=== PATIENT | female | born 1955 | race Caucasian/White ===

== ENCOUNTER → 2018-11-06 12:28 | Outpatient (CLI) | payer OTHER, SELFPAY ==
--- NOTE | 2018-11-06 12:36 | CT_ITS ---
STUDY: CARDIAC CALCIUM SCORING - CT CHEST REASON FOR EXAM: Female, 63 years old. Shortness of breath. Family history of cardiac disease. TECHNIQUE: Axial non-enhanced images were acquired through the heart for the sole purpose of measuring coronary artery calcium. Individualized dose optimization techniques were used for this CT. COMPARISON: None. FINDINGS: Please see the patient's medical record for a personalized calcium score. There is a 0.9 x 0.5 cm nodule in the left lower lobe (image 55 series 2). The visualized lungs are otherwise clear. There are calcified mediastinal and hilar lymph nodes, consistent with prior granulomatous disease. IMPRESSION: Please see the patient's medical record for a personalized calcium score. 0.9 x 0.5 cm nodule in the left lower lobe. A dedicated chest CT is recommended. Please go to: [email or web address] , for a description of the calculator. Electronically Signed: Adria Heard, at 16:10 EDT Tel , Service support , STUDY: CTA CORONARY REASON FOR EXAM: Female, 63 years old. Family history of coronary artery disease. RADIATION DOSAGE (If Supplied By Facility): CTDIvol = ( 16.44 ) mGy, DLP = ( 745.47 ) mGycm TECHNIQUE: Tomographic images were obtained of the heart and chest with a 64 detector row scanner using slice thicknesses of less than 1 mm. 60mL IV Isovue 370 was administered. Post-processing of the angiographic images was performed, with multiplanar reformation and 3D reconstruction. Individualized dose optimization techniques were used for this CT. COMPARISON: None. FINDINGS: Please see the patient's medical record for results of the CT angiogram. There is a 0.9 x 0.5 cm nodule in the left lower lobe (image 163 series 4). The visualized lungs are otherwise clear. There are calcified mediastinal and hilar lymph nodes, consistent with prior granulomatous disease. CT/Limited Chest CT w/CCTA IMPRESSION: Please see the patient's medical record for results of the CT angiogram. 0.9 x 0.5 cm nodule in the left lower lobe. A dedicated chest CT is recommended. Electronically Signed: Adria Heard, at 16:13 EDT Tel , Service support ,
[2018-11-06 12:53] VITALS: BP 117/64; PULSE 66; RESP 16; O2SAT 97; BMI 40.6
[2018-11-06 13:06] LABS: CREATININE FINGERSTICK 0.9 mg/dL (0.55-1.02); EGFR FINGERSTICK > 60.0000 mL/min (>60)
[2018-11-06] MEDS: Nitroglycerin SL (ED/IMG/CATH) 0.4 MG TABLET SUBLINGUAL (13:11)
[2018-11-06 13:24] VITALS: BP 136/70; PULSE 73; RESP 16; O2SAT 95
--- NOTE | 2018-11-07 08:57 | CCTA.WCONT ---
CCTA w/Cont Coronary Arteries Date of Study:: 11/06/18 Shortness of breath High-resolution computed tomographic imaging was performed on 11/07/2019 of the coronary arteries. Intravenous contrast was also injected and 0.625 mm slices were performed. The images were reconstructed and the anatomy evaluated. There was evidence of misregistration artifact noted. LEFT MAIN CORONARY ARTERY: [Normal]-this arises from the left coronary cusp LEFT ANTERIOR DESCENDING CORONARY ARTERY: [No significant atherosclerotic plaquing noted there is misregistration artifact noted in the mid LAD and obstruction cannot be completely excluded] LEFT CIRCUMFLEX CORONARY ARTERY: [Peers to be angiographically normal. Misregistration artifact noted] RIGHT CORONARY ARTERY: [Dominant vessel bifurcating to the posterior descending artery. The mid right coronary artery demonstrates misregistration artifact] THORACIC AORTA: [Normal] PULMONARY ARTERY: [] LEFT ATRIUM/APPENDAGE: [] MITRAL VALVE: [] AORTIC VALVE: [Grossly normal] LEFT VENTRICLE: [] CORONARY CALCIUM SCORE: [No coronary calcium noted] Conclusion: Coronary calcium score of 0 with no obstructive coronary disease noted. The misregistration artifact however may confound the assessment of nonobstructive coronary plaque noted.
== END ==
PROVIDERS: Family Provider Nurse Practitioner Primary Care; PCP Nurse Practitioner Primary Care; Referring Provider Nurse Practitioner Family; Visit Provider Nurse Practitioner Family
DX: R06.02 Shortness of breath (principal); I48.0 Paroxysmal atrial fibrillation
CPT/HCPCS: 75571; 75574; 76380; Q9967; A4216

== ENCOUNTER → 2022-03-10 | Outpatient (CLI) | payer OTHER, SELFPAY ==
[2022-03-23 19:27] LABS: HPV APTIMA, High Risk Positive (Negative)
== END | disposition home or self-care (01) ==
LOC: LABSPEC 16:02
PROVIDERS: PCP Nurse Practitioner Primary Care; Visit Provider Obstetrics & Gynecology
DX: Z78.0 Asymptomatic menopausal state (principal)
CPT/HCPCS: 87624; 88175; G0145

== ENCOUNTER → 2022-03-15 | Outpatient (CLI) | payer OTHER, SELFPAY ==
--- NOTE | 2022-03-15 13:21 | CT_ITS ---
INDICATION: Known carcinoma, restaging EXAMINATION: CT CHEST WITH CONTRAST - CT Chest W/ Contrast Injection TECHNIQUE: Helically acquired images were obtained of the chest following IV contrast. A radiation dose optimization technique was used for this scan. IV Contrast dosage and agent: COMPARISON: PET study from 03/09/2022 FINDINGS: LUNGS, PLEURA AND LARGE AIRWAYS: Lung windows show the lungs to be normally expanded. No organized infiltrate, effusion, or suspicious noncalcified mass or nodule. No pleural effusion or thickening. No pneumothorax. THYROID: No thyroid lesions. HEART AND PERICARDIUM: Heart size is normal. No pericardial effusion. There are calcified coronary vessels VESSELS: Thoracic aorta is not dilated. No aortic dissection. No obvious central pulmonary embolism although this study was not performed with the pulmonary embolism protocol. MEDIASTINUM AND SUDHEER: No suspicious mediastinal or hilar adenopathy. Esophagus is unremarkable. No hiatal hernia. UPPER ABDOMEN: No acute pathology. BONES: Bony structures show degenerative change with a hemangioma noted at T3 CT/Chest WITH Contrast IMPRESSION: No acute pulmonary process, no suspicious noncalcified mass or nodule No suspicious adenopathy Degenerative bony changes Electronically Signed: Paras Bower MD at 10:57 EST ,
[2022-03-15 13:50] LABS: CREATININE FINGERSTICK 0.9 mg/dL (0.55-1.02); EGFR FINGERSTICK > 60.0000 mL/min (>60)
== END | disposition home or self-care (01) ==
LOC: CT 13:20
PROVIDERS: PCP Nurse Practitioner Primary Care; Referring Provider Internal Medicine Medical Oncology; Visit Provider Internal Medicine Medical Oncology
DX: C21.8 Malignant neoplasm of overlapping sites of rectum, anus and anal canal (principal)
CPT/HCPCS: 71260; Q9967

== ENCOUNTER → 2022-03-18 | Outpatient (CLI) | payer OTHER, SELFPAY ==
--- NOTE | 2022-03-18 07:55 | MRI_ITS ---
STUDY: MR PELVIS WITH T WITHOUT CONTRAST REASON FOR EXAM: Female, 67 years old. STAGING ANORECTAL CA TECHNIQUE: Standardized fat and water weighted pulse sequences were obtained in all 3 orthogonal planes, pre-and post contrast administration. 25CC CLARISCAN was administered for the contrast portion of the examination. COMPARISON: PET scan 03/09/2022 FINDINGS: Normal urinary bladder. Normal visualized small intestine. Solid polypoidal mass of the lower rectum extending into the upper anal canal measures 3.8 x 3.0 x 4.8 cm as seen on image 17 series 8 and image 29 of series 5. The mass extends beyond the muscularis propria and invades into the posterior wall of the lower vagina (image 29 series 15, image 27 series 13). There is mass invasion into the internal and external anal sphincters particularly along the left side (image 19 series 8). The mass extends into the lower puborectalis muscle on image 19 of series 8 but NOT into the adjacent ischioanal fat. Mildly enlarged bilateral inguinal lymph nodes are identified including 8.9 x 12.6 mm lymph node in the right inguinal region on image 31 of series 4. Nasal rectal lymph nodes are also identified with the largest single lymph node on image 28 of series 4 measuring 9.0 x 11.2 mm with several small (measuring up to 6.2 mm) lymph nodes in the mesorectal fat on image 24 of series 4. Superior rectal chain lymph nodes are also identified measuring up to 7.3 mm (image 15 series 4). A round, mildly heterogeneous 6 mm lymph node adjacent to the left common iliac artery seen on image 16 of series 8 (2 malignant morphologic criteria met). A total of 11 suspicious local regional lymph nodes are identified. There is no pelvic fluid. There is no pelvic mass lesion or lymphadenopathy. Uterus is unremarkable. There is a small cyst along the anterior/lateral vagina at the level of the pubic symphysis (Jae duct cyst). Normal visualized pelvic arteries. Normal osseous structures. Operative changes of the lower anterior abdominal wall. MRI/Pelvis W/WO Contrast IMPRESSION: 1. 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 Several (total of 11) mesorectal, superior rectal, inguinal (N2b). At least one suspicious (round, heterogeneous, 6 mm) left common iliac lymph node (M1). Electronically Signed: Jason Barber (Brooks), at 9:13 EST Reading Location ID and State: [facility] / [place] , Service support ,
== END | disposition home or self-care (01) ==
LOC: MRI 07:55
PROVIDERS: PCP Nurse Practitioner Primary Care; Referring Provider Internal Medicine Medical Oncology; Visit Provider Internal Medicine Medical Oncology
DX: C21.8 Malignant neoplasm of overlapping sites of rectum, anus and anal canal (principal)
CPT/HCPCS: 72197; A9575

== ENCOUNTER 2022-03-29 12:55 | Day surgery (SDC) | payer OTHER, SELFPAY ==
--- NOTE | 2022-03-25 13:40 | EKG12_ITS ---
Test Reason : PREOP Blood Pressure : / mmHG Vent. Rate : 070 BPM Atrial Rate : 070 BPM P-R Int : 168 ms QRS Dur : 086 ms QT Int : 384 ms P-R-T Axes : 068 005 042 degrees QTc Int : 414 ms Normal sinus rhythm Normal ECG Confirmed by ROBERTO JACKSON, OG ([id number]), medical editor NANCY CASPER ([id number]) on 03/28/2022 10:53:57 AM Referred By: Willy Gaytan Confirmed By:POOL MEJIA MD
[2022-03-29] VITALS (8 sets, daily range): BP systolic 114–144; BP diastolic 50–67; PULSE 47–78; RESP 16–18; TEMP 36.1–37.1; O2SAT 96–100; BMI 39.9
--- NOTE | 2022-03-29 | IMM_PTH ---
PATIENT: LOUIE DOWNEY LOC: [facility] [place] U#:[id number] AGE/SX: 67/F ROOM: RE03/29/[address]: Dr. Pam Joshua DO : 1955 BED: DIS: 03/29/2022 SPEC #: [id number] RECD: 03/31/22 14:11 STATUS: SAKSHI RELenore #: [id number] TAMICA: 03/29/22 00:[address]: Pam Joshua DEPT: IMMUNOHISTOCHEMISTRY RECD BY: Kimmy Downing ENTERED: 03/31/22 14:12 SP TYPE: IMMUNO OTHR DR: Lisa Jordan, LAUNDRY OPERATOR FINISHING-C Tissues: UTERINE CERVIX LEEP Procedures: p16 (initial) KI-67 (add) PHYSICIAN & INSTITUTION [place] [id number] SPECIMEN INFORMATION: Tissue Source: LEEP cone, cervix Clinical Info: Squamous cell carcinoma of anus, HPV + HGSIL pap results Specimen Number: [id number] CPT code: 77696, 73427 METHODOLOGY: Deparaffinized sections of prefer/formalin-fixed tissue or PAP/DQ stained slides are incubated with monoclonal/polyclonal antibodies/oligonucleotide probes. Localization is made via biotin free immunoperoxidase method. Appropriate controls are performed and reacted as expected. Results on target cell population are indicated in the following table: RESULTS: ANTIBODY / CLONE RESULT P16 (E6H4) positive, focal patchy staining Ki-67 (30-9) negative These tests were developed and their performance characteristics determined by [facility]. They may not have been cleared or approved by the U.S. Food and Drug Administration. The FDA has determined that such clearance or approval is not necessary. The above immunohistochemical/dualISH markers are ordered and reviewed by the Pathologist. INTERPRETATION: Cervix, LEEP cone biopsy: Focal changes suspicious for HPV cytopathic effects. SARA:trent 04/01/2022
[2022-03-29] MEDS: Lactated Ringers 1,000 ML 15 ML IV ×2 (14:06→16:00)
--- NOTE | 2022-03-29 14:30 | CONE_PTH ---
PATIENT: LOUIE DOWNEY LOC: [facility] [place] U#:[id number] AGE/SX: 67/F ROOM: RE03/29/[address]: Dr. Pam Joshua DO : 1955 BED: DIS: 03/29/2022 SPEC #: [id number] RECD: 03/30/22 07:32 STATUS: SAKSHI MERRILL #: [id number] TAMICA: 03/29/22 14:[address]: Pam Joshua DEPT: SURGICAL PATHOLOGY RECD BY: Deidre Kruger ENTERED: 03/30/22 07:44 SP TYPE: Leep Cone FAMILIA DR: Lisa Jordan, LEAD ATHLETE-C Tissues: UTERINE CERVIX LEEP Procedures: Surgery Specimen Level V HEADER OPERATION: LEEP cone PRE-OP DIAGNOSIS: Squamous cell carcinoma of anus, HPV + HGSIL pap results TISSUE SUBMITTED: LEEP cone, cervix MICROSCOPIC DIAGNOSIS Cervix, LEEP cone biopsy: Focal changes suspicious for HPV cytopathic effects. Chronic inflammation. Negative for carcinoma. SJ:trent 03/31/2022 COMMENT Immunohistochemistry ([id number]) for surrogate HPV marker (p16) supports the above diagnosis. Case has been reviewed in consultation with Dr. Holliday who concurs with the above diagnosis. IDC:AM MICROSCOPIC DESCRIPTION Slides are reviewed. GROSS DESCRIPTION Received in fixative is one container labeled with the patient's name and designated LEEP cone. The specimen consists of four irregular fragments of patel tissue ranging in size from 1 to 2.2 cm. No gross lesions are identified. The fragments are inked, serially sectioned and totally submitted in four cassettes. / AM:trent 03/30/2022 TC:5 CPT: 82369
--- NOTE | 2022-03-29 14:30 | PCM.HP.BLA ---
History and Physical Date of Admission: 03/29/22 Intake Vital Signs ? 03/10/2214:40 03/10/2214:43 Height 5 ft 9 in 5 ft 9 in Weight: ? 279 lb BMI ? 41.2 Intake Visit Reasons:?per JV Chief Complaint: biopsy Steward/Stewardess Deck Required: No Is patient in pain?: Yes Allergies meperidine [From Demerol] Allergy (Verified 03/10/22 09:38) Unknownoxaprozin Allergy (Verified 03/10/22 09:38) Unknown Medications alprazolam 0.25 mg tablet (Xanax) 0.25 mg PO DAILY 02/28/22 [History Confirmed 03/10/22] aspirin 325 mg tablet 325 mg PO DAILY 02/28/22 [History Confirmed 03/10/22] diltiazem HCl 120 mg capsule,extended release 12 hr 120 mg PO BID 02/28/22 [History Confirmed 03/10/22] metoprolol succinate 25 mg tablet,extended release 24 hr 25 mg PO DAILY 02/28/22 [History Confirmed 03/10/22] omeprazole 20 mg capsule,delayed release 20 mg PO DAILY 02/28/22 [History Confirmed 03/10/22] propafenone 150 mg tablet 150 mg PO Q8H 02/28/22 [History Confirmed 03/10/22] simvastatin 20 mg/5 mL (4 mg/mL) oral suspension 20 mg PO DAILY 02/28/22 [History Confirmed 03/10/22] Is last menstrual period known: No Post menopausal: Yes Patient : No : No PFSH Medical History?(Updated 03/10/22 @ 14:48 by Fadumo Muhammad) Afib Breast cancer Esophageal reflux Sleep apnea Surgical History?(Updated 03/10/22 @ 14:48 by Fadumo Muhammad) H/O section History of laparoscopy Hx of mastectomy Family History?(Updated 03/10/22 @ 14:48 by Fadumo Muhammad) Father?? Myocardial infarctionMother?? COPD (chronic obstructive pulmonary disease)Other Colon cancer Social History?(Updated 03/10/22 @ 14:49 by Fadumo Muhammad) Smoking Status:? Never smoker alcohol intake:? current details:? social substance use type:? does not use caffeine:? Yes seatbelt use:? always do you feel safe at home:? Yes additional social history:? retired- HPI per JV Details: Patient presents to [facility] OR for scheduled colposcopy and LEEP procedure. LOUIE DOWNEY is a 67 year old ( section) who presents for a vaginal exam due to finding of mass protruding into her vagina discovered by Dr. Scott. She has a known carcinoma of squamous cell origin but site still not completely known. PET Scan from today is pending. She states that she had one inconclusive pap back in 2015 but from 2005 to 2011 she had normal paps with her PCP and was told that she did not need any more pap smears. She went through menopause at age 48 and never took hormone replacement therapy. She used OCPs prior to the of her daughter and then during her section had a tubal ligation. In 1983 she was diagnosed with breast cancer and treated with Tamoxifen for 5 years. She denies ever having had any postmenopausal bleeding. ?This is her series of events this far: on 02/09/2022: Patient was seen by GI with a complaint of rectal bleeding that started over the summer. She thought it was hemorrhoid tissue and that when she wiped she felt an abnormal tissue. She called her GI who put her on his schedule in March 2022, but was put on a waiting list and was added in before .? On exam there were no hemorrhoids or masses or lesions noted in the perineum, anus or rectum, patient had normal sphincter tone. 02/18/2022: Patient completed colonoscopy to the cecum with biopsy of small sessile polyp in the cecum and a biopsy of a mass in the rectum.? Scope exam revealed a large hemorrhoid and/or a possible mass within the hemorrhoid in the rectum and biopsies were taken of this lesion.? Pathology demonstrated focal keratinizing squamous cell carcinoma with at least in situ disease, superficial biopsy and invasion cannot be assessed. 02/19/2022: CT abdomen/pelvis with contrast was performed.? This demonstrated a large volume of free intraperitoneal air consistent with perforation, the exact site of perforation not clearly visualized.? There is asymmetric wall thickening of the rectum.? There are small renal lesions which are likely cysts but too small to characterize.? There is a small hiatal hernia.? No other abnormalities are appreciated. 02/19/2022: Patient completed exploratory laparotomy and partial colectomy with rigid sigmoidoscopy and wound VAC application due to having pneumoperitoneum on CT scan with evidence of diverticular disease.? There is noted to be a small perforation in the cecum from barotrauma, no evidence of mass or neoplasia.? There is no surrounding feculent or purulent peritonitis.? Within the distal mid and proximal rectum there is a firm fixed distal anterior rectal mass along the rectovaginal septum abutting the dentate line which was biopsied with a uterine biopsy device.? The area is ulcerated and firm and has a friable mass that bleeds easily.? This extends from the dentate line for approximately one quarter of the circumference of the distal rectum and extends to the mid rectum approximately 4-5 cm.? Pathology demonstrated invasive moderately differentiated squamous cell carcinoma with focal keratinization in the background of squamous cell carcinoma in situ. 03/10/22 PET scan performed - results pending. History ? ? ? 1 ? Elective abortions ? Hx Para ? ? ? 1 ? Spontaneous abortions ? Hx # Term Pregnancies ? Ectopic pregnancies ? Hx # Pregnancies ? Multiple births ? # of living children ? Past Pregnancies Del. Date Name GA/Weeks Outcome Route Bth Weight Gen Labor Lgth Anesthesia Del Locatn Provider FOB Unknown [place] ? ROS Const ROS Unobtainable: All systems reviewed & are unremarkable except as noted in H Resp Resp: Reports system reviewed and no additional complaints, except as documented; Denies cough GI GI: Reports as per HPI Psych Psych: Reports system reviewed and no additional complaints, except as documented Exam Const General: cooperative, healthy appearing, comfortable and no acute distress Neck Neck: normal visual inspection and no lymphadenopathy Resp Effort & Inspection: normal respiratory effort GI Palpation: tender (wound vac in place over midline vertical skin incision. ) and other General: bladder normal to inspection External Female Exam: normal external appearance and normal appearance of the urethra Urethra: normal appearance of the urethra Speculum Exam - Vagina: other Other: A small size speculum was placed in the vagina with some initial difficulty due to a palpable posterior vaginal/rectal mass. Once past the mass the vaginal kerr appeared normally atrophic and the cervix was visible, smooth and normal appearing from what could be visualized with some difficulty. A pap was collected and caused a small amount of bleeding from the atrophied tissue. On bimanual exam the cervix palpates smooth without lesions and the rectal mass is palpated closer to the introitus. The mass does not appear to be coming from the vagina or cervix or uterus on my exam. Pt declines rectal exam stating that this was done today by Dr. Scott. No biopsies were taken Skin General: no rashes or lesions noted Psych Appearance: grossly normal Speech and Movement: speech and movement normal Coding Level of Care Code Off vis,new,level 4 Diagnoses Squamous cell carcinoma of anus? C21.0 Assessment and Plan Assessment and Plan (1) Squamous cell carcinoma of anus: ?Status:?Acute ?Plan: will look forward to seeing results of MRI, however this does not feel like a vaginal cancer. There are no ulcers, odor, fistula, or other lesions in the vagina other than atrophy and difficult exam due to enlarged mass from rectum pushing into the introitus between the rectovaginal tissue. ? ? ? Orders: Orders PAP IG HPV APTIMA 16/18,45 Today ? ? (2) HPV + HGSIL pap results - pt will need OR assessment of the cervix with colposcopy and leep/cone After discussing the patient's diagnosis and treatment plan options, patient wishes to proceed with surgical management. I have discussed with the patient the risks, benefits, and alternatives of the procedure which include but are not limited to risks of anesthesia, bleeding, infection, possible damage to bowel, bladder, or surrounding vasculature which could lead to additional surgery to evaluate any complications. Patient agrees to procedure and wishes to proceed. ACOG/uptodate references given for additional information regarding procedure. UPDATE- I have seen the patient and performed any clinically relevant updates to the history and physical exam. Pam Joshua,
--- NOTE | 2022-03-29 14:45 | DCINST_ITS ---
Discharge Instructions Diet Discharge Diet: No restrictions Activity Discharge Activity: Return to Normal Activity and [address] (while taking narcotic pain mediations.) May resume sexual activity in: 4 weeks (Nothing in the vagina for 4 weeks.) Dressing / Incision Call your doctor if you observe: Fever of 101 or Higher and Using more than 1 pad per hour Follow Up Care Please Follow Up With: Pam Joshua DO When: Call [phone] for follow-up appointment. Test Results: Test results from this visit will be discussed in further detail at your follow- up appointment, if applicable. Discharge Plan Admission Primary Reason for Your Visit: LEEP procedure and port placement Attending Provider: aPm Joshua Primary Care Provider: Lisa Jordan NP Instructions Patient Instructions: Leep Discharge Orders/Prescriptions Prescriptions: New oxycodone-acetaminophen [Percocet] 5-325 mg tablet 1 tab PO Q4H PRN (Reason: pain) 3 Days Qty: 10 0RF Rx Instructions: 1-2 tabs q 4 hrs as needed for pain No Action omeprazole 20 mg capsule,delayed release(DR/EC) 20 mg PO DAILY alprazolam [Xanax] 0.25 mg tablet 0.25 mg PO PRN PRN (Reason: Anxiety) diltiazem HCl 120 mg capsule,extended release 12 hr 120 mg PO DAILY metoprolol succinate 25 mg tablet extended release 24 hr 25 mg PO DAILY propafenone 150 mg tablet 150 mg PO PRN PRN (Reason: AF) simvastatin 20 mg Tablet 20 mg PO QHS Centrum Silver Ultra Women's Tablet 1 tab PO DAILY Referrals / Follow Up: Lisa Jordan NP, [facility] [Primary Care Provider] - Disposition Disposition (needs filled in before D/C Order can be placed): Home, Self Care
[2022-03-29] MEDS: Lidocaine 2% /Epi 1:100 (20ml) 20 ML VIAL (15:15)
[2022-03-29] MEDS: Iodine/Potassium Iodide 14ML Bottle 1 DRP TOPICAL (15:39)
[2022-03-29] MEDS: FERRIC SUBSULFATE 8 GM SOLN (15:45)
--- NOTE | 2022-03-29 15:53 | PCM.OP.BLANK ---
Operative Report Date of Procedure: 03/29/22 Preoperative diagnosis: HGSIL, + HPV, rectal cancer Postoperative diagnosis: HGSIL, + HPV, rectal cancer Procedure: LEEP (loop electrocautery excisional procedure) Surgeon: Dr. Pam Joshua DO Estimated blood loss: Minimal Urine output: 20 cc Anesthesia: general and local using 2% lidocaine Details of the procedure: Patient was brought to the operating room where MAC anesthesia was found to be adequate. She was prepped and draped in the usual sterile fashion her legs were placed in stirrups. A thermal protected speculum was placed in the vagina. Lugol's solution was applied to the cervix. At the 2 and 10 o'clock position on the cervix 1% lidocaine plain was injected approximately 10 cc amount. Using the leep biopsy device on the Bovie, the LEEP procedure was performed. The specimen was then passed off for pathology analysis. There was minimal bleeding on the cervical edge the ball cautery device was used to cauterize the cut edges of the LEEP site. Followed by application of Monsel solution. The patient tolerated the procedure well sponge lap and needle counts were correct x2 and all instruments removed from the vagina and she is now being brought to the recovery room in stable condition. Multi Select Codes Urinary/Genital Urinary/Genital CPT Codes: 59304 LEEP
[2022-03-29] MEDS: Bupiv/Epi 0.5% Mpf 30 ML Vial (16:00)
--- NOTE | 2022-03-29 17:00 | RAD_ITS ---
INDICATION: PORT PLACEMENT EXAMINATION/TECHNIQUE: X-RAY - portable upright AP chest x-ray COMPARISON: Chest CT 03/15/2022 FINDINGS: LINES/DEVICES: Right-sided port, tip in the SVC near the cavoatrial junction. LUNGS: Bibasilar streaky opacities consistent with subsegmental atelectasis. No consolidation or pleural effusion. MEDIASTINUM AND CARDIOVASCULAR STRUCTURES: Cardiac silhouette not enlarged. Central airways and mediastinal contour are unremarkable. BONES AND SOFT TISSUES: No acute changes. RAD/CXR for Line Placement IMPRESSION: No radiographic evidence of acute cardiopulmonary disease. Electronically Signed: Yazan Espinoza MD at 17:45 EST ,
--- NOTE | 2022-03-29 17:18 | OP.PCM_ITS ---
Report of Operation Date of Procedure: 03/29/22 Pre-Operative Diagnosis: Need for vascular assess for chemotherapy Post-Operative Diagnosis: Same Surgery/Procedure Performed:: Ultrasound and fluoroscopy guided right chest port placement utilizing right IJ Description of Procedure: After obtaining informed consent patient was brought back to the operating room MAC anesthesia was induced and the right chest and neck were prepped in normal s terile fashion. Ultrasound was used to evaluate both IJs and the right IJ was selected. Next, using a needle, the right IJ was accessed and a guidewire was passed on into the superior vena cava under fluoroscopy guidance. A small incision was made over the puncture site and the dilator introducer was placed over the guidewire. Next this was capped and the pocket was made for the port. 1% lidocaine with epinephrine was injected in the proposed port site. An incision was made with scalpel. Electrocautery was used to make a pocket under the skin and subcutaneous tissue. Hemostasis was obtained. Next, the catheter was tunneled up to the neck incision site and placed through the introducer. The peel-away introducer was removed and the position of the catheter was confirmed on fluoroscopy. Next, the catheter was trimmed and attached to the port with the locking device. Interrupted 2-0 Vicryl sutures were used to anchor the port to the chest wall and then the port was placed inside the pocket. The pocket was then flushed with saline and the port irrigated with saline. There was good blood return and the port flushed easily. Next, heparin was injected into the port. The skin was closed with subcutaneous interrupted 3-0 Vicryl sutures. A single 3-0 Vicryl sutures placed under the skin at the neck incision site. Steri-Strips were placed as well as op sites. Patient ernie erated procedure well, was taken to PACU in stable condition. Chest x-ray will be obtained. Grafts/Implants Used: 8 [place] PowerPort Admit VTE Documentation VTE Mechan Device Prophylaxis: SCD's
--- NOTE | 2022-03-29 17:19 | EX.PCM.DISCH ---
Discharge Instructions Procedure Port-A-Cath Diet Discharge Diet: No restrictions Activity Discharge Activity: Return to Normal Activity and May Shower (with your bandage in place in 1-2 days after surgery. DO NOT SHOWER WHEN YOUR PORT IS ACCESSED.) May resume sexual activity in: 4 weeks (Nothing in the vagina for 4 weeks.) Dressing / Incision Call your doctor if your incision/area has: Continuous Slow Oozing, Sudden Increased Bleeding, Increased Pain/ Swelling, Increased Redness and Foul Smelling Discharge Call your doctor if you observe: Fever of 101 or Higher and Using more than 1 pad per hour Remove Dressing in: 2 days Cleanse incision/area with: Soap & Water Follow Up Care Please Follow Up With: Pam Joshua, When: as needed [phone] Test Results: Test results from this visit will be discussed in further detail at your follow-up appointment, if applicable. Discharge Plan Admission Primary Reason for Your Visit: LEEP procedure and port placement Attending Provider: Pam Joshua Primary Care Provider: Lisa Jordan NP Instructions Patient Instructions: Leep Discharge Orders/Prescriptions Prescriptions: New oxycodone-acetaminophen [Percocet] 5-325 mg tablet 1 tab PO Q4H PRN (Reason: pain) 3 Days Qty: 10 0RF Rx Instructions: 1-2 tabs q 4 hrs as needed for pain No Action omeprazole 20 mg capsule,delayed release(DR/EC) 20 mg PO DAILY alprazolam [Xanax] 0.25 mg tablet 0.25 mg PO PRN PRN (Reason: Anxiety) diltiazem HCl 120 mg capsule,extended release 12 hr 120 mg PO DAILY metoprolol succinate 25 mg tablet extended release 24 hr 25 mg PO DAILY propafenone 150 mg tablet 150 mg PO PRN PRN (Reason: AF) simvastatin 20 mg Tablet 20 mg PO QHS Centrum Silver Ultra Women's Tablet 1 tab PO DAILY Referrals / Follow Up: Lisa Jordan NP, MOTHER TESTER-C [Primary Care Provider] - Disposition Disposition (needs filled in before D/C Order can be placed): Home, Self Care
== END 2022-03-29 19:30 | disposition home or self-care (01) ==
LOC: SDC 12:57 → AC 12:58
PROVIDERS: Surgery; PCP Nurse Practitioner Primary Care; Referring Provider Obstetrics & Gynecology; Visit Provider Obstetrics & Gynecology
PROC: 0UBC7ZZ Excision of Cervix, Via Natural or Artificial Opening (ICD-10-PCS; CPT 57522; principal; 2022-03-29 14:15)
PROC: (CPT 36561; 2022-03-29 14:15)
DX: Z45.2 Encounter for adjustment and management of vascular access device (principal); C21.0 Malignant neoplasm of anus, unspecified; I48.91 Unspecified atrial fibrillation; I34.1 Nonrheumatic mitral (valve) prolapse; I10 Essential (primary) hypertension; E78.00 Pure hypercholesterolemia, unspecified; R87.613 High grade squamous intraepithelial lesion on cytologic smear of cervix (HGSIL); R87.810 Cervical high risk human papillomavirus (HPV) DNA test positive; Z79.82 Long term (current) use of aspirin; Z79.899 Other long term (current) drug therapy; Z85.3 Personal history of malignant neoplasm of breast
CPT/HCPCS: 57522; 36561; 00940; 71045; 77001; 88307; 88341; 88342; 93005; J7120; C1788; J2405

== ENCOUNTER → 2022-03-29 | Outpatient (CLI) | payer OTHER, SELFPAY | END | disposition home or self-care (01) | LOC: PAT 04-27 15:18 | PROVIDERS: PCP Nurse Practitioner Primary Care; Referring Provider Surgery; Visit Provider Surgery | DX: Z01.818 Encounter for other preprocedural examination (principal) | CPT/HCPCS: 77001 ==

== ENCOUNTER → 2022-04-01 | Outpatient (CLI) | payer OTHER, SELFPAY ==
--- NOTE | 2022-04-01 13:40 | ECHODONC_ITS ---
Version 2 Reason For Study: Pre Chemo Procedure This was a 2D Doppler, Color Flow transthoracic echocardiogram. Myocardial strain analysis was performed in this exam to aid in the assessment of cardiac function. The study was technically difficult. Patient refused Bubble Study. Exam performed in department. Left Ventricle Normal LV size. Left ventricular systolic function is normal. The estimated ejection fraction is 60 %. Stage 1 diastolic dysfunction. No regional wall motion abnormalities noted. Right Ventricle Normal RV size. Normal systolic function. Atria The left atrium is mildly enlarged. Normal right atrium. Mitral Valve Normal mitral valve. Tricuspid Valve Normal tricuspid valve. Aortic Valve Trisinus/trileaflet aortic valve. Pulmonic Valve The pulmonic valve is not well visualized. Great Vessels Mildly dilated aortic root. The pulmonary artery is normal size. Inferior vena cava collapse with respiration. Pericardium/Pleural No pericardial effusion. MMode/2D Measurements & Calculations LVIDd: 4.5 cm IVSd: 1.6 cm Ao root diam: 3.8 cm LVIDs: 3.3 cm LVPWd: 1.1 cm LA dimension: 4.4 cm RVDd: 4.5 cm FS: 26.8 % LAV(MOD-bp): 70.6 ml LA A4 area: 22.2 cm2 RA A4 area: 16.6 cm2 LAV(MOD-bp) Indexed: 29.9 ml/m2 LAV(MOD-sp2): 62.8 ml LAV(MOD-sp4): 64.9 ml Time Measurements MV dec time: 0.22 sec Doppler Measurements & Calculations MV E max bartolo: 95.6 cm/sec Lat Peak E' Bartolo: 10.1 cm/sec Med Peak E' Bartolo: 9.1 cm/sec MV A max bartolo: 105.3 cm/sec E/E' lat: 9.5 E/E' med: 10.5 MV E/A: 0.91 MV V2 max: 125.5 cm/sec MV P1/2t max bartolo: 111.2 cm/sec Ao V2 max: 135.7 cm/sec MV max P.3 mmHg MV P1/2t: 75.1 msec Ao max P.4 mmHg MV V2 mean: 68.9 cm/sec MV dec slope: 433.7 cm/sec2 MV mean P.2 mmHg MVA(P1/2t): 2.9 cm2 MV V2 VTI: 33.8 cm LV V1 max: 154.8 cm/sec PA V2 max: 135.7 cm/sec LV V1 max P.6 mmHg PA V2 mean: 94.4 cm/sec ECHO/ONC Echo Complete Interpretation Summary Normal LV size. Left ventricular systolic function is normal. The estimated ejection fraction is 60 %. Stage 1 diastolic dysfunction. The left atrium is mildly enlarged. Mildly dilated aortic root. The global longitudinal strain is normal. The global longitudinal strain = -18. 7 % (normal). Ordering Physician: Navneet Jackson Referring Physician: Lisa Jordan Performed By: Froy Proctor RCS
== END | disposition home or self-care (01) ==
LOC: CVS 13:39
PROVIDERS: PCP Nurse Practitioner Primary Care; Visit Provider Internal Medicine Medical Oncology
DX: Z51.11 Encounter for antineoplastic chemotherapy (principal); C21.8 Malignant neoplasm of overlapping sites of rectum, anus and anal canal
CPT/HCPCS: 93306; 93356

== ENCOUNTER → 2022-08-11 | Outpatient (CLI) | payer OTHER, SELFPAY ==
--- NOTE | 2022-08-11 07:55 | MRI_ITS ---
STUDY: MR PELVIS WITH T WITHOUT CONTRAST REASON FOR EXAM: Female, 67 years old. Rectal squamous cell carcinoma, status post radiation therapy/treatment. TECHNIQUE: Standardized fat and water weighted pulse sequences were obtained in all 3 orthogonal planes, pre-and post contrast administration. IV 23 cc clariscan was administered for the contrast portion of the examination. COMPARISON: 03/18/2022 MRI pelvis, 08/09/2022 PET scan FINDINGS: Normal urinary bladder. Normal visualized small intestine. The low rectal mass described on prior MRI is not seen on the current exam. Residual smooth wall thickening along the anterior left rectum evident on image 32 of series 4 but without demonstrable focal mass or abnormal contrast enhancement. There is slight induration of the perirectal fat on image 27 of series 3, likely related to post treatment/radiation fibrosis. No focal fluid collection. Preserved fat plane between the posterior vaginal wall and anterior rectal wall is seen on sagittal images 27-29 without discrete mass. There is slight irregularity of the left anterolateral wall at approximately 1:00 to 2:00 position on image 16 of series 8 that abuts the posterior wall of the vagina. However, relatively hypoechoic T1/T2 appearance and lack of abnormal contrast enhancement is seen, favoring post radiation fibrosis. The mesorectal lymph nodes have involuted since the prior study. For instance, tiny lymph node on image 14 of series 8 measures 3.3 mm (previously measured up to 9 mm in short axis). Superior rectal chain lymph nodes evident on the prior exam are no longer identified (comparing image 14 series 3 with image 15 series 4 the prior exam). No iliac chain adenopathy on the current exam. There is no pelvic fluid. There is no pelvic mass lesion or lymphadenopathy. Uterus is unremarkable. There is a small cyst along the anterior/lateral vagina at the level of the pubic symphysis (Jae duct cyst), stable. Normal visualized pelvic arteries. No bone marrow edema. Operative changes of the lower anterior abdominal wall. MRI/Pelvis W/WO Contrast IMPRESSION: 1. Since 03/18/2022, significant favorable change/response. NO discrete rectal mass or adenopathy on the current exam. Hypointense rectal thickening along the left anterolateral wall does NOT demonstrate contrast enhancement, favoring post radiation fibrosis. 2. NO vaginal wall invasion documented. Electronically Signed: Jason Barber (Brooks), at 8:17 EDT Reading Location ID and State: [facility] / MD , Service support ,
== END | disposition home or self-care (01) ==
LOC: MRI 07:55
PROVIDERS: PCP Nurse Practitioner Primary Care; Referring Provider Student in an Organized Health Care Education/Training Program; Visit Provider Student in an Organized Health Care Education/Training Program
DX: C21.8 Malignant neoplasm of overlapping sites of rectum, anus and anal canal (principal)
CPT/HCPCS: 72197; A9575

== ENCOUNTER 2022-10-04 07:45 | Day surgery (SDC) | payer OTHER, SELFPAY ==
[2022-10-04 08:22] VITALS: BP 132/54; PULSE 82; RESP 18; TEMP 36.8; O2SAT 99; BMI 38.4
[2022-10-04] MEDS: Lactated Ringers 1,000 ML 15 ML IV (08:26)
[2022-10-04 08:27] LABS: Hematocrit 35.8 % (37-47); Mean Corp Hgb Conc 30.7 g/dL (32-36); Mean Corpuscular Hgb 31.1 pg (27.0-32.0); Mean Corpuscular Volume 101.1 fL (81-99); Mean Platelet Vol. 8.9 fl (6.2-12.0); Platelet Count 224 K/mm3 (150-450); RBC Distribution Width CV 12.7 % (11.6-14.6); RBC Distribution Width SD 47.7 fl (35.1-43.9); Red Blood Count 3.54 M/mm3 (4.2-5.4); White Blood Count 3.1 K/mm3 (4.4-11.0)
--- NOTE | 2022-10-04 08:28 | HP.PCM_ITS ---
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: No Is patient in pain?: No Allergies meperidine [From Demerol] Allergy (Verified 09/07/22 08:22) Unknownoxaprozin Allergy (Verified 09/07/22 08:22) Unknown Medications alprazolam 0.25 mg tablet (Xanax) 0.25 mg PO PRN PRN Anxiety 02/28/22 [History Confirmed 09/07/22] diltiazem HCl 120 mg capsule,extended release 12 hr 120 mg PO DAILY 02/28/22 [History Confirmed 09/07/22] metoprolol succinate 25 mg tablet,extended release 24 hr 25 mg PO DAILY 02/28/22 [History Confirmed 09/07/22] omeprazole 20 mg capsule,delayed release 20 mg PO DAILY 02/28/22 [History Confirmed 09/07/22] propafenone 150 mg tablet 150 mg PO PRN PRN AF 02/28/22 [History Confirmed 09/07/22] bsvipufj-abifdbb-fkeu-lutein tablet 1 tab PO DAILY 03/28/22 [History Confirmed 09/07/22] simvastatin 20 mg tablet 20 mg PO QHS 03/28/22 [History Confirmed 09/07/22] lidocaine-prilocaine 2.5 %-2.5 % topical cream 1 applic topical ONCE PRN port access 30 days #30 grams 03/30/22 [Rx Confirmed 09/07/22] ondansetron 8 mg disintegrating tablet 8 mg PO Q8H PRN nausea and vomiting #30 tabs 03/30/22 [Rx Confirmed 09/07/22] prochlorperazine maleate 10 mg tablet 10 mg PO Q6H PRN nausea and vomiting #30 tabs 03/30/22 [Rx Confirmed 09/07/22] MAGIC MOUTH WASH (BMX) 180 mL suspension 5 ml PO .ac #180 mL 04/11/22 [Rx Confirmed 09/07/22] loperamide 2 mg capsule (Imodium A-D) 2 mg PO Q4H PRN 07/18/22 [History Con firmed 09/07/22] oxybutynin chloride 5 mg tablet,extended release 24 hr (Ditropan XL) 5 mg PO DAILY 07/18/22 [History Confirmed 09/07/22] mecobalamin (vitamin B12) 1,000 mcg chewable tablet 1,000 mcg PO DAILY #120 tabs 08/04/22 [Rx Confirmed 09/07/22] Is last menstrual period known: No Patient : No : No PFSH Medical History Afib Anxiety Arthritis Arthritis Back pain Cancer Cardiology follow-up encounter CPAP (continuous positive airway pressure) dependence Depression Encounter for education Gastric reflux HGSIL (high grade squamous intraepithelial lesion) on Pap smear of cervix High cholesterol History of diverticulosis History of echocardiogram History of edema History of stress test HPV (human papilloma virus) infection Hypertension Non-smoker Open wound Post-menopausal Wears glasses Surgical History H/O section H/O LEEP History of laparoscopy Hx of colonoscopy Hx of mastectomy Family History Father Myocardial infarctionMother COPD (chronic obstructive pulmonary disease)Other Colon cancer Social History Smoking Status: Never smoker alcohol intake: current details: social substance use type: does not use caffeine: Yes seatbelt use: always do you feel safe at home: Yes additional social history: retired- [employer] Pre-op visit Details: LOUIE DOWNEY is a 67 year old who presents for preop exam. She is scheduled for a routine follow up pap and colposcopy. She is status post chemo and radiation for rectal cancer. In Mar she had an hgsil HPV + pap and normal leep then after diagnosis. The tumor size is drastically reduced, however due to the radiation her vaginal canal is very stenotic and difficult to exam in the office. History 1 Elective abortions Hx Para 1 Spontaneous abortions Hx # Term Pregnancies Ectopic pregnancies Hx # Pregnancies Multiple births # of living children Past Pregnancies Del. Date Name GA/Weeks Outcome Route Bth Weight Gen Labor Lgth Anesthesia Del Locatn Provider FOB Unknown [place] ROS Const ROS Unobtainable: All systems reviewed & are unremarkable except as noted in H Resp Resp: Reports system reviewed and no additional complaints, except as documented; Denies cough GI GI: Reports as per HPI Psych Psych: Reports system reviewed and no additional complaints, except as documented Exam Const General: cooperative, healthy appearing, comfortable and no acute distress Resp Effort & Inspection: normal respiratory effort Skin General: no rashes or lesions noted Psych Appearance: grossly normal Speech and Movement: speech and movement normal Coding Level of Care Code Off vis,est,level 3 Diagnoses Carcinoma of anorectum C21.8 Status post chemotherapy Z92.21 Anemia D64.9 Anemia type: B12 deficiency Perianal pain K62.89 Acute radiation dermatitis L58.0 Chemotherapy management, encounter for Z51.11 H/O LEEP Z98.890 HPV (human papilloma virus) infection B97.7 HGSIL (high grade squamous intraepithelial lesion) on Pap smear of cervix R87.613 Assessment and Plan Assessment and Plan (1) Carcinoma of anorectum: Status: Acute Comment: Anal Cancer, squamous cell type, 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 Started chemotherapy Mitomycin and 5FU together with Radiation therapy on 04/04/2022. Got [id number] from 05/02/2022 to 05/06/2022. Finished Radiation on 05/13/2022. Biopsy of residual mass on 07/28/2022 was negative. PET/CT 08/09/2022 reviewed, shows no activity suggestive of malignancy. MRI pelvis 08/11/22 reviewed, shows resolution of tumor and nodes. No evidence of disease clinically. Discussed disease status, observation for recurrence. (2) Status post chemotherapy: Status: Acute Comment: Counts are trending upwards (3) Anemia: Status: Acute Qualifiers: Anemia type: B12 deficiency Comment: Iron profile is normal, HGB is trending upwards. (4) Perianal pain: Status: Acute Comment: Due to anal cancer, on Percocet prn, Pain service is coming to her house. (5) Acute radiation dermatitis: Status: Acute (6) Chemotherapy management, encounter for: Status: Acute Comment: Counts and chemistry reviewed, OK for therapy. (7) H/O LEEP: Status: Acute (8) HPV (human papilloma virus) infection: Status: Acute (9) HGSIL (high grade squamous intraepithelial lesion) on Pap smear of cervix: Status: Acute Plan: After discussing the patient's diagnosis and treatment plan options, patient wishes to proceed with surgical management. I have discussed with the patient the risks, benefits, and alternatives of the procedure which include but are not limited to risks of anesthesia, bleeding, infection, possible damage to bowel, bladder, or surrounding vasculature which could lead to additional surgery to evaluate any complications. Patient agrees to procedure and wishes to proceed. ACOG/uptodate references given for additional information regarding procedure. plan for colp + pap under anesthesia for patient comfort.
[2022-10-04 08:43] LABS: ALB/GLOB Ratio 0.7 RATIO (0.9-2.4); AST(SGOT) 20 U/L (15-37); Alanine Aminotransfer ALT/SGPT 16 U/L (13-56); Albumin, Serum 2.7 g/dL (3.2-5.0); Alkaline Phosphatase 86 U/L (45-117); Anion Gap 5 (5-15); BUN 17 mg/dL (7-18); BUN/Creat Ratio 18.6 RATIO (10-20); Calcium,Total 8.6 mg/dL (8.5-10.1); Chloride 111 mmol/L (98-107); Creatinine, Serum 0.92 mg/dL (0.55-1.02); EST Glomerular Filtration Rate 65 mL/min (>60); Est Glom Filt Rate - Afr Amer 78 mL/min (>60); Estimated Creatinine Clearance 60.31 ml/min; Globulin 3.9 g/dL (2.2-4.2); Glucose 100 mg/dL (74-106); Potassium 4.1 mmol/L (3.5-5.1); Protein, Total 6.6 g/dL (6.4-8.2); Sodium Level 142 mmol/L (136-145)
--- NOTE | 2022-10-04 09:25 | CER_PTH ---
PATIENT: LOUIE DOWNEY [place]: [facility] [place][id number] AGE/SX: 67/F ROOM: RE10/04/[address]: Dr. Pam Joshua DO : 1955 BED: DIS: 10/04/2022 SPEC #: [id number] RECD: 10/04/22 11:48 STATUS: SAKSHI MOMIN #: [id number] TAMICA: 10/04/22 09:[address]: Pam Joshua DEPT: SURGICAL PATHOLOGY RECD BY: Deidre Kruger ENTERED: 10/04/22 12:18 SP TYPE: CERV OTHR DR: Lisa Jordan, LATHE WINDER-C Tissues: Uterine cervix, NOS Procedures: Surgery Specimen Level IV HEADER OPERATION: Colposcopy, pap and exam under anesthesia PRE-OP DIAGNOSIS: History HPV, anal CA TISSUE SUBMITTED: Cervical biopsy MICROSCOPIC DIAGNOSIS Cervix, biopsy: Fragment of fibroconnective tissue. See comment. AM:trent 10/05/2022 COMMENT No mucosa is present in the biopsy. Clinical correlation is suggested. MICROSCOPIC DESCRIPTION Slides are reviewed. GROSS DESCRIPTION Received in fixative is one container labeled with the patient's name and designated cervical biopsy. The specimen consists of one irregular fragment of light patel soft tissue that measures 0.3 x 0.2 x 0.1 cm. The specimen is totally submitted in one cassette. / SJ:trent 10/04/2022 TC:5 CPT: 19370
[2022-10-04] MEDS: Bupivacaine 0.25% 30 ML Vial (09:42)
--- NOTE | 2022-10-04 10:00 | PCM.OPRPT ---
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 no residual masses Surgeon: Pam Joshua track subway repair supervisor: None Type of Anesthesia: Local and MAC Specimen's removed: cervix biopsy, pap smear Drains: none Estimated Blood Loss (mL): none Description of Procedure: The patient was brought to the operating room where MAC anesthesia was found to be adequate she was prepped and draped in the normal sterile fashion. Her legs were placed in stirrups. Her perineum was injected with 1% lidocaine without epi. This was performed for her comfort due to radiation dermatitis and vaginal stenosis. A small speculum was inserted into the vagina and the very small cervix was identified a Pap was first collected. Next 5% acetic acid was applied to the cervix and a colposcope was used to perform colposcopy. Very small random biopsy was performed on the cervix. This was performed for patient's request due to her history of anal cancer and history of HGSIL within the last 6 months. Monsel solution was applied to the cervical biopsy site and no bleeding was noted. The speculum and all instruments were removed from the vagina. The patient tolerated the procedure very well sponge lap and needle counts were correct x2 she is now being brought to the recovery room in stable condition Complications none Admit VTE Documentation VTE Present on Admission: No VTE Mechan Device Prophylaxis: SCD's VTE Pharm Prophylaxis ordered?: No Multi Select Codes Urinary/Genital Urinary/Genital CPT Codes: [address] [place] Vagina +/- cervix + Bx
[2022-10-04 10:04] VITALS: BP 100/55; BP 132/54; PULSE 76; RESP 16; TEMP 36.6; O2SAT 97
--- NOTE | 2022-10-04 10:04 | DCINST_ITS ---
Discharge Instructions Diet Discharge Diet: No restrictions Activity Discharge Activity: Return to Normal Activity May resume sexual activity in: No Restrictions Weight Bearing Status: Weight bearing as tolerated Dressing / Incision Call your doctor if your incision/area has: Sudden Increased Bleeding and Foul Smelling Discharge Call your doctor if you observe: Fever of 101 or Higher, Using more than 1 pad per hour, Fainting spells and Uncontrolled pain Follow Up Care Please Follow Up With: Pam Joshua, DO When: 2-4 weeks, ok to do this over phone if easier Test Results: Test results from this visit will be discussed in further detail at your follow- up appointment, if applicable. Discharge Plan Admission Primary Reason for Your Visit: colposcopy, pap and cervical biopsy Attending Provider: Pam Joshua Primary Care Provider: Lisa Jordan NP Discharge Orders/Prescriptions Prescriptions: No Action omeprazole 20 mg capsule,delayed release(DR/EC) 20 mg PO DAILY alprazolam [Xanax] 0.25 mg tablet 0.25 mg PO PRN PRN (Reason: Anxiety) diltiazem HCl 120 mg capsule,extended release 12 hr 120 mg PO DAILY metoprolol succinate 25 mg tablet extended release 24 hr 25 mg PO DAILY oxybutynin chloride [Ditropan XL] 5 mg tablet extended release 24hr 5 mg PO DAILY loperamide [Imodium A-D] 2 mg capsule 2 mg PO Q4H PRN (Reason: loose stool) Rx Instructions: administer after each loose stool until symptoms controlled; do not exceed 8 mg per 24 hrs simvastatin 20 mg Tablet 20 mg PO QHS Centrum Silver Ultra Women's Tablet 1 tab PO DAILY aspirin 325 mg capsule 325 mg PO .2X PER WEEK Referrals / Follow Up: Lisa Jordan NP, SALES AND RETAIL MANAGEMENT RECRUITER-C [Primary Care Provider] - Disposition Disposition (needs filled in before D/C Order can be placed): Home, Self Care
[2022-10-04 10:10] VITALS: BP 106/61; BP 132/54; PULSE 68; RESP 16; O2SAT 97
[2022-10-04 10:15] VITALS: BP 107/59; BP 132/54; PULSE 59; RESP 16; O2SAT 99
[2022-10-04 10:20] VITALS: BP 106/61; BP 132/54; PULSE 59; RESP 16; TEMP 36.3; O2SAT 99
[2022-10-04 10:57] VITALS: BP 113/64; BP 132/54; PULSE 60; RESP 16; TEMP 36.1; O2SAT 97
[2022-10-07 11:09] LABS: HPV APTIMA, High Risk Negative (Negative)
[2022-10-07 15:58] LABS: HPV Reflexed? YES, CHARGE PATIENT
== END 2022-10-04 11:03 | disposition home or self-care (01) ==
LOC: SDC 07:49 → AC 07:50 → SDC 10:23
PROVIDERS: PCP Nurse Practitioner Primary Care; Referring Provider Obstetrics & Gynecology; Visit Provider Obstetrics & Gynecology
PROC: (CPT 57410; principal; 2022-10-04 09:15)
DX: R87.613 High grade squamous intraepithelial lesion on cytologic smear of cervix (HGSIL) (principal); C21.8 Malignant neoplasm of overlapping sites of rectum, anus and anal canal; I48.91 Unspecified atrial fibrillation; E78.00 Pure hypercholesterolemia, unspecified; I10 Essential (primary) hypertension; L58.0 Acute radiodermatitis; D51.9 Vitamin B12 deficiency anemia, unspecified; Z79.82 Long term (current) use of aspirin; Z79.899 Other long term (current) drug therapy; Z92.3 Personal history of irradiation; Z92.21 Personal history of antineoplastic chemotherapy; N89.5 Stricture and atresia of vagina
CPT/HCPCS: 57421; 00940; 80053; 85027; 87624; 88175; 88305; J7120; G0145; J2405

== ENCOUNTER → 2023-02-20 | Outpatient (CLI) | payer OTHER, SELFPAY ==
--- NOTE | 2023-02-20 07:21 | CT_ITS ---
STUDY: CT CHEST, ABDOMEN T PELVIS WITH CONTRAST REASON FOR EXAM: Female, 68 years old. MONITOR RECTAL CA. History of prior chemotherapy. Prior left mastectomy with radiation treatment. RADIATION DOSAGE (If Supplied By Facility): CTDIvol = ( 20.98 ) mGy, DLP = ( 2085.88 ) mGycm TECHNIQUE: Transaxial imaging was performed following intravenous administration of ISOVUE 370 100ML. Multiplanar coronal and sagittal images were reformatted. Individualized dose optimization techniques were used for this CT. COMPARISON: Comparison is made with prior study dated March 15, 2022. FINDINGS: CHEST The lungs are normal. There is no demonstrated pleural abnormality. There are calcifications of the coronary arteries. There are scattered small lymph nodes within the mediastinum, which are normal in size and morphology most compatible with reactive lymph hyperplasia. Normal hilar regions. Normal unenhanced pulmonary arteries. Normal aorta arch and descending thoracic aorta. There are multi-level degenerative changes of the thoracic spine. Stable heterogeneous appearance of the C7 vertebrae. I hernia. ABDOMEN Normal liver. Normal gallbladder and extrahepatic biliary system. There are multiple benign calcified granulomata of the spleen. Normal pancreas. Normal bilateral adrenal glands. 1 cm cyst in the lateral upper pole of the right kidney. Normal left kidney. There is a small hiatal hernia. Normal small intestine. Residual circumferential thickening of the rectum distally. The patient is status post appendectomy. Normal abdominal aorta. Normal inferior vena cava. Normal retroperitoneum. Nonspecific increased markings seen in the root of the mesentery. There is a left-sided inguinal hernia containing adipose tissue. There are mild degenerative changes of the visualized lumbar spine. PELVIS Normal urinary bladder. There is no pelvic fluid. There is no pelvic lymphadenopathy or mass lesion. Normal visualized pelvic arteries. CT/CT Chest, Abd, Pel w/Contrast IMPRESSION: Mild degree of circumferential wall thickening of the rectum. Small right renal cyst. Nonspecific increased markings are seen in the root of the mesentery. Electronically Signed: Charles Stevenson MD at 9:00 EST ,
--- NOTE | 2023-02-20 07:45 | RAD_ITS ---
STUDY: X-RAY CHEST REASON FOR EXAM: Female, 68 years old. Known rectal CA TECHNIQUE: PA and lateral views of the chest. COMPARISON: None. FINDINGS: Chronic interstitial changes in both lung walters without a superimposed acute pulmonary process. There is no demonstrated pleural abnormality. Normal size heart. Normal mediastinum and kemar. Normal visualized pulmonary arteries. Normal visualized aortic arch and descending thoracic aorta. There are diffuse degenerative changes of the visualized thoracic spine. Normal visualized ribs, clavicles, and shoulders. There is no demonstrated abnormality of the visualized soft tissue structures of the upper abdomen. RAD/Chest PA and Lateral IMPRESSION: Chronic interstitial changes, no superimposed acute pulmonary process Electronically Signed: Paras Bower MD at 14:45 EST ,
[2023-02-20 08:28] LABS: Absolute Lymphocyte Count 0.98 X10^3/uL (0.83-4.51); Absolute Neutrophil Count 1.8 X10^3/uL (2.0-7.7); Basophil# 0.02 X10^3/uL; Basophil% 0.6 % (0-1); Hematocrit 36.6 % (37-47); Hemoglobin 11.9 g/dL (12.0-15.0); Lymphocyte # 0.98 X10^3/ul (0.83-4.51); Lymphocyte % 29.4 % (19-41); Mean Corp Hgb Conc 32.5 g/dL (32-36); Mean Corpuscular Hgb 32.8 pg (27.0-32.0); Mean Corpuscular Volume 100.8 fL (81-99); Mean Platelet Vol. 9.1 fl (6.2-12.0); Monocyte# 0.41 X10^3/uL; Monocyte% 12.3 % (0-10); NRBC Flagged by Analyzer 0 % (0-5); Neutrophil % 54.1 % (47-70); Platelet Count 240 K/mm3 (150-450); RBC Distribution Width CV 12.9 % (11.6-14.6); RBC Distribution Width SD 48.3 fl (35.1-43.9); Red Blood Count 3.63 M/mm3 (4.2-5.4); White Blood Count 3.3 K/mm3 (4.4-11.0)
[2023-02-20 08:39] LABS: ALB/GLOB Ratio 0.7 RATIO (0.9-2.4); AST(SGOT) 17 U/L (15-37); Alanine Aminotransfer ALT/SGPT 18 U/L (13-56); Albumin, Serum 2.9 g/dL (3.2-5.0); Alkaline Phosphatase 91 U/L (45-117); Anion Gap 5 (5-15); BUN 19 mg/dL (7-18); BUN/Creat Ratio 19.4 RATIO (10-20); Calcium,Total 8.4 mg/dL (8.5-10.1); Chloride 110 mmol/L (98-107); Creatinine, Serum 0.98 mg/dL (0.55-1.02); EST Glomerular Filtration Rate 60 mL/min (>60); Est Glom Filt Rate - Afr Amer 72 mL/min (>60); Globulin 3.9 g/dL (2.2-4.2); Glucose 100 mg/dL (74-106); LDH 185 U/L (84-246); Potassium 4.1 mmol/L (3.5-5.1); Protein, Total 6.8 g/dL (6.4-8.2); Sodium Level 140 mmol/L (136-145)
[2023-02-21 08:11] LABS: Carcinoembryonic Antigen 1.2 ng/mL (0.0-4.7)
== END | disposition home or self-care (01) ==
LOC: CT 07:09
PROVIDERS: PCP Nurse Practitioner Primary Care; Referring Provider Internal Medicine Medical Oncology; Visit Provider Internal Medicine Medical Oncology
DX: C21.8 Malignant neoplasm of overlapping sites of rectum, anus and anal canal (principal); D64.9 Anemia, unspecified
CPT/HCPCS: 71046; 71260; 74177; 80053; 82378; 83615; 85025; Q9967

== ENCOUNTER → 2023-05-19 | Outpatient (CLI) | payer OTHER, SELFPAY ==
--- NOTE | 2023-05-19 08:02 | MRI_ITS ---
EXAM: MR PELVIS WITHOUT AND WITH INTRAVENOUS CONTRAST CLINICAL INDICATION: eval for disease, treated anal cancer -- please compare to prior TECHNIQUE: Multiplanar and multisequence MR images of the pelvis without and with intravenous contrast. CONTRAST: IV 23 cc Clariscan COMPARISON: CT abdomen and pelvis 02/20/2023, MR Pelvis dated 08/11/2022 FINDINGS: BOWEL: Rectum is contracted and thick-walled which may represent posttreatment change. There is no focal mass lesion noted within the rectum or anus. No abnormal contrast enhancement. The intersphincteric planes are intact. INTRAPERITONEAL SPACE: Normal. No free pelvic fluid. BLADDER: Normal. OVARIES: See below. UTERUS/CERVIX: Uterus measures 9 cm in length and is unchanged from prior study. Normal endometrial thickness for a postmenopausal patient previously noted 17 mm right adnexal cyst again noted now measuring 14 mm in maximum diameter. BONES/JOINTS: Normal. SOFT TISSUES: Mild edematous change of the presacral soft tissues of no particular significance. No pelvic wall hernia. LYMPH NODES: Normal. No perirectal lymphadenopathy. No pelvic sidewall mass. No iliac lymphadenopathy. MRI/Pelvis W/WO Contrast IMPRESSION: 1. No evidence of residual or recurrent neoplasm of the rectum or anus. 2. No evidence of metastatic disease. Electronically Signed: Long Coles MD at 12:51 EST ,
--- OUTSIDE RECORDS SUMMARY | 2023-05-19 08:19 | XMS RPT_ITS | CCD ---
Author Name Unknown Address [address] [place] [address] Organization [facility] Care Team Providers Care Pain Management Specialist Name Role Phone [facility], [facility] Care Physicia n CHELI JACKSON, DR JOHNSON Attending Unavailable TON [employer]ENCE OFFICER-[facility], [facility] Unava binh MORENO MD, LU Attending Unavailable DARRIUS JACKSON, PAUL Brower Consulting Unavailable JOSH JACKSON, LU Admitting Unavailable [facility], [facility] Unava ilable GERI CH, DR BARKLEY Consulting Unavailable TOMMY JACKSNO FACP, ARISTIDES Daniels Consulting Unavail josette DOLAN MD, DR ALIZE Brower Attending Unavailable [facility], [facility] Unava DINO Gomez MD Attending Unavailable [facility], [facility] Unava ilable [facility] Att[facility] Unava ilable [facility], [facility] Unava rosettaable CHELI JACKSON, DR JOHNSON Attending Unavailable [facility], [facility] Unava ilable Allergies Allergy Classification Reported Allergen(s) Allergy Type Date of Onset Reaction(s) Facility (12 sources) Meperidine; Translations: [meperidine] Drug Allergy Unknown, Itching [facility] Work Phone: (6 sources) oxaprozin; Translations: [oxaprozin] Drug Allergy Nausea [facility] Work Phone: Medications Current Medications Medication Drug Class(es) Dates Sig (Normalized) Sig (Original) acetaminophen 325 mg oral capsule (3 sources) Start: 02-23-2022 Tylenol 325 mg oral capsule Dose : 650 mg =, Oral, q6hr, PRN Pain, scale 1-3, 0 Refill(s) Start Date: 02/23/22 Status: Ordered ALPRAZolam 0.25 mg oral tablet (5 sources) Benzodiazepine Start: 03-24-2022 End: 04-23-2022 Xanax 0.25 mg oral tablet Dose : 0.25 mg = 1 tab(s), Oral, TID, PRN as needed for anxiety, X 30 day(s), # 30 tab(s), 0 Refill(s), 04/23/22 11:18:00 EST, Pharmacy: [facility]/pharmacy #[id number], Anxiety, 175.3, cm, 03/24/22 10:30:00 EST, Height, 122.1 Start Date: 03/24/22 Stop Date: 04/23/22 Status: Ordered Problems Problem Classification Problem Date Documented Da te Episodic/Chronic Abdominal pain (1 source) Abdominal pain; Translations: [Unspecified abdominal pain] Onset: 02-19-2022 Episodic Anal and rectal conditions (1 source) Anorectal disorder; Translations: [Other specified diseases of anus and rectum] Onset: 02-20-2022 Episodic Anxiety disorders (8 sources) Anxiety; Translations: [Anxiety disorder] Onset: 02-19-2022 06-29-2018 Chronic Cancer of breast (1 source) Personal history of malignant neoplasm of breast; Translations: [Personal history of malignant neoplasm of breast] Episodic Cancer of rectum and anus (3 sources) Overlapping malignant neoplasm of rectum, anus and anal canal; Translations: [Malignant neoplasm of overlapping sites of rectum, anus and anal canal] Chronic Cardiac dysrhythmias (10 sources) Paroxysmal atrial fibrillation; Translations: [Paroxysmal atrial fibrillation] Onset: 02-19-2022 12-03-2019 Chronic Results Test Name Value Interpretation Reference Range Facil ity Vital Signs Date Time Vital Sign Value Performing Clinician Jaciel garvin 02-24-2022 15:08-0500 Body temperature 97.52 [degF] LU MORENO MD [facility] 02-24-2022 15:08-0500 Diastolic Blood Pressure Non-Invasive 79 1 LU MORENO MD [facility] 02-24-2022 15:08-0500 Heart rate 80 /min LU MORENO MD [facility] 02-24-2022 15:08-0500 Respiratory rate 18 /min LU MORENO MD [facility] 02-24-2022 15:08-0500 Systolic Blood Pressure Non-Invasive 162 1 LU MORENO MD [facility] 02-24-2022 13:36-0500 Diastolic Blood Pressure Non-Invasive 73 1 LU MORENO MD [facility] 02-24-2022 13:36-0500 Heart rate 72 /min UL MORENO MD [facility] 02-24-2022 13:36-0500 Systolic Blood Pressure Non-Invasive 140 1 LU MORENO MD [facility] 02-24-2022 09:37-0500 Heart rate 88 /min LU MORENO MD [facility] 02-24-2022 07:42-0500 Body temperature 98.06 [degF] LU MORENO MD [facility] 02-24-2022 07:42-0500 Diastolic Blood Pressure Non-Invasive 80 1 LU MORENO MD [facility] 02-24-2022 07:42-0500 Heart rate 78 /min LU MORENO MD [facility] 02-24-2022 07:42-0500 Respiratory rate 16 /min LU MORENO MD [facility] 02-24-2022 07:42-0500 Systolic Blood Pressure Non-Invasive 154 1 LU MORENO MD [facility] 02-24-2022 00:21-0500 Body temperature 98.24 [degF] LU MORENO MD [facility] 02-24-2022 00:21-0500 Heart rate 72 /min LU MORENO MD [facility] 02-24-2022 00:21-0500 Respiratory rate 18 /min LU MORENO MD [facility] 02-23-2022 07:42-0500 Heart rate 67 /min LU MORENO MD [address] [place] [address] 02-21-2022 14:15-0500 Reason For Taking VItal Signs LU MORENO MD [address] 02-21-2022 08:50-0500 Reason For Taking VItal Signs LU MORENO MD [address] 02-21-2022 08:11-0500 Body weight 127.4 kg LU MORENO MD [address] 02-21-2022 03:31-0500 Reason For Taking VItal Signs LU MORENO MD [address] 02-19-2022 22:40-0500 Heart rate 76 /min LU MORENO MD [facility] 02-19-2022 18:45-0500 Body temperature 97.52 [degF] LU MORENO MD [address] [place] [address] 02-19-2022 18:45-0500 Heart rate 74 /min LU MORENO MD [facility] 02-19-2022 18:45-0500 Mean blood pressure 74 mm[Hg] LU MORENO MD [address] 02-19-2022 18:38-0500 Heart rate 69 /min LU MORENO MD [facility] 02-19-2022 18:38-0500 Mean blood pressure 67 mm[Hg] LU MORENO MD [facility] 02-19-2022 18:25-0500 Mean blood pressure 65 mm[Hg] LU MORENO MD [address] [place] [address] 02-19-2022 17:46-0500 Body temperature 98.06 [degF] LU MORENO MD [address] 02-19-2022 17:40-0500 Respiratory Rate - Anes 13 br/min LU MORENO MD [address] 02-19-2022 17:35-0500 Respiratory Rate - Anes 8 br/min LU MORENO MD [address] 02-19-2022 17:30-0500 Body temperature 97.7 [degF] LU MORENO MD [address] [place] [address] 02-19-2022 17:30-0500 Respiratory Rate - Anes 7 br/min LU MORENO MD [address] [place] [address] 02-19-2022 17:25-0500 Body temperature 97.61 [degF] LU MORENO MD [address] 02-19-2022 17:20-0500 Body temperature 97.63 [degF] LU MORENO MD [address] 02-19-2022 14:10-0500 Body weight 40.68 kg/m2 LU MORENO MD [address] 02-19-2022 13:58-0500 Body height 175.3 cm LU MORENO MD [address] 02-19-2022 13:58-0500 Body weight 125 kg LU MORENO MD [address] 02-19-2022 13:58-0500 Body weight 40.68 kg/m2 LU MORENO MD [address] [place] [address] 03-23-2021 11:04-0500 Body temperature 98.06 [degF] JESENIA BROWN MD [facility] 03-23-2021 11:04-0500 Diastolic Blood Pressure NBP 62 1 JESENIA BROWN MD [facility] 03-23-2021 11:04-0500 Heart rate 95 /min JESENIA BROWN MD [facility] 03-23-2021 11:04-0500 Respiratory rate 20 /min JESENIA BROWN MD [facility] 03-23-2021 11:04-0500 Systolic Blood Pressure NBP 121 1 JESENIA BROWN MD [facility] 03-23-2021 09:25-0500 Diastolic blood pressure 74 mm[Hg] JESENIA BROWN MD [facility] 03-23-2021 09:25-0500 Diastolic Blood Pressure NBP 69 1 JESENIA BROWN MD [facility] 03-23-2021 09:25-0500 Heart rate 78 /min JESENIA BROWN MD [facility] 03-23-2021 09:25-0500 Mean blood pressure 100 mm[Hg] JESENIA BROWN MD [facility] 03-23-2021 09:25-0500 Mean blood pressure 97 mm[Hg] JESENIA BROWN MD [facility] 03-23-2021 09:25-0500 Systolic blood pressure 152 mm[Hg] JESENIA BROWN MD [facility] 03-23-2021 09:25-0500 Systolic Blood Pressure NBP 158 1 JESENIA BROWN MD [facility] 03-23-2021 03:15-0500 Body temperature 97.7 [degF] JESENIA BROWN MD [facility] 03-23-2021 03:15-0500 Diastolic blood pressure 68 mm[Hg] JESENIA BROWN MD [facility] 03-23-2021 03:15-0500 Mean blood pressure 86 mm[Hg] JESENIA BROWN MD [facility] 03-23-2021 03:15-0500 Reason For Taking VItal Signs JESENIA BROWN MD [facility] 03-23-2021 03:15-0500 Systolic blood pressure 122 mm[Hg] JESENIA BROWN MD [facility] 03-22-2021 22:49-0500 Body temperature 97.52 [degF] JESENIA BROWN MD [facility] 03-22-2021 22:49-0500 Diastolic blood pressure 68 mm[Hg] JESENIA BROWN MD [facility] 03-22-2021 22:49-0500 Mean blood pressure 80 mm[Hg] JESENIA BROWN MD [facility] 03-22-2021 22:49-0500 Reason For Taking VItal Signs JESENIA BROWN MD [facility] 03-22-2021 22:49-0500 Systolic blood pressure 104 mm[Hg] JESENIA BROWN MD [facility] 03-22-2021 20:33-0500 Reason For Taking VItal Signs JESENIA BROWN MD [facility] 03-22-2021 07:47-0500 Body height 175.3 cm JESENIA BROWN MD [facility] 03-22-2021 07:47-0500 Body weight 128.1 kg JESENIA BROWN MD [facility] 03-22-2021 07:47-0500 Body weight 41.69 kg/m2 JESENIA BROWN MD [facility] 03-22-2021 05:15-0500 Diastolic blood pressure 47 mm[Hg] ARISTIDES GUEVARA DO [facility] 03-22-2021 05:15-0500 Heart rate 94 /min ARISTIDES GUEVARA DO [facility] 03-22-2021 05:15-0500 Respiratory rate 20 /min ARISTIDES DURESKA DO [facility] 03-22-2021 05:15-0500 Systolic blood pressure 92 mm[Hg] ARISTIDES DURESKA DO [facility] 03-22-2021 04:18-0500 Diastolic blood pressure 99 mm[Hg] ARISTIDES DURESKA DO [facility] 03-22-2021 04:18-0500 Heart rate 141 /min ARISTIDES DURESKA DO [facility] 03-22-2021 04:18-0500 Respiratory rate 20 /min ARISTIDES DURESKA DO [facility] 03-22-2021 04:18-0500 Systolic blood pressure 124 mm[Hg] ARISTIDES DURESKA DO [facility] 03-22-2021 02:52-0500 Diastolic blood pressure 59 mm[Hg] ARISTIDES DURESKA DO [facility] 03-22-2021 02:52-0500 Heart rate 93 /min ARISTIDES DURESKA DO [facility] 03-22-2021 02:52-0500 Respiratory rate 20 /min ARISTIDES DURESKA DO [facility] 03-22-2021 02:52-0500 Systolic blood pressure 117 mm[Hg] ARISTIDES GUEVARA DO [facility] 03-22-2021 02:44-0500 Body temperature 98.42 [degF] ARISTIDES GUEVARA DO [facility] 03-22-2021 02:44-0500 Heart rate 140 /min ARISTIDES GUEVARA DO [facility] Encounters Encounter Date Encounter Type Care Provider Facility Start: 10-28-2022 End: 11-01-2022 Outreach Lab LUCIA HARDING [employer] DEFENCE OFFICER-MARKET RESEARCH COORDINATOR [facility] Start: 10-02-2022 End: 10-02-2022 Emergency department patient visit DINO GOODMAN MD Facility:B Start: 03-28-2022 End: 03-29-[address] ELIZABETH BOWER MD Facility:A Start: 03-28-2022 End: 03-28-[address] ELIZABETH BOWER MD [facility] Start: 03-07-2022 End: 03-08-[address] ELIZABETH BOWER MD Facility:A Start: 02-19-2022 End: 02-24-2022 Evaluation and management of inpatient LU MORENO MD Facility:A Start: 02-19-2022 End: 02-24-2022 Evaluation and management of inpatient LU MORENO MD [facility] Start: 02-19-2022 End: 02-19-2022 Emergency department patient visit DR ALIZE DOLAN MD Facility:B Start: 01-27-2022 End: 01-28-2022 ambulatory LUKE CAMILO [employer] DEFENCE OFFICER-MARKET RESEARCH COORDINATOR Facility:B Start: 01-27-2022 End: 01-27-2022 Patient encounter procedure LUKE CAMILO [employer]OUND DEFENCE OFFICER-MARKET RESEARCH COORDINATOR [facility] Start: 03-22-2021 End: 03-23-2021 Observation JESENIA BROWN MD [facility] Start: 03-22-2021 End: 03-22-2021 Emergency department patient visit ARISTIDES GUEVARA DO [facility] Procedures Date Procedure Procedure Detail Performing Clinician Start: 02-19-[address] ELIZABETH BOWER MD Immunizations Immunization Date Immunization Notes Care Provider [facility] 01-27-2022 influenza, injectabl e, quadrivalent, contains preservative LUKE CAMILO [employer]OUND DEFENCE OFFICER-MARKET RESEARCH COORDINATOR [facility] 10-03-2021 SARS-CoV-2 mRNA (uxxkgaxyctp-kmxi-pzurur e) vaccine LUKE CAMILO [employer] OFFICER-MARKET RESEARCH COORDINATOR [facility] 02-17-2021 SARS-CoV-2 mRNA (tozinameran) vaccine LUKE CAMILO [employer]ENCE OFFICER-MARKET RESEARCH COORDINATOR [facility] 01-11-2021 influenza virus vacc ine, unspecified formulation LUKE CAMILO [employer] DEFENCE OFFICER-MARKET RESEARCH COORDINATOR [facility] 07-07-2020 SARS-CoV-2 mRNA (tozinameran) vaccine ARISTIDES GUEVARA DO [facility] 06-16-2020 SARS-CoV-2 mRNA (tozinameran) vaccine ARISTIDES GUEVARA DO [facility] 03-11-2020 zoster vaccine recombinant LUKE CAMILO [employer]ENCE OFFICER-MARKET RESEARCH COORDINATOR [facility] 01-09-2020 zoster vaccine recombinant LUKE CAMILO [employer] DEFENCE OFFICER-MARKET RESEARCH COORDINATOR [facility] 01-09-2020 tetanus toxoid, redu monica diphtheria toxoid, and acellular pertussis vaccine, adsorbed; Translations: [Boostrix (Tdap)] ARISTIDES GUEVARA DO [facility] 12-09-2019 pneumococcal polysaccharide vaccine, 23 valent; Translations: [Pneumovax 23] ARISTIDES GUEVARA DO [facility] 12-09-2019 influenza, injectabl e, quadrivalent, preservative free; Translations: [Fluarix PF Quadrivalent ] ARISTIDES GUEVARA DO [facility] 01-21-2019 Influenza, injectabl e, Madin Charo Canine Kidney, preservative free, quadrivalent; Translations: [Flucelvax PF Quadrivalent ] ARISTIDES GUEVARA DO [facility] 01-30-2018 influenza virus vacc ine, unspecified formulation ARISTIDES GUEVARA DO [facility] 01-06-2017 influenza virus vacc ine, unspecified formulation ARISTIDES GUEVARA DO [facility] 12-29-2015 influenza virus vacc ine, unspecified formulation ARISTIDES GUEVARA DO [facility] 01-18-2014 influenza, seasonal, injectable ARISTIDES GUEVARA DO [facility] Payers Date Payer Category Payer Medicare [id number] 2022 Private Health Insurance [id number] 1955 Unknown [id number] [id number] 1955 Unknown [id number] [id number] 1955 Unknown [id number] [id number] 1955 Unknown [id number] [id number] [id number] 1955 Unknown [id number] 2.16.8 [id number] 1955 Unknown [id number] [id number] Social History Date Type Detail Facility Start: 06-28-2018 Never smoked t obacco (finding) [facility] Sex Assigned At Female [facility] Functional Status Date Assessment Result Facility 02-24-2022 Functional Status Yes [facility] 02-24-2022 Functional Status Mod I 1 [facility] 02-24-2022 Functional Status [facility] 02-24-2022 Functional Status [facility] 02-24-2022 Functional Status SCD On/Re-applied bilat eral knee high [facility] 02-23-2022 Functional Status Good [facility] 02-23-2022 Functional Status [facility] 02-23-2022 Functional Status Feeding Assistance Inde pendent [facility] 12-07-2022 Functional Status [facility] 02-23-2022 Functional Status Ambulation in [facility] 02-23-2022 Functional Status [facility] 02-22-2022 Functional Status [facility] 02-22-2022 Functional Status [facility] 02-22-2022 Functional Status Supervised 6 [facility] 02-21-2022 Functional Status Supervised 7 [facility] 02-20-2022 Functional Status [facility] 02-20-2022 Functional Status [facility] 02-20-2022 Functional Status [facility] 02-19-2022 Functional Status Patient Identi fied Identification band, Verbal [facility] 02-19-2022 Functional Status [facility] Mental Status Date Assessment Result Facility 02-24-2022 Mental Status Orientation Assessment Orie nted x 4 [facility] 02-24-2022 Mental Status Orientation Oriented x 4 [facility] 02-24-2022 [facility] 02-23-2022 Mental Status [facility] Clinical Notes 03-22-2021 to 03-11-2022 Note Date & Type Note Facility 03-11-2022 Note Received referral fr Dr. Jackson office through the fax. Attempted to schedule patient, patient states Dr. Jackson informed her we do not need to see her. [facility] 02-24-2022 Discharge summary Date of Service 02/24/2022 Discharge Diagnosis 1. PAF (PAROXYSMAL ATRIAL FIBRILLATION) (I48.0 - ICD-10-CM) 2. ISAURA (OBSTRUCTIVE SLEEP APNEA) (G47.33 - ICD-10-CM) 3. Anxiety (F41.9 - ICD-10-CM) 4. HYPERLIPEMIA, MIXED (E78.2 - ICD-10-CM) 5. GERD (gastroesophageal reflux disease) (K21.9 - ICD-10-CM) 6. Abdominal pain (R10.9 - ICD-10-CM) 7. Pneumoperitoneum (K66.8 - ICD-10-CM) 8. Rectal mass (K62.89 - ICD-10-CM) Other postprocedural complications and disorders of digestive system (K91.89 - ICD-10-CM) Body mass index [BMI] 40.0-44.9, adult (Z68.41 - ICD-10-CM) Malignant neoplasm of overlapping sites of rectum, anus and anal canal (C21.8 - ICD-10-CM) Chronic kidney disease, stage 3 unspecified (N18.30 - ICD-10-CM) Obstructive sleep apnea (adult) (pediatric) (G47.33 - ICD-10-CM) Paroxysmal atrial fibrillation (I48.0 - ICD-10-CM) Gastro-esophageal reflux disease without esophagitis (K21.9 - ICD-10-CM) Other specified disorders of peritoneum (K66.8 - ICD-10-CM) Hyperlipidemia, unspecified (E78.5 - ICD-10-CM) Obesity, unspecified (E66.9 - ICD-10-CM) Anxiety disorder, unspecified (F41.9 - ICD-10-CM) Other effects of air pressure and water pressure, initial encounter (T70.8XXA - ICD-10-CM) Personal history of malignant neoplasm of breast (Z85.3 - ICD-10-CM) Hypertensive chronic kidney disease with stage 1 through stage 4 chronic kidney disease, or unspecified chronic kidney disease (I12.9 - ICD-10-CM) S/P exploratory laparotomy (Z98.890 - ICD-10-CM) Additional Orders: Ordered: Communication Order (continuous),02/24/22 10:57:00 EST, Please discontinue HAYDEN drain prior to discharge, Constant order Ordered: Discharge,02/24/22 8:42:00 EST, Discharged to: Home Ordered: Discharge Activity,May Shower, No lifting anything greater than 10-15 pounds and no strenuous activity. No driving while taking narcotic pain medication., 02/24/22 8:42:00 EST Ordered: Discharge Diet,No changes were made to your diet during your hospital stay. Please resume your pre hospitalization diet on discharge., 02/24/22 8:42:00 EST Ordered: Discharge Wound Vac Care,Abdomen, Continuous suction, 125 cmH20, Black sponge, Placed black sponge over top of the sutures that are in place. Change wound VAC Monday//Monday, 02/24/22 8:42:00 EST Hospital Course This patient is a 67-year-old female who was admitted to the surgical service team after presenting to [facility] with complaints of abdominal pain. Patient had recently had a colonoscopy completed at [facility] by Dr. Sumner. Patient had a CT scan of abdomen that showed a large volume of free intra peritoneal air consistent with perforation. The patient was started on IV antibiotics and transferred to [facility] where she underwent a sigmoidoscopy rigid, exploratory laparotomy with partial colectomy, rigid sigmoid scope with wound VAC application, umbilical hernia repair, rectal biopsy, appendectomy Dr. Moreno on 02/19/2022. Patient's postoperative pain was controlled throughout her stay. Her diet was slowly advanced as tolerated. Patient had no postoperative events. 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 When the patient was admitted we did offer her consult to oncology. However she did decline. Patient reported that she would like to see oncologist at the [facility] in [place]. She was encouraged to call her PCP to get a referral, she was in agreement to this plan. On 02/24/2022 patient met all discharge criteria from surgical standpoint. The patient was tolerating her diet without difficulty, voiding without difficulty, her pain was well controlled. The patient was discharged to home alert and oriented. [facility]. Patient is to follow-up with Dr. Jin in 2 weeks. She was understanding to this and agreement to the plan. Allergies Daypro (Nausea) Demerol HCl (Itching) meperidine (Unknown) Procedures sigmoidoscopy rigid, exploratory laparotomy with partial colectomy, rigid sigmoid scope with wound VAC application, umbilical hernia repair, rectal biopsy, appendectomy Dr. 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 Imaging Results and Diagnostics Imaging completed at the [facility] Objective Vitals and Measurements T: 36.7 C (Oral) TMIN: 36.4 C (Oral) TMAX: 36.8 C (Oral) HR: 88(Apical) RR: 16 BP: 154/80 SpO2: 94% Weight Dosing Weight: 127.4 kg (02/21/22) Dosing Weight: 125 kg (02/19/22) Pending Labs and Studies none Code Status Code Status - Ordered -- 02/19/22 22:17:00 EST, Full Code, Constant Order Admission Date 02/19/2022 Discharge Date 02/24/2022 Patient Instructions Do not take Xanax and the narcotic pain medication at the same time as it can cause respiratory depression and increase your risk for overdose Postoperative Medication Recommendations/Education: It is recommended that you alternate between 650-1000 mg of Tylenol and 400-600 mg Motrin (Advil or Ibuprofen) every 6 hours as needed to optimize pain control after surgery. A temporary prescription for a narcotic pain medication has been provided to you postoperatively and should only be used for breakthrough pain as narcotics increase the risk for constipation, dependency, overdose, and respiratory depression. Constipation after surgery is a very common concern for patients after discharge from the hospital. Patients are encouraged to take over the counter stool softeners (such as Colace) and over the counter laxatives (Miralax) as needed for constipation. Additional medications that can be taken for postoperative constipation include milk of magnesia, Metamucil, and Senokot. Medications New Prescription acetaminophen (Tylenol 325 mg oral capsule)650 Milligram by mouth every 6 hours as needed Pain, scale 1-3. atorvastatin (atorvastatin 10 mg oral tablet)1 tab(s) by mouth daily at bedtime for 30 Days. Future refills to come from beatrice's PCP. Refills: 0. oxyCODONE (oxyCODONE 5 mg oral tablet ( IMMEDIATE release ))1 tab(s) by mouth every 6 hours as needed as needed for pain for 5 Days. Refills: 0. Unchanged ALPRAZolam (Xanax 0.25 mg oral tablet)1 tab(s) by mouth three (3) times a day as needed Agitation. aspirin (aspirin 325 mg oral delayed release tablet)1 tab(s) by mouth every other day. dilTIAZem (DilTIAZem (Eqv-Cardizem CD) 120 mg/24 hours oral capsule, extended release)TAKE 1 CAPSULE BY MOUTH EVERY DAY. Refills: 3. herbal/nutritional product (turmeric 500 mg oral capsule)1 cap by mouth three (3) times a day. metoprolol (Metoprolol Succinate ER 25 mg oral TABLET extended release)1 tab(s) by mouth once a day. DO NOT CRUSH OR CHEW.. Refills: 3. multivitamin (Multivitamin)1 tab(s) by mouth every day. propafenone (propafenone 150 mg oral tablet)Patient to take 4 tablets at onset of atrial fibrillation.; as needed atrial fibrillation. Refills: 3. Follow Up Follow Up with MICHELLE JIN MD, Surgery When 03/07/2022 10:45 AM EST Where: [address] [facility] [address] [place] [address]- [phone] Follow Up with LUKE CAMILO When Within 1-2 days Why: Please Follow up with PCP, for a referral to oncologist in the [place] area. IF he is able. Dr. Jin to due with on your follow up visit. Where: [address] [place] [address]- [phone] Business (1) Follow Up with [facility] [phone] When Why: [facility] will contact you to set up your first home visit. A registered nurse and physical and occupational therapists have been ordered for you. Follow Up Appointments See above Follow Up Labs/Studies Discharge Labs No Follow-up Labs Discharge Studies No Follow-up Studies Discharge Diet Discharge Diet - Ordered -- No changes were made to your diet during your hospital stay. Please resume your pre hospitalization diet on discharge., 02/24/22 8:42:00 EST Discharge Activity Discharge Activity - Ordered -- May Shower, No lifting anything greater than 10-15 pounds and no strenuous activity. No driving while taking narcotic pain medication., 02/24/22 8:42:00 EST Condition on Discharge stable Readmission Risk/Palliative Score LACE Score: 10 (02/21/22 13:05:00) Palliative Total Score: 2 (02/21/22 13:05:00) Discharge Disposition to home Information Provided To nurse and patient Time Spent 20mins I have reviewed the [place] Automated Rx Reporting System (OARRS) report for this patient for refill pattern and other prescriber involvement as part of the appropriate surveillance for the provision of acute and chronic controlled medications. The report was requested and reviewed on the date of this entry, and was considered in the prescribing process This document was dictated with voice recognition software and may contain grammatical errors Digitally Signed by AWAIS HUGO on 02/24/2022 11:37 AM [facility] 02-24-2022 Hospital Discharg e instructions Patient Education 02/24/2022 08:50:28 Negative Pressure Wound Therapy Home Guide Negative Pressure Wound Therapy Home Guide Negative pressure wound therapy (NPWT) uses a sponge or foam-like material (dressing) placed on or inside the wound. The wound is then covered and sealed with a cover dressing that sticks to your skin (is adhesive). This keeps air out. A tube is attached to the cover dressing, and this tube connects to a small pump. The pump sucks fluid and germs from the wound. NPWT helps to increase blood flow to the wound and heal it from the inside. What are the risks? NPWT is usually safe to use. However, problems can occur, including: Skin irritation from the dressing adhesive. Bleeding. Infection. Dehydration. Wounds with large amounts of drainage can cause excessive fluid loss. Pain. Supplies needed: A disposable garbage bag. Soap and water, or hand leather heel breaster. Wound cleanser or salt-water solution (saline). New sponge and cover dressing. Protective clothing. Gauze pad. Vinyl gloves. Tape. Skin protectant. This may be a wipe, film, or spray. Clean or germ-free (sterile) scissors. Eye protection. How to change your dressing Prepare to change your dressing 1.If told by your health care provider, take pain medicine 30 minutes before changing the dressing. 2.Wash your hands with soap and water. Dry your hands with a clean towel. If soap and water are not available, use hand leather heel breaster. 3.Set up a clean station for wound care. 4.Open the dressing package so that the sponge dressing remains on the inside of the package. 5.Wear gloves, protective clothing, and eye protection. Remove old dressing 1.Turn off the pump and disconnect the tubing from the dressing. 2.Carefully remove the adhesive cover dressing in the direction of your hair growth. 3.Remove the sponge dressing that is inside the wound. If the sponge sticks, use a wound cleanser or saline solution to wet the sponge and help it come off more easily. 4.Throw the old sponge and cover dressing supplies into the garbage bag. 5.Remove your gloves by grabbing the cuff and turning the glove inside out. Place the gloves in the trash immediately. 6.Wash your hands with soap and water. Dry your hands with a clean towel. If soap and water are not available, use hand leather heel breaster. Clean your wound Wear gloves, protective clothing, and eye protection. Follow your health care provider's instructions on how to clean your wound. You may be told to: 1.Clean the wound using a saline solution or a wound cleanser and a clean gauze pad. 2.Pat the wound dry with a gauze pad. Do not rub the wound. 3.Throw the gauze pad into the garbage bag. 4.Remove your gloves by grabbing the cuff and turning the glove inside out. Place the gloves in the trash immediately. 5.Wash your hands with soap and water. Dry your hands with a clean towel. If soap and water are not available, use hand leather heel breaster. Apply new dressing Wear gloves, protective clothing, and eye protection. 1.If told by your health care provider, apply a skin protectant to any skin that will be exposed to adhesive. Let the skin protectant dry. 2.Cut a piece of new sponge dressing and put it on or in the wound. 3.Using clean scissors, cut a nickel-sized hole in the new cover dressing. 4.Apply the cover dressing. 5.Attach the suction tube over the hole in the cover dressing. 6.Take off your gloves. Put them in the plastic bag with the old dressing. Tie the bag shut and throw it away. 7.Wash your hands with soap and water. Dry your hands with a clean towel. If soap and water are not available, use hand leather heel breaster. 8.Turn the pump back on. The sponge dressing should collapse. Do not change the settings on the machine without talking to a health care provider. 9.Replace the container in the pump that collects fluid if it is full. Replace the container per the kettle operator's instructions or at least once a week, even if it is not full. General tips and recommendations If the alarm sounds: Stay calm. Do not turn off the pump or do anything with the dressing. Reasons the alarm may go off: ?The battery is low. Change the battery or plug the device into electrical power. ?The dressing has a leak. Find the leak and put tape over the leak. ?The fluid collection container is full. Change the fluid container. Call your health care provider right away if you cannot fix the problem. Explain to your health care provider what is happening. Follow his or her instructions. General instructions Do not turn off the pump unless told to do so by your health care provider. Do not turn off the pump for more than 2 hours. If the pump is off for more than 2 hours, the dressing will need to be changed. If your health care provider says it is okay to shower: ?Do not take the pump into the shower. ?Make sure the wound dressing is protected and sealed. The wound dressing must stay dry. Check frequently that the machine indicates that therapy is on and that all clamps are open. Do not use dffy-guv-ppjmlqo medicated or antiseptic creams, sprays, liquids, or dressings unless your health care provider approves. Contact a health care provider if: You have new pain. You develop irritation, a rash, or itching around the wound or dressing. You see new black or yellow tissue in your wound. The dressing changes are painful or cause bleeding. The pump has been off for more than 2 hours, and you do not know how to change the dressing. The pump alarm goes off, and you do not know what to do. Get help right away if: You have a lot of bleeding. The wound breaks open. You have severe pain. You have signs of infection, such as: ?More redness, swelling, or pain. ?More fluid or blood. ?Warmth. ?Pus or a bad smell. ?Red streaks leading from the wound. ?A fever. You see a sudden change in the color or texture of the drainage. You have signs of dehydration, such as: ?Little or no tears, urine, or sweat. ?Muscle cramps. ?Very dry mouth. ?Headache. ?Dizziness. Summary Negative pressure wound therapy (NPWT) is a device that helps your wound heal. Set up a clean station for wound care. Your health care provider will tell you what supplies to use. Follow your health care provider's instructions on how to clean your wound and how to change the dressing. Contact a health care provider if you have new pain, an irritation, or a rash, or if the alarm goes off and you do not know what to do. Get help right away if you have a lot of bleeding, your wound breaks open, or you have severe pain. Also, get help if you have signs of infection. This information is not intended to replace advice given to you by your health care provider. Make sure you discuss any questions you have with your health care provider. Document Released: 05/28/2012 Document Revised: 06/28/2019 Document Reviewed: 05/24/2019 [employer] Patient Education 2020 [facility]. 02/24/2022 08:50:20 8- Post Op General Surgery (02/2020)(CUSTOM) What to Do After Your General Surgery This sheet will give you general information on what to do when you are home after surgery. However, you should always follow any specific instructions given to you by your surgeon. Pain Medication Please follow the directions on the label of your medication and use your discharge medication list provided by the hospital. Do not take pain medication on an empty stomach. This may cause a stomachache. Constipation is common while taking oral pain medication after surgery. Use a stool softener (Colace) or gentle laxative (milk of magnesia) if needed. As soon as your pain allows, use less of any narcotic pain medication. You may take blsu-bgn-vcwwaom pain medication if you no longer need your prescribed pain medication. Pjdr-kac-yveodyw pain medications are Tylenol or Advil/Motrin (ibuprofen). Do not take Tylenol if you are still taking Blount or Percocet. They are the same type of medication, and too much acetaminophen can hurt your liver. Activity It is OK to use stairs. Do not lift more than 15 pounds. After surgery, you may feel tired. Rest is important for healing. Slowly increase your activity level by walking and doing normal activities as you feel comfortable. Do not drive while taking narcotic pain medication. They should be out of your system for 24 [address]. Diet Eating smaller meals instead of three large meals is good. This may help with your appetite and nutrition. Good nutrition will help you heal. Follow diet instructions that you were taught after surgery. Infection Prevention Washing your hands is one of the best ways to prevent infection. Always wash your hands before and after touching your incision or bandage. Hands carry germs that can cause infections. Try not to touch your incision. Keep the Incision Clean Wear clean, loose-fitting clothes to prevent clothes from rubbing on the incision. Put clean sheets on your bed when you get home. Do not let other people or animals touch the incision. Showering You may start to shower 48 hours after your surgery. Use a clean washcloth and towel on your incision before you use it on any other area of your body. Adjust the shower spray to gentle and use warm water. Gently wash over your incision using antibacterial soap and water and pat it dry. Do not rub the incision. Do not soak or submerge in the bathtub or hot tub until your surgeon says it is OK. Wound Care If you have a clear, see-through bandage over your incision(s), you may shower with it in place. The bandage is waterproof. oIt is normal to see a small amount of reddish fluid under the clear bandage. You may remove your bandage after 48 hours. If you are in the hospital longer than 48 hours, it is OK to remove your bandage when you get home. If you have thin white tape strips (Steri-Strips) over your incision, keep them dry. Do not remove them unless they begin curling up at the sides and are almost falling off. Shonto or sutures are generally removed within seven to 14 days at your follow-up appointment. Drain Care If you have a drain, empty it two to three times per day or if it gets half full. Write down the time it was emptied and amount of fluid on a piece of paper. Bring your paper with times and fluid amounts to your follow-up appointment to show your surgeon. Call Your Doctor If: You have a fever of 101 degrees or higher. It is not uncommon to have a low-grade fever after surgery. You have new redness or fluid around the incision that smells bad or looks like pus. Your skin is very painful, red, warm and/or swollen around the incision. You have a lot of bleeding (push with pressure on the area if this happens). You have bad stomach pain or you start throwing up. If you are unable to reach your surgeon, go to the hospital. Follow Up If a follow-up appointment has not been made, please call your surgeon s office. Most appointments are 10 14 days after surgery. If you have any problems or concerns before then, call the surgeon s office. Follow Up Care 02/19/2022 12:55:34 With:MICHELLE JIN MD, Surgery Address: [address] [facility] [address] [facility] [place] [address]- [phone] When:03/07/2022 10:45:00 With:LUKE CAMILO Address: [address] [place] [address]- [phone] Business (1) When:1-2 days Comments:Please Follow up with PCP, for a referral to oncologist in the [place] area. IF he is able. Dr. Jin to due with on your follow up visit. With:[facility] [phone] Address:Unknown When: Unknown Comments:[facility] will contact you to set up your first home visit. A registered nurse and physical and occupational therapists have been ordered for you. [facility] 02-24-2022 Note Discharge Instructions Thank you for allowing [facility] to assist you with your healthcare needs. The following is important discharge information regarding your hospital visit. 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 Your Diagnosis PAF (PAROXYSMAL ATRIAL FIBRILLATION) ISAURA (OBSTRUCTIVE SLEEP APNEA) Anxiety HYPERLIPEMIA, MIXED GERD (gastroesophageal reflux disease) Abdominal pain Pneumoperitoneum Rectal mass S/P exploratory laparotomy What to do next Instructions From Your Doctor Do not take Xanax and the narcotic pain medication at the same time as it can cause respiratory depression and increase your risk for overdose Postoperative Medication Recommendations/Education: It is recommended that you alternate between 650-1000 mg of Tylenol and 400-600 mg Motrin (Advil or Ibuprofen) every 6 hours as needed to optimize pain control after surgery. A temporary prescription for a narcotic pain medication has been provided to you postoperatively and should only be used for breakthrough pain as narcotics increase the risk for constipation, dependency, overdose, and respiratory depression. Constipation after surgery is a very common concern for patients after discharge from the hospital. Patients are encouraged to take over the counter stool softeners (such as Colace) and over the counter laxatives (Miralax) as needed for constipation. Additional medications that can be taken for postoperative constipation include milk of magnesia, Metamucil, and Senokot. 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 IF he is able. Dr. Jin to due with on your follow up visit. Where: [address] [place] [address]- [phone] Business (1) Follow Up with [employer] [facility] [phone] When Why: [facility] will contact you to set up your first home visit. A registered nurse and physical and occupational therapists have been ordered for you. The Following Activity and Diet Have Been Ordered for You Discharge Activity - Ordered -- May Shower, No lifting anything greater than 10-15 pounds and no strenuous activity. No driving while taking narcotic pain medication., 02/24/22 8:42:00 EST Discharge Diet - Ordered -- No changes were made to your diet during your hospital stay. Please resume your pre hospitalization diet on discharge., 02/24/22 8:42:00 EST The Following Equipment Has Been Ordered for You Discharge Home Equipment Discharge Wound Vac Care - Ordered -- Abdomen, Continuous suction, 125 cmH20, Black sponge, Placed black sponge over top of the sutures that are in place. Change wound VAC Monday//Monday, 02/24/22 8:42:00 EST The Following Treatments Have Been Ordered for You Discharge Labs No qualifying data available. Discharge Radiology No qualifying data available. Other Therapies No qualifying data available. Post Acute Orders No qualifying data available. Someone Will Contact You Regarding These Home Health Referrals No home referrals have been ordered for you. No one will call you. Allergies Daypro (Nausea) Demerol HCl (Itching) meperidine (Unknown) Medications Please ask your primary doctor or pharmacist before taking any other medication not listed, including over the counter drugs, herbal medications, vitamins and or supplements as they may interact with your home medications. What How Much When Why Instructions Last Dose New acetaminophen (Tylenol 325 mg oral capsule) 650 Milligram by mouth Every 6 hours as needed for Pain, scale 1-3 New atorvastatin (atorvastatin 10 mg oral tablet) 1 tab(s) by mouth Daily at bedtime Duration: 30 Days Future refills to come from beatrice's PCP Pickup at [facility]/pharmacy #[id number] New oxyCODONE (oxyCODONE 5 mg oral tablet ( IMMEDIATE release )) 1 tab(s) by mouth Every 6 hours as needed for as needed for pain Rectal mass S/P exploratory laparotomy Duration: 5 Days Pickup at [facility]/pharmacy #[id number] Unchanged ALPRAZolam (Xanax 0.25 mg oral tablet) 1 tab(s) by mouth Three (3) times a day as needed for Agitation Unchanged aspirin (aspirin 325 mg oral delayed release tablet) 1 tab(s) by mouth Every other day Unchanged dilTIAZem (DilTIAZem (Eqv-Cardizem CD) 120 mg/ 24 hours oral capsule, extended release) See instructions TAKE 1 CAPSULE BY MOUTH EVERY DAY Unchanged herbal/ nutritional product (turmeric 500 mg oral capsule) 1 cap by mouth Three (3) times a day Unchanged metoprolol (Metoprolol Succinate ER 25 mg oral TABLET extended release) 1 tab(s) by mouth Once a day DO NOT CRUSH OR CHEW. Unchanged multivitamin (Multivitamin) 1 tab(s) by mouth Every day Unchanged propafenone (propafenone 150 mg oral tablet) See instructions Patient to take 4 tablets at onset of atrial fibrillation. Pharmacy Information [facility]/pharmacy #[id number]: [address], [place] [phone] Please take this list to your next doctor s visit. Bring all medications you take, including over the counter medications, herbals and other supplements with you to your doctor s visit. Patients and families are reminded to discard old lists and to update any records with all medication providers or retail pharmacies. Medication Leaflets oxycodone (ox i KOE done) Oxaydo, OxyCONTIN, Oxyfast, OxyIR, Roxicodone, Xtampza ER What is the most important information I should know about oxycodone? MISUSE OF OPIOID MEDICINE CAN CAUSE ADDICTION, OVERDOSE, OR . Keep the medication in a place where others cannot get to it. Taking opioid medicine during may cause life-threatening withdrawal symptoms in the . Fatal side effects can occur if you use opioid medicine with alcohol, or with other drugs that cause drowsiness or slow your breathing. What is oxycodone? Oxycodone is an opioid pain medication used to treat moderate to severe pain. The extended-release form of oxycodone is for zgatgv-orw-reuat treatment of pain and should not be used on an as-needed basis for pain. Oxycodone may also be used for purposes not listed in this medication guide. What should I discuss with my healthcare provider before using oxycodone? You should not use oxycodone if you are allergic to it, or if you have: severe asthma or breathing problems; or a blockage in your stomach or intestines. You should not use oxycodone unless you are already using a similar opioid medicine and are tolerant to it. Most brands of oxycodone are not approved for use in people under 18. OxyContin should not be given to a child younger than 11 years old. Tell your doctor if you have ever had: breathing problems, sleep apnea; a head injury, or seizures; drug or alcohol addiction, or mental illness; liver or kidney disease; urination problems; or problems with your gallbladder, pancreas, or thyroid. If you use opioid medicine while you are , your baby could become dependent on the drug. This can cause life-threatening withdrawal symptoms in the baby after it is born. Babies born dependent on opioids may need medical treatment for several weeks. Ask a doctor before using opioid medicine if you are . Tell your doctor if you notice severe drowsiness or slow breathing in the nursing baby. How should I use oxycodone? Follow the directions on your prescription label and read all medication guides. Never use oxycodone in larger amounts, or for longer than prescribed. Tell your doctor if you feel an increased urge to take more of this medicine. Never share opioid medicine with another person, especially someone with a history of drug abuse or addiction. MISUSE CAN CAUSE ADDICTION, OVERDOSE, OR . Keep the medication in a place where others cannot get to it. Selling or giving away opioid medicine is against the law. Stop taking all other zdcrjm-wii-fgyab opioid pain medicines when you start taking extended-release oxycodone. Take oxycodone with food. Swallow the capsule or tablet whole to avoid exposure to a potentially fatal overdose. Do not crush, chew, break, open, or dissolve. If you cannot swallow a capsule whole, open it and sprinkle the medicine into a spoonful of pudding or applesauce. Swallow the mixture right away without chewing. Do not save it for later use. Never crush or break an oxycodone pill to inhale the powder or mix it into a liquid to inject the drug into your vein. This can cause in . Measure liquid medicine carefully. Use the dosing syringe provided, or use a medicine dose-measuring device (not a kitchen spoon). You should not stop using oxycodone suddenly. Follow your doctor's instructions about tapering your dose. Store at room temperature, away from heat, moisture, and light. Keep track of your medicine. Oxycodone is a drug of abuse and you should be aware if anyone is using your medicine improperly or without a prescription. Do not keep leftover opioid medication. Just one dose can cause in someone using this medicine accidentally or improperly. Ask your pharmacist where to locate a drug take-back disposal program. If there is no take-back program, flush the unused medicine down the toilet. What happens if I miss a dose? Since oxycodone is used for pain, you are not likely to miss a dose. Skip any missed dose if it is almost time for your next dose. Do not use two doses at one time. What happens if I overdose? Seek emergency medical attention or call the Poison Help line at . An opioid overdose can be fatal, especially in a child or other person using the medicine without a prescription. Overdose symptoms may include severe drowsiness, pinpoint pupils, slow breathing, or no breathing. Your doctor may recommend you get naloxone (a medicine to reverse an opioid overdose) and keep it with you at all times. A person caring for you can give the naloxone if you stop breathing or don't wake up. Your caregiver must still get emergency medical help and may need to perform CPR (cardiopulmonary resuscitation) on you while waiting for help to arrive. Anyone can buy naloxone from a pharmacy or local health department. Make sure any person caring for you knows where you keep naloxone and how to use it. What should I avoid while using oxycodone? Do not drink alcohol. Dangerous side effects or could occur. Avoid driving or operating machinery until you know how oxycodone will affect you. Dizziness or severe drowsiness can cause falls or other accidents. Avoid medication errors. Always check the brand and strength of oxycodone you get from the pharmacy. What are the possible side effects of oxycodone? Get emergency medical help if you have signs of an allergic reaction: hives; difficult breathing; swelling of your face, lips, tongue, or throat. Opioid medicine can slow or stop your breathing, and may occur. A person caring for you should give naloxone and/or seek emergency medical attention if you have slow breathing with long pauses, blue colored lips, or if you are hard to wake up. Call your doctor at once if you have: noisy breathing, sighing, shallow breathing, breathing that stops during sleep; a slow heart rate or weak pulse; a light-headed feeling, like you might pass out; confusion, unusual thoughts or behavior; seizure (convulsions); low cortisol levels-- nausea, vomiting, loss of appetite, dizziness, worsening tiredness or weakness; or high levels of serotonin in the body--agitation, hallucinations, fever, sweating, shivering, fast heart rate, muscle stiffness, twitching, loss of coordination, nausea, vomiting, diarrhea. Serious breathing problems may be more likely in older adults and in those who are debilitated or have wasting syndrome or chronic breathing disorders. Common side effects may include: drowsiness, headache, dizziness, tiredness; or constipation, stomach pain, nausea, vomiting. This is not a complete list of side effects and others may occur. Call your doctor for medical advice about side effects. You may report side effects to FDA at 3-030-SKG-8135. What other drugs will affect oxycodone? You may have breathing problems or withdrawal symptoms if you start or stop taking certain other medicines. Tell your doctor if you also use an antibiotic, antifungal medication, heart or blood pressure medication, seizure medication, or medicine to treat HIV or hepatitis C. Opioid medication can interact with many other drugs and cause dangerous side effects or . Be sure your doctor knows if you also use: cold or allergy medicines, bronchodilator asthma/COPD medication, or a diuretic ('water pill'); medicines for motion sickness, irritable bowel syndrome, or overactive bladder; other opioids--opioid pain medicine or prescription cough medicine; a sedative like Valium--diazepam, alprazolam, lorazepam, Xanax, Klonopin, Versed, and others; drugs that make you sleepy or slow your breathing--a sleeping pill, muscle relaxer, medicine to treat mood disorders or mental illness; or drugs that affect serotonin levels in your body--a stimulant, or medicine for depression, Parkinson's disease, migraine headaches, serious infections, or nausea and vomiting. This list is not complete and many other drugs may affect oxycodone. This includes prescription and iuxc-oqo-vrzonff medicines, vitamins, and herbal products. Not all possible drug interactions are listed here. Where can I get more information? Your pharmacist can provide more information about oxycodone. Remember, keep this and all other medicines out of the reach of children, never share your medicines with others, and use this medication only for the indication prescribed. Every effort has been made to ensure that the information provided by [employer]. [employer]') is accurate, up-to-date, and complete, but no guarantee is made to that effect. Drug information contained herein may be time sensitive. [employer] information has been compiled for use by healthcare practitioners and consumers in the [place] and therefore [employer] does not warrant that uses outside of the [place] are appropriate, unless specifically indicated otherwise. [employer]s drug information does not endorse drugs, diagnose patients or recommend therapy. [employer] drug information is an informational resource designed to assist licensed healthcare practitioners in caring for their patients and/or to serve consumers viewing this service as a supplement to, and not a substitute for, the expertise, skill, knowledge and judgment of healthcare practitioners. The absence of a warning for a given drug or drug combination in no way should be construed to indicate that the drug or drug combination is safe, effective or appropriate for any given patient. [employer] does not assume any responsibility for any aspect of healthcare administered with the aid of information [employer] provides. The information contained herein is not intended to cover all possible uses, directions, precautions, warnings, drug interactions, allergic reactions, or adverse effects. If you have questions about the drugs you are taking, check with your doctor, nurse or pharmacist. Copyright 9572-9531 [employer] Version: 14.02. Revision Date: 04/16/2020. Education Materials Negative Pressure Wound Therapy Home Guide Negative pressure wound therapy (NPWT) uses a sponge or foam-like material (dressing) placed on or inside the wound. The wound is then covered and sealed with a cover dressing that sticks to your skin (is adhesive). This keeps air out. A tube is attached to the cover dressing, and this tube connects to a small pump. The pump sucks fluid and germs from the wound. NPWT helps to increase blood flow to the wound and heal it from the inside. What are the risks? NPWT is usually safe to use. However, problems can occur, including: Skin irritation from the dressing adhesive. Bleeding. Infection. Dehydration. Wounds with large amounts of drainage can cause excessive fluid loss. Pain. Supplies needed: A disposable garbage bag. Soap and water, or hand leather heel breaster. Wound cleanser or salt-water solution (saline). New sponge and cover dressing. Protective clothing. Gauze pad. Vinyl gloves. Tape. Skin protectant. This may be a wipe, film, or spray. Clean or germ-free (sterile) scissors. Eye protection. How to change your dressing Prepare to change your dressing 1. If told by your health care provider, take pain medicine 30 minutes before changing the dressing. 2. Wash your hands with soap and water. Dry your hands with a clean towel. If soap and water are not available, use hand leather heel breaster. 3. Set up a clean station for wound care. 4. Open the dressing package so that the sponge dressing remains on the inside of the package. 5. Wear gloves, protective clothing, and eye protection. Remove old dressing 1. Turn off the pump and disconnect the tubing from the dressing. 2. Carefully remove the adhesive cover dressing in the direction of your hair growth. 3. Remove the sponge dressing that is inside the wound. If the sponge sticks, use a wound cleanser or saline solution to wet the sponge and help it come off more easily. 4. Throw the old sponge and cover dressing supplies into the garbage bag. 5. Remove your gloves by grabbing the cuff and turning the glove inside out. Place the gloves in the trash immediately. 6. Wash your hands with soap and water. Dry your hands with a clean towel. If soap and water are not available, use hand leather heel breaster. Clean your wound Wear gloves, protective clothing, and eye protection. Follow your health care provider's instructions on how to clean your wound. You may be told to: 1. Clean the wound using a saline solution or a wound cleanser and a clean gauze pad. 2. Pat the wound dry with a gauze pad. Do not rub the wound. 3. Throw the gauze pad into the garbage bag. 4. Remove your gloves by grabbing the cuff and turning the glove inside out. Place the gloves in the trash immediately. 5. Wash your hands with soap and water. Dry your hands with a clean towel. If soap and water are not available, use hand leather heel breaster. Apply new dressing Wear gloves, protective clothing, and eye protection. 1. If told by your health care provider, apply a skin protectant to any skin that will be exposed to adhesive. Let the skin protectant dry. 2. Cut a piece of new sponge dressing and put it on or in the wound. 3. Using clean scissors, cut a nickel-sized hole in the new cover dressing. 4. Apply the cover dressing. 5. Attach the suction tube over the hole in the cover dressing. 6. Take off your gloves. Put them in the plastic bag with the old dressing. Tie the bag shut and throw it away. 7. Wash your hands with soap and water. Dry your hands with a clean towel. If soap and water are not available, use hand leather heel breaster. 8. Turn the pump back on. The sponge dressing should collapse. Do not change the settings on the machine without talking to a health care provider. 9. Replace the container in the pump that collects fluid if it is full. Replace the container per the kettle operator's instructions or at least once a week, even if it is not full. General tips and recommendations If the alarm sounds: Stay calm. Do not turn off the pump or do anything with the dressing. Reasons the alarm may go off: ? The battery is low. Change the battery or plug the device into electrical power. ? The dressing has a leak. Find the leak and put tape over the leak. ? The fluid collection container is full. Change the fluid container. Call your health care provider right away if you cannot fix the problem. Explain to your health care provider what is happening. Follow his or her instructions. General instructions Do not turn off the pump unless told to do so by your health care provider. Do not turn off the pump for more than 2 hours. If the pump is off for more than 2 hours, the dressing will need to be changed. If your health care provider says it is okay to shower: ? Do not take the pump into the shower. ? Make sure the wound dressing is protected and sealed. The wound dressing must stay dry. Check frequently that the machine indicates that therapy is on and that all clamps are open. Do not use kwxo-qtx-dxkaxvb medicated or antiseptic creams, sprays, liquids, or dressings unless your health care provider approves. Contact a health care provider if: You have new pain. You develop irritation, a rash, or itching around the wound or dressing. You see new black or yellow tissue in your wound. The dressing changes are painful or cause bleeding. The pump has been off for more than 2 hours, and you do not know how to change the dressing. The pump alarm goes off, and you do not know what to do. Get help right away if: You have a lot of bleeding. The wound breaks open. You have severe pain. You have signs of infection, such as: ? More redness, swelling, or pain. ? More fluid or blood. ? Warmth. ? Pus or a bad smell. ? Red streaks leading from the wound. ? A fever. You see a sudden change in the color or texture of the drainage. You have signs of dehydration, such as: ? Little or no tears, urine, or sweat. ? Muscle cramps. ? Very dry mouth. ? Headache. ? Dizziness. Summary Negative pressure wound therapy (NPWT) is a device that helps your wound heal. Set up a clean station for wound care. Your health care provider will tell you what supplies to use. Follow your health care provider's instructions on how to clean your wound and how to change the dressing. Contact a health care provider if you have new pain, an irritation, or a rash, or if the alarm goes off and you do not know what to do. Get help right away if you have a lot of bleeding, your wound breaks open, or you have severe pain. Also, get help if you have signs of infection. This information is not intended to replace advice given to you by your health care provider. Make sure you discuss any questions you have with your health care provider. Document Released: 05/28/2012 Document Revised: 06/28/2019 Document Reviewed: 05/24/2019 Elsevier Patient Education 2020 [employer]. What to Do After Your General Surgery This sheet will give you general information on what to do when you are home after surgery. However, you should always follow any specific instructions given to you by your surgeon. Pain Medication Please follow the directions on the label of your medication and use your discharge medication list provided by the hospital. Do not take pain medication on an empty stomach. This may cause a stomachache. Constipation is common while taking oral pain medication after surgery. Use a stool softener (Colace) or gentle laxative (milk of magnesia) if needed. As soon as your pain allows, use less of any narcotic pain medication. You may take ljfv-tul-rduxujc pain medication if you no longer need your prescribed pain medication. Kbjo-vax-dztctun pain medications are Tylenol or Advil/Motrin (ibuprofen). Do not take Tylenol if you are still taking Blount or Percocet. They are the same type of medication, and too much acetaminophen can hurt your liver. Activity It is OK to use stairs. Do not lift more than 15 pounds. After surgery, you may feel tired. Rest is important for healing. Slowly increase your activity level by walking and doing normal activities as you feel comfortable. Do not drive while taking narcotic pain medication. They should be out of your system for [address]. Diet Eating smaller meals instead of three large meals is good. This may help with your appetite and nutrition. Good nutrition will help you heal. Follow diet instructions that you were taught after surgery. Infection Prevention Washing your hands is one of the best ways to prevent infection. Always wash your hands before and after touching your incision or bandage. Hands carry germs that can cause infections. Try not to touch your incision. Keep the Incision Clean Wear clean, loose-fitting clothes to prevent clothes from rubbing on the incision. Put clean sheets on your bed when you get home. Do not let other people or animals touch the incision. Showering You may start to shower 48 hours after your surgery. Use a clean washcloth and towel on your incision before you use it on any other area of your body. Adjust the shower spray to gentle and use warm water. Gently wash over your incision using antibacterial soap and water and pat it dry. Do not rub the incision. Do not soak or submerge in the bathtub or hot tub until your surgeon says it is OK. Wound Care If you have a clear, see-through bandage over your incision(s), you may shower with it in place. The bandage is waterproof. o It is normal to see a small amount of reddish fluid under the clear bandage. You may remove your bandage after 48 hours. If you are in the hospital longer than 48 hours, it is OK to remove your bandage when you get home. If you have thin white tape strips (Steri-Strips) over your incision, keep them dry. Do not remove them unless they begin curling up at the sides and are almost falling off. Mimi or sutures are generally removed within seven to 14 days at your follow-up appointment. Drain Care If you have a drain, empty it two to three times per day or if it gets half full. Write down the time it was emptied and amount of fluid on a piece of paper. Bring your paper with times and fluid amounts to your follow-up appointment to show your surgeon. Call Your Doctor If: You have a fever of 101 degrees or higher. It is not uncommon to have a low-grade fever after surgery. You have new redness or fluid around the incision that smells bad or looks like pus. Your skin is very painful, red, warm and/or swollen around the incision. You have a lot of bleeding (push with pressure on the area if this happens). You have bad stomach pain or you start throwing up. If you are unable to reach your surgeon, go to the hospital. Follow Up If a follow-up appointment has not been made, please call your surgeon s office. Most appointments are 10 14 days after surgery. If you have any problems or concerns before then, call the surgeon s office. Additional Information VACCINATE! IT SAVES LIVES! Members of the community who have not yet received the COVID-19 vaccine and would like to receive it can visit one of [facility] vaccine clinics. There are many vaccine clinic locations within the [facility]. For locations and available times, please visit [email or web address] It is important to note that some COVID mobile vaccine clinics are held outdoors and may be canceled in rainy or stormy conditions. To learn more about pediatric vaccinations (ages 5-11), we invite you to visit the [facility] webpage. [email or web address] To learn more about the COVID-19 vaccine, we invite you to visit the [employer] website for a list of frequently asked questions. [email or web address] [facility] Patient Portal Access Instructions: Stay connected with your healthcare team and access your personal medical information anytime with the [facility] Patient Portal.If you would like a full copy of your medical records, please contact the [facility] Medical Records Department, Monday through Monday between 8a.m. and 4:30p.m. Please follow the directions below to access the portal: 1.Access the email account you provided upon registration to the hospital.2.Look for an invitation email from [facility].3.Open the email and access the invitation link: Accept Invitation to [facility]4.Fill in the required walters to create your account. Sign into [email or web address] with your username and password that you created in the above steps to stay up to date. You can then view a summary of results, a summary of your visits, and the ability to download your summaries to your computer or send the information securely to a physician. Remember that your healthcare information is confidential, so carefully consider who you will allow to register on the [facility] Patient Portal for access to your information. You can also access the [facility] Patient Portal on the [employer]. Simply click on Health Records under Health Data and then click on the [employer] logo. HOW TO SAFELY DISPOSE OF PRESCRIPTION MEDICATIONS Please use one of the following methods to safely dispose of your unused medications. 1.Use a drug disposal kit: the drug disposal pouch allows you to safely discard your old and unused drugs. Ask your nurse to give you one when you are discharged.2.Visit a local take-back location: Many local pharmacies and police departments have programs that collect old and unwanted prescription drugs. Call your local pharmacy or go to http://[employer] network/0R0Ol0b to find one close to you.3.Make use of household items: Use cat litter or old coffee grounds to dispose medications if other options are not available. Mix your drugs with these household products, seal them in an airtight container and throw it into the garbage. Call [facility]: [phone] to be sure your drugs can be disposed of in this way. Some medicines may require a different approach.4.Never flush your medications down the toilet. IF YOU HAVE BEEN PRESCRIBED AN OPIOID FOR PAIN If you have been prescribed an opioid (such as hydrocodone, oxycodone or morphine), it is critical to understand the possible side effects and risks of opioid pain medications. Even when taken as directed, opioids can have several side effects including: Tolerance, meaning you might need to take more of a medication for the same pain relief. Nausea, vomiting and/or constipation. Sleepiness, dizziness, dry mouth, confusion, depression or itching. Physical dependence, meaning you have withdrawal symptoms when a medication is stopped, can develop within a few days. KNOW YOUR RESPONSIBILITIES It is important to know exactly how much and how often to take the opioid pain medications you are prescribed. Never take opioids in higher amounts or more often than prescribed. Do not combine opioids with alcohol or other drugs that cause drowsiness, such as benzodiazepines, also known as benzos, including diazepam and alprazolam, muscle relaxants or sleep aids. Never sell or share prescription opioids. This is illegal. Store opioids in a secure place and out of reach of others (including children, family, friends and visitors). The last page of this document has been signed and retained as a CHART COPY. Signatures Patient Education Materials Negative Pressure Wound Therapy Home Guide 8- Post Op General Surgery (02/2020)(CUSTOM) Medication Leaflets oxycodone My discharge plan and instructions have been reviewed and explained to me and I,ISAACLOUIE HANNON M understand my current condition and have read and understand these discharge instructions. I have received a written copy of the plan/instructions. If I have questions, I am aware that I should contact my doctor. 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 Patient resting this morning. Pain is better controlled. She is tolerating regular diet with bowel movements. She denies any nausea or vomiting. Objective Vitals and Measurements T: 36.7 C (Oral) TMIN: 36.4 C (Oral) TMAX: 36.8 C (Oral) HR: 78(Apical) RR: 16 BP: 154/80 SpO2: 94% Intake and Output 7AM Yesterday to 7AM Today Intake and Output (Last 24 hours) Intake Oral Intake 720.00 Output Surgical Drain, Tube Output: 35.00 Urine Voided 450.00 Stool Count 2.00 Urine Count 5.00 Diaper Count 2.00 Total Summary Total Intake 720.00 Total Output 485.00 Fluid Balance 235.00 Physical Exam General: A+Ox3 CV: RRR, no MRG Resp: CTAB Abd: Soft, ND, tender to palpation diffusely, no rebound or guarding, +BS. Wound VAC secure with no leak Weight Dosing Weight: 127.4 kg (02/21/22) Dosing Weight: 125 kg (02/19/22) Medications Medications (17) Active Scheduled: (8) aspirin 325 mg EC 325 mg 1 tab(s), Oral, Every other day atorvastatin 10 mg tablet 10 mg 1 tab(s), Oral, qHS diltiazem 120 mg/24 hours ER capsule 120 mg 1 cap(s), Oral, qDay enoxaparin 40 mg/ 0.4mL syringe 40 mg 0.4 mL, Subcutaneous, qDay lidocaine patch REMOVAL 1 EA, Miscellaneous, q24h lidocaine topical 4% patch 1 patch(es), Transdermal, q24h metoprolol succinate 25 mg ER tablet 25 mg 1 tab(s), Oral, qDayM pantoprazole 20 mg EC tablet 20 mg 1 tab(s), Oral, qDayAC Continuous: (0) PRN: (9) acetaminophen 325 mg Tablet 650 mg 2 tab(s), Oral, q4h HYDROmorphone 0.5 mg/0.5 mL PF syringe 0.5 mg 0.5 mL, IV Push, q3h LORAZEPam 2 mg/mL 1 mL vial 0.25 mg 0.13 mL, IV Push, q4h melatonin 3 mg tablet 3 mg 1 tab(s), Oral, qHS ondansetron 2 mg/ 1 mL 2 mL INJ 4 mg 2 mL, IV Push, q4h oxycodone 5 mg tablet (immediate release) 5 mg 1 tab(s), Oral, q4h promethazine 12.5 mg tablet 12.5 mg 1 tab(s), Oral, q6h tramadol 50 mg Tablet 50 mg 1 tab(s), Oral, q4h zolpidem 5 mg tablet 5 mg 1 tab(s), Oral, qHS Lab Results No 36 Hour Lab Data EKG No qualifying data available. Assessment/Plan 1. PAF (PAROXYSMAL ATRIAL FIBRILLATION) 2. ISAURA (OBSTRUCTIVE SLEEP APNEA) 3. Anxiety 4. HYPERLIPEMIA, MIXED 5. GERD (gastroesophageal reflux disease) 6. Abdominal pain 7. Pneumoperitoneum 8. Rectal mass Patient is a 67-year-old female status post exploratory laparotomy, ileocecectomy with biopsy of rectal mass, Patient is scheduled for wound VAC change today. She has home health care nursing to start dressing changes on Monday. Patient is requesting oncology follow-up now through the [facility]. Recommended that she follows up with her PCP for referral. Patient to follow-up in 2 weeks. Digitally Signed by MICHELLE JIN MD on 02/24/2022 08:33 AM [facility] 02-23-2022 Progress note Date of Service 02/23/2022 I have reviewed the [place] Automated Rx Reporting System (OARRS) report for this patient for refill pattern and other prescriber involvement as part of the appropriate surveillance for the provision of acute and chronic controlled medications. The report was requested and reviewed on the date of this entry, and was considered in the prescribing process. Patient has been assessed using the Opioid Risk Tool in the setting of acute pain. The patient has been instructed to use non-opioid analgesic therapy first and if that is not effective for reducing pain, a temporary prescription for an opioid analgesic has been provided. Benefits and risks, such as dependency, adverse side effects, and overdose discussed. Digitally Signed by LEYDI ROSS on 02/23/2022 02:09 PM [facility] 02-23-2022 Surgery Hospital Progress note Date of Service 02/23/2022 Subjective No overnight events. Patient resting this morning. Pain is better controlled today. She is tolerating regular diet. She reports passing flatus however denies bowel movement since admission. Patient tolerated wound VAC change yesterday. Objective Vitals and Measurements T: 36.8 C (Oral) TMIN: 36.8 C (Oral) TMAX: 37.1 C (Oral) HR: 67(Apical) RR: 18 BP: 109/58 SpO2: 93% Intake and Output 7AM Yesterday to 7AM Today Intake and Output (Last 24 hours) Intake Oral Intake 660.00 Output Surgical Drain, Tube Output: 40.00 Urine Voided 1050.00 Stool Count 1.00 Diaper Count 2.00 Total Summary Total Intake 660.00 Total Output 1090.00 Fluid Balance -430.00 Physical Exam General: A+Ox3 CV: RRR, no MRG Resp: CTAB Abd: Soft, ND, tender to palpation diffusely, rebound or guarding, positive bowel sounds. Wound VAC is secure no air leak noted. Weight Dosing Weight: 127.4 kg (02/21/22) Dosing Weight: 125 kg (02/19/22) Medications Medications (18) Active Scheduled: (9) aspirin 325 mg EC 325 mg 1 tab(s), Oral, Every other day atorvastatin 10 mg tablet 10 mg 1 tab(s), Oral, qHS diltiazem 120 mg/24 hours ER capsule 120 mg 1 cap(s), Oral, qDay enoxaparin 40 mg/ 0.4mL syringe 40 mg 0.4 mL, Subcutaneous, qDay lidocaine patch REMOVAL 1 EA, Miscellaneous, q24h lidocaine topical 4% patch 1 patch(es), Transdermal, q24h metoprolol succinate 25 mg ER tablet 25 mg 1 tab(s), Oral, qDayM pantoprazole 20 mg EC tablet 20 mg 1 tab(s), Oral, qDayAC piperacillin-tazobactam PMX 3.375 gram(s) 50 mL, IV Piggyback, q8hr Continuous: (0) PRN: (9) acetaminophen 325 mg Tablet 650 mg 2 tab(s), Oral, q4h HYDROmorphone 0.5 mg/0.5 mL PF syringe 0.5 mg 0.5 mL, IV Push, q3h LORAZEPam 2 mg/mL 1 mL vial 0.25 mg 0.13 mL, IV Push, q4h melatonin 3 mg tablet 3 mg 1 tab(s), Oral, qHS ondansetron 2 mg/ 1 mL 2 mL INJ 4 mg 2 mL, IV Push, q4h oxycodone 5 mg tablet (immediate release) 5 mg 1 tab(s), Oral, q4h promethazine 12.5 mg tablet 12.5 mg 1 tab(s), Oral, q6h tramadol 50 mg Tablet 50 mg 1 tab(s), Oral, q4h zolpidem 5 mg tablet 5 mg 1 tab(s), Oral, qHS Lab Results 02/22 04:31 WBC: 6.7 Hgb: 11.8 L Hct: 36.5 Platelet: 246 Neutrophil %: 53.2 Glucose Level: 93 Sodium Level: 142 Potassium Level: 4.2 BUN: 13.0 Creatinine Lvl (s): 1.01 EKG No qualifying data available. Assessment/Plan 1. PAF (PAROXYSMAL ATRIAL FIBRILLATION) 2. ISAURA (OBSTRUCTIVE SLEEP APNEA) 3. Anxiety 4. HYPERLIPEMIA, MIXED 5. GERD (gastroesophageal reflux disease) 6. Abdominal pain 7. Pneumoperitoneum 8. Rectal mass Orders: Wound Vacuum Dressing Care Patient is a 67-year-old female status post exploratory laparotomy, ileocecectomy with biopsy of rectal mass, Pathology was reviewed with patient in detail. 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 We will consult medical and radiation oncology to initiate isaias protocol. Will saline lock IV. Anticipate discharge home tomorrow. Digitally Signed by MICHELLE JIN MD on 02/23/2022 09:52 AM [facility] 02-22-2022 Note Date of Service 02-22-2022 Chief Complaint incisional pain Subjective Patient is a 67-year-old female who presented to [facility] with chief complaint of abdominal pain. Patient recently had a colonoscopy completed at [facility] on Monday with Dr. Sumner. She then went had postprocedural discomfort that increased and prompted her to present to [facility] ER. CT abdomen pelvis showed large volume free intraperitoneal air consistent with perforation. Patient was started on Zosyn and transferred to [facility] under general surgery service. Patient is postop day 2 Sigmoidoscopy Rigid, exploratory laparotomy partial colectomy rigid sigmoidoscopy wound vac application, umbilical hernia repair, rectal biopsy, appendectomy, Abdominal Laparotomy exploratory laparotomy with Dr Moreno. Past medical history of proximal A. fib not currently on anticoagulation besides a full-strength aspirin every other day, ISAURA compliant with CPAP, anxiety, hyperlipidemia and GERD. Patient seen and evaluated today. Appears about the same. Patient's diet being advanced today. She is quite anxious about the upcoming wound VAC dressing change. I encouraged her to ask for pain medication prior to dressing change. Hospitalist will sign off at this time, please Objective Vitals and Measurements T: 36.6 C (Oral) TMIN: 36.6 C (Oral) TMAX: 36.7 C (Oral) HR: 69(Apical) RR: 20 BP: 125/65 SpO2: 95% Intake and Output 7AM Yesterday to 7AM Today Intake and Output (Last 24 hours) Intake Oral Intake 480.00 Output Surgical Drain, Tube Output: 20.00 Urine Voided 700.00 Diaper Count 2.00 Total Summary Total Intake 480.00 Total Output 720.00 Fluid Balance -240.00 Physical Exam Constitutional: Patient is alert and oriented x3. In no acute distress. Eyes: PERRLA, EOM intact. ENT: hearing grossly intact, mucous membranes moist, Respiratory: Breathing nonlabored, lungs clear to auscultation bilaterally. Heart: Regular rate and rhythm. S1 S2 heard. GI: Bowel sounds x4 quadrants. No rebound tenderness or guarding. Neuro: speech clear. PENN equally. memory intact Weight Dosing Weight: 127.4 kg (02/21/22) Dosing Weight: 125 kg (02/19/22) Medications Medications (18) Active Scheduled: (9) aspirin 325 mg EC 325 mg 1 tab(s), Oral, Every other day atorvastatin 10 mg tablet 10 mg 1 tab(s), Oral, qHS diltiazem 120 mg/24 hours ER capsule 120 mg 1 cap(s), Oral, qDay enoxaparin 40 mg/ 0.4mL syringe 40 mg 0.4 mL, Subcutaneous, qDay lidocaine patch REMOVAL 1 EA, Miscellaneous, q24h lidocaine topical 4% patch 1 patch(es), Transdermal, q24h metoprolol succinate 25 mg ER tablet 25 mg 1 tab(s), Oral, qDayM pantoprazole 20 mg EC tablet 20 mg 1 tab(s), Oral, qDayAC piperacillin-tazobactam PMX 3.375 gram(s) 50 mL, IV Piggyback, q8hr Continuous: (0) PRN: (9) acetaminophen 325 mg Tablet 650 mg 2 tab(s), Oral, q4h HYDROmorphone 0.5 mg/0.5 mL PF syringe 0.5 mg 0.5 mL, IV Push, q3h LORAZEPam 2 mg/mL 1 mL vial 0.25 mg 0.13 mL, IV Push, q4h melatonin 3 mg tablet 3 mg 1 tab(s), Oral, qHS ondansetron 2 mg/ 1 mL 2 mL INJ 4 mg 2 mL, IV Push, q4h oxycodone 5 mg tablet (immediate release) 5 mg 1 tab(s), Oral, q4h promethazine 12.5 mg tablet 12.5 mg 1 tab(s), Oral, q6h tramadol 50 mg Tablet 50 mg 1 tab(s), Oral, q4h zolpidem 5 mg tablet 5 mg 1 tab(s), Oral, qHS Lab Results 02/22 04:31 WBC: 6.7 Hgb: 11.8 L Hct: 36.5 Platelet: 246 Neutrophil %: 53.2 Glucose Level: 93 Sodium Level: 142 Potassium Level: 4.2 BUN: 13.0 Creatinine Lvl (s): 1.01 02/21 08:19 WBC: 8.3 Hgb: 11.5 L Hct: 35.1 Platelet: 224 Neutrophil %: 67.2 Glucose Level: 90 Sodium Level: 140 Potassium Level: 4.2 BUN: 16.0 Creatinine Lvl (s): 1.24 H EKG No qualifying data available. Assessment/Plan 1. PAF (PAROXYSMAL ATRIAL FIBRILLATION) 2. ISAURA (OBSTRUCTIVE SLEEP APNEA) 3. Anxiety 4. HYPERLIPEMIA, MIXED 5. GERD (gastroesophageal reflux disease) 6. Abdominal pain 7. Pneumoperitoneum 8. Rectal mass Proximal A. fib continue home regimen including metoprolol, Cardizem, resume aspirin today, discussed w/ General surgery GROUND DEFENCE OFFICER. utilizes pill in the pocket for irregular HR at home. ISAURA continue CPAP as at home. Anxiety patient anxious currently over medical situation, continue as needed Xanax as at home. Continue statin for hyperlipidemia. Continue omeprazole for GERD. Abdominal pain/pneumoperitoneum/rectal mass patient is postop day 3 Sigmoidoscopy Rigid, exploratory laparotomy partial colectomy rigid sigmoidoscopy wound vac application, umbilical hernia repair, rectal biopsy, appendectomy, Abdominal Laparotomy exploratory laparotomy with Dr Moreno. Continues on zosyn. Await rectal biopsies, may need consultation to heme-onc. Management per general surgery. Patient's diet being advanced to soft diet, wound VAC in place, management per general surgery. Lab work reviewed, hemoglobin stable, creatinine bumped to 1.24 yesterday, NSAID was discontinued and creatinine back to baseline. continue IV fluids. Continue to monitor. Call with any further questions or concerns. Hospitalist will sign off at this time Discussed with Dr. 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 She denied significant overnight events or concerns. She denied passing flatus or moving her bowels, although she feels like she is close per her report. She was able to tolerate a full liquid diet without nausea or vomiting. Objective Vitals and Measurements T: 36.6 C (Oral) TMIN: 36.6 C (Oral) TMAX: 36.7 C (Oral) HR: 69(Apical) RR: 20 BP: 125/65 SpO2: 95% Intake and Output 7AM Yesterday to 7AM Today Intake and Output (Last 24 hours) Intake Administration Information 800.00 Oral Intake 120.00 Output Surgical Drain, Tube Output: 20.00 Urine Voided 800.00 Diaper Count 2.00 Total Summary Total Intake 920.00 Total Output 820.00 Fluid Balance 100.00 Physical Exam General: Awake, alert and oriented x4. In no apparent distress. Able to answer questions appropriately and speak in full sentences. Ambulating in the room. HEENT: Sclera anicteric. Heart: S1 and S2 present. Lungs: Chest rise symmetrical. Respirations unlabored. Abdomen: Soft and nontender. Nondistended. No rigidity or guarding noted. Bowel sounds present. Incisional wound vac in place with a good seal. HAYDEN drain present with serosanguineous drainage. Extremities: Freely moving. Psychiatric: Calm and cooperative. Weight Dosing Weight: 127.4 kg (02/21/22) Dosing Weight: 125 kg (02/19/22) Medications Medications (19) Active Scheduled: (9) aspirin 325 mg EC 325 mg 1 tab(s), Oral, Every other day atorvastatin 10 mg tablet 10 mg 1 tab(s), Oral, qHS diltiazem 120 mg/24 hours ER capsule 120 mg 1 cap(s), Oral, qDay enoxaparin 40 mg/ 0.4mL syringe 40 mg 0.4 mL, Subcutaneous, qDay lidocaine patch REMOVAL 1 EA, Miscellaneous, q24h lidocaine topical 4% patch 1 patch(es), Transdermal, q24h metoprolol succinate 25 mg ER tablet 25 mg 1 tab(s), Oral, qDayM pantoprazole 20 mg EC tablet 20 mg 1 tab(s), Oral, qDayAC piperacillin-tazobactam PMX 3.375 gram(s) 50 mL, IV Piggyback, q8hr Continuous: (1) Dextrose 5% with 0.45% NACL 1,000 mL 1,000 mL, Intravenous, 75 mL/hr PRN: (9) acetaminophen 325 mg Tablet 650 mg 2 tab(s), Oral, q4h HYDROmorphone 0.5 mg/0.5 mL PF syringe 0.5 mg 0.5 mL, IV Push, q3h LORAZEPam 2 mg/mL 1 mL vial 0.25 mg 0.13 mL, IV Push, q4h melatonin 3 mg tablet 3 mg 1 tab(s), Oral, qHS ondansetron 2 mg/ 1 mL 2 mL INJ 4 mg 2 mL, IV Push, q4h oxycodone 5 mg tablet (immediate release) 5 mg 1 tab(s), Oral, q4h promethazine 12.5 mg tablet 12.5 mg 1 tab(s), Oral, q6h tramadol 50 mg Tablet 50 mg 1 tab(s), Oral, q4h zolpidem 5 mg tablet 5 mg 1 tab(s), Oral, qHS Lab Results 02/22 04:31 WBC: 6.7 Hgb: 11.8 L Hct: 36.5 Platelet: 246 Neutrophil %: 53.2 Glucose Level: 93 Sodium Level: 142 Potassium Level: 4.2 BUN: 13.0 Creatinine Lvl (s): 1.01 02/21 08:19 WBC: 8.3 Hgb: 11.5 L Hct: 35.1 Platelet: 224 Neutrophil %: 67.2 Glucose Level: 90 Sodium Level: 140 Potassium Level: 4.2 BUN: 16.0 Creatinine Lvl (s): 1.24 H EKG No qualifying data available. Assessment/Plan 1. PAF (PAROXYSMAL ATRIAL FIBRILLATION) 2. ISAURA (OBSTRUCTIVE SLEEP APNEA) 3. Anxiety 4. HYPERLIPEMIA, MIXED 5. GERD (gastroesophageal reflux disease) 6. Abdominal pain 7. Pneumoperitoneum 8. Rectal mass This patient is a 67-year-old female who is postoperative day #3 following an exploratory laparotomy, partial colectomy with rigid sigmoidoscopy, umbilical hernia repair, rectal biopsy, appendectomy, and wound VAC application secondary to pneumoperitoneum. Morning laboratory data, vital signs, and I/O have been reviewed. No leukocytosis was present on this morning's labs. On examination, she was seen ambulating in the room with nursing present at the bedside. She did not appear toxic or in any acute distress. She complained of incisional pain with mobilization. She denied nausea and vomiting and has been able to tolerate a full liquid diet without difficulty. She has not yet passed flatus or moved her bowels. HAYDEN drain output noted to be 50 mL over the last 24 hours. A wound VAC remains in place to the incision site. Plan: 1. Postoperative day #3; Continue HAYDEN drain care/management Continue wound VAC; wound VAC will be removed this afternoon and the wound will be evaluated. Advance patient to a soft diet for lunch As needed pain medication/antiemetics Continue IV Zosyn administration Discontinue IV fluid Await final surgery pathology 2. Medical management per the medical team 3. DVT prophylaxis with subcutaneous Lovenox 4. Continue to encourage mobilization in the room, hallway, and up to the chair for all meals 5. Encouraged hourly incentive spirometry use and coughing and deep breathing exercises The case has been discussed with Dr. Jin. Please see his addendum for further details. Digitally Signed by LEYDI ROSS on 02/22/2022 08:57 AM Digitally Signed by LEYDI ROSS on 02/22/2022 08:58 AM Digitally Signed by LEYDI ROSS on 02/22/2022 08:59 AM [facility] 02-22-2022 Surgery Hospital Progress note Date of Service 02/22/2022 Chief Complaint Postoperative Subjective Patient seen ambulating in the room with nursing present at the bedside. She denied significant overnight events or concerns. She denied passing flatus or moving her bowels, although she feels like she is close per her report. She was able to tolerate a full liquid diet without nausea or vomiting. Objective Vitals and Measurements T: 36.6 C (Oral) TMIN: 36.6 C (Oral) TMAX: 36.7 C (Oral) HR: 69(Apical) RR: 20 BP: 125/65 SpO2: 95% Intake and Output 7AM Yesterday to 7AM Today Intake and Output (Last 24 hours) Intake Administration Information 800.00 Oral Intake 120.00 Output Surgical Drain, Tube Output: 20.00 Urine Voided 800.00 Diaper Count 2.00 Total Summary Total Intake 920.00 Total Output 820.00 Fluid Balance 100.00 Physical Exam General: Awake, alert and oriented x4. In no apparent distress. Able to answer questions appropriately and speak in full sentences. Ambulating in the room. HEENT: Sclera anicteric. Heart: S1 and S2 present. Lungs: Chest rise symmetrical. Respirations unlabored. Abdomen: Soft and nontender. Nondistended. No rigidity or guarding noted. Bowel sounds present. Incisional wound vac in place with a good seal. HAYDEN drain present with serosanguineous drainage. Extremities: Freely moving. Psychiatric: Calm and cooperative. Weight Dosing Weight: 127.4 kg (02/21/22) Dosing Weight: 125 kg (02/19/22) Medications Medications (19) Active Scheduled: (9) aspirin 325 mg EC 325 mg 1 tab(s), Oral, Every other day atorvastatin 10 mg tablet 10 mg 1 tab(s), Oral, qHS diltiazem 120 mg/24 hours ER capsule 120 mg 1 cap(s), Oral, qDay enoxaparin 40 mg/ 0.4mL syringe 40 mg 0.4 mL, Subcutaneous, qDay lidocaine patch REMOVAL 1 EA, Miscellaneous, q24h lidocaine topical 4% patch 1 patch(es), Transdermal, q24h metoprolol succinate 25 mg ER tablet 25 mg 1 tab(s), Oral, qDayM pantoprazole 20 mg EC tablet 20 mg 1 tab(s), Oral, qDayAC piperacillin-tazobactam PMX 3.375 gram(s) 50 mL, IV Piggyback, q8hr Continuous: (1) Dextrose 5% with 0.45% NACL 1,000 mL 1,000 mL, Intravenous, 75 mL/hr PRN: (9) acetaminophen 325 mg Tablet 650 mg 2 tab(s), Oral, q4h HYDROmorphone 0.5 mg/0.5 mL PF syringe 0.5 mg 0.5 mL, IV Push, q3h LORAZEPam 2 mg/mL 1 mL vial 0.25 mg 0.13 mL, IV Push, q4h melatonin 3 mg tablet 3 mg 1 tab(s), Oral, qHS ondansetron 2 mg/ 1 mL 2 mL INJ 4 mg 2 mL, IV Push, q4h oxycodone 5 mg tablet (immediate release) 5 mg 1 tab(s), Oral, q4h promethazine 12.5 mg tablet 12.5 mg 1 tab(s), Oral, q6h tramadol 50 mg Tablet 50 mg 1 tab(s), Oral, q4h zolpidem 5 mg tablet 5 mg 1 tab(s), Oral, qHS Lab Results 02/22 04:31 WBC: 6.7 Hgb: 11.8 L Hct: 36.5 Platelet: 246 Neutrophil %: 53.2 Glucose Level: 93 Sodium Level: 142 Potassium Level: 4.2 BUN: 13.0 Creatinine Lvl (s): 1.01 02/21 08:19 WBC: 8.3 Hgb: 11.5 L Hct: 35.1 Platelet: 224 Neutrophil %: 67.2 Glucose Level: 90 Sodium Level: 140 Potassium Level: 4.2 BUN: 16.0 Creatinine Lvl (s): 1.24 H EKG No qualifying data available. Assessment/Plan 1. PAF (PAROXYSMAL ATRIAL FIBRILLATION) 2. ISAURA (OBSTRUCTIVE SLEEP APNEA) 3. Anxiety 4. HYPERLIPEMIA, MIXED 5. GERD (gastroesophageal reflux disease) 6. Abdominal pain 7. Pneumoperitoneum 8. Rectal mass This patient is a 67-year-old female who is postoperative day #3 following an exploratory laparotomy, partial colectomy with rigid sigmoidoscopy, umbilical hernia repair, rectal biopsy, appendectomy, and wound VAC application secondary to pneumoperitoneum. Morning laboratory data, vital signs, and I/O have been reviewed. No leukocytosis was present on this morning's labs. On examination, she was seen ambulating in the room with nursing present at the bedside. She did not appear toxic or in any acute distress. She complained of incisional pain with mobilization. She denied nausea and vomiting and has been able to tolerate a full liquid diet without difficulty. She has not yet passed flatus or moved her bowels. HAYDEN drain output noted to be 50 mL over the last 24 hours. A wound VAC remains in place to the incision site. Plan: 1. Postoperative day #3; Continue HAYDEN drain care/management Continue wound VAC; wound VAC will be removed this afternoon and the wound will be evaluated. Advance patient to a soft diet for lunch As needed pain medication/antiemetics Continue IV Zosyn administration Discontinue IV fluid Await final surgery pathology 2. Medical management per the medical team 3. DVT prophylaxis with subcutaneous Lovenox 4. Continue to encourage mobilization in the room, hallway, and up to the chair for all meals 5. Encouraged hourly incentive spirometry use and coughing and deep breathing exercises The case has been discussed with Dr. Jin. Please see his addendum for further details. 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 Patient recently had a colonoscopy completed at [facility] on Monday with Dr. Sumner. She then went had postprocedural discomfort that increased and prompted her to present to [facility] ER. CT abdomen pelvis showed large volume free intraperitoneal air consistent with perforation. Patient was started on Zosyn and transferred to [facility] under general surgery service. Patient is postop day 2 Sigmoidoscopy Rigid, exploratory laparotomy partial colectomy rigid sigmoidoscopy wound vac application, umbilical hernia repair, rectal biopsy, appendectomy, Abdominal Laparotomy exploratory laparotomy with Dr Moreno. Past medical history of proximal A. fib not currently on anticoagulation besides a full-strength aspirin every other day, ISAURA compliant with CPAP, anxiety, hyperlipidemia and GERD. Patient seen and evaluated today, sitting up in the chair. Continues to complain of incisional pain. Patient is again asking about hematology consultation, told her we are waiting on biopsies to confirm diagnosis. Patient is passing gas. Objective Vitals and Measurements T: 36.7 C (Oral) TMIN: 36.5 C (Oral) TMAX: 37.0 C (Oral) HR: 63(Apical) RR: 18 BP: 118/66 SpO2: 93% WT: 127.4 kg Intake and Output 7AM Yesterday to 7AM Today Intake and Output (Last 24 hours) Intake Administration Information 1600.00 Oral Intake 320.00 Output Surgical Drain, Tube Output: 50.00 Urine Voided 500.00 Urinary Catheter Output: 900.00 Stool Count 0.00 Diaper Count 1.00 Total Summary Total Intake 1920.00 Total Output 1450.00 Fluid Balance 470.00 Physical Exam Constitutional: Patient is alert and oriented x3. In no acute distress. Eyes: PERRLA, EOM intact. ENT: hearing grossly intact, mucous membranes moist, Respiratory: Breathing nonlabored, lungs clear to auscultation bilaterally. Heart: Regular rate and rhythm. S1 S2 heard. GI: Bowel sounds x4 quadrants. No rebound tenderness or guarding. Neuro: speech clear. PENN equally. memory intact Weight Dosing Weight: 127.4 kg (02/21/22) Dosing Weight: 125 kg (02/19/22) Medications Medications (18) Active Scheduled: (8) atorvastatin 10 mg tablet 10 mg 1 tab(s), Oral, qHS diltiazem 120 mg/24 hours ER capsule 120 mg 1 cap(s), Oral, qDay enoxaparin 40 mg/ 0.4mL syringe 40 mg 0.4 mL, Subcutaneous, qDay lidocaine patch REMOVAL 1 EA, Miscellaneous, q24h lidocaine topical 4% patch 1 patch(es), Transdermal, q24h metoprolol succinate 25 mg ER tablet 25 mg 1 tab(s), Oral, qDayM pantoprazole 20 mg EC tablet 20 mg 1 tab(s), Oral, qDayAC piperacillin-tazobactam PMX 3.375 gram(s) 50 mL, IV Piggyback, q8hr Continuous: (1) Dextrose 5% with 0.45% NACL 1,000 mL 1,000 mL, Intravenous, 100 mL/hr PRN: (9) acetaminophen 325 mg Tablet 650 mg 2 tab(s), Oral, q4h HYDROmorphone 0.5 mg/0.5 mL PF syringe 0.5 mg 0.5 mL, IV Push, q3h LORAZEPam 2 mg/mL 1 mL vial 0.25 mg 0.13 mL, IV Push, q4h melatonin 3 mg tablet 3 mg 1 tab(s), Oral, qHS ondansetron 2 mg/ 1 mL 2 mL INJ 4 mg 2 mL, IV Push, q4h oxycodone 5 mg tablet (immediate release) 5 mg 1 tab(s), Oral, q4h promethazine 12.5 mg tablet 12.5 mg 1 tab(s), Oral, q6h tramadol 50 mg Tablet 50 mg 1 tab(s), Oral, q4h zolpidem 5 mg tablet 5 mg 1 tab(s), Oral, qHS Lab Results 02/21 08:19 WBC: 8.3 Hgb: 11.5 L Hct: 35.1 Platelet: 224 Neutrophil %: 67.2 Glucose Level: 90 Sodium Level: 140 Potassium Level: 4.2 BUN: 16.0 Creatinine Lvl (s): 1.24 H 02/20 05:25 WBC: 10.5 Hgb: 11.5 L Hct: 34.6 Platelet: 217 Neutrophil %: 87.3 H Glucose Level: 155 H Sodium Level: 141 Potassium Level: 4.8 BUN: 12.0 Creatinine Lvl (s): 0.94 EKG EKG - Completed -- 02/20/22 7:00:00 EST Assessment/Plan 1. PAF (PAROXYSMAL ATRIAL FIBRILLATION) 2. ISAURA (OBSTRUCTIVE SLEEP APNEA) 3. Anxiety 4. HYPERLIPEMIA, MIXED 5. GERD (gastroesophageal reflux disease) 6. Abdominal pain 7. Pneumoperitoneum 8. Rectal mass Proximal A. fib continue home regimen including metoprolol, Cardizem, resume aspirin today, discussed w/ General surgery [employer]. utilizes pill in the pocket for irregular HR at home. ISAURA continue CPAP as at home. Anxiety patient anxious currently over medical situation, continue as needed Xanax as at home. Continue statin for hyperlipidemia. Continue omeprazole for GERD. Abdominal pain/pneumoperitoneum/rectal mass patient is postop day 2 Sigmoidoscopy Rigid, exploratory laparotomy partial colectomy rigid sigmoidoscopy wound vac application, umbilical hernia repair, rectal biopsy, appendectomy, Abdominal Laparotomy exploratory laparotomy with Dr Moreno. Continues on zosyn. Await rectal biopsies, may need consultation to heme-onc. Management per general surgery. Patient's diet being advanced to full liquid, wound VAC in place, management per general surgery. Lab work reviewed, hemoglobin 11.5 stable, creatinine bumped to 1.24, continue IV fluids. Continue to monitor. Discussed with Dr. 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 POSTOPERATIVE DIAGNOSIS: PNEUMOPERITONEUM DIVERTICULAR DISEASE [facility] 02-21-2022 Note PROCEDURE: EXPLORATORY LAPAROTOMY PARTIAL COLECTOMY RIGID SIGMOIDOSCOPY WOUND VAC APPLICATION, UMBILICAL HERNIA REPAIR, RECTAL BIOPSY, APPENDECTOMY 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 POSTOPERATIVE DIAGNOSIS: PNEUMOPERITONEUM DIVERTICULAR DISEASE [facility] 02-21-2022 Note PROCEDURE: EXPLORATORY LAPAROTOMY PARTIAL COLECTOMY RIGID SIGMOIDOSCOPY WOUND VAC APPLICATION, UMBILICAL HERNIA REPAIR, RECTAL BIOPSY, APPENDECTOMY 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 Patient complaining of abdominal pain, worse this morning while she was sleeping on her left side. She denies any nausea or vomiting. Patient is on a clear liquid diet. She denies flatus or bowel movements. Wound VAC secure. Objective Vitals and Measurements T: 36.7 C (Oral) TMIN: 36.5 C (Oral) TMAX: 37.0 C (Oral) HR: 63 RR: 18 BP: 118/66 SpO2: 93% WT: 127.4 kg Intake and Output 7AM Yesterday to 7AM Today Intake and Output (Last 24 hours) Intake Administration Information 800.00 Oral Intake 200.00 Output Surgical Drain, Tube Output: 50.00 Urine Voided 500.00 Urinary Catheter Output: 900.00 Stool Count 0.00 Diaper Count 1.00 Total Summary Total Intake 1000.00 Total Output 1450.00 Fluid Balance -450.00 Physical Exam General: A+Ox3 CV: RRR, no MRG Resp: CTAB Abd: Soft, ND, diffusely tender to palpation, rebound or guarding, hypoactive bowel sounds. Wound VAC secure with no air leak noted. Weight Dosing Weight: 127.4 kg (02/21/22) Dosing Weight: 125 kg (02/19/22) Medications Medications (15) Active Scheduled: (7) atorvastatin 10 mg tablet 10 mg 1 tab(s), Oral, qHS diltiazem 120 mg/24 hours ER capsule 120 mg 1 cap(s), Oral, qDay enoxaparin 40 mg/ 0.4mL syringe 40 mg 0.4 mL, Subcutaneous, qDay ibuprofen 400 mg tablet 400 mg 1 tab(s), Oral, q6h metoprolol succinate 25 mg ER tablet 25 mg 1 tab(s), Oral, qDayM pantoprazole 20 mg EC tablet 20 mg 1 tab(s), Oral, qDayAC piperacillin-tazobactam PMX 3.375 gram(s) 50 mL, IV Piggyback, q8hr Continuous: (1) Dextrose 5% with 0.45% NACL 1,000 mL 1,000 mL, Intravenous, 100 mL/hr PRN: (7) acetaminophen-HYDROcodone 325-5 mg tablet 1 tab(s), Oral, q4h HYDROmorphone 0.5 mg/0.5 mL PF syringe 0.5 mg 0.5 mL, IV Push, q2h LORAZEPam 2 mg/mL 1 mL vial 0.25 mg 0.13 mL, IV Push, q4h melatonin 3 mg tablet 3 mg 1 tab(s), Oral, qHS ondansetron 2 mg/ 1 mL 2 mL INJ 4 mg 2 mL, IV Push, q4h promethazine 12.5 mg tablet 12.5 mg 1 tab(s), Oral, q6h zolpidem 5 mg tablet 5 mg 1 tab(s), Oral, qHS Lab Results 02/20 05:25 WBC: 10.5 Hgb: 11.5 L Hct: 34.6 Platelet: 217 Neutrophil %: 87.3 H Glucose Level: 155 H Sodium Level: 141 Potassium Level: 4.8 BUN: 12.0 Creatinine Lvl (s): 0.94 EKG EKG - Completed -- 02/20/22 7:00:00 EST Assessment/Plan 1. PAF (PAROXYSMAL ATRIAL FIBRILLATION) 2. ISAURA (OBSTRUCTIVE SLEEP APNEA) 3. Anxiety 4. HYPERLIPEMIA, MIXED 5. GERD (gastroesophageal reflux disease) 6. Abdominal pain 7. Pneumoperitoneum 8. Rectal mass Patient is a 67-year-old female status post exploratory laparotomy, ileocecectomy, biopsy of rectal mass, Await final pathology results. Wound VAC is scheduled for change tomorrow. Okay to advance to full liquid diet. Will saline lock IV. Encourage activity and ambulation. Continue pain control. Repeat labs in AM. Digitally Signed by MICHELLE JIN MD on 02/21/2022 08:55 AM [facility] 02-20-2022 Note Date of Service February 20, 2022 Chief Complaint Rectal mass, anxiety Subjective Patient is a 67-year-old female who presented to [facility] with chief complaint of abdominal pain. Patient recently had a colonoscopy completed at [facility] on Monday with Dr. Sumner. She then went had postprocedural discomfort that increased and prompted her to present to [facility] ER. CT abdomen pelvis showed large volume free intraperitoneal air consistent with perforation. Patient was started on Zosyn and transferred to [facility] under general surgery service. Patient is postop day 1 Sigmoidoscopy Rigid, exploratory laparotomy partial colectomy rigid sigmoidoscopy wound vac application, umbilical hernia repair, rectal biopsy, appendectomy, Abdominal Laparotomy exploratory laparotomy with Dr Moreno. Past medical history of proximal A. fib not currently on anticoagulation besides a full-strength aspirin every other day, ISAURA compliant with CPAP, anxiety, hyperlipidemia and GERD. Patient seen and evaluated today, sitting up in the chair. Patient is tearful during my visit because she was just told she has a rectal mass suspicious for cancer. Patient reports she had breast cancer a very long time ago. Reports her maternal aunt has a history of colon cancer. Does complain of incisional pain. Objective Vitals and Measurements T: 36.7 C (Oral) TMIN: 36.11 C TMAX: 36.7 C (Oral) HR: 94(Apical) RR: 18 BP: 123/71 SpO2: 93% HT: 175.3 cm WT: 125.0 kg BMI: 40.68 Intake and Output 7AM Yesterday to 7AM Today Intake and Output (Last 24 hours) Intake Oral Intake 210.00 Administration Information 1400.00 Output Surgical Drain, Tube Output: 70.00 Urinary Catheter Output: 280.00 Intra-Op EBL 100.00 Intra-Op Urine Catheter 100.00 Stool Count 0.00 Urine Count 1.00 Total Summary Total Intake 1610.00 Total Output 550.00 Fluid Balance 1060.00 Physical Exam Constitutional: Patient is alert and oriented x3. In no acute distress. Eyes: PERRLA, EOM intact. ENT: hearing grossly intact, mucous membranes moist, Respiratory: Breathing nonlabored, lungs clear to auscultation bilaterally. Heart: Regular rate and rhythm. S1 S2 heard. GI: Bowel sounds x4 quadrants. No rebound tenderness or guarding. Neuro: speech clear. PENN equally. memory intact Weight Dosing Weight: 125 kg (02/19/22) Medications Medications (15) Active Scheduled: (7) atorvastatin 10 mg tablet 10 mg 1 tab(s), Oral, qHS diltiazem 120 mg/24 hours ER capsule 120 mg 1 cap(s), Oral, qDay enoxaparin 40 mg/ 0.4mL syringe 40 mg 0.4 mL, Subcutaneous, qDay ibuprofen 400 mg tablet 400 mg 1 tab(s), Oral, q6h metoprolol succinate 25 mg ER tablet 25 mg 1 tab(s), Oral, qDayM pantoprazole 20 mg EC tablet 20 mg 1 tab(s), Oral, qDayAC piperacillin-tazobactam PMX 3.375 gram(s) 50 mL, IV Piggyback, q6hr Continuous: (1) Dextrose 5% with 0.45% NACL 1,000 mL 1,000 mL, Intravenous, 100 mL/hr PRN: (7) acetaminophen-HYDROcodone 325-5 mg tablet 1 tab(s), Oral, q4h HYDROmorphone 0.5 mg/0.5 mL PF syringe 0.5 mg 0.5 mL, IV Push, q2h LORAZEPam 2 mg/mL 1 mL vial 0.25 mg 0.13 mL, IV Push, q4h melatonin 3 mg tablet 3 mg 1 tab(s), Oral, qHS ondansetron 2 mg/ 1 mL 2 mL INJ 4 mg 2 mL, IV Push, q4h promethazine 12.5 mg tablet 12.5 mg 1 tab(s), Oral, q6h zolpidem 5 mg tablet 5 mg 1 tab(s), Oral, qHS Lab Results 02/20 05:25 WBC: 10.5 Hgb: 11.5 L Hct: 34.6 Platelet: 217 Neutrophil %: 87.3 H Glucose Level: 155 H Sodium Level: 141 Potassium Level: 4.8 BUN: 12.0 Creatinine Lvl (s): 0.94 EKG EKG - Discontinued -- 02/19/22 22:16:00 EST Electrocardiogram (EKG) - InProcess -- 02/20/22 7:00:00 EST Assessment/Plan 1. PAF (PAROXYSMAL ATRIAL FIBRILLATION) 2. ISAURA (OBSTRUCTIVE SLEEP APNEA) 3. Anxiety 4. HYPERLIPEMIA, MIXED 5. GERD (gastroesophageal reflux disease) 6. Abdominal pain 7. Pneumoperitoneum 8. Rectal mass Proximal A. fib continue home regimen including metoprolol, Cardizem, resume aspirin when okay with surgery. utilizes pill in the pocket for irregular HR at home. ISAURA continue CPAP as at home. Anxiety patient anxious currently over medical situation, continue as needed Xanax as at home. Continue statin for hyperlipidemia. Continue omeprazole for GERD. Abdominal pain/pneumoperitoneum/rectal mass patient is postop day 1 Sigmoidoscopy Rigid, exploratory laparotomy partial colectomy rigid sigmoidoscopy wound vac application, umbilical hernia repair, rectal biopsy, appendectomy, Abdominal Laparotomy exploratory laparotomy with Dr Moreno. Continues on zosyn. Await rectal biopsies, may need consultation to heme-onc. Management per general surgery. Discussed with Dr. Viera Time Spent 25 minutes Digitally Signed by LOCO PEÑA on 02/20/2022 12:42 PM [facility] 02-20-2022 Note Date of Service February 20, 2022 Chief Complaint Rectal mass, anxiety Subjective Patient is a 67-year-old female who presented to [facility] with chief complaint of abdominal pain. Patient recently had a colonoscopy completed at [facility] on Monday with Dr. Sumner. She then went had postprocedural discomfort that increased and prompted her to present to [facility] ER. CT abdomen pelvis showed large volume free intraperitoneal air consistent with perforation. Patient was started on Zosyn and transferred to [facility] under general surgery service. Patient is postop day 1 Sigmoidoscopy Rigid, exploratory laparotomy partial colectomy rigid sigmoidoscopy wound vac application, umbilical hernia repair, rectal biopsy, appendectomy, Abdominal Laparotomy exploratory laparotomy with Dr Moreno. Past medical history of proximal A. fib not currently on anticoagulation besides a full-strength aspirin every other day, ISAURA compliant with CPAP, anxiety, hyperlipidemia and GERD. Patient seen and evaluated today, sitting up in the chair. Patient is tearful during my visit because she was just told she has a rectal mass suspicious for cancer. Patient reports she had breast cancer a very long time ago. Reports her maternal aunt has a history of colon cancer. Does complain of incisional pain. Objective Vitals and Measurements T: 36.7 C (Oral) TMIN: 36.11 C TMAX: 36.7 C (Oral) HR: 94(Apical) RR: 18 BP: 123/71 SpO2: 93% HT: 175.3 cm WT: 125.0 kg BMI: 40.68 Intake and Output 7AM Yesterday to 7AM Today Intake and Output (Last 24 hours) Intake Oral Intake 210.00 Administration Information 1400.00 Output Surgical Drain, Tube Output: 70.00 Urinary Catheter Output: 280.00 Intra-Op EBL 100.00 Intra-Op Urine Catheter 100.00 Stool Count 0.00 Urine Count 1.00 Total Summary Total Intake 1610.00 Total Output 550.00 Fluid Balance 1060.00 Physical Exam Constitutional: Patient is alert and oriented x3. In no acute distress. Eyes: PERRLA, EOM intact. ENT: hearing grossly intact, mucous membranes moist, Respiratory: Breathing nonlabored, lungs clear to auscultation bilaterally. Heart: Regular rate and rhythm. S1 S2 heard. GI: Bowel sounds x4 quadrants. No rebound tenderness or guarding. Neuro: speech clear. PENN equally. memory intact Weight Dosing Weight: 125 kg (02/19/22) Medications Medications (15) Active Scheduled: (7) atorvastatin 10 mg tablet 10 mg 1 tab(s), Oral, qHS diltiazem 120 mg/24 hours ER capsule 120 mg 1 cap(s), Oral, qDay enoxaparin 40 mg/ 0.4mL syringe 40 mg 0.4 mL, Subcutaneous, qDay ibuprofen 400 mg tablet 400 mg 1 tab(s), Oral, q6h metoprolol succinate 25 mg ER tablet 25 mg 1 tab(s), Oral, qDayM pantoprazole 20 mg EC tablet 20 mg 1 tab(s), Oral, qDayAC piperacillin-tazobactam PMX 3.375 gram(s) 50 mL, IV Piggyback, q6hr Continuous: (1) Dextrose 5% with 0.45% NACL 1,000 mL 1,000 mL, Intravenous, 100 mL/hr PRN: (7) acetaminophen-HYDROcodone 325-5 mg tablet 1 tab(s), Oral, q4h HYDROmorphone 0.5 mg/0.5 mL PF syringe 0.5 mg 0.5 mL, IV Push, q2h LORAZEPam 2 mg/mL 1 mL vial 0.25 mg 0.13 mL, IV Push, q4h melatonin 3 mg tablet 3 mg 1 tab(s), Oral, qHS ondansetron 2 mg/ 1 mL 2 mL INJ 4 mg 2 mL, IV Push, q4h promethazine 12.5 mg tablet 12.5 mg 1 tab(s), Oral, q6h zolpidem 5 mg tablet 5 mg 1 tab(s), Oral, qHS Lab Results 02/20 05:25 WBC: 10.5 Hgb: 11.5 L Hct: 34.6 Platelet: 217 Neutrophil %: 87.3 H Glucose Level: 155 H Sodium Level: 141 Potassium Level: 4.8 BUN: 12.0 Creatinine Lvl (s): 0.94 EKG EKG - Discontinued -- 02/19/22 22:16:00 EST Electrocardiogram (EKG) - InProcess -- 02/20/22 7:00:00 EST Assessment/Plan 1. PAF (PAROXYSMAL ATRIAL FIBRILLATION) 2. ISAURA (OBSTRUCTIVE SLEEP APNEA) 3. Anxiety 4. HYPERLIPEMIA, MIXED 5. GERD (gastroesophageal reflux disease) 6. Abdominal pain 7. Pneumoperitoneum 8. Rectal mass Proximal A. fib continue home regimen including metoprolol, Cardizem, resume aspirin when okay with surgery. utilizes pill in the pocket for irregular HR at home. ISAURA continue CPAP as at home. Anxiety patient anxious currently over medical situation, continue as needed Xanax as at home. Continue statin for hyperlipidemia. Continue omeprazole for GERD. Abdominal pain/pneumoperitoneum/rectal mass patient is postop day 1 Sigmoidoscopy Rigid, exploratory laparotomy partial colectomy rigid sigmoidoscopy wound vac application, umbilical hernia repair, rectal biopsy, appendectomy, Abdominal Laparotomy exploratory laparotomy with Dr Moreno. Continues on zosyn. Await rectal biopsies, may need consultation to heme-onc. Management per general surgery. Discussed with Dr. Viera Time Spent 25 minutes Digitally Signed by LOCO PEÑA on 02/20/2022 12:42 PM [facility] 02-20-2022 Surgery Hospital Progress note Date of Service 02/20/2022 Chief Complaint POD #1 Subjective On examination of patient she is seen resting supine in bed. Patient is no acute distress. Patient reports that she is having minimal pain. Patient denies any shortness of breath, chest pain. She denies any nausea or vomiting. Patient reports that she is tolerating clear liquid diet without difficulty. Patient denies passing any flatulence. Objective Vitals and Measurements T: 36.5 C (Oral) TMIN: 36.11 C TMAX: 36.7 C (Oral) HR: 76(Monitored) RR: 16 BP: 111/62 SpO2: 97% HT: 175.3 cm WT: 125.0 kg BMI: 40.68 Intake and Output 7AM Yesterday to 7AM Today Intake and Output (Last 24 hours) Intake Oral Intake 210.00 Administration Information 1400.00 Output Surgical Drain, Tube Output: 70.00 Urinary Catheter Output: 280.00 Intra-Op EBL 100.00 Intra-Op Urine Catheter 100.00 Stool Count 0.00 Urine Count 1.00 Total Summary Total Intake 1610.00 Total Output 550.00 Fluid Balance 1060.00 Physical Exam General: Awake and alert and in no apparent distress. Able to answer questions and speak in full sentences. Supine in bed. Sitting upright. HEENT: Mucous membranes moist and pink. Sclerae anicteric. PERRLA. NG tube present. Heart: Regular rate and rhythm. S1-S2 are present. Lungs: Chest rise symmetrical. Respirations unlabored. Clear to auscultation bilaterally. Abdomen: Soft and nontender. Nondistended. No guarding or rigidity. Bowel sounds 4 quadrants. Extremities: Freely moving. Skin: Normal color for ethnicity. No pallor or diaphoresis. No jaundice. Psychiatric: Calm and cooperative. Weight Dosing Weight: 125 kg (02/19/22) Medications Medications (15) Active Scheduled: (7) atorvastatin 10 mg tablet 10 mg 1 tab(s), Oral, qHS diltiazem 120 mg/24 hours ER capsule 120 mg 1 cap(s), Oral, qDay enoxaparin 40 mg/ 0.4mL syringe 40 mg 0.4 mL, Subcutaneous, qDay ibuprofen 400 mg tablet 400 mg 1 tab(s), Oral, q6h metoprolol succinate 25 mg ER tablet 25 mg 1 tab(s), Oral, qDayM pantoprazole 20 mg EC tablet 20 mg 1 tab(s), Oral, qDayAC piperacillin-tazobactam PMX 3.375 gram(s) 50 mL, IV Piggyback, q6hr Continuous: (1) Dextrose 5% with 0.45% NACL 1,000 mL 1,000 mL, Intravenous, 100 mL/hr PRN: (7) acetaminophen-HYDROcodone 325-5 mg tablet 1 tab(s), Oral, q4h HYDROmorphone 0.5 mg/0.5 mL PF syringe 0.5 mg 0.5 mL, IV Push, q2h LORAZEPam 2 mg/mL 1 mL vial 0.25 mg 0.13 mL, IV Push, q4h melatonin 3 mg tablet 3 mg 1 tab(s), Oral, qHS ondansetron 2 mg/ 1 mL 2 mL INJ 4 mg 2 mL, IV Push, q4h promethazine 12.5 mg tablet 12.5 mg 1 tab(s), Oral, q6h zolpidem 5 mg tablet 5 mg 1 tab(s), Oral, qHS Lab Results 02/20 05:25 WBC: 10.5 Hgb: 11.5 L Hct: 34.6 Platelet: 217 Neutrophil %: 87.3 H Glucose Level: 155 H Sodium Level: 141 Potassium Level: 4.8 BUN: 12.0 Creatinine Lvl (s): 0.94 EKG EKG - Discontinued -- 02/19/22 22:16:00 EST Electrocardiogram (EKG) - Ordered -- 02/20/22 7:00:00 EST Assessment/Plan 1. PAF (PAROXYSMAL ATRIAL FIBRILLATION) 2. ISAURA (OBSTRUCTIVE SLEEP APNEA) 3. Anxiety 4. HYPERLIPEMIA, MIXED 5. GERD (gastroesophageal reflux disease) 6. Abdominal pain 7. Pneumoperitoneum This patient is a 67-year-old female who is postoperative day #1 from a sigmoidoscopy rigid, exploratory laparotomy partial colectomy with wound VAC application, umbilical hernia repair, rectal biopsy, and appendectomy, with abdominal laparotomy and exploratory laparotomy by Dr. Moreno due to pneumoperitoneum diverticular disease. Patient remains hemodynamically stable from a surgical standpoint. WBC 10.5, hemoglobin 11.5, glucose 155, all other electrolytes within normal limits. Patient remains afebrile with a 24-hour T-max of 36.7. HAYDEN output 30 cc of serosanguineous Wound VAC to midline incision Plan: -Diet as ordered -patient encouraged to use IS hourly for cough and deep breathing -Continue to monitor GI function and labs -Continue with multi modality pain control -Patient encouraged to mobilize up in room, sit up in chair and ambulate with staff -Will discontinue El -Continue with IV fluids as ordered -Will order physical therapy -Continue with supportive care -DVT prophylaxis-subcutaneous Lovenox Case discussed with Josh. Please addendum to follow This document was dictated with voice recognition software and may contain grammatical errors Digitally Signed by AWAIS HUGO on 02/20/2022 08:12 AM [facility] 02-20-2022 Consult note Date of Service 02/19/2022 Reason for Consultation Medical management of chronic conditions Referring Physician Dr. Lu Moreno History of Present Illness This is a 67-year-old female patient who presented to [facility] with complaints of abdominal pain x 24 hours. States she had a colonoscopy done at [facility] on Monday by Dr. Sumner and that she continued with postprocedure discomfort all day Monday and into the night which increased to sharp pain into Monday morning, when she presented to [facility]. CT abdomen pelvis was done and showed large volume free intraperitoneal air consistent with perforation. She was started on Zosyn and transferred to [place] under surgical services with a consult to the hospitalist for medical management. She has a past medical history of paroxysmal atrial fibrillation not currently on anticoagulation, obstructive sleep apnea compliant with CPAP, anxiety, hyperlipidemia, and GERD. She is currently status post exploratory laparotomy partial colectomy with a wound VAC application, umbilical hernia repair, rectal biopsy and appendectomy by Dr Moreno. She is seen resting in bed on 6E, arouses easily and appears in no distress. She denies any chest pain, palpitations, shortness of breath or wheezing. States she follows with Kayla Mcgill for cardiology and that she has not had any episodes of atrial fibrillation since her hospitalization in March 2021. She is maintained on a full dose of aspirin every other day and has refused anticoagulation in the past. States she started to have small amounts of blood in her bowels so she scheduled a colonoscopy. Denied any significant bloody output, dizziness, lightheadedness, hematemesis or hematuria. Is aware that she has a rectal mass and that she had a biopsy today done today during the surgery. She denies any recent sick symptoms, fever, chills or known sick contacts. She has tolerated clear liquids since returning from OR, and denies any nausea, vomiting. She does have a wound VAC to her midline abdominal with intermittent suction draining small amount of serosanguineous drainage. Right lower quadrant with a HAYDEN to bulb suction draining small amount of serosanguineous drainage, and a El catheter in place. Lab work reviewed CBC showed WBC 9.2, hemoglobin 12.6, hematocrit 37.3%, platelets 251. Chemistry profile, glucose 113, sodium 142, potassium 4.2, chloride 108, BUN 13, creatinine 1.11, calcium 8.8, alk phos 94, AST 20, ALT 26, lipase 26. Urinalysis negative nitrites small amount of leukocytes +1 bacteria. Review of Systems I reviewed constitutional, HEENT, cardiovascular, respiratory, GI, , skin, musculoskeletal, neurologic, hematologic, and psychiatric. All systems reviewed and are negative except as noted above in the HPI. Physical Exam Vitals and Measurements T: 36.5 C (Oral) TMIN: 36.11 C TMAX: 36.7 C (Oral) HR: 75 RR: 16 BP: 115/63 SpO2: 95% HT: 175.3 cm WT: 125.0 kg BMI: 40.68 Weight Dosing Weight: 125 kg (02/19/22) Physical Exam General: No acute distress. Alert and Appropriate Skin: No rash. Warm, Dry, Intact HEENT: Head is normocephalic and atraumatic. No lesions. Pupils equal in size. Extraocular movements within normal limits. Nose: No septal deviation. Mouth: Oropharynx mucosa is without lesion. Neck: Supple. No lymphadenopathy, thyromegaly noted. Lungs: Bilaterally clear, diminished breath sounds with no crepitation or wheeze. Unlabored Cardiovascular: Heart is regular rhythm, S1S2, No extra-audible heart tones Abdomen: Abdomen is soft, nontender with midline wound vac dressing intact with good seal noted, draining small amount serosang drainage. RLQ HAYDEN to bulb suction with serosang drainage. Bowel sounds present. El catheter draining yellow urine. Extremities: No clubbing, cyanosis or edema. Peripheral pulses palpable. No calf tenderness. Adequate peripheral circulation. SCDs in place Neurological: The patient is awake, oriented to time, people and place. Following simple commands, moving all extremities. EKG Pending collection Assessment/Plan 1. PAF (PAROXYSMAL ATRIAL FIBRILLATION) Currently normal sinus rhythm, continue home regimen metoprolol, Cardizem with hold parameters EKG pending collection 2. ISAURA (OBSTRUCTIVE SLEEP APNEA) Compliant with home CPAP, family to bring in tomorrow, supplemental oxygen 2 L 3. Anxiety As needed IV Ativan available, convert to p.o. home regimen Xanax when taking oral intake 4. HYPERLIPEMIA, MIXED Controlled continue home regimen; simvastatin 5. GERD (gastroesophageal reflux disease) Controlled continue home regimen; omeprazole 6. Abdominal pain 7. Pneumoperitoneum OR day for exploratory laparotomy partial colectomy wound VAC application, umbilical hernia repair, rectal biopsy, and appendectomy per primary team PT/OT eval and treat DVT and pain prophylaxis per primary team Labs and diagnostics as noted in HPI Thank you for requesting our participation in the care of your patient. We will continue to follow during hospitalization. Document transcribed with voice recognition and may contain typographical errors Orders: atorvastatin, Start: 02/20/22 22:00:00 EST, Dose = 10 mg, = 1 tab(s), Oral, qHS, 02/20/22 22:00:00 EST dilTIAZem, Start: 02/20/22 9:00:00 EST, Dose = 120 mg, = 1 cap(s), Oral, qDay, Hold if SBP (mmHg) < 110, Hold if HR (bpm) < 60, 02/20/22 9:00:00 EST metoprolol, Start: 02/20/22 8:00:00 EST, Dose = 25 mg, = 1 tab(s), Oral, qDayM, Hold if SBP (mmHg) < 110, Hold if HR (bpm) < 60, give with food, 02/20/22 8:00:00 EST pantoprazole, Start: 02/20/22 6:00:00 EST, Dose = 20 mg, = 1 tab(s), Oral, qDayAC, 02/19/22 23:37:00 EST Code Status Complete EKG Electrocardiogram Problem List/Past Medical History Ongoing Anxiety Arthritis Breast cancer CKD (chronic kidney disease) stage 3, GFR 30-59 ml/min HYPERLIPEMIA, MIXED MVP (MITRAL VALVE PROLAPSE) NOCTURNAL HYPOXEMIA ISAURA (OBSTRUCTIVE SLEEP APNEA) PAF (PAROXYSMAL ATRIAL FIBRILLATION) Pulmonary hypertension Rectal bleeding Rosacea Screening for breast cancer Screening for cervical cancer Screening for osteoporosis SOB (SHORTNESS OF BREATH) Weakness of right arm Historical GERD (gastroesophageal reflux disease) High cholesterol Lung nodule Sleep apnea Procedure/Surgical History Osteotomy: 01/27/17 Hammer toe operation: 2013 Biopsy of breast: 03/20/97 section: 1985 section Breast biopsy sample Colonoscopy Esophagogastroduodenoscopy Mastectomy Tonsillectomy Medications Inpatient Ambien, 5 mg= 1 tab(s), Oral, qHS, PRN Ativan, 0.25 mg= 0.13 mL, IV Push, q4h, PRN D51/2NS 1,000 mL, 1000 mL, Intravenous Dilaudid, 0.5 mg= 0.5 mL, IV Push, q2h, PRN Lovenox, 40 mg= 0.4 mL, Subcutaneous, qDay melatonin, 3 mg= 1 tab(s), Oral, qHS, PRN Motrin, 400 mg= 1 tab(s), Oral, q6h Blount 325- 5 mg oral tablet, 1 tab(s), Oral, q4h, PRN Phenergan, 12.5 mg= 1 tab(s), Oral, q6h, PRN Zofran, 4 mg= 2 mL, IV Push, q4h, PRN Zosyn, 3.375 gram(s)= 50 mL, IV Piggyback, q6hr Home aspirin 325 mg oral delayed release tablet, 325 mg= 1 tab(s), Oral, Every other day DilTIAZem (Eqv-Cardizem CD) 120 mg/24 hours oral capsule, extended release, See Instructions, 3 refills Metoprolol Succinate ER 25 mg oral TABLET extended release, 1 tab(s), Oral, qDay Multivitamin, 1 tab(s), Oral, Daily omeprazole 20 mg oral delayed release capsule, 20 mg= 1 cap(s), Oral, qDay, 1 refills propafenone 150 mg oral tablet, See Instructions, PRN, 3 refills simvastatin 20 mg oral tablet, 20 mg= 1 tab(s), Oral, qHS, 1 refills turmeric 500 mg oral capsule, 500 mg= 1 cap(s), Oral, TID Xanax 0.25 mg oral tablet, 0.25 mg= 1 tab(s), Oral, TID, PRN Allergies Daypro (Nausea) Demerol HCl (Itching) meperidine (Unknown) Social History Smoking Status - 12/31/2017 Never smoker Alcohol - Low Risk, 01/23/2017 Use: Current. Frequency: 1-2 times per month., 06/28/2018 Home/Environment Primary Clammer: Self., 02/20/2020 Nutrition/Health Caffeine intake amount: carbonated beverages, 2 servings daily., 04/04/2019 Substance Abuse - Denies Substance Abuse, 01/23/2017 Use: Never., 06/28/2018 Tobacco - No Risk, 02/19/2022 Tobacco Use: Never (less than 100 in lifetime)., 06/28/2018 Family History Asthma: Negative: Mother, Father, Sister, Brother, Daughter and Son. Cancer: Negative: Mother, Father, Sister, Brother, Daughter and Son. Diabetes mellitus: Mother.Negative: Father, Sister, Brother, Daughter and Son. HIV: Negative: Mother, Father, Sister, Brother, Daughter and Son. HTN - Hypertension: Negative: Mother, Father, Sister, Brother, Daughter and Son. Heart disease: Father and Brother.Negative: Mother, Sister and Daughter. Hepatitis: Negative: Mother, Father, Sister, Brother, Daughter and Son. Hyperchloremia: Negative: Mother, Father, Sister, Brother, Daughter and Son. Mental illness: Negative: Mother, Father, Sister, Brother, Daughter and Son. Seizure: Negative: Mother, Father, Sister, Brother, Daughter and Son. Stroke: Negative: Mother, Father, Sister, Brother, Daughter and Son. TB - Tuberculosis: Negative: Mother, Father, Sister, Brother, Daughter and Son. Immunizations pneumococcal 23-valent vaccine(Pneumovax: 0.5 mL (12/09/19) SARS-CoV-2 mRNA (tozinameran) vaccine: 0.3 unknown unit (02/17/21) SARS-CoV-2 mRNA (tozinameran) vaccine: 0.5 unknown unit (07/07/20) SARS-CoV-2 mRNA (tozinameran) vaccine: 0.5 unknown unit (06/16/20) tetanus/diphth/pertuss (Tdap) adult/adol: 0.5 mL (01/09/20) zoster vaccine, inactivated: 1 unknown unit (03/11/20) zoster vaccine, inactivated: 1 unknown unit (01/09/20) Digitally Signed by ELISEO ESCOTO on 02/20/2022 01:39 AM [facility] 02-19-2022 History and physical note Date of Service 02/19/2022 Chief Complaint Abdominal pain, pneumoperitoneum status post colonoscopy yesterday History of Present Illness Very pleasant 67-year-old appearing stated age transferred in from outlying emergency department with worsening abdominal pain radiating to the bilateral shoulders following colonoscopy yesterday. There is a rectal mass that was biopsied but nothing in the colon other than sigmoid diverticular disease. Patient complains of subjective nausea vomiting fevers and chills. She is seen a small amount of blood associated with what she thought was a prolapsing hemorrhoid. This was biopsied yesterday. Patient denies prior history of colorectal cancer polyps colitis inflammatory bowel disease or bouts of acute diverticulitis. Patient's goal is to have the current problem addressed with surgery. The pain is of moderate severity and is relieved with rest and IV narcotics. It is exacerbated by movement Review of Systems 14 system ROS otherwise neg Physical Exam Vitals and Measurements T: 36.6 C (Oral) TMIN: 36.6 C (Oral) TMAX: 36.7 C (Oral) HR: 67 RR: 17 BP: 106/63 SpO2: 97% HT: 175.3 cm WT: 125.0 kg BMI: 40.68 Weight Dosing Weight: 125 kg (02/19/22) Normocephalic/atraumatic extraocular motions intact No wheezing rhonchi or rales Normal sinus rhythm No JVD Trach is midline Thyroid is nonenlarged No scleral icterus Cranial nerves II through XII gross intact bilaterally Abdomen soft tympanic obese with early peritoneal signs Rectal exam is deferred No calf tenderness Skin is warm pale and dry No skeletal tremor deficits Patient shows appropriate insight affect and judgment Lab Results No 36 Hour Lab Data Imaging Results and Diagnostics reviewed and confirmed pneumoperitonem Assessment/Plan Orders: Consult to Physician Group (unknown physician) Pneumoperitoneum status post colonoscopy We will make arrangements for emergency surgery for exploration and repair or resection of the perforated segment of bowel Patient has a rectal mass we will try and evaluate this with rigid sigmoidoscopy and maybe even a biopsy at DVT prophylaxis and perioperative antibiotics will be provided Patient is aware that she may need to be in the hospital for several days up to a week All questions answered to her complete their satisfaction Patient's exercise tolerance is equally greater than 4 metabolic equivalents Discussed with the OR team Problem List/Past Medical History Ongoing Anxiety Arthritis Breast cancer CKD (chronic kidney disease) stage 3, GFR 30-59 ml/min HYPERLIPEMIA, MIXED MVP (MITRAL VALVE PROLAPSE) NOCTURNAL HYPOXEMIA ISAURA (OBSTRUCTIVE SLEEP APNEA) PAF (PAROXYSMAL ATRIAL FIBRILLATION) Pulmonary hypertension Rectal bleeding Rosacea Screening for breast cancer Screening for cervical cancer Screening for osteoporosis SOB (SHORTNESS OF BREATH) Weakness of right arm Historical GERD (gastroesophageal reflux disease) High cholesterol Lung nodule Sleep apnea Procedure/Surgical History Osteotomy: 01/27/17 Hammer toe operation: 2013 Biopsy of breast: 03/20/97 section: 1985 section Breast biopsy sample Colonoscopy Esophagogastroduodenoscopy Mastectomy Tonsillectomy Medications Home Medications (9) Active aspirin 325 mg oral delayed release tablet 325 mg = 1 tab(s), Oral, Every other day DilTIAZem (Eqv-Cardizem CD) 120 mg/24 hours oral capsule, extended release See Instructions Metoprolol Succinate ER 25 mg oral TABLET extended release 1 tab(s), Oral, qDay Multivitamin 1 tab(s), Oral, Daily omeprazole 20 mg oral delayed release capsule 20 mg = 1 cap(s), Oral, qDay propafenone 150 mg oral tablet See Instructions, PRN simvastatin 20 mg oral tablet 20 mg = 1 tab(s), Oral, qHS turmeric 500 mg oral capsule 500 mg = 1 cap(s), Oral, TID Xanax 0.25 mg oral tablet 0.25 mg = 1 tab(s), PRN, Oral, TID Allergies Daypro (Nausea) Demerol HCl (Itching) meperidine (Unknown) Social History Smoking Status - 12/31/2017 Never smoker Alcohol - Low Risk, 01/23/2017 Use: Current. Frequency: 1-2 times per month., 06/28/2018 Home/Environment Primary Clammer: Self., 02/20/2020 Nutrition/Health Caffeine intake amount: carbonated beverages, 2 servings daily., 04/04/2019 Substance Abuse - Denies Substance Abuse, 01/23/2017 Use: Never., 06/28/2018 Tobacco - No Risk, 02/19/2022 Tobacco Use: Never (less than 100 in lifetime)., 06/28/2018 Family History Asthma: Negative: Mother, Father, Sister, Brother, Daughter and Son. Cancer: Negative: Mother, Father, Sister, Brother, Daughter and Son. Diabetes mellitus: Mother.Negative: Father, Sister, Brother, Daughter and Son. HIV: Negative: Mother, Father, Sister, Brother, Daughter and Son. HTN - Hypertension: Negative: Mother, Father, Sister, Brother, Daughter and Son. Heart disease: Father and Brother.Negative: Mother, Sister and Daughter. Hepatitis: Negative: Mother, Father, Sister, Brother, Daughter and Son. Hyperchloremia: Negative: Mother, Father, Sister, Brother, Daughter and Son. Mental illness: Negative: Mother, Father, Sister, Brother, Daughter and Son. Seizure: Negative: Mother, Father, Sister, Brother, Daughter and Son. Stroke: Negative: Mother, Father, Sister, Brother, Daughter and Son. TB - Tuberculosis: Negative: Mother, Father, Sister, Brother, Daughter and Son. Immunizations pneumococcal 23-valent vaccine(Pneumovax: 0.5 mL (12/09/19) SARS-CoV-2 mRNA (tozinameran) vaccine: 0.3 unknown unit (02/17/21) SARS-CoV-2 mRNA (tozinameran) vaccine: 0.5 unknown unit (07/07/20) SARS-CoV-2 mRNA (tozinameran) vaccine: 0.5 unknown unit (06/16/20) tetanus/diphth/pertuss (Tdap) adult/adol: 0.5 mL (01/09/20) zoster vaccine, inactivated: 1 unknown unit (03/11/20) zoster vaccine, inactivated: 1 unknown unit (01/09/20) Code Status No qualifying data available. Digitally Signed by LU MORENO MD on 02/19/2022 03:27 PM [facility] Orders: Consult to Physician Group (unknown physician) Pneumoperitoneum status post colonoscopy We will make arrangements for emergency surgery for exploration and repair or resection of the perforated segment of bowel Patient has a rectal mass we will try and evaluate this with rigid sigmoidoscopy and maybe even a biopsy at DVT prophylaxis and perioperative antibiotics will be provided Patient is aware that she may need to be in the hospital for several days up to a week All questions answered to her complete their satisfaction Patient's exercise tolerance is equally greater than 4 metabolic equivalents Discussed with the OR team Future Appointments Appointment Date:03/07/2022 10:45:00 AM Scheduled Provider:ELIZABETH BOWER MD Location:[facility] 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 Family's history: negative. Health Status Allergies: Allergic Reactions (Selected) Severity Not Documented Daypro- Nausea. Demerol HCl- Itching. Meperidine- Unknown., Allergies (3) ActiveReaction DayproNausea Demerol HClItching meperidineUnknown Current medications: (Selected) Inpatient Medications Ordered NS 1,000 mL: 100 mL/hr, Intravenous Prescriptions Prescribed DilTIAZem (Eqv-Cardizem CD) 120 mg/24 hours oral capsule, extended release: See Instructions, TAKE 1 CAPSULE BY MOUTH EVERY DAY, 90 cap(s), 3 Refill(s) Metoprolol Succinate ER 25 mg oral TABLET extended release: 1 tab(s), Oral, qDay, DO NOT CRUSH OR CHEW., 90 tab(s), 3 Refill(s) omeprazole 20 mg oral delayed release capsule: 20 mg, 1 cap(s), Oral, qDay, for 90 day(s), 90 cap(s), 1 Refill(s) propafenone 150 mg oral tablet: See Instructions, Patient to take 4 tablets at onset of atrial fibrillation., PRN: atrial fibrillation, 28 tab(s), 3 Refill(s) simvastatin 20 mg oral tablet: 20 mg, 1 tab(s), Oral, qHS, for 90 day(s), 90 tab(s), 1 Refill(s) Documented Medications Documented Multivitamin: 1 tab(s), Oral, Daily, 0 Refill(s) Xanax 0.25 mg oral tablet: 0.25 mg, 1 tab(s), Oral, TID, PRN: Agitation, 0 Refill(s) aspirin 325 mg oral delayed release tablet: 325 mg, 1 tab(s), Oral, Every other day, 0 Refill(s), No qualifying data available Problem list: Medical (Selected) Anxiety / SNOMED CT 99051197 / Confirmed Arthritis / SNOMED CT 2432420 / Confirmed Screening for cervical cancer / SNOMED CT 0965201528 / Confirmed CKD (chronic kidney disease) stage 3, GFR 30-59 ml/min / SNOMED CT 7191487092 / Confirmed SOB (SHORTNESS OF BREATH) / SNOMED CT 670268949 / Confirmed NOCTURNAL HYPOXEMIA / SNOMED CT 1905156203 / Confirmed MVP (MITRAL VALVE PROLAPSE) / SNOMED CT 6039218503 / Confirmed HYPERLIPEMIA, MIXED / SNOMED CT 265833891 / Confirmed Weakness of right arm / SNOMED CT 9679598908 / Confirmed ISAURA (OBSTRUCTIVE SLEEP APNEA) / SNOMED CT 150048608 / Confirmed PAF (PAROXYSMAL ATRIAL FIBRILLATION) / SNOMED CT 175946420 / Confirmed Screening for breast cancer / SNOMED CT 269176493 / Confirmed Screening for osteoporosis / SNOMED CT 129052975 / Confirmed Pulmonary hypertension / SNOMED CT 845532079 / Confirmed Rectal bleeding / SNOMED CT 585160473 / Confirmed Rosacea / SNOMED CT 8238538638 / Confirmed, Active Problems (16) Anxiety Arthritis CKD (chronic kidney disease) stage 3, GFR 30-59 ml/min HYPERLIPEMIA, MIXED MVP (MITRAL VALVE PROLAPSE) NOCTURNAL HYPOXEMIA ISAURA (OBSTRUCTIVE SLEEP APNEA) PAF (PAROXYSMAL ATRIAL FIBRILLATION) Pulmonary hypertension Rectal bleeding Rosacea Screening for breast cancer Screening for cervical cancer Screening for osteoporosis SOB (SHORTNESS OF BREATH) Weakness of right arm Histories Past Medical History: Active Arthritis (7153084): Onset in 2013 at 58 years. Anxiety (02990652) Resolved GERD (gastroesophageal reflux disease) ([id number]): Resolved. High cholesterol ([id number]): Resolved. Sleep apnea ([id number]): Resolved. Lung nodule (380749937): Resolved. Family History: Diabetes mellitus Mother Heart disease Father Brother Procedure history: Osteotomy ([id number]) on 01/27/2017 at 62 Years. Comments: 04/04/2019 6:56 EST - Mary Wiley LPN second and third metatarsal with screw fixture - right foot - Dr. Jordan - [facility] Hammer toe operation (057463) in 2013 at 58 Years. Biopsy of breast ([id number]) on 03/20/1997 at 42 Years. section () in 1985 at 31 Years. History of left mastectomy ([id number]) in 1984 at 29 Years. Mastectomy (0041912386). Comments: 01/07/2014 11:14 ELBA PARR Left breast Tonsillectomy (651644241). section (). Breast biopsy sample ([id number]). Comments: 01/07/2014 11:14 ELBA PARR Right breast Esophagogastroduodenoscopy (232651906). Colonoscopy (230497089). Social History Social & Psychosocial Habits Alcohol 01/23/2017Risk Assessment: Low Risk 06/28/2018 Use: Current Frequency: 1-2 times per month Substance Abuse 01/23/2017Risk Assessment: Denies Substance Abuse 06/28/2018 Use: Never Tobacco 06/28/2018 Tobacco Use: Never (less than 100 in l 2Risk Assessment: No Risk Home/Environment 02/20/2020 Primary Clammer: Self Nutrition/Health 04/04/2019 Caffeine intake amount: carbonated beverages, 2 servings daily . Physical Examination Vital Signs 02/19/2022 9:27 EST Temperature Oral 38.0 DegC HI Peripheral Pulse Rate 99 bpm Respiratory Rate 18 br/min Systolic Blood Pressure Non-Invasive 118 mmHg Diastolic Blood Pressure Non-Invasive 66 mmHg No qualifying data available Pain assessment: Pain Assessment 02/19/2022 11:45 EST Primary Pain Intensity 10 02/19/2022 9:49 EST Primary Pain Intensity 10 02/19/2022 9:27 EST Primary Pain Location Abdomen Abdominal Pain Location LLQ, LUQ, RLQ, RUQ, Umbilical Primary Pain Laterality Bilateral Primary Pain Intensity 10 Primary Pain Time Pattern acute Primary Pain Onset Sudden Primary Pain Duration yesterday Primary Pain Quality Aching . General: Alert and oriented. Airway: Mallampati classification: II (soft palate, fauces, uvula visible). Dentition Evaluation: Own teeth. Respiratory: Lungs are clear to auscultation, Respirations are non-labored. Cardiovascular: Normal rate, Regular rhythm. Heart Sounds: Normal. Review / Management Results review: No qualifying data available , Lab results 02/19/2022 13:00 EST ondansetron 4 mg mg 02/19/2022 12:47 EST History and Physical History and Physical 02/19/2022 12:17 EST piperacillin-tazobactam 4.5 gram(s) gram(s) Sodium Chloride 0.9% 100 mL mL 02/19/2022 11:45 EST Primary Pain Intensity 10 HYDROmorphone 1 mg mg 02/19/2022 10:[address] Abd/Pelvis w/ IV Contrast Only CT ABD/PELVIS W/ IV CONTRAST ONLY 02/19/2022 9:49 EST Primary Pain Intensity 10 morphine 4 mg mg ondansetron 4 mg mg Lactated Ringers Injection 500 mL mL 02/19/2022 9:36 EST WBC 9.2 10^3/mcL RBC 4.03 10^6/mcL LOW Hgb 12.6 G/dL Hct 37.3 % MCV 92.6 fL MCH 31.3 pg HI MCHC 33.8 G/dL RDW 13.0 % Platelet 251 10^3/mcL MPV 7.8 fL Monocyte Distribution Width 21.56 HI Neutrophil % 71.1 % Lymphocyte % 21.8 % Monocyte % 6.4 % Eosinophil % 0.2 % Basophil % 0.5 % Neutrophil, Absolute 6.5 10^3/mcL HI Lymphocyte, Absolute 2.0 10^3/mcL Monocyte, Absolute 0.6 10^3/mcL Eosinophil, Absolute 0.0 10^3/mcL Basophil, Absolute 0.0 10^3/mcL UA Specimen Type Void UA Color Yellow UA Appear Slightly Cloudy UA Spec Grav 1.010 UA Glucose Negative mg/dL UA Bili Negative UA Ketones Negative mg/dL UA Blood Negative UA pH 5.5 UA Protein Negative mg/dL UA Urobilinogen 0.2 E.U./dL UA Nitrite Negative UA Leuk Est Small UA RBC 0-5 /HPF UA WBC 10-15 /HPF UA Squam Epithelial 0-5 /HPF UA Bacteria 1+ /HPF Glucose Level 113 mg/dL Sodium Level 142 mmol/L Potassium Level 4.2 mmol/L Chloride 108 mmol/L HI CO2 26 mmol/L Electrolyte Balance 8.0 mEq/L BUN 13 mg/dL Creatinine Lvl (s) 1.11 mg/dL HI BUN/Creatinine Ratio 12 ratio Calcium Lvl 8.8 mg/dL Total Protein 6.7 G/dL Albumin Level 3.1 G/dL LOW Globulin 3.6 G/dL NA A/G Ratio 0.9 ratio LOW Bili Total 0.8 mg/dL Alk Phos 94 U/L AST/SGOT 20 U/L ALT/SGPT 26 U/L GFR Non- 49 ml/min/1.73sqm NA GFR 59 ml/min/1.73sqm NA Lipase Level 26 U/L 02/19/2022 9:35 EST [facility] Note ED/Urgent Care Provider Note 02/19/2022 9:34 EST Status No, per patient PAP Smear N/A History of Fall in Last 3 Months [place] No Thoughts of Harming Others - History No Thoughts of Harming Yourself - History No - over the past six (6) months or longer Domestic Concerns None Advanced Directives Unable to obtain Individuals Taught Patient, Significant other Learning Readiness Willing to learn Barriers to Learning None evident Teaching Method Explanation, Printed materials Teaching Evaluation Verbalizes/Nonverbally indicates understanding Preferred Written Language Estonian Preferred Spoken Language Estonian Chief Complaint c/o abd pain since yesterday s/p colonoscopy. Place Where Injury/Illness Occurred Home Belongings At Bedside None Personal Home Medications Received No home medications were brought in Belongings Sent Home None Belongings Sent To Security None Anticoagulants Taken In Past 6 Wks. No Participates in Clinical Trial No No Anesthesia/Transfusions None ED Assessment Note - Nursing ED Patient History Form 02/19/2022 9:27 EST Temperature Oral 38.0 DegC HI Peripheral Pulse Rate 99 bpm Respiratory Rate 18 br/min Systolic Blood Pressure Non-Invasive 118 mmHg Diastolic Blood Pressure Non-Invasive 66 mmHg Primary Pain Location Abdomen Abdominal Pain Location LLQ, LUQ, RLQ, RUQ, Umbilical Primary Pain Laterality Bilateral Primary Pain Intensity 10 Primary Pain Time Pattern acute Primary Pain Onset Sudden Primary Pain Duration yesterday Primary Pain Quality Aching Nail Bed Color Chualar Capillary Refill < 2 seconds Radial Pulse, Left 2+ Normal Radial Pulse, Right 2+ Normal Respirations Unlabored Respiratory Pattern Regular All Lobes Breath Sounds Clear Oxygen Therapy Room air Oxygen Saturation 93 % Abdomen Description Non-distended, Symmetric, Soft Abdomen Palpation Tender, Soft Bowel Sounds All Quadrants Present Urinary Elimination Voiding, no difficulties All Extremity Description Normal for ethnicity Skin Temperature Warm Temperature All Extremities Warm Skin Description Normal for ethnicity Skin Integrity Intact Skin Turgor Elastic Mucous Membrane Color Chualar Mucous Membrane Description Moist Neurological Language Able to speak clearly Gait Steady Eye Opening Response Darrel Spontaneously Best Motor Response Red [place] Obeys simple commands Best Verbal Response Darrel Oriented Darrel Coma Score 15 Strength All Extremities Strong Tone All Extremities Normal Sensation All Extremities Intact Violence Risk Confused No Violence Risk Irritable No Violence Risk Boisterous No Violence Risk Verbal Threats No Violence Risk Physical Threats No Violence Risk Attacking Objects No Violence Risk Predictor Score 0 Wish To Be Unable to answer Suicidal Thoughts Unable to answer Ever Made Plans to End Your Life Unable to answer Suicide Severity Rating No problems noted Infectious Disease Symptoms Patient states no symptoms Infectious Disease Recent Exposure Unable to obtain Alcohol and Drug Use No Employee of Institutional Living No Health Care Employee No History of Exposure to TB No History of Positive Chest X-Ray for TB No History of Positive TB Skin Test No Homeless No Known Immunosuppression No Recent Immigrant No Resident of Institutional Living No Bloody Sputum No Fatigue No Fever No Loss of Appetite No Night Sweats No Persistent Cough > 3 Weeks No Weight Loss No Preferred Written Language Estonian Preferred Spoken Language Estonian Tracking Group ED AO Tracking Group Tracking Acuity 3 Mode of Transfer Private vehicle Standard Safety ID band on, Allergy Band on, Call device within reach, Bed in low position, Wheels locked, Upper/Half-Length side-rails up, Phone within reach, personal items within reach, Assistive devices within reach, Toileting device within reach, Bedside Cart Locked, Visitor at bedside, Safetylevel maintained Infectious Diseases Health History Unknown Prev Test Positive/Diagnosis w/COVID-19 Unable to obtain Current Quarantine/Isolated any Illness Unable to obtain Any Contact with Sick Animals/Birds Unable to obtain Traveled Anywhere in Last 30 Days Unable to obtain Appetite Good ED Triage Adults ED Triage Adults . Assessment and Plan [employer] (ASA) physical status classification: Class III, E. Anesthetic Preoperative Plan Anesthetic technique: General. Maintenance airway: Oral endotracheal tube. Risks discussed: nausea, vomiting, headache, sore throat, dental injury, hypotension, allergic reaction, serious complications. Informed consent: signed by patient. Notes: Patient seen and examined by me, the medical record was reviewed, lab results and cardiovascular studies examined and noted. Anesthesia was explained in detail and questions were invited and answered. We will proceed as outlined in the plan above.. Digitally Signed by PAUL RIZO MD on 02/19/2022 01:36 PM Digitally Signed by PAUL RIZO MD on 02/19/2022 03:23 PM [id number] Discharge instructions Patient Education 03/23/2021 13:50:17 Atrial Fibrillation, [id number]-re-[id number] Atrial Fibrillation Atrial fibrillation is a type of heartbeat that is irregular or fast (rapid). If you have this condition, your heart beats without any order. This makes it hard for your heart to pump blood in a normal way. Having this condition gives you more risk for stroke, heart failure, and other heart problems. Atrial fibrillation may start all of a sudden and then stop on its own, or it may become a long-lasting problem. What are the causes? This condition may be caused by heart conditions, such as: High blood pressure. Heart failure. Heart valve disease. Heart surgery. Other causes include: Pneumonia. Obstructive sleep apnea. Lung cancer. Thyroid disease. Drinking too much alcohol. Sometimes the cause is not known. What increases the risk? You are more likely to develop this condition if: You smoke. You are older. You have diabetes. You are overweight. You have a family history of this condition. You exercise often and hard. What are the signs or symptoms? Common symptoms of this condition include: A feeling like your heart is beating very fast. Chest pain. Feeling short of breath. Feeling light-headed or weak. Getting tired easily. Follow these instructions at home: Medicines Take wjes-nnz-wcplkhu and prescription medicines only as told by your doctor. If your doctor gives you a blood-thinning medicine, take it exactly as told. Taking too much of it can cause bleeding. Taking too little of it does not protect you against clots. Clots can cause a stroke. Lifestyle Do not use any tobacco products. These include cigarettes, chewing tobacco, and e-cigarettes. If you need help quitting, ask your doctor. Do not drink alcohol. Do not drink beverages that have caffeine. These include coffee, soda, and tea. Follow diet instructions as told by your doctor. Exercise regularly as told by your doctor. General instructions If you have a condition that causes breathing to stop for a short period of time (apnea), treat it as told by your doctor. Keep a healthy weight. Do not use diet pills unless your doctor says they are safe for you. Diet pills may make heart problems worse. Keep all follow-up visits as told by your doctor. This is important. Contact a doctor if: You notice a change in the speed, rhythm, or strength of your heartbeat. You are taking a blood-thinning medicine and you see more bruising. You get tired more easily when you move or exercise. You have a sudden change in weight. Get help right away if: You have pain in your chest or your belly (abdomen). You have trouble breathing. You have blood in your vomit, poop, or pee (urine). You have any signs of a stroke. BE FAST is an easy way to remember the main warning signs: ?B - Balance. Signs are dizziness, sudden trouble walking, or loss of balance. ?E - Eyes. Signs are trouble seeing or a change in how you see. ?F - Face. Signs are sudden weakness or loss of feeling in the face, or the face or eyelid droopingon one side. ?A - Arms. Signs are weakness or loss of feeling in an arm. This happens suddenly and usually on one side of the body. ?S - Speech. Signs are sudden trouble speaking, slurred speech, or trouble understanding what people say. ?T - Time. Time to call emergency services. Write down what time symptoms started. You have other signs of a stroke, such as: ?A sudden, very bad headache with no known cause. ?Feeling sick to your stomach (nausea). ?Throwing up (vomiting). ?Jerky movements you cannot control (seizure). These symptoms may be an emergency. Do not wait to see if the symptoms will go away. Get medical help right away. Call your local emergency services (911 in the [place] Do not drive yourself to the hospital. Summary Atrial fibrillation is a type of heartbeat that is irregular or fast (rapid). You are at higher risk of this condition if you smoke, are older, have diabetes, or are overweight. Follow your doctor's instructions about medicines, diet, exercise, and follow-up visits. Get help right away if you think that you have signs of a stroke. This information is not intended to replace advice given to you by your health care provider. Make sure you discuss any questions you have with your health care provider. Document Released: 12/13/2008 Document Revised: 05/10/2018 Document Reviewed: 04/27/2018 [employer] Patient Education [employer]. Follow Up Care 03/22/2021 07:26:33 With:KAYLA MCGILL [facility] Address: [phone] When:04/06/2021 Comments:Schedule appointment as soon as possible With:LUKE CAMILO [facility] Address: [address] [place] [address]- [phone] When:5 to 7 days Comments:Schedule appointment as soon as possible Schedule appointment as soon as possible [facility] 01-03-2022 Evaluation + Plan noteExtracted from: Title:History and Physical Author:JAYNA KAM DO Date:03/22/21 Atrial fibrillation with RVR /atrial flutter Obesity Sleep apnea on CPAP History of breast cancer s/p mastectomy and chemotherapy -Patient has high risk features for atrial fibrillation include obesity and sleep apnea. -Patient has a [id number]-VXHb score of 2, but is prediabetic with a hemoglobin A1c of 5.9. Discussed in depth with patient the risk and benefits of anticoagulation and patient is agreeable to start Eliquis. -She has now converted to normal sinus rhythm. We will transition to p.o. diltiazem. -We will check transthoracic echocardiogram. Last echo 2018 showed normal ventricular function with no valvular disease. -Recommend outpatient stress test in 48 hours -Continue to monitor on telemetry Assessment and plan was discussed with Dr. Huerta. Any changes in assessment/plan, will be added as an addendum to this note by the attending physician. This note was transcribed via voice recognition software. Please forgive any errors or typos resulting from the use of this technology. Malissa Kam DO, MS Theatrical Dresser (PGY-4) Pager chemotherapy/ Cortext Addendum by ROBERTO CARLOS HUERTA MD on March 22, 2021 20:28:59 EST Vitals Signs(Last 24 hrs)__ Last Charted Minimum Maximum Temp 36.6(MAR 22 15:15) 36.6(MAR 22 15:15) 36.5(MAR 22 07:58) Heart Rate 72(MAR 22 16:00) 72(MAR 22 16:00) 99(MAR 22 12:00) Resp Rate 17(MAR 22 16:00) 16(MAR 22 07:58) 17(MAR 22 15:15) SBP 114(MAR 22 15:15) 114(MAR 22 15:15) 122(MAR 22 12:00) DBP 64(MAR 22 15:15) 64(MAR 22 07:58) 74(MAR 22 12:00) General: alert, oriented X3, well groomed and in night gown Cardiovascular: RRR, nS1S2, no murmur, no JVD, no gallop, no thrills, bilateral radial pulse 2+ Lungs: no bilateral crackles, no wheezing, no rales, no diminished lung sounds, symmetrical chest movement Abdomen: Soft, non tender, non distended, positive bowel sounds, no hepatosplenomegally Extremity/skin: No edema, no deformity, no cyanosis, no clubbing, no rashes, no ulcers Psychiatric: Mood normal, no depression, no anxiety Patient was independently seen and examined by me. Below discussed and I agree with fellow's note except where indicated. See Fellow s note for details above. See my additional comments below. I personally reviewed the patient s recent medications, orders, vitals, labs, and X ray reports/images. Also I personally reviewed recent cardiac telemetry and other pertinent available cardiac studies and images including the latest EKG images and ECHO images Medications were reviewed and changes were made in EMR mild troponin bump- most likely non ischemic myocardial injury secondary to RVR; remains flat symptomatic paroxysmal atrial fibrillation RVR - back in sinus, if more reoccurrences then needs ablation vs anti arrhythmics repeat echo showed preserved LVEF with normal WM suggest outpatient stress test and 30 day monitor Future Appointments Appointment Date:03/25/2021 11:15:00 AM Scheduled Provider:KAYLA MCGILL Location:[facility] Appointment Type:[facility] Hospital Follow Up Appointment Date:06/22/2021 09:00:00 AM Scheduled Provider:KAYLA MCGILL Location:[facility] Appointment Type:[facility] Evaluation + Plan note Future Appointments Appointment Date:06/22/2021 09:00:00 AM Scheduled Provider:KAYLA MCGILL Location:[facility] Appointment Type: OV [facility] Evaluation + Plan note Future Appointments Appointment Date:04/25/2022 10:45:00 AM Scheduled Provider:ELIZABETH BOWER MD Location:[facility] Appointment Type: OV [facility] Evaluation + Plan note Future Appointments Appointment Date:11/03/2022 08:30:00 AM Scheduled Provider:LUKE CAMILO Location:[facility] Appointment Type:PC OV [facility] Hospital course Narrative No data available for this section [facility] Hospital Discharge instructions No data available for this section [facility] Progress note No data available for this section [facility] Summary Purpose Family History No Family History Records FoundNo Family History Records Found No data available for this section Advance Directives No Advanced Directives Records FoundNo Advanced Directives Records Found Additional Source Comments Care Team (unrecognized sect ion and content) Care Team Personnel Name: LUKE CAMILO APRN-MARKET RESEARCH COORDINATOR Position: P4 Advanced Practice Nurse Member Role: Primary Care Physician Address: Address: [address] Care Team Related Persons Name: LU MAYO Name: SHANIQUE LEÓN Name: MAU, SHANIQUE Care Team Personnel Name: LUKE CAMILO GROUND DEFENCE OFFICER-MARKET RESEARCH COORDINATOR Position: P4 Advanced Practice Nurse Member Role: Primary Care Physician Address: Address: [address] Care Team Related Persons Name: LU MAYO Name: MAU, MYLA Name: SHANIQUE LEÓN Care Team Personnel Name: LUKE CAMILO APRN-MARKET RESEARCH COORDINATOR Position: P4 Advanced Practice Nurse Member Role: Primary Care Physician Address: Address: [address] [place] [address] Care Team Related Persons Name: LU MAYO Name: MAUSHANIQUE Name: MAU, SHANIQUE INFORMATION SOURCE (unrecogn ized section and content) DATE CREATED AUTHOR AUTHOR'S ORGANIZ ATION 10/03/2022 [facility] ([place]) Patient Care team informatio n (unrecognized section and content) Care Team Personnel Name: LUKE CAMILO APRN-MARKET RESEARCH COORDINATOR Position: P4 Advanced Industrial Sociologist Member Role: Primary Care Physician Address: Address: [address] [place] [address] Care Team Related Persons Name: LU MAYO Name: MAU, MYLA Name: MAUSHANIQUE FOR RECORDS PERTAINING TO PATIENTS WHO ARE OR HAVE BEEN ENROLLED IN A CHEMICAL DEPENDENCY/SUBSTANCEABUSE PROGRAM, SOME INFORMATION MAY BE OMITTED. This clinical summary was aggregated from multiple sources. Caution should be exercised in using it in the provision of clinical care. This summary normalizes information from multiple sources, and as a consequence, information in this document may materially change the coding, format and clinical context of patient data. In addition, data may be omitted in some cases. CLINICAL DECISIONS SHOULD BE BASED ON THE PRIMARY CLINICAL RECORDS. [facility]. provides no warranty or guarantee of the accuracy or completeness of information in this document.
== END | disposition home or self-care (01) ==
PROVIDERS: PCP Nurse Practitioner Primary Care; Referring Provider Student in an Organized Health Care Education/Training Program; Visit Provider Student in an Organized Health Care Education/Training Program
DX: C21.8 Malignant neoplasm of overlapping sites of rectum, anus and anal canal (principal); Z78.0 Asymptomatic menopausal state
CPT/HCPCS: 72197

== ENCOUNTER 2024-01-01 15:47 | Outpatient (CLI) | payer OTHER, SELFPAY | END 2024-01-01 23:59 | disposition home or self-care (01) | LOC: WOBLAB 15:48 | PROVIDERS: PCP Nurse Practitioner Primary Care; Referring Provider Obstetrics & Gynecology; Visit Provider Obstetrics & Gynecology | DX: Z00.00 Encounter for general adult medical examination without abnormal findings (principal) ==

== ENCOUNTER 2024-01-09 06:40 | Day surgery (SDC) | payer OTHER, SELFPAY ==
[2024-01-01 17:52] LABS: Hematocrit 38.1 % (37-47); Hemoglobin 11.9 g/dL (12.0-15.0); Mean Corp Hgb Conc 31.2 g/dL (32-36); Mean Corpuscular Hgb 32.3 pg (27.0-32.0); Mean Corpuscular Volume 103.5 fL (81-99); Mean Platelet Vol. 9.6 fl (6.2-12.0); Platelet Count 250 K/mm3 (150-450); RBC Distribution Width CV 12.7 % (11.6-14.6); RBC Distribution Width SD 48.4 fl (35.1-43.9); Red Blood Count 3.68 M/mm3 (4.2-5.4); White Blood Count 3.7 K/mm3 (4.4-11.0)
[2024-01-01 18:17] LABS: ALB/GLOB Ratio 0.7 RATIO (0.9-2.4); AST(SGOT) 15 U/L (15-37); Alanine Aminotransfer ALT/SGPT 23 U/L (13-56); Albumin, Serum 2.9 g/dL (3.2-5.0); Alkaline Phosphatase 100 U/L (45-117); Anion Gap 4 (5-15); BUN 17 mg/dL (7-18); BUN/Creat Ratio 16.5 RATIO (10-20); Calcium,Total 9.1 mg/dL (8.5-10.1); Chloride 110 mmol/L (98-107); Creatinine, Serum 1.03 mg/dL (0.55-1.02); EST Glomerular Filtration Rate 56 mL/min (>60); Est Glom Filt Rate - Afr Amer 68 mL/min (>60); Globulin 3.9 g/dL (2.2-4.2); Glucose 116 mg/dL (74-106); Potassium 4.4 mmol/L (3.5-5.1); Protein, Total 6.8 g/dL (6.4-8.2); Sodium Level 140 mmol/L (136-145)
[2024-01-09] VITALS (9 sets, daily range): BP systolic 99–127; BP diastolic 49–66; PULSE 75–80; RESP 16–18; TEMP 36.2–36.6; O2SAT 95–98; BMI 41.0
--- NOTE | 2024-01-09 | IMM_PTH ---
PATHOLOGY RESULTS PATIENT: LOUIE DOWNEY [place] [facility] U[place][id number] AGE/SX: 68/F ROOM: RE01/09/[address]: Dr. Pam Joshua DO : 1955 BED: DIS: 01/09/2024 SPEC #: [id number] RECD: 01/10/24 11:46 STATUS: SAKSHI RELenore #: [id number] TAMICA: 01/09/24 00:[address]: Pam Joshua DEPT: IMMUNOHISTOCHEMISTRY RECD BY: Cecil Diaz ENTERED: 01/10/24 11:46 SP TYPE: IMMUNO OTHR DR: Lisa Jordan, BUILDING REPAIR MAINTENANCE SUPERVISOR-C Tissues: Vagina, NOS Procedures: p16 (initial) KI-67 (add) PHYSICIAN & INSTITUTION [place] [address] SPECIMEN INFORMATION: Tissue Source: Vaginal tissue Clinical Info: Rectal cancer Specimen Number: [id number] CPT code: 95965,04661 METHODOLOGY: Deparaffinized sections of prefer/formalin-fixed tissue or PAP/DQ stained slides are incubated with monoclonal/polyclonal antibodies/oligonucleotide probes. Localization is made via biotin free immunoperoxidase method. Appropriate controls are performed and reacted as expected. Results on target cell population are indicated in the following table: RESULTS: ANTIBODY / CLONE RESULT P16 (E6H4) positive, rare cells Ki-67 (30-9) positive, low These tests were developed and their performance characteristics determined by [facility]. They may not have been cleared or approved by the [place] Food and Drug Administration. The FDA has determined that such clearance or approval is not necessary. The above immunohistochemical/dualISH markers are ordered and reviewed by the Pathologist. INTERPRETATION: Vaginal wall, biopsy: No evidence of dysplasia. AM 01/11/2024
--- OUTSIDE RECORDS SUMMARY | 2024-01-09 06:45 | XMS RPT_ITS | CCD ---
Author Organization [facility] Care Team Providers Care Refueling Ramp Supervisor Name Role Phone TON TREASURY ACCOUNTANT-MAINSPRING STRIP GAUGER, LUKE Frey Primary Care Physicia n MYLES BARTLETT-MAINSPRING STRIP GAUGER, KAYLA Attending Unavailab le TON TREASURY ACCOUNTANT-MAINSPRING STRIP GAUGER, LUKE S Primary Care Unava ilable DINO GOODMAN MD Attending Unavailable TON TREASURY ACCOUNTANT-MAINS[place] STRIP GAUGER, LUKE S Primary Care Unava ilable TON TREASURY ACCOUNTANT-[place]INS[place]ING STRIP GAUGER, LUKE Frey Attending Unava ilable TON TREASURY ACCOUNTANT-MAINSPRING STRIP GAUGER, LUKE S Primary Care Unava ilable TON TREASURY ACCOUNTANT-MAINS[place]ING STRIP GAUGER, LUKE Frey Attending Unava ilable TON TREASURY ACCOUNTANT-MAINS[place]ING STRIP GAUGER, [facility] Primary Care Unava ilable BALTES TREASURY ACCOUNTANT-MAINSPRING STRIP GAUGER, LUCIA Attending Unavailabl e TON TREASURY ACCOUNTANT-MAINSPRING STRIP GAUGER, [facility] Primary Care Unava ilable Allergies Allergy Classification Reported Allergen(s) Allergy Type Date of Onset Reaction(s) Facility (16 sources) Meperidine; Translations: [meperidine] Drug Allergy Unknown, Itching [facility] Work Phone: (8 sources) oxaprozin; Translations: [oxaprozin] Drug Allergy Nausea [facility] Work Phone: Medications Current Medications Medication Drug Class(es) Dates Sig (Normalized) Sig (Original) acetaminophen 325 mg oral capsule (5 sources) Start: 02-23-2022 Tylenol 325 mg oral [...] tab(s), 0 Refill(s), 04/23/22 11:18:00 EST, Pharmacy: [facility]/pharmacy #[id number], Anxiety, 175.3, cm, 03/24/22 10:30:00 EST, Height, 122.1 Start Date: 03/24/22 Stop Date: 04/23/22 Status: Ordered Start: 03-22-2021 Xanax 0.25 mg oral tablet Dose : 0.25 mg = 1 tab(s), Oral, TID, PRN Agitation, 0 Refill(s), 128.1 Start Date: 03/22/21 Status: Ordered apixaban 5 mg oral tablet (1 source) Factor Xa Inhibitor Start: 03-23-2021 Eliquis 5 mg oral tablet Dose : 5 mg = 1 tab(s), Oral, BID, D/c xarelto, # 60 tab(s), 3 Refill(s), Pharmacy: [facility]/pharmacy #[id number], 175.3, cm, 03/22/21 7:47:00 EST, Height, 128.1, kg, 03/22/21 7:47:00 EST, Dosing Weight Start Date: 03/23/21 Status: Ordered aspirin 325 mg delayed release oral tablet (6 sources) Platelet Aggregation Inhibitor, Nonsteroidal Anti-inflammatory Drug Start: 10-05-2022 aspirin 325 mg or al delayed release tablet Dose : 325 mg = 1 tab(s), Oral, every third day, 0 Refill(s) Start Date: 10/05/22 Status: Ordered Start: 01-27-2022 aspirin 325 mg oral delayed release tablet Dose : 325 mg = 1 tab(s), Oral, Every other day, 0 Refill(s) Start Date: 01/27/22 Status: Ordered Start: 06-29-2015 aspirin 325 mg oral tablet Dose : 325 mg = 1 tab(s), Oral, Every other day Start Date: 06/29/15 Status: Ordered atorvastatin 10 mg oral tablet (1 source) HMG-CoA Reductase Inhibitor Start: 02-23-2022 End: 03-25-2022 atorvastatin 10 mg oral tablet Dose : 10 mg = 1 tab(s), Oral, qHS, Future refills to come from beatrice's PCP, # 30 tab(s), 0 Refill(s), [id number], 175.3, cm, 02/19/22 13:58:00 EST, Height Start Date: 02/23/22 Stop Date: 03/25/22 Status: Ordered calcium citrate 1040 mg oral tablet (2 sources) Start: 12-18-2019 calcium (as calcium citrate) 250 mg oral tablet Dose : 250 mg = 1 tab(s), Oral, qDay, 0 Refill(s) Start Date: 12/18/19 Status: Ordered cholecalciferol 0.025 mg oral capsule (2 sources) Vitamin D Start: 06-01-2023 cholecalciferol 25 mcg (1000 intl units) oral capsule Dose : 25 mcg = 1 cap(s), Oral, Daily, # 30 cap(s), 11 Refill(s), [id number], 172, cm, 05/31/23 8:56:00 EDT, Height, kg, 05/31/23 8:56:00 EDT, Dosing Weight Start Date: 06/01/23 Status: Ordered 24 hr dilTIAZem hydrochloride 120 mg extended release oral capsule (2 sources) Calcium Channel Esteban Start: 05-19-2020 take 1 capsule by mouth once daily DilTIAZem (Eqv-Cardizem CD) 120 mg/24 hours oral capsule, extended release See Instructions, TAKE 1 CAPSULE BY MOUTH EVERY DAY, # 90 cap(s), 3 Refill(s), Pharmacy: [id number], 172.5, cm, 02/20/20 15:09:00 EST, Height, kg, 02/20/20 15:09:00 EST, Dosing Weight Start Date: 05/19/20 Status: Ordered DilTIAZem (Eqv-Cardizem CD) 120 mg/24 hours oral capsule, extended release (6 sources) Start: 06-19-2023 take 1 capsule by mouth once daily DilTIAZem (Eqv-Cardizem CD) 120 mg/24 hours oral capsule, extended release 1 cap(s), Oral, qDay, # 90 cap(s), 3 Refill(s), [id number], 172, cm, 05/31/23 8:56:00 EDT, Height, kg, 05/31/23 8:56:00 EDT, Dosing Weight Start Date: 06/19/23 Status: Ordered Start: 05-23-2022 [facility] DilTIAZem (Eqv-Cardizem CD) 120 mg/24 hours oral capsule, extended release 1 cap(s), Oral, qDay, # 90 cap(s), 3 Refill(s), Pharmacy: [id number], 175.3, cm, 03/28/22 10:31:00 EST, Height, kg, 03/28/22 10:31:00 EST, Dosing Weight Start Date: 05/23/22 Status: Ordered Start: 05-28-2021 take 1 capsule [facility] daily DilTIAZem (Eqv-Cardizem CD) 120 mg/24 hours oral capsule, extended release See Instructions, TAKE 1 CAPSULE BY MOUTH EVERY DAY, # 90 cap(s), 3 Refill(s), Pharmacy: [facility]/pharmacy #[id number], 175.3, cm, 05/24/21 9:10:00 EST, Height, kg, 05/24/21 9:10:00 EST, Dosing Weight Start Date: 05/28/21 Status: Ordered hydrOXYzine pamoate 25 mg oral capsule (1 source) Antihistamine Start: 03-17-2022 take 1-2 capsules by mouth four times daily as needed for anxiety Vistaril 25 mg oral capsule See Instructions, PRN as needed for anxiety, 1-2 cap(s) Oral QID, # 30 EA, 0 Refill(s), [id number], 175.3, cm, 03/07/22 10:41:00 EST, Height Start Date: 03/17/22 Status: Ordered loperamide hydrochloride 2 mg oral capsule (2 sources) Opioid Agonist Start: 11-03-2022 take 1 capsule by mouth every six hours as needed loperamide 2 mg oral capsule TAKE 1 CAPSULE BY MOUTH EVERY 6 HOURS X 5 DAYS NEEDED FOR LOOSE STOOL Start Date: 11/03/22 Status: Ordered metoprolol tartrate 25 mg oral tablet (9 sources) beta-Adrenergic Esteban Start: 06-19-2023 take 1 tablet by mouth once daily Metoprolol Succinate ER 25 mg oral TABLET extended release 1 tab(s), Oral, qDay, DO NOT CRUSH OR CHEW., # 90 tab(s), 3 Refill(s), Pharmacy: [facility]/pharmacy #[id number], 172, cm, 05/31/23 8:56:00 EDT, Height, kg, 05/31/23 8:56:00 EDT, Dosing Weight Start Date: 06/19/23 Status: Ordered Start: 07-06-2022 take 1 tablet by zen th once daily Metoprolol Succinate ER 25 mg oral TABLET extended release 1 tab(s), Oral, qDay, DO NOT CRUSH OR CHEW., # 90 tab(s), 3 Refill(s), Pharmacy: [id number], 175.3, cm, 03/28/22 10:31:00 EST, Height, kg, 03/28/22 10:31:00 EST, Dosing Weight Start Date: 07/06/22 Status: Ordered Start: 02-24-2022 End: 02-24-2022 metoprolol succinate 25 mg o ral TABLET extended release Start: 02/24/22 8:00:00 EST, Dose = 25 mg, = 1 tab(s), Oral, Hold if SBP (mmHg) Start Date: 02/24/22 Stop Date: 02/24/22 Status: Completed Start: 02-23-2022 End: 02-23-2022 metoprolol succinate 25 mg o ral TABLET extended release Start: 02/23/22 8:00:00 EST, Dose = 25 mg, = 1 tab(s), Oral, Hold if SBP (mmHg) Start Date: 02/23/22 Stop Date: 02/23/22 Status: Completed Start: 07-18-2021 take 1 tablet by zen th once daily Metoprolol Succinate ER 25 mg oral TABLET extended release 1 tab(s), Oral, qDay, DO NOT CRUSH OR CHEW., # 90 tab(s), 3 Refill(s), Pharmacy: [id number], 175.3, cm, 05/24/21 9:10:00 EST, Height, kg, 05/24/21 9:10:00 EST, Dosing Weight Start Date: 07/18/21 Status: Ordered Start: 03-23-2021 metoprolol suc cinate 25 mg oral TABLET extended release Dose : 25 mg = 1 tab(s), Oral, qDay, Do not crush or chew (controlled release), # 30 tab(s), 2 Refill(s), Pharmacy: [facility]/pharmacy #[id number], 175.3, cm, 03/22/21 7:47:00 EST, Height, kg, 03/22/21 7:47:00 EST, Dosing Weight Start Date: 03/23/21 Status: Ordered Multivitamin preparation (8 sources) Start: 12-18-2019 take 1 tablet by mouth once daily Multivitamin Dose = 1 tab(s), Oral, Daily, 0 Refill(s) Start Date: 12/18/19 Status: Ordered omeprazole 20 mg delayed release oral capsule (7 sources) Proton Pump Inhibitor Start: 05-15-2023 omeprazole 20 mg oral delayed release capsule Dose : 20 mg = 1 cap(s), Oral, qDay, # 90 cap(s), 3 Refill(s), Pharmacy: [facility]/pharmacy #[id number], 172, cm, 05/04/23 8:25:00 EST, Height, kg, 05/04/23 8:25:00 EST, Dosing Weight Start Date: 05/15/23 Status: Ordered Start: 06-14-2022 omeprazole 20 mg oral delayed release capsule Dose : 20 mg = 1 cap(s), Oral, qDay, # 90 cap(s), 3 Refill(s), Pharmacy: [facility] ([facility] ), 175.3, cm, 03/28/22 10:31:00 EST, Height, kg, 03/28/22 10:31:00 EST, Dosing Weight Start Date: 06/14/22 Status: Ordered Start: 03-04-2022 omeprazole 20 mg oral delayed release capsule Dose : 20 mg = 1 cap(s), Oral, qDay, # 30 cap(s), 0 Refill(s) Start Date: 03/04/22 Status: Ordered Start: 08-25-2021 End: 02-21-2022 omeprazole 20 mg oral delaye d release capsule Dose : 20 mg = 1 cap(s), Oral, qDay, X 90 day(s), # 90 cap(s), 1 Refill(s), 02/21/22 8:56:00 EST, Pharmacy: [facility]/pharmacy #[id number], 175.3, cm, 05/24/21 9:10:00 EST, Height, kg, 05/24/21 9:10:00 EST, Dosing Weight Start Date: 08/25/21 Stop Date: 02/21/22 Status: Ordered Start: 02-25-2021 take [address] [facility] once daily omeprazole 20 mg oral delayed release capsule See Instructions, TAKE 1 CAPSULE BY MOUTH EVERY DAY, # 90 cap(s), 1 Refill(s), Pharmacy: [facility]/pharmacy #[id number], 173.5, cm, 12/29/20 8:33:00 EDT, Height, kg, 12/29/20 8:33:00 EDT, Dosing Weight Start Date: 02/25/21 Status: Ordered 24 hr oxybutynin chloride 5 mg extended release oral tablet (1 source) Cholinergic Muscarinic Antagonist Start: 09-14-2022 End: 09-09-2023 take 1 tablet by mouth every hour, then take 1 tablet by mouth once daily oxybutynin 5 mg/24 hours oral tablet, extended release Dose : 5 mg = 1 tab(s), Oral, qDay, # 90 tab(s), 3 Refill(s), Pharmacy: [facility]/pharmacy #[id number], 175.3, cm, 07/13/22 10:56:00 EDT, Height, kg, 07/13/22 10:56:00 EDT, Dosing Weight Start Date: 09/14/22 Stop Date: 09/09/23 Status: Ordered oxyCODONE hydrochloride 5 mg oral tablet (1 source) Opioid Agonist Start: 02-23-2022 End: 02-28-2022 oxyCODONE 5 mg oral tablet ( IMMEDIATE release ) Dose : 5 mg = 1 tab(s), Oral, q6hr, PRN as needed for pain, X 5 day(s), # 18 tab(s), 0 Refill(s), 02/28/22 14:07:00 EST, Pharmacy: [facility]/pharmacy #[id number], Rectal mass S/P exploratory laparotomy, 175.3, cm, 02/19/22 13:58:00 EST, Height, 127.4 Start Date: 02/23/22 Stop Date: 02/28/22 Status: Ordered propafenone hydrochloride 150 mg oral tablet (6 sources) Antiarrhythmic Start: 03-29-2023 propafenone 150 mg oral tablet See Instructions, PRN atrial fibrillation, Patient to take 4 tablets at onset of atrial fibrillation., # 4 tab(s), 3 Refill(s), Pharmacy: [facility], 172, cm, 11/03/22 8:40:00 EDT, Height, kg, 11/03/22 8:37:00 EDT, Dosing Weight Start Date: 03/29/23 Status: Ordered Start: 03-31-2022 propafenone 15 0 mg oral tablet See Instructions, PRN atrial fibrillation, Patient to take 4 tablets at onset of atrial fibrillation., # 28 tab(s), 3 Refill(s), [id number], 175.3, cm, 03/28/22 10:31:00 EST, Height, kg, 03/28/22 10:31:00 EST, Dosing Weight Start Date: 03/31/22 Status: Ordered Start: 03-25-2021 End: 03-26-2022 propafenone 150 mg oral tabl et See Instructions, PRN atrial fibrillation, Patient to take 4 tablets at onset of atrial fibrillation., # 28 tab(s), 3 Refill(s), Pharmacy: [facility]/pharmacy #[id number], 175.3, cm, 03/25/21 11:13:00 EST, Height, kg, 03/25/21 11:13:00 EST, Dosing Weight Start Date: 03/25/21 Stop Date: 03/26/22 Status: Ordered simvastatin 20 mg oral tablet (7 sources) HMG-CoA Reductase Inhibitor Start: 07-26-2023 simvastatin 20 mg or al tablet Dose : 20 mg = 1 tab(s), Oral, qHS, # 100 tab(s), 3 Refill(s), Pharmacy: [facility]/pharmacy #[id number], 172, cm, 05/31/23 8:56:00 EDT, Height, kg, 05/31/23 8:56:00 EDT, Dosing Weight Start Date: 07/26/23 Status: Ordered Start: 04-25-2022 simvastatin 20 mg oral tablet Dose : 20 mg = 1 tab(s), Oral, qHS, # 90 tab(s), 3 Refill(s), Pharmacy: [facility]/pharmacy #[id number], 175.3, cm, 03/28/22 10:31:00 EST, Height Start Date: 04/25/22 Status: Ordered Start: 03-04-2022 simvastatin 20 mg oral tablet Dose : 20 mg = 1 tab(s), Oral, qHS, # 30 tab(s), 0 Refill(s) Start Date: 03/04/22 Status: Ordered Start: 08-25-2021 End: 02-21-2022 simvastatin 20 mg oral table t Dose : 20 mg = 1 tab(s), Oral, qHS, X 90 day(s), # 90 tab(s), 1 Refill(s), 02/21/22 8:56:00 EST, [id number], 175.3, cm, 05/24/21 9:10:00 EST, Height, kg, 05/24/21 9:10:00 EST, Dosing Weight Start Date: 08/25/21 Stop Date: 02/21/22 Status: Ordered Start: 02-25-2021 take 1 tablet by zen th once daily simvastatin 20 mg oral tablet See Instructions, TAKE 1 TABLET BY MOUTH EVERY DAY, # 90 tab(s), 1 Refill(s), Pharmacy: [facility]/pharmacy #[id number], 173.5, cm, 12/29/20 8:33:00 EDT, Height, kg, 12/29/20 8:33:00 EDT, Dosing Weight Start Date: 02/25/21 Status: Ordered 24 hr trospium chloride 60 mg extended release oral capsule (2 sources) Cholinergic Muscarinic Antagonist Start: 07-05-2023 trospium 60 mg oral capsule, extended release Dose : 60 mg = 1 cap(s), Oral, qAM, # 30 cap(s), 11 Refill(s), Pharmacy: [facility]/pharmacy #[id number], 172, cm, 05/31/23 8:56:00 EDT, Height, kg, 05/31/23 8:56:00 EDT, Dosing Weight Start Date: 07/05/23 Status: Ordered turmeric extract 500 mg oral capsule (1 source) Start: 02-19-2022 turmeric 500 m g oral capsule Dose : 500 mg = 1 cap(s), Oral, TID, 0 Refill(s) Start Date: 02/19/22 Status: Ordered Problems Active Problems Problem Classification Problem Date Documented Da te Episodic/Chronic Abdominal pain (1 source) Abdominal pain; Translations: [Unspecified abdominal pain] Onset: 2 Episodic Anal and rectal conditions (1 source) Anorectal disorder; Translations: [Other specified diseases of anus and rectum] Onset: 2 Episodic Anxiety disorders (10 sources) Anxiety; Translations: [Anxiety disorder] Onset: 2 06-29-2018 Chronic Cancer of breast (1 source) Personal history of malignant neoplasm of breast; Translations: [Personal history of malignant neoplasm of breast] Episodic Cancer of rectum and anus (5 sources) Overlapping malignant neoplasm of rectum, anus and anal canal; Translations: [Malignant neoplasm of overlapping sites of rectum, anus and anal canal] Chronic Cardiac dysrhythmias (14 sources) Paroxysmal atrial fibrillation; Translations: [Paroxysmal atrial fibrillation] Onset: 2 12-03-2019 Chronic Comment on above: EKG in room shows si nus rhythm with no acute changes. She states she has not had any episodes of atrial fibrillation since her hospital stay. She is currently on Cardizem p.o. daily. She had been on sotalol in the past but did not tolerate it due to fatigue. She had an event monitor done in 2019 which showed several runs of atrial fibrillation, she declined a therapy at that time. CHADSVASC score is 2. She is in the process of getting set up with a CPAP machine which I think will significantly help her atrial fibrillation. Chronic kidney disease (9 sources) Chronic kidney disease stage 3; Translations: [Chronic kidney disease, stage 3 unspecified] 11-01-2019 Chronic Complications of surgical procedures or medical care (1 source) Postoperative complication; Translations: [Other postprocedural complications and disorders of digestive system] Episodic Deficiency and other anemia (2 sources) Anemia 06-01-2023 Episodic Diseases of white blood cells (2 sources) Leukopenia 06-01-2023 Chronic Disorders of lipid metabolism (10 sources) Mixed hyperlipidemia; Translations: [Mixed hyperlipidemia] Onset: 2 12-03-2019 Chronic Comment on above: LDL goal is less prabha n 100. Tolerating simvastatin. Checks lab work through PCP. Esophageal disorders (2 sources) Gastroesophageal reflux disease without esophagitis; Translations: [Gastro-esophageal reflux disease without esophagitis] Onset: 2 Chronic Gastrointestinal hemorrhage (4 sources) Rectal hemorrhage 01-27-2022 Episodic Heart valve disorders (8 sources) Mitral valve prolapse 12-03-2019 Chronic Comment on above: Recent echo showed a normal mitral valve. Hypertension with complications and secondary hypertension (1 source) Chronic kidney disease due to hypertension; Translations: [Hypertensive chronic kidney disease with stage 1 through stage 4 chronic kidney disease, or unspecified chronic kidney disease] Chronic Nutritional deficiencies (2 sources) Vitamin D deficiency 05-31-2023 Chronic Osteoarthritis (8 sources) Arthritis Onset: 4 08-12-2013 Chronic Other connective tissue disease (6 sources) Muscle weakness of upper limb 02-20-2020 Episodic Other diseases of bladder and urethra (3 sources) Overactive bladder 07-13-2022 Chronic Other gastrointestinal disorders (2 sources) Disorder of peritoneum; Translations: [Other specified disorders of peritoneum] Onset: 2 Episodic Other inflammatory condition of skin (8 sources) Rosacea 04-04-2019 Chronic Other injuries and conditions due to external causes (1 source) Diving barotrauma; Translations: [Other effects of air pressure and water pressure, initial encounter] Episodic Other lower respiratory disease (6 sources) Dyspnea 12-03-2019 Episodic Other lower respiratory disease (8 sources) Hypoxia 12-03-2019 Episodic Other nutritional; endocrine; and metabolic disorders (1 source) Body mass index 40+ - severely obese; Translations: [Body mass index (BMI) 40.0-44.9, adult] Chronic Other nutritional; endocrine; and metabolic disorders (1 source) Obesity; Translations: [Obesity, unspecified] Chronic Pulmonary heart disease (8 sources) Pulmonary hypertension 06-25-2019 Chronic Comment on above: History of Pulmonary hypertension Residual codes; unclassified (10 sources) Obstructive sleep apnea syndrome; Translations: [Obstructive sleep apnea (adult) (pediatric)] Onset: 2 12-03-2019 Chronic Comment on above: Recent sleep study s howed 39 apneas, 122 hypopneas, and an AHI of 20.9. She is in the process of getting set up with an AutoPap. Residual codes; unclassified (1 source) Past history of procedure; Translations: [Other specified postprocedural states] Onset: 2 Episodic Unclassified (8 sources) Cancer cervix screening status 01-09-2020 Unclassified (18 sources) Patient encounter status 11-01-2019 Unclassified (2 sources) Chemotherapy care 03-04-2022 Comment on above: 9 months Past or Other Problems Problem Classification Problem Date Documented Da te Episodic/Chronic Other gastrointestinal disorders (2 sources) Diarrhea, unspecified; Translations: [Diarrhea, unspecified] Onset: 10-28-2022 Episodic Results Test Name Value Interpretation Reference Range [address] 08-21-2023 Cobalamin (Vitamin B12) [Mass/Vol] 367 pg/mL Normal 211-911 [facility] ([place]) Comment on above: Performed By: #### B 12 #### [address] [address] #### VIDH #### [facility] [address] [place], [place] [address] BD BONE DENSITY [facility]EXA AXIAL [facility]-2023 BD BONE DENSITY DEXA AXIAL S[facility]TON ORIGINAL EXAMINATION: BONE DENSITOMETRY 4 9:20 am TECHNIQUE: Dual energy bone densitometry lumbar spine and left hip. COMPARISON: None HISTORY: Reason for Exam: Osteoporosis Screening FINDINGS: T Score Left Femoral Neck: -1.3 Left Femoral Neck: 0.701 (g/cm2) T Score Left Hip: 0.0 Left Hip: 0.942 (g/cm2) T Score Lumbar Spine: -1.5 Lumbar Spine: 0.885 (g/cm2) BMD Change from previous Hip: -10.9 % BMD Change from previous Lumbar Spine: +0.8 % FRAX score: 10 year risk major osteoporotic fracture 8.5 %. 10 year risk hip fracture 1.0 %. The BHOF f/k/a NOF recommends that FDA-approved medical therapies be considered in post-menopausal women and men age >/= 50 years with a: * Hip or vertebral fracture, or * T-score of /= 20% for major osteoporotic fractures or * >/= 3% for hip fractures All treatment decisions require clinical judgement and consideration of individual patient factors, including patient preferences, comorbidities, previous drug use, risk factors not captured in the FRAX registered model (e.g., frailty, falls, vitamin D deficiency, increased bone turnover, interval significant decline in bone density) and possible under- or over-estimation of fracture risk by FRAX. IMPRESSION: Osteopenia. Interpreted by: Bev Gonzalez MD Preliminary Report By: Bev Gonzalez MD Electronically signed By Bev Gonzalez MD Dictated Date: 08/21/2023 1:03:53 PM Prelim Date: 08/21/2023 1:05:29 PM Sign Date: 08/21/2023 1:05:29 PM Ordering Provider: LUKE Cooper [facility] ([place]) LABORATORYOrdered By: SYSTEM SYSTEM on 08-21-2023 25-hydroxyvitamin D3 [Mass/Vol] 18.3 ng/mL Invalid Interpretation Code AO ADM SS Comment on above: Interpretive Data: I nterpretive Values Based on Total 25(OH) Vitamin D: Deficient <20 ng/mL Insufficient 20 - <30 ng/mL Sufficient 30-100 ng/mL Cobalamin (Vitamin B12) [Mass/Vol] 367 pg/mL Normal 211 - 911 pg/mL AH ADM SS Magnesium [Mass/Vol] 1.8 mg/dL Normal 1.8 - 2 .4 mg/dL AO ADM SS TSH Qn 2.45 m[IU]/L Normal 0.36 - 3.74 mcIU/mL AO ADM SS MA MAMMOGRAM SCREENING RIGHT W/TOMOon 08-21-2023 MA MAMMOGRAM SCREENING RIGHT W/STEFANY ORIGINAL FROM: [place] [address] PROCEDURE FOR: LOUIE DOWNEY [address] [place] [address] Home: PID#: [id number] Exam#: [id number] : 1955 Age: 68 TO: LUKE CAMILO TREASURY ACCOUNTANT [facility] [address] [place], [place] [address] Fax: NO FAX EXAMINATION: SCREENING DIGITAL RIGHT MAMMOGRAM WITH TOMOSYNTHESIS, 08/21/2023 8:51 am TECHNIQUE: Screening mammography of the right breast was performed with tomosynthesis. 2D standard and 3D tomosynthesis combination imaging performed through the right breast in the MLO and CC projection. Computer aided detection was utilized in the interpretation of this exam. COMPARISON: 11/25/2020, 11/18/2019 HISTORY: Breast cancer screening FINDINGS: BREAST DENSITY: Scattered fibroglandular tissue There are no significant masses or calcifications. IMPRESSION: No mammographic evidence of malignancy. Continued screening with annual mammograms is recommended. Isaiah Baireszi risk calculations do not apply for this patient. BIRADS: MAMMOGRAM BI-RADS: 1: Negative RECALL: 1 year screening RECALL TYPE: mammo LETTER SENT: Normal BI-RADS 1 and 2 Interpreted by: Lu Morrison MD Preliminary Report By: Lu Morrison MD Electronically signed By Lu Morrison MD Dictated Date: 08/21/2023 5:24:56 PM Prelim Date: 08/21/2023 5:29:59 PM Sign Date: 08/21/2023 5:29:59 PM Ordering Provider: LUKE CAMILO Lean Leader: LAURE WANG RT(R) RDMS letter sent: Normal BI-RADS 1 and 2 Mammogram BI-RADS: 1 Negative Normal [facility] ([place]) MGon 08-21-2023 Magnesium [Mass/Vol] 1.8 mg/dL Normal 1.8-2.4 [facility]) Comment on above: Performed By: #### T JOSELYN MG #### [address] [address] TSHon 08-21-2023 TSH Qn 2.45 m[IU]/L Normal 0.36-3.74 [facility] ([place]) Comment on above: Performed By: #### T JOSELYN MG #### [address] [address] VIDHon 08-21-2023 Vit. D 25-Hydroxy 18.3 ng/mL Normal [facility]) Comment on above: Result Comment: Inte rpretive Values Based on Total 25(OH) Vitamin D: Deficient <20 ng/mL Insufficient 20 - <30 ng/mL Sufficient 30-100 ng/mL Performed By: #### B 12 #### [address] [address] #### VIDH #### [address] [address] .Auto Diffon 05-29-2023 Basophil, Absolute 0.0 10 3/mcL Normal 0.0-0.2 [facility] ([place]) Comment on above: Performed By: #### V IDH, ADIFF, GFR, LIPID, ANEU, CMP, CBC #### [address] [address] Basophils/100 WBC (Bld) 0.5 % Normal 0.0-2.5 [facility] ([place]) Comment on above: Performed By: #### V IDH, ADIFF, GFR, LIPID, ANEU, CMP, CBC #### [address] [address] Eosinophil, Absolute 0.1 10 3/mcL Normal 0.0-0.4 [facility] ([place]) Comment on above: Performed By: #### V IDH, ADIFF, GFR, LIPID, ANEU, CMP, CBC #### [address] [address] Eosinophils/100 WBC (Bld) 3.3 % Normal 0.0-7.0 [facility] ([place]) Comment on above: Performed By: #### V IDH, ADIFF, GFR, LIPID, ANEU, CMP, CBC #### [address] [address] Lymphocyte, Absolute 1.1 10 3/mcL Normal 0.8-3.9 [facility] ([place]) Comment on above: Performed By: #### V IDH, ADIFF, GFR, LIPID, ANEU, CMP, CBC #### [address] [address] Lymphocytes/100 WBC (Bld) 31.2 % Normal 10.0-50.0 [facility] ([place]) Comment on above: Performed By: #### V IDH, ADIFF, GFR, LIPID, ANEU, CMP, CBC #### [address] [address] Monocyte, Absolute 0.4 10 3/mcL Normal 0.2-1.0 [facility] ([place]) Comment on above: Performed By: #### V IDH, ADIFF, GFR, LIPID, ANEU, CMP, CBC #### [address] [address] Monocytes/100 WBC (Bld) 11.1 % Normal 1.7-13.0 [facility] ([place]) Comment on above: Performed By: #### V IDH, ADIFF, GFR, LIPID, ANEU, CMP, CBC #### [address] [address] Neutrophils/100 WBC (Bld) 53.9 % Normal 37.0-80.0 [facility] ([place]) Comment on above: Performed By: #### V IDH, ADIFF, GFR, LIPID, ANEU, CMP, CBC #### [address] [address] .GFRon 05-29-2023 GFR 63 ml/min/1.73sqm Normal [facility] ([place]) Comment on above: Result Comment: GFR Population mean for , Non- Americans Ages 20-29 = 116 mL/min/1.73 sq.m. Ages 30-39 = 107 mL/min/1.73 sq.m. Ages 40-49 = 99 mL/min/1.73 sq.m. Ages 50-59 = 93 mL/min/1.73 sq.m. Ages 60-69 = 85 mL/min/1.73 sq.m. Ages 70+ = 75 mL/min/1.73 sq.m. Chronic Kidney Disease: Less than 60 mL/min/1.73 square meters End Stage Renal Disease: Less than 15 mL/min/1.73 square meters Performed By: #### V IDH, ADIFF, GFR, LIPID, ANEU, CMP, CBC ####[address] [address] GFR Non- 52 ml/min/1.73sqm Normal [facility] ([place]) Comment on above: Result Comment: GFR Population mean for , Non- Americans Ages 20-29 = 116 mL/min/1.73 sq.m. Ages 30-39 = 107 mL/min/1.73 sq.m. Ages 40-49 = 99 mL/min/1.73 sq.m. Ages 50-59 = 93 mL/min/1.73 sq.m. Ages 60-69 = 85 mL/min/1.73 sq.m. Ages 70+ = 75 mL/min/1.73 sq.m. Chronic Kidney Disease: Less than 60 mL/min/1.73 square meters End Stage Renal Disease: Less than 15 mL/min/1.73 square meters Performed By: #### V IDH, ADIFF, GFR, LIPID, ANEU, CMP, CBC ####[address] [address] .NEUABSon 05-29-2023 Neutrophil, Absolute 1.9 10 3/mcL Low 2.9-6.2 [facility] ([place]) Comment on above: Performed By: #### V IDH, ADIFF, GFR, LIPID, ANEU, CMP, CBC #### [address] [address] CBCon 05-29-2023 Erythrocyte distribution width (RBC) [Ratio] 13.4 % Normal 11.5-14.5 [facility] ([place]) Comment on above: Performed By: #### V IDH, ADIFF, GFR, LIPID, ANEU, CMP, CBC #### [address] [address] Hematocrit (Bld) [Volume fraction] 36.0 % Low 37.0-47.0 [facility] ([place]) Comment on above: Performed By: #### V IDH, ADIFF, GFR, LIPID, ANEU, CMP, CBC #### [address] [address] Hgb 12.5 G/dL Normal 12.0-16.0 [facility] ([place]) Comment on above: Performed By: #### V IDH, ADIFF, GFR, LIPID, ANEU, CMP, CBC #### [address] [address] MCH (RBC) [Entitic mass] 33.6 pg High 27.0-31.2 [facility] ([place]) Comment on above: Performed By: #### V IDH, ADIFF, GFR, LIPID, ANEU, CMP, CBC #### [address] [address] MCHC 34.7 G/dL Normal 33.0-37.0 [facility] ([place]) Comment on above: Performed By: #### V IDH, ADIFF, GFR, LIPID, ANEU, CMP, CBC #### [address] [address] MCV (RBC) [Entitic vol] 96.7 fL High 80.0-94.0 [facility] ([place]) Comment on above: Performed By: #### V IDH, ADIFF, GFR, LIPID, ANEU, CMP, CBC #### [address] [address] Platelet 252 10 3/mcL Normal 130-400 [facility] ([place]) Comment on above: Performed By: #### V IDH, ADIFF, GFR, LIPID, ANEU, CMP, CBC #### [address] [address] Platelet mean volume (Bld) [Entitic vol] 7.1 fL Low 7.4-10.4 [facility] ([place]) Comment on above: Performed By: #### V IDH, ADIFF, GFR, LIPID, ANEU, CMP, CBC #### [address] [address] RBC 3.72 10 6/mcL Low 4.20-5.40 [facility] ([place]) Comment on above: Performed By: #### V IDH, ADIFF, GFR, LIPID, ANEU, CMP, CBC #### [address] [address] WBC 3.6 10 3/mcL Low 4.6-10.8 [facility] ([place]) Comment on above: Performed By: #### V IDH, ADIFF, GFR, LIPID, ANEU, CMP, CBC #### [address] [place], [place] [address] CMPon 05-29-2023 Albumin Level 2.9 G/dL Low 3.4-4.8 [facility] ([place]) Comment on above: Performed By: #### V IDH, ADIFF, GFR, LIPID, ANEU, CMP, CBC ####[address] [place], [place] [address] Albumin/Globulin [Mass ratio] 0.8 {ratio} Low 1.1-2.5 [facility] ([place]) Comment on above: Performed By: #### V IDH, ADIFF, GFR, LIPID, ANEU, CMP, CBC ####[address] [place], [place] [address] ALP [Catalytic activity/Vol] 107 U/L Normal 40-135 [facility] ([place]) Comment on above: Performed By: #### V IDH, ADIFF, GFR, LIPID, ANEU, CMP, CBC ####[address] [place], [place] [address] ALT [Catalytic activity/Vol] 20 U/L Normal 14-59 [facility] ([place]) Comment on above: Performed By: #### V IDH, ADIFF, GFR, LIPID, ANEU, CMP, CBC ####[address] [place], [place] [address] AST [Catalytic activity/Vol] 17 U/L Normal 10-40 [facility] ([place]) Comment on above: Performed By: #### V IDH, ADIFF, GFR, LIPID, ANEU, CMP, CBC ####[facility] [place], [place] [address] Bili Total 0.4 mg/dL Normal 0.2-1.0 [facility] ([place]) Comment on above: Result Comment: Use of this assay is not recommended for patients undergoing treatment with eltrombopag due to the potential for falsely elevated results. Performed By: #### V IDH, ADIFF, GFR, LIPID, ANEU, CMP, CBC ####[address] [place], [place] [address] BUN/Creatinine Ratio 18 ratio Normal 7-27 [facility] ([place]) Comment on above: Performed By: #### V IDH, ADIFF, GFR, LIPID, ANEU, CMP, CBC ####[address] [place], [place] [address] Calcium [Mass/Vol] 9.0 mg/dL Normal 8.4-10.2 [facility] ([place]) Comment on above: Performed By: #### V IDH, ADIFF, GFR, LIPID, ANEU, CMP, CBC ####[address] [place], [place] [address] Chloride [Moles/Vol] 109 mmol/L High 98-107 [facility] ([place]) Comment on above: Performed By: #### V IDH, ADIFF, GFR, LIPID, ANEU, CMP, CBC ####[address] [place], [place] [address] CO2 [Moles/Vol] 27 mmol/L Normal 23-31 [facility] ([place]) Comment on above: Performed By: #### V IDH, ADIFF, GFR, LIPID, ANEU, CMP, CBC ####[address] [place], [place] [address] Creatinine [Mass/Vol] 1.05 mg/dL High 0.55-1.02 [facility] ([place]) Comment on above: Performed By: #### V IDH, ADIFF, GFR, LIPID, ANEU, CMP, CBC ####[address] [place], [place] [address] Electrolyte Balance 8.0 mEq/L Normal 4.0-15.0 [facility] ([place]) Comment on above: Performed By: #### V IDH, ADIFF, GFR, LIPID, ANEU, CMP, CBC ####[address] [place], [place] [address] Globulin 3.6 G/dL Normal [facility] ([place]) Comment on above: Performed By: #### V IDH, ADIFF, GFR, LIPID, ANEU, CMP, CBC ####[address] [place], [place] [address] Glucose [Mass/Vol] 103 mg/dL Normal 83-110 [facility] ([place]) Comment on above: Performed By: #### V IDH, ADIFF, GFR, LIPID, ANEU, CMP, CBC ####[address] [place], [place] [address] Potassium [Moles/Vol] 5.1 mmol/L Normal 3.5-5.1 [facility] ([place]) Comment on above: Performed By: #### V IDH, ADIFF, GFR, LIPID, ANEU, CMP, CBC ####[address] [place], [place] [address] Sodium [Moles/Vol] 144 mmol/L Normal 136-145 [facility] ([place]) Comment on above: Performed By: #### V IDH, ADIFF, GFR, LIPID, ANEU, CMP, CBC ####[address] [place], [place] [address] Total Protein 6.5 G/dL Normal 6.4-8.2 [facility] ([place]) Comment on above: Performed By: #### V IDH, ADIFF, GFR, LIPID, ANEU, CMP, CBC ####[address] [place], [place] [address] Urea nitrogen [Mass/Vol] 19 mg/dL High 7-18 [facility] ([place]) Comment on above: Performed By: #### V IDH, ADIFF, GFR, LIPID, ANEU, CMP, CBC ####[address] [place], [place] [address] LIPIDon 05-29-2023 Cholesterol [Mass/Vol] 198 mg/dL Normal 0-200 [facility] ([place]) Comment on above: Result Comment: Chol esterol Reference Interval: Less than 200 Desirable 200-239 Borderline high risk 240 and above High risk Performed By: #### V IDH, ADIFF, GFR, LIPID, ANEU, CMP, CBC ####[address] [place], [place] [address] Cholesterol in HDL [Mass/Vol] 65 mg/dL High 40-60 [facility] ([place]) Comment on above: Performed By: #### V IDH, ADIFF, GFR, LIPID, ANEU, CMP, CBC ####[address] [place], [place] [address] Cholesterol in LDL [Mass/Vol] 101 mg/dL Normal 0-130 [facility] ([place]) Comment on above: Performed By: #### V IDH, ADIFF, GFR, LIPID, ANEU, CMP, CBC ####[address] [place], [place] [address] Triglyceride [Mass/Vol] 161 mg/dL High 0-150 [facility] ([place]) Comment on above: Result Comment: Trig lyceride Reference Interval: Less than 150 Normal 150-199 Borderline high risk 200-499 High risk 500 or higher Very high risk Performed By: #### V IDH, ADIFF, GFR, LIPID, ANEU, CMP, CBC ####[address] [place], [place] [address] VIDHon 05-29-2023 Vit. D 25-Hydroxy 22.6 ng/mL Normal [facility] ([place]) Comment on above: Result Comment: Inte rpretive Values Based on Total 25(OH) Vitamin D: Deficient <20 ng/mL Insufficient 20 - <30 ng/mL Sufficient 30-100 ng/mL Performed By: #### V IDH, ADIFF, GFR, LIPID, ANEU, CMP, CBC ####[address] [place], [place] [address] CDIFFAOon 10-28-2022 Clostridium difficile toxin A/B PCR Negative Normal Negative [facility] ([place]) Comment on above: Performed By: #### C DIFFAO ####[address] [place] [address] Clostridium difficile toxin A/B PCR Int Normal [facility] ([place]) Comment on above: Result Comment: Primo s C. difficile Negative result does not rule out the possibility of infection with toxigenic C. difficile. Javad C. difficile Assay results should not be used as the sole basis for diagnosis, treatment, or patient management decisions and should be interpreted in conjunction with other clinical and laboratory findings. See Below Performed By: #### C DIFFAO ####[address] [place], [place] [address] LABORATORYOrdered By: Justin Wooten on 10-28-2022 C. difficile toxin A+B tcdA+tcdB genes KODY+probe Ql (Stl) Negative *NA* (10/28/22 7:59 AM) Invalid Interpretation Code Negative AO Auto Urine SS Clostridium difficile toxin A/B PCR Int Javad C. difficile Negative result does not rule out the possibility of infection with toxigenic C. difficile. Javad C. difficile Assay results should not be used as the sole basis for diagnosis, treatment, or patient management decisions and should be interpreted in conjunction with other clinical and laboratory findings. Invalid Interpretation Code AO Auto Urine SS .Auto Diffon 10-02-2022 Basophil, Absolute 0.0 10 3/mcL Normal 0.0-0.2 [facility] ([place]) Comment on above: Performed By: #### G FR, LIP, ANEU, MDW, ADIFF, CMP, MG, CBC ####[address] [place], [place] [address] Basophils/100 WBC (Bld) 0.6 % Normal 0.0-2.5 [facility] ([place]) Comment on above: Performed By: #### G FR, LIP, ANEU, MDW, ADIFF, CMP, MG, CBC ####[address] [place], [place] [address] Eosinophil, Absolute 0.2 10 3/mcL Normal 0.0-0.4 [facility] ([place]) Comment on above: Performed By: #### G FR, LIP, ANEU, MDW, ADIFF, CMP, MG, CBC ####[address] [place], [place] [address] Eosinophils/100 WBC (Bld) 4.1 % Normal 0.0-7.0 [facility] ([place]) Comment on above: Performed By: #### G FR, LIP, ANEU, MDW, ADIFF, CMP, MG, CBC ####[address] [place], [place] [address] Lymphocyte, Absolute 0.9 10 3/mcL Normal 0.8-3.9 [facility] ([place]) Comment on above: Performed By: #### G FR, LIP, ANEU, MDW, ADIFF, CMP, MG, CBC ####[facility] [place], [place] [address] Lymphocytes/100 WBC (Bld) 22.0 % Normal 10.0-50.0 [facility] ([place]) Comment on above: Performed By: #### G FR, LIP, ANEU, MDW, ADIFF, CMP, MG, CBC ####[address] [place], [place] [address] Monocyte, Absolute 0.5 10 3/mcL Normal 0.2-1.0 [facility] ([place]) Comment on above: Performed By: #### G FR, LIP, ANEU, MDW, ADIFF, CMP, MG, CBC ####[address] [place], [place] [address] Monocytes/100 WBC (Bld) 11.0 % Normal 1.7-13.0 [facility] ([place]) Comment on above: Performed By: #### G FR, LIP, ANEU, MDW, ADIFF, CMP, MG, CBC ####[address] [place], [place] [address] Neutrophils/100 WBC (Bld) 62.3 % Normal 37.0-80.0 [facility] ([place]) Comment on above: Performed By: #### G FR, LIP, ANEU, MDW, ADIFF, CMP, MG, CBC ####[address] [place], [place] [address] .GFRon 10-02-2022 GFR 66 ml/min/1.73sqm Normal [facility] ([place]) Comment on above: Result Comment: GFR Population mean for , Non- Americans Ages 20-29 = 116 mL/min/1.73 sq.m. Ages 30-39 = 107 mL/min/1.73 sq.m. Ages 40-49 = 99 mL/min/1.73 sq.m. Ages 50-59 = 93 mL/min/1.73 sq.m. Ages 60-69 = 85 mL/min/1.73 sq.m. Ages 70+ = 75 mL/min/1.73 sq.m. Chronic Kidney Disease: Less than 60 mL/min/1.73 square meters End Stage Renal Disease: Less than 15 mL/min/1.73 square meters Performed By: #### G FR, LIP, ANEU, MDW, ADIFF, CMP, MG, CBC ####[address] [place], [place] [address] GFR Non- 54 ml/min/1.73sqm Normal [facility] ([place]) Comment on above: Result Comment: GFR Population mean for , Non- Americans Ages 20-29 = 116 mL/min/1.73 sq.m. Ages 30-39 = 107 mL/min/1.73 sq.m. Ages 40-49 = 99 mL/min/1.73 sq.m. Ages 50-59 = 93 mL/min/1.73 sq.m. Ages 60-69 = 85 mL/min/1.73 sq.m. Ages 70+ = 75 mL/min/1.73 sq.m. Chronic Kidney Disease: Less than 60 mL/min/1.73 square meters End Stage Renal Disease: Less than 15 mL/min/1.73 square meters Performed By: #### G FR, LIP, ANEU, MDW, ADIFF, CMP, MG, CBC ####[address] [place], [place] [address] .MDWon 10-02-2022 Monocyte Distribution Width 19.04 Normal 0.00-20.00 [facility] ([place]) Comment on above: Result Comment: For ED adult patients suspected of sepsis, MDW<=20.0 does not rule out sepsis or risk of sepsis Performed By: #### G FR, LIP, ANEU, MDW, ADIFF, CMP, MG, CBC ####[address] [place], [place] [address] .NEUABSon 10-02-2022 Neutrophil, Absolute 2.6 10 3/mcL Low 2.9-6.2 [facility] ([place]) Comment on above: Performed By: #### G FR, LIP, ANEU, MDW, ADIFF, CMP, MG, CBC ####[address] [place], [place] [address] .Urinalysis Microscopic (AO) on 10-02-2022 UA Bacteria 1+ /hpf Abnormal [facility] ([place]) Comment on above: Performed By: #### U A, UAMICAO ####[address] [place], [place] [address] UA Hyal Cast 0-5 Abnormal [facility] ([place]) Comment on above: Performed By: #### U A, UAMICAO ####[address] [place], [place] [address] UA Mucous 2+ /hpf Normal [facility] ([place]) Comment on above: Performed By: #### U A, UAMICAO ####[address] [place], [place] [address] UA RBC 0-5 Abnormal None Seen [facility] ([place]) Comment on above: Performed By: #### U A, UAMICAO ####[address] [place], [place] [address] UA Squam Epithelial 0-5 Abnormal None Seen [facility] ([place]) Comment on above: Performed By: #### U A, UAMICAO ####[address] [place], [place] [address] UA WBC 5-10 Abnormal None Seen [facility] ([place]) Comment on above: Performed By: #### U Jennifer, UAMICAO ####[address] [place], [place] [address] CBCon 10-02-2022 Erythrocyte distribution width (RBC) [Ratio] 13.6 % Normal 11.5-14.5 [facility] ([place]) Comment on above: Performed By: #### G HUGO CROTF ANEU, MDW, SARA, CMP, MG, CBC ####[address] [place], [place] [address] Hematocrit (Bld) [Volume fraction] 34.6 % Low 37.0-47.0 [facility] ([place]) Comment on above: Performed By: #### G HUGO CROFT ANEU, MDW, ADJOSE, CMP, MG, CBC ####[address] [place], [place] [address] Hgb 11.7 G/dL Low 12.0-16.0 [facility] ([place]) Comment on above: Performed By: #### G FR, LIP, ANEU, MDW, ADIFF, CMP, MG, CBC ####[address] [place], [place] [address] MCH (RBC) [Entitic mass] 31.9 pg High 27.0-31.2 [facility] ([place]) Comment on above: Performed By: #### G FR, LIP, ANEU, MDW, ADIFF, CMP, MG, CBC ####[address] [place], [place] [address] MCHC 33.8 G/dL Normal 33.0-37.0 [facility] ([place]) Comment on above: Performed By: #### G FR, LIP, ANEU, MDW, ADIFF, CMP, MG, CBC ####[address] [place], [place] [address] MCV (RBC) [Entitic vol] 94.6 fL High 80.0-94.0 [facility] ([place]) Comment on above: Performed By: #### G FR, LIP, ANEU, MDW, ADIFF, CMP, MG, CBC ####[address] [place], [place] [address] Platelet 251 10 3/mcL Normal 130-400 [facility] ([place]) Comment on above: Performed By: #### G FR, LIP, ANEU, MDW, ADIFF, CMP, MG, CBC ####[address] [place], [place] [address] Platelet mean volume (Bld) [Entitic vol] 7.2 fL Low 7.4-10.4 [facility] ([place]) Comment on above: Performed By: #### G FR, LIP, ANEU, MDW, ADIFF, CMP, MG, CBC ####[address] [place], [place] [address] RBC 3.66 10 6/mcL Low 4.20-5.40 [facility] ([place]) Comment on above: Performed By: #### G FR, LIP, ANEU, MDW, ADIFF, CMP, MG, CBC ####[address] [place], [place] [address] WBC 4.2 10 3/mcL Low 4.6-10.8 [facility] ([place]) Comment on above: Performed By: #### G FR, LIP, ANEU, MDW, ADIFF, CMP, MG, CBC ####[address] [place], [place] [address] CMPon 10-02-2022 ALT [Catalytic activity/Vol] 13 U/L Low 14-59 [facility] ([place]) Comment on above: Performed By: #### G FR, LIP, ANEU, MDW, ADIFF, CMP, MG, CBC ####[address] [place], [place] [address] Albumin Level 3.0 G/dL Low 3.4-4.8 [facility] ([place]) Comment on above: Performed By: #### G FR, LIP, ANEU, MDW, ADIFF, CMP, MG, CBC ####[address] [place], [place] [address] Albumin/Globulin [Mass ratio] 0.8 {ratio} Low 1.1-2.5 [facility] ([place]) Comment on above: Performed By: #### G FR, LIP, ANEU, MDW, ADIFF, CMP, MG, CBC ####[address] [place], [place] [address] ALP [Catalytic activity/Vol] 91 U/L Normal 40-135 [facility] ([place]) Comment on above: Performed By: #### G FR, LIP, ANEU, MDW, ADIFF, CMP, MG, CBC ####[address] [place], [place] [address] AST [Catalytic activity/Vol] 15 U/L Normal 10-40 [facility] ([place]) Comment on above: Performed By: #### G FR, LIP, ANEU, MDW, ADIFF, CMP, MG, CBC ####[address] [place], [place] [address] Bili Total 0.6 mg/dL Normal 0.2-1.0 [facility] ([place]) Comment on above: Result Comment: Use of this assay is not recommended for patients undergoing treatment with eltrombopag due to the potential for falsely elevated results. Performed By: #### G FR, LIP, MARIEL, MDW, ADIFF, CMP, MG, CBC ####[address] [place], [place] [address] BUN/Creatinine Ratio 16 ratio Normal 7-27 [facility] ([place]) Comment on above: Performed By: #### G FR, LIP, MARIEL, MDW, ADIFF, CMP, MG, CBC ####[address] [place], [place] [address] Calcium [Mass/Vol] 8.8 mg/dL Normal 8.4-10.2 [facility] ([place]) Comment on above: Performed By: #### G FR, LIP, MARIEL, MDW, ADIFF, CMP, MG, CBC ####[address] [place], [place] [address] Chloride [Moles/Vol] 106 mmol/L Normal 98-107 [facility] ([place]) Comment on above: Performed By: #### G , LIP, ANEU, MDW, ADIFF, CMP, MG, CBC ####[address] [place], [place] [address] CO2 [Moles/Vol] 29 mmol/L Normal 23-31 [facility] ([place]) Comment on above: Performed By: #### G FR, LIP, MARIEL, MDW, ADIFF, CMP, MG, CBC ####[address] [place], [place] [address] Creatinine [Mass/Vol] 1.01 mg/dL Normal 0.55-1.02 [facility] ([place]) Comment on above: Performed By: #### G FR, LIP, MARIEL, MDW, ADIFF, CMP, MG, CBC ####[address] [place], [place] [address] Electrolyte Balance 7.0 mEq/L Normal 4.0-15.0 [facility] ([place]) Comment on above: Performed By: #### G FR, LIP, ANEU, MDW, ADIFF, CMP, MG, CBC ####[address] [place], [place] [address] Globulin 3.6 G/dL Normal [facility] ([place]) Comment on above: Performed By: #### G FR, LIP, ANEU, MDW, ADIFF, CMP, MG, CBC ####[address] [place], [place] [address] Glucose [Mass/Vol] 107 mg/dL Normal 80-115 [facility] ([place]) Comment on above: Performed By: #### G FR, LIP, ANEU, MDW, ADIFF, CMP, MG, CBC ####[address] [place], [place] [address] Potassium [Moles/Vol] 4.8 mmol/L Normal 3.5-5.1 [facility] ([place]) Comment on above: Performed By: #### G FR, LIP, ANEU, MDW, ADIFF, CMP, MG, CBC ####[address] [place], [place] [address] Sodium [Moles/Vol] 142 mmol/L Normal 136-145 [facility] ([place]) Comment on above: Performed By: #### G FR, LIP, MARIEL, MDW, ADIFF, CMP, MG, CBC ####[address] [place], [place] [address] Total Protein 6.6 G/dL Normal 6.4-8.2 [facility] ([place]) Comment on above: Performed By: #### G FR, LIP, ANEU, MDW, ADIFF, CMP, MG, CBC ####[address] [place], [place] [address] Urea nitrogen [Mass/Vol] 16 mg/dL Normal 7-18 [facility] ([place]) Comment on above: Performed By: #### G FR, LIP, ANEU, MDW, ADIFF, CMP, MG, CBC ####[address] [place], [place] [address] CT ABD/PELVIS W/ IV CONTRAST ONLYon 10-02-2022 CT ABD/PELVIS W/ IV CONTRAST ONLY ORIGINAL EXAMINATION: CT OF THE ABDOMEN AND PELVIS WITH CONTRAST 10/02/2022 6:06 pm TECHNIQUE: CT of the abdomen and pelvis was performed with the administration of intravenous contrast. Multiplanar reformatted images are provided for review. Automated exposure control, iterative reconstruction, and/or weight based adjustment of the mA/kV was utilized to reduce the radiation dose to as low as reasonably achievable. COMPARISON: CT abdomen and pelvis 02/19/2022 HISTORY: ORDERING SYSTEM PROVIDED HISTORY: Reason for Exam: pain History of breast and rectal cancer. Appendectomy. Partial removal of the cecum. FINDINGS: Multilevel degenerative changes throughout the spine. Degenerative changes of both hip joints. There is a midline abdominal scar. Mild dependent atelectasis of both lung bases. Otherwise the included lung bases are clear. The liver, pancreas and both adrenal glands appear within normal limits. There is a small amount of perihepatic fluid. No pericholecystic inflammation. There are multiple splenic granulomas. Symmetric nephrograms. No hydronephrosis. No renal calculi. There is a subcentimeter hypodense right mid renal lesion which is too small to characterize but likely represents a cyst. No focal bladder wall thickening. The uterus appears within normal limits. There is trace free fluid in the lower abdomen. There are few air-fluid levels within the small bowel. There are no dilated loops of small bowel. Mild sigmoid diverticulosis without evidence of diverticulitis. There is colonic wall thickening at the hepatic flexure and remaining ascending colon with minimal adjacent fat stranding. Evidence of partial colectomy with an anastomosis at the right mid abdomen. There appears to be decreased enhancement of the remnant ascending colon and hepatic flexure when compared to the remainder of the large bowel. The superior mesenteric artery is patent. There is mild atherosclerosis of the aorta which is nonaneurysmal. No pathologically enlarged lymph nodes. The SMV and portal vein are patent. No free air. IMPRESSION: Wall thickening and pericolonic stranding involving the ascending colon and hepatic flexure questionable for colitis which may be infectious, inflammatory or ischemic. Questionably decreased wall enhancement does raise possibility for ischemic colitis although no significant arterial stenosis is evident on this nondedicated exam. Could also potentially be secondary to prior surgery/perfusion asymmetries. Small volume perihepatic and lower abdominal ascites. Diverticulosis without evidence of diverticulitis. I have personally reviewed the images of this examination agree with resident's findings and interpretation. Interpreted by: David Baca Preliminary Report By: Eloisa Jones Electronically signed By David Baca Dictated Date: 10/02/2022 6:11:14 PM Prelim Date: 10/02/2022 6:23:39 PM Sign Date: 10/02/2022 6:39:18 PM Ordering Provider: DINO LYONS Normal [facility] ([place]) LACon 10-02-2022 Lactic Acid Lvl 0.9 mmol/L Normal 0.4-2.0 [facility] ([place]) Comment on above: Performed By: #### L AC ####[id number] [place], [place] [address] LIPon 10-02-2022 Lipase Level 17 U/L Normal 16-77 [facility] ([place]) Comment on above: Performed By: #### G FR, LIP, MARIEL, MDW, ADIFF, CMP, MG, CBC ####[address] [place], [place] [address] MGon 10-02-2022 Magnesium [Mass/Vol] 2.0 mg/dL Normal 1.8-2.4 [facility] ([place]) Comment on above: Performed By: #### G FR, LIP, MARIEL, MDW, ADIFF, CMP, MG, CBC ####[id number] [place], [place] [address] UAon 10-02-2022 Color (U) Yellow Normal [facility] ([place]) Comment on above: Performed By: #### U A, UAMICAO ####[address] [place], [place] [address] Glucose (U) [Mass/Vol] Negative Normal Negative [facility] ([place]) Comment on above: Performed By: #### U A, UAMICAO ####[address] [place], [place] [address] Ketones Ql (U) Negative Normal Negative [facility] ([place]) Comment on above: Performed By: #### U A, UAMICAO ####[address] [place], [place] [address] UA Appear Cloudy Abnormal Clear [facility] ([place]) Comment on above: Performed By: #### U A, UAMICAO ####[address] [place], [place] [address] UA Blood Trace Abnormal Negative [facility] ([place]) Comment on above: Performed By: #### U A, UAMICAO ####[address] [place] [id number] UA Leuk Est Negative Normal Negative [facility] ([place]) Comment on above: Performed By: #### U A, UAMICAO ####[address] [place], [place] [address] UA Nitrite Negative Normal Negative [facility] ([place]) Comment on above: Performed By: #### U A, UAMICAO ####[address] [place] [address] UA pH 5.5 Normal 5.0 - 8.0 [facility] ([place]) Comment on above: Performed By: #### U A, UAMICAO ####[address] [place] [address] UA Protein Negative Normal Negative [facility] ([place]) Comment on above: Performed By: #### U A, UAMICAO ####[address] [place] [address] UA Spec Grav 1.020 Normal 1.015-1.025 [facility] ([place]) Comment on above: Performed By: #### U A, UAMICAO ####[address] [place] [address] UA Specimen Type Not Given Normal [facility] ([place]) Comment on above: Performed By: #### U A, UAMICAO ####[address] [place] [id number] UA Urobilinogen 0.2 E.U./dL Normal 0.2-1.0 [facility] ([place]) Comment on above: Performed By: #### U A, UAMICAO ####[address] [place] [id number] Urobilinogen (U) [Mass/Vol] Negative Normal Negative [facility] ([place]) Comment on above: Performed By: #### U PHUC Rodriguez ####[address] [place], [place] [address] LABORATORYOrdered By: SYSTEM SYSTEM on 02-22-2022 Basophils (Bld) [#/Vol] 0.1 103/mcL Invalid Interpretation Code 0.0 - 0.3 10^3/mcL AH Workflow SS Basophils/100 WBC (Bld) 0.8 % Invalid Interpretation Code 0.0 - 2.5 % AH Workflow SS Calcium [Mass/Vol] 8.8 mg/dL Invalid Interpretation Code 8.7 - 10.4 mg/dL ADM SS Chloride [Moles/Vol] 107 mmol/L Invalid Interpretation Code 98 - 110 mEq/L ADM SS CO2 [Moles/Vol] 26 mmol/L Invalid Interpretation Code 22 - 32 mEq/L ADM SS Creatinine [Mass/Vol] 1.01 mg/dL Invalid Interpretation Code 0.50 - 1.20 mg/dL ADM SS Electrolyte Balance 9.0 mEq/L Invalid Interpretation Code 4.0 - 15.0 mEq/L ADM SS Eosinophils (Bld) [#/Vol] 0.3 103/mcL Invalid Interpretation Code 0.0 - 0.7 10^3/mcL AH Workflow SS Eosinophils/100 WBC (Bld) 4.8 % Invalid Interpretation Code 0.0 - 6.0 % AH Workflow SS Erythrocyte distribution width (RBC) [Ratio] 13.2 % Invalid Interpretation Code 11.5 - 15.5 % AH Workflow SS GFR/1.73 sq M.predicted among blacks MDRD (S/P/Bld) [Vol rate/Area] ml/min/1.73sqm Invalid Interpretation Code Chemistry S GFR/1.73 sq M.predicted among non-blacks MDRD (S/P/Bld) [Vol rate/Area] 54 ml/min/1.73sqm Invalid Interpretation Code Chemistry S Glucose [Mass/Vol] 93 mg/dL Invalid Interpretation Code 82 - 115 mg/dL ADM SS Hematocrit (Bld) [Volume fraction] 36.5 % Invalid Interpretation Code 34.0 - 46.0 % AH Workflow SS Hemoglobin (Bld) [Mass/Vol] 11.8 G/dL Invalid Interpretation Code 12.0 - 16.0 G/dL AH Workflow SS Lymphocytes (Bld) [#/Vol] 2.1 103/mcL Invalid Interpretation Code 0.9 - 4.3 10^3/mcL AH Workflow SS Lymphocytes/100 WBC (Bld) 32.0 % Invalid Interpretation Code 20.0 - 40.0 % AH Workflow SS MCH (RBC) [Entitic mass] 31.1 pg Invalid Interpretation Code 27.0 - 33.0 pg AH Workflow SS MCHC 32.3 G/dL Invalid Interpretation Code 32.0 - 36.0 G/dL AH Workflow SS MCV (RBC) [Entitic vol] 96.1 fL Invalid Interpretation Code 80.0 - 99.0 fL AH Workflow SS Monocytes (Bld) [#/Vol] 0.6 103/mcL Invalid Interpretation Code 0.1 - 1.4 10^3/mcL AH Workflow SS Monocytes/100 WBC (Bld) 9.2 % Invalid Interpretation Code 2.0 - 13.0 % AH Workflow SS Neutrophils (Bld) [#/Vol] 3.6 103/mcL Invalid Interpretation Code 2.3 - 8.1 10^3/mcL AH Workflow SS Neutrophils/100 WBC (Bld) 53.2 % Invalid Interpretation Code 50.0 - 75.0 % AH Workflow SS Platelet mean volume (Bld) [Entitic vol] 8.6 fL Invalid Interpretation Code 6.6 - 10.5 fL AH Workflow SS Platelets (Bld) [#/Vol] 246 103/mcL Invalid Interpretation Code 150 - 450 10^3/mcL AH Workflow SS Potassium [Moles/Vol] 4.2 mmol/L Invalid Interpretation Code 3.5 - 5.0 mEq/L ADM SS Comment on above: Result Comment: Spec imen slightly hemolyzed. RBC (Bld) [#/Vol] 3.80 106/mcL Invalid Interpretation Code 4.10 - 5.30 10^6/mcL AH Workflow SS Sodium [Moles/Vol] 142 mmol/L Invalid Interpretation Code 136 - 145 mEq/L ADM SS Urea nitrogen [Mass/Vol] 13.0 mg/dL Invalid Interpretation Code 8.0 - 22.0 mg/dL ADM SS Urea nitrogen/Creatinine [Mass ratio] 12.9 ratio Invalid Interpretation Code 10.0 - 22.0 ratio AH ADM SS WBC (Bld) [#/Vol] 6.7 103/mcL Invalid Interpretation Code 4.5 - 10.8 10^3/mcL Workflow SS LABORATORYOrdered By: SYSTEM SYSTEM on 02-21-2022 Albumin BCP dye [Mass/Vol] 2.7 G/dL Invalid Interpretation Code 3.2 - 4.8 G/dL ADM SS Albumin/Globulin [Mass ratio] 0.7 {ratio} Invalid Interpretation Code 0.9 - 1.6 ratio ADM SS ALP [Catalytic activity/Vol] 80 U/L Invalid Interpretation Code 38 - 126 U/L ADM SS ALT No additional P-5'-P [Catalytic activity/Vol] 43 U/L Invalid Interpretation Code 10 - 49 U/L ADM SS AST [Catalytic activity/Vol] 85 U/L Invalid Interpretation Code 8 - 34 U/L ADM SS Basophils (Bld) [#/Vol] 0.0 103/mcL Invalid Interpretation Code 0.0 - 0.3 10^3/mcL Workflow SS Basophils/100 WBC (Bld) 0.3 % Invalid Interpretation Code 0.0 - 2.5 % Workflow SS Bilirubin [Mass/Vol] 0.60 mg/dL Invalid Interpretation Code 0.20 - 1.20 mg/dL ADM SS Calcium [Mass/Vol] 8.6 mg/dL Invalid Interpretation Code 8.7 - 10.4 mg/dL ADM SS Chloride [Moles/Vol] 104 mmol/L Invalid Interpretation Code 98 - 110 mEq/L ADM SS CO2 [Moles/Vol] 28 mmol/L Invalid Interpretation Code 22 - 32 mEq/L ADM SS Creatinine [Mass/Vol] 1.24 mg/dL Invalid Interpretation Code 0.50 - 1.20 mg/dL ADM SS Electrolyte Balance 8.0 mEq/L Invalid Interpretation Code 4.0 - 15.0 mEq/L ADM SS Eosinophils (Bld) [#/Vol] 0.2 103/mcL Invalid Interpretation Code 0.0 - 0.7 10^3/mcL Workflow SS Eosinophils/100 WBC (Bld) 1.8 % Invalid Interpretation Code 0.0 - 6.0 % Workflow SS Erythrocyte distribution width (RBC) [Ratio] 13.3 % Invalid Interpretation Code 11.5 - 15.5 % Workflow SS GFR/1.73 sq M.predicted among blacks MDRD (S/P/Bld) [Vol rate/Area] 52 ml/min/1.73sqm Invalid Interpretation Code Chemistry S GFR/1.73 sq M.predicted among non-blacks MDRD (S/P/Bld) [Vol rate/Area] 43 ml/min/1.73sqm Invalid Interpretation Code Chemistry S Globulin 3.7 G/dL Invalid Interpretation Code 1.5 - 3.8 G/dL ADM SS Glucose [Mass/Vol] 90 mg/dL Invalid Interpretation Code 82 - 115 mg/dL ADM SS Hematocrit (Bld) [Volume fraction] 35.1 % Invalid Interpretation Code 34.0 - 46.0 % AH Workflow SS Hemoglobin (Bld) [Mass/Vol] 11.5 G/dL Invalid Interpretation Code 12.0 - 16.0 G/dL AH Workflow SS Lymphocytes (Bld) [#/Vol] 1.9 103/mcL Invalid Interpretation Code 0.9 - 4.3 10^3/mcL AH Workflow SS Lymphocytes/100 WBC (Bld) 22.5 % Invalid Interpretation Code 20.0 - 40.0 % AH Workflow SS MCH (RBC) [Entitic mass] 31.4 pg Invalid Interpretation Code 27.0 - 33.0 pg AH Workflow SS MCHC 32.8 G/dL Invalid Interpretation Code 32.0 - 36.0 G/dL AH Workflow SS MCV (RBC) [Entitic vol] 95.8 fL Invalid Interpretation Code 80.0 - 99.0 fL AH Workflow SS Monocytes (Bld) [#/Vol] 0.7 103/mcL Invalid Interpretation Code 0.1 - 1.4 10^3/mcL AH Workflow SS Monocytes/100 WBC (Bld) 8.2 % Invalid Interpretation Code 2.0 - 13.0 % AH Workflow SS Neutrophils (Bld) [#/Vol] 5.6 103/mcL Invalid Interpretation Code 2.3 - 8.1 10^3/mcL AH Workflow SS Neutrophils/100 WBC (Bld) 67.2 % Invalid Interpretation Code 50.0 - 75.0 % AH Workflow SS Platelet mean volume (Bld) [Entitic vol] 8.6 fL Invalid Interpretation Code 6.6 - 10.5 fL AH Workflow SS Platelets (Bld) [#/Vol] 224 103/mcL Invalid Interpretation Code 150 - 450 10^3/mcL AH Workflow SS Potassium [Moles/Vol] 4.2 mmol/L Invalid Interpretation Code 3.5 - 5.0 mEq/L ADM SS Protein [Mass/Vol] 6.4 G/dL Invalid Interpretation Code 5.7 - 8.2 G/dL ADM SS RBC (Bld) [#/Vol] 3.66 106/mcL Invalid Interpretation Code 4.10 - 5.30 10^6/mcL Workflow SS Sodium [Moles/Vol] 140 mmol/L Invalid Interpretation Code 136 - 145 mEq/L ADM SS Urea nitrogen [Mass/Vol] 16.0 mg/dL Invalid Interpretation Code 8.0 - 22.0 mg/dL ADM SS Urea nitrogen/Creatinine [Mass ratio] 12.9 ratio Invalid Interpretation Code 10.0 - 22.0 ratio ADM SS WBC (Bld) [#/Vol] 8.3 103/mcL Invalid Interpretation Code 4.5 - 10.8 10^3/mcL Workflow SS LABORATORYOrdered By: SYSTEM SYSTEM on 02-20-2022 Basophils (Bld) [#/Vol] 0.0 103/mcL Invalid Interpretation Code 0.0 - 0.3 10^3/mcL Workflow SS Basophils/100 WBC (Bld) 0.2 % Invalid Interpretation Code 0.0 - 2.5 % Workflow SS Calcium [Mass/Vol] 8.4 mg/dL Invalid Interpretation Code 8.7 - 10.4 mg/dL ADM SS Chloride [Moles/Vol] 109 mmol/L Invalid Interpretation Code 98 - 110 mEq/L ADM SS CO2 [Moles/Vol] 26 mmol/L Invalid Interpretation Code 22 - 32 mEq/L ADM SS Creatinine [Mass/Vol] 0.94 mg/dL Invalid Interpretation Code 0.50 - 1.20 mg/dL ADM SS Electrolyte Balance 6.0 mEq/L Invalid Interpretation Code 4.0 - 15.0 mEq/L ADM SS Eosinophils (Bld) [#/Vol] 0.0 103/mcL Invalid Interpretation Code 0.0 - 0.7 10^3/mcL Workflow SS Eosinophils/100 WBC (Bld) 0.0 % Invalid Interpretation Code 0.0 - 6.0 % Workflow SS Erythrocyte distribution width (RBC) [Ratio] 13.2 % Invalid Interpretation Code 11.5 - 15.5 % Workflow SS GFR/1.73 sq M.predicted among blacks MDRD (S/P/Bld) [Vol rate/Area] ml/min/1.73sqm Invalid Interpretation Code Chemistry S GFR/1.73 sq M.predicted among non-blacks MDRD (S/P/Bld) [Vol rate/Area] 59 ml/min/1.73sqm Invalid Interpretation Code Chemistry S Glucose [Mass/Vol] 155 mg/dL Invalid Interpretation Code 82 - 115 mg/dL ADM SS Hematocrit (Bld) [Volume fraction] 34.6 % Invalid Interpretation Code 34.0 - 46.0 % AH Workflow SS Hemoglobin (Bld) [Mass/Vol] 11.5 G/dL Invalid Interpretation Code 12.0 - 16.0 G/dL AH Workflow SS Lymphocytes (Bld) [#/Vol] 0.8 103/mcL Invalid Interpretation Code 0.9 - 4.3 10^3/mcL AH Workflow SS Lymphocytes/100 WBC (Bld) 7.7 % Invalid Interpretation Code 20.0 - 40.0 % AH Workflow SS MCH (RBC) [Entitic mass] 31.5 pg Invalid Interpretation Code 27.0 - 33.0 pg AH Workflow SS MCHC 33.2 G/dL Invalid Interpretation Code 32.0 - 36.0 G/dL AH Workflow SS MCV (RBC) [Entitic vol] 94.8 fL Invalid Interpretation Code 80.0 - 99.0 fL AH Workflow SS Monocytes (Bld) [#/Vol] 0.5 103/mcL Invalid Interpretation Code 0.1 - 1.4 10^3/mcL AH Workflow SS Monocytes/100 WBC (Bld) 4.8 % Invalid Interpretation Code 2.0 - 13.0 % AH Workflow SS Neutrophils (Bld) [#/Vol] 9.1 103/mcL Invalid Interpretation Code 2.3 - 8.1 10^3/mcL AH Workflow SS Neutrophils/100 WBC (Bld) 87.3 % Invalid Interpretation Code 50.0 - 75.0 % AH Workflow SS Platelet mean volume (Bld) [Entitic vol] 8.6 fL Invalid Interpretation Code 6.6 - 10.5 fL AH Workflow SS Platelets (Bld) [#/Vol] 217 103/mcL Invalid Interpretation Code 150 - 450 10^3/mcL AH Workflow SS Potassium [Moles/Vol] 4.8 mmol/L Invalid Interpretation Code 3.5 - 5.0 mEq/L ADM SS RBC (Bld) [#/Vol] 3.65 106/mcL Invalid Interpretation Code 4.10 - 5.30 10^6/mcL AH Workflow SS Sodium [Moles/Vol] 141 mmol/L Invalid Interpretation Code 136 - 145 mEq/L AH ADM SS Urea nitrogen [Mass/Vol] 12.0 mg/dL Invalid Interpretation Code 8.0 - 22.0 mg/dL AH ADM SS Urea nitrogen/Creatinine [Mass ratio] 12.8 ratio Invalid Interpretation Code 10.0 - 22.0 ratio AH ADM SS WBC (Bld) [#/Vol] 10.5 103/mcL Invalid Interpretation Code 4.5 - 10.8 10^3/mcL Workflow SS LABORATORYOrdered By: Zeinab Duenas on 01-27-2022 Albumin BCP dye [Mass/Vol] 3.2 G/dL Invalid Interpretation Code 3.4 - 4.8 G/dL AO ADM SS Albumin/Globulin [Mass ratio] 0.9 {ratio} Invalid Interpretation Code 1.1 - 2.5 ratio AO ADM SS ALP [Catalytic activity/Vol] 92 U/L Invalid Interpretation Code 40 - 135 U/L AO ADM SS ALT With P-5'-P [Catalytic activity/Vol] 22 U/L Invalid Interpretation Code 14 - 59 U/L AO ADM SS AST With P-5'-P [Catalytic activity/Vol] 19 U/L Invalid Interpretation Code 10 - 40 U/L AO ADM SS Bilirubin [Mass/Vol] 0.4 mg/dL Invalid Interpretation Code 0.2 - 1.0 mg/dL AO ADM SS Calcium [Mass/Vol] 8.9 mg/dL Invalid Interpretation Code 8.4 - 10.2 mg/dL AO ADM SS Chloride [Moles/Vol] 109 mmol/L Invalid Interpretation Code 98 - 107 mmol/L AO ADM SS Cholesterol [Mass/Vol] 177 mg/dL Invalid Interpretation Code 0 - 200 mg/dL AO ADM SS Cholesterol in HDL [Mass/Vol] 71 mg/dL Invalid Interpretation Code 40 - 60 mg/dL AO ADM SS Cholesterol in LDL [Mass/Vol] 75 mg/dL Invalid Interpretation Code 0 - 130 mg/dL AO ADM SS CO2 [Moles/Vol] 29 mmol/L Invalid Interpretation Code 23 - 31 mmol/L AO ADM SS Creatinine [Mass/Vol] 1.07 mg/dL Invalid Interpretation Code 0.55 - 1.02 mg/dL AO ADM SS Electrolyte Balance 5.0 mEq/L Invalid Interpretation Code 4.0 - 15.0 mEq/L AO ADM SS Ferritin [Mass/Vol] 80.0 ng/mL Invalid Interpretation Code 8.0 - 252.0 ng/mL AO ADM SS Globulin 3.4 G/dL Invalid Interpretation Code AO ADM SS Glucose [Mass/Vol] 125 mg/dL Invalid Interpretation Code 80 - 115 mg/dL AO ADM SS Iron [Mass/Vol] 59 ug/dL Invalid Interpretation Code 50 - 170 mcg/dL AO ADM SS Potassium [Moles/Vol] 4.8 mmol/L Invalid Interpretation Code 3.5 - 5.1 mmol/L AO ADM SS Protein [Mass/Vol] 6.6 G/dL Invalid Interpretation Code 6.4 - 8.2 G/dL AO ADM SS Sodium [Moles/Vol] 143 mmol/L Invalid Interpretation Code 136 - 145 mmol/L AO ADM SS Triglyceride [Mass/Vol] 157 mg/dL Invalid Interpretation Code 0 - 150 mg/dL AO ADM SS Urea nitrogen [Mass/Vol] 17 mg/dL Invalid Interpretation Code 7 - 18 mg/dL AO ADM SS Urea nitrogen/Creatinine [Mass ratio] 16 ratio Invalid Interpretation Code 7 - 27 ratio AO ADM SS LABORATORYOrdered By: Sasha Oliveira on 01-27-2022 Basophil, Absolute 0.1 103/mcL Invalid Interpretation Code 0.0 - 0.2 10^3/mcL AO Workflow SS Basophils/100 WBC (Bld) 1.0 % Invalid Interpretation Code 0.0 - 2.5 % AO Workflow SS Eosinophil, Absolute 0.2 103/mcL Invalid Interpretation Code 0.0 - 0.4 10^3/mcL AO Workflow SS Eosinophils/100 WBC (Bld) 2.6 % Invalid Interpretation Code 0.0 - 7.0 % AO Workflow SS Erythrocyte distribution width (RBC) [Ratio] 13.3 % Invalid Interpretation Code 11.5 - 14.5 % AO Workflow SS Hematocrit (Bld) [Volume fraction] 38.3 % Invalid Interpretation Code 37.0 - 47.0 % AO Workflow SS Hemoglobin (Bld) [Mass/Vol] 12.8 G/dL Invalid Interpretation Code 12.0 - 16.0 G/dL AO Workflow SS Lymphocyte, Absolute 1.8 103/mcL Invalid Interpretation Code 0.8 - 3.9 10^3/mcL AO Workflow SS Lymphocytes/100 WBC (Bld) 30.8 % Invalid Interpretation Code 10.0 - 50.0 % AO Workflow SS MCH (RBC) [Entitic mass] 31.1 pg Invalid Interpretation Code 27.0 - 31.2 pg AO Workflow SS MCHC 33.3 G/dL Invalid Interpretation Code 33.0 - 37.0 G/dL AO Workflow SS MCV (RBC) [Entitic vol] 93.4 fL Invalid Interpretation Code 80.0 - 94.0 fL AO Workflow SS Monocyte, Absolute 0.5 103/mcL Invalid Interpretation Code 0.2 - 1.0 10^3/mcL AO Workflow SS Monocytes/100 WBC (Bld) 8.0 % Invalid Interpretation Code 1.7 - 13.0 % AO Workflow SS Neutrophil, Absolute 3.4 103/mcL Invalid Interpretation Code 2.9 - 6.2 10^3/mcL AO Workflow SS Neutrophils/100 WBC (Bld) 57.6 % Invalid Interpretation Code 37.0 - 80.0 % AO Workflow SS Platelet mean volume (Bld) [Entitic vol] 8.5 fL Invalid Interpretation Code 7.4 - 10.4 fL AO Workflow SS Platelets (Bld) [#/Vol] 235 103/mcL Invalid Interpretation Code 130 - 400 10^3/mcL AO Workflow SS RBC (Bld) [#/Vol] 4.10 106/mcL Invalid Interpretation Code 4.20 - 5.40 10^6/mcL AO Workflow SS WBC (Bld) [#/Vol] 5.9 103/mcL Invalid Interpretation Code 4.6 - 10.8 10^3/mcL AO Workflow SS LABORATORYOrdered By: SYSTEM SYSTEM on 01-27-2022 GFR 62 ml/min/1.73sqm Invalid Interpretation Code AO Chemistry S GFR Non- 51 ml/min/1.73sqm Invalid Interpretation Code AO Chemistry S LABORATORYOrdered By: SYSTEM SYSTEM on 03-23-2021 Base excess Calc (BldMV) [Moles/Vol] 7.0 mEq/L Invalid Interpretation Code 4.0 - 15.0 mEq/L AH ADM SS Basophils (Bld) [#/Vol] 0.00 103/mcL Invalid Interpretation Code 0.00 - 0.27 10^3/mcL AH Remisol SS Basophils/100 WBC (Bld) 0.6 % Invalid Interpretation Code 0.0 - 2.5 % AH Remisol SS Calcium [Mass/Vol] 8.4 mg/dL Invalid Interpretation Code 8.4 - 10.1 mg/dL AH ADM SS Chloride [Moles/Vol] 110 mmol/L Invalid Interpretation Code 98 - 110 mEq/L AH ADM SS CO2 [Moles/Vol] 26 mmol/L Invalid Interpretation Code 22 - 32 mEq/L AH ADM SS Creatinine [Mass/Vol] 0.93 mg/dL Invalid Interpretation Code 0.50 - 1.20 mg/dL AH ADM SS Eosinophils (Bld) [#/Vol] 0.20 103/mcL Invalid Interpretation Code 0.00 - 0.65 10^3/mcL AH Remisol SS Eosinophils/100 WBC (Bld) 3.5 % Invalid Interpretation Code 0.0 - 6.0 % AH Remisol SS Erythrocyte distribution width (RBC) [Ratio] 12.9 % Invalid Interpretation Code 11.5 - 15.5 % AH Remisol SS GFR/1.73 sq M.predicted among blacks MDRD (S/P/Bld) [Vol rate/Area] ml/min/1.73sqm Invalid Interpretation Code ADM SS GFR/1.73 sq M.predicted among non-blacks MDRD (S/P/Bld) [Vol rate/Area] 60 ml/min/1.73sqm Invalid Interpretation Code ADM SS Glucose [Mass/Vol] 104 mg/dL Invalid Interpretation Code 82 - 115 mg/dL ADM SS HbA1c (Bld) [Mass fraction] 6.0 % Invalid Interpretation Code 4.0 - 6.0 % Auto Chem SS Hematocrit (Bld) [Volume fraction] 35.1 % Invalid Interpretation Code 34.0 - 46.0 % Remisol SS Hemoglobin (Bld) [Mass/Vol] 11.8 G/dL Invalid Interpretation Code 12.0 - 16.0 G/dL Remisol SS Lymphocytes (Bld) [#/Vol] 2.10 103/mcL Invalid Interpretation Code 0.90 - 4.32 10^3/mcL AH Remisol SS Lymphocytes/100 WBC (Bld) 38.3 % Invalid Interpretation Code 20.0 - 40.0 % Remisol SS Magnesium [Mass/Vol] 1.7 mg/dL Invalid Interpretation Code 1.6 - 2.4 mg/dL ADM SS MCH (RBC) [Entitic mass] 31.8 pg Invalid Interpretation Code 27.0 - 33.0 pg AH Remisol SS MCHC (RBC) [Mass/Vol] 33.8 G/dL Invalid Interpretation Code 32.0 - 36.0 G/dL AH Remisol SS MCV (RBC) [Entitic vol] 94.0 fL Invalid Interpretation Code 80.0 - 99.0 fL AH Remisol SS Monocytes (Bld) [#/Vol] 0.50 103/mcL Invalid Interpretation Code 0.09 - 1.40 10^3/mcL AH Remisol SS Monocytes/100 WBC (Bld) 9.5 % Invalid Interpretation Code 2.0 - 13.0 % AH Remisol SS Neutrophils (Bld) [#/Vol] 2.60 103/mcL Invalid Interpretation Code 2.25 - 8.10 10^3/mcL AH Remisol SS Neutrophils/100 WBC (Bld) 48.1 % Invalid Interpretation Code 50.0 - 75.0 % AH Remisol SS Platelet mean volume (Bld) [Entitic vol] 8.2 fL Invalid Interpretation Code 6.6 - 10.5 fL AH Remisol SS Platelets (Bld) [#/Vol] 222 103/mcL Invalid Interpretation Code 150 - 450 10^3/mcL AH Remisol SS Potassium [Moles/Vol] 4.4 mmol/L Invalid Interpretation Code 3.5 - 5.0 mEq/L AH ADM SS RBC (Bld) [#/Vol] 3.73 106/mcL Invalid Interpretation Code 4.10 - 5.30 10^6/mcL AH Remisol SS Sodium [Moles/Vol] 143 mmol/L Invalid Interpretation Code 136 - 145 mEq/L AH ADM SS TSH Qn 2.527 mIU/mL Invalid Interpretation Code 0.550 - 4.780 mIU/mL AH ADM SS Urea nitrogen [Mass/Vol] 22.0 mg/dL Invalid Interpretation Code 8.0 - 22.0 mg/dL AH ADM SS Urea nitrogen/Creatinine [Mass ratio] 23.7 ratio Invalid Interpretation Code 10.0 - 22.0 ratio AH ADM SS WBC (Bld) [#/Vol] 5.40 103/mcL Invalid Interpretation Code 4.50 - 10.80 10^3/mcL AH Remisol SS LABORATORYOrdered By: Linda Crooks on 03-23-2021 Cholesterol [Mass/Vol] 182 mg/dL Invalid Interpretation Code 50 - 199 mg/dL AH ADM SS Cholesterol in HDL [Mass/Vol] 55 mg/dL Invalid Interpretation Code 40 - 59 mg/dL AH ADM SS Cholesterol in LDL [Mass/Vol] 80 mg/dL Invalid Interpretation Code 0 - 129 mg/dL AH ADM SS Triglyceride [Mass/Vol] 235 mg/dL Invalid Interpretation Code 3 - 149 mg/dL AH ADM SS LABORATORYOrdered By: [employer] SYSTEM on 03-22-2021 Troponin I.cardiac DL <= 0.01 ng/mL [Mass/Vol] 83.37 ng/L Invalid Interpretation Code 0.00 - 34.00 ng/L AH ADM SS GFR 68 ml/min/1.73sqm Invalid Interpretation Code AO Chemistry S GFR Non- 56 ml/min/1.73sqm Invalid Interpretation Code AO Chemistry S LABORATORYOrdered By: Linda Peña on 03-22-2021 ADMITTED TO INTENSIVE CARE UNIT FOR CONDITION OF INTEREST:FIND:PT:^PAT IENT:ORD: No (03/22/21 3:27 AM) Invalid Interpretation Code AO Auto Urine SS EMPLOYED IN A HEALTHCARE SETTING:FIND:PT:^LINDA ENT:ORD: No (03/22/21 3:27 AM) Invalid Interpretation Code AO Auto Urine SS FIRST TEST FOR CONDITION OF INTEREST:FIND:PT:^PAT IENT:ORD: No (03/22/21 3:27 AM) Invalid Interpretation Code AO Auto Urine SS HAS SYMPTOMS RELATED TO CONDITION OF INTEREST:FIND:PT:^PAT IENT:ORD: No (03/22/21 3:27 AM) Invalid Interpretation Code AO Auto Urine SS Illness or injury onset date and time [id number] Invalid Interpretation Code AO Auto Urine SS Patient was hospitalized because of this condition No (03/22/21 3:27 AM) Invalid Interpretation Code AO Auto Urine SS status Not (03/22/21 3:27 AM) Invalid Interpretation Code AO Auto Urine SS RESIDES IN A CONGREGATE CARE SETTING:FIND:PT:^LINDA ENT:ORD: No (03/22/21 3:27 AM) Invalid Interpretation Code AO Auto Urine SS SARS-CoV-2 (COVID-19) RNA KODY+probe Ql (Resp) Negative (03/22/21 3:27 AM) Invalid Interpretation Code Negative AO Auto Urine SS SARS-CoV-2 (COVID-19) RNA KODY+probe Ql (Unsp spec) Negative results do not preclude SARS-CoV-2 infection and should not be used as the sole basis for patient management decisions. Negative results must be combined with clinical observations, patient history, and epidemiological information.There is a risk of false negative values resulting from improperly collected, transported, or handled specimens.There is a risk of false negative values due to the presence of sequence variants in the pathogen targets of the assay, procedural errors, amplification inhibitors in specimens, or inadequate numbers of organisms for amplification.JAVAD SARS-CoV-2 Assay is a Real-Time reverse-transcripta se polymerase chain reaction (RT-PCR) based qualitative in vitro diagnostic test intended for the qualitative detection of nucleic acid from the SARS-CoV-2 in nasopharyngeal swab specimens collected from individuals suspected of COVID-19 by their healthcare provider. Testing is limited to laboratories certified under the Clinical Laboratory Improvement Amendments of 1988 (CLIA), 42 U.S.C. 263a, to perform moderate and high complexity tests. Invalid Interpretation Code AO Auto Urine SS aPTT Coag (Bld) [Time] 25.0 s Invalid Interpretation Code 24.8 - 33.3 seconds AO Coag SS Basophil, Absolute 0.10 103/mcL Invalid Interpretation Code 0.00 - 0.19 10^3/mcL AO Auto Heme SS Basophils/100 WBC (Bld) 0.8 % Invalid Interpretation Code 0.0 - 2.5 % AO Auto Heme SS Calcium [Mass/Vol] 8.7 mg/dL Invalid Interpretation Code 8.4 - 10.2 mg/dL AO ADM SS Chloride [Moles/Vol] 105 mmol/L Invalid Interpretation Code 98 - 107 mmol/L AO ADM SS CO2 [Moles/Vol] 26 mmol/L Invalid Interpretation Code 23 - 31 mmol/L AO ADM SS Creatinine [Mass/Vol] 0.98 mg/dL Invalid Interpretation Code 0.55 - 1.02 mg/dL AO ADM SS Electrolyte Balance 11.0 mEq/L Invalid Interpretation Code AO ADM SS Eosinophil, Absolute 0.20 103/mcL Invalid Interpretation Code 0.00 - 0.40 10^3/mcL AO Auto Heme SS Eosinophils/100 WBC (Bld) 3.2 % Invalid Interpretation Code 0.0 - 7.0 % AO Auto Heme SS Erythrocyte distribution width (RBC) [Ratio] 12.7 % Invalid Interpretation Code 11.5 - 14.5 % AO Auto Heme SS Fibrin D-dimer DDU (PPP) [Mass/Vol] ng/mL D-DU Invalid Interpretation Code 0 - 230 ng/mL D-DU AO Coag SS Glucose [Mass/Vol] 126 mg/dL Invalid Interpretation Code 80 - 115 mg/dL AO ADM SS Hematocrit (Bld) [Volume fraction] 38.5 % Invalid Interpretation Code 37.0 - 47.0 % AO Auto Heme SS Hemoglobin (Bld) [Mass/Vol] 12.9 G/dL Invalid Interpretation Code 12.0 - 16.0 G/dL AO Auto Heme SS Heparin dose (APTT) None Invalid Interpretation Code AO Coag SS INR Coag (PPP) [Relative time] 0.9 {INR} Invalid Interpretation Code 0.9 - 1.2 ratio AO Coag SS Lymphocyte, Absolute 3.00 103/mcL Invalid Interpretation Code 0.77 - 3.85 10^3/mcL AO Auto Heme SS Lymphocytes/100 WBC (Bld) 42.5 % Invalid Interpretation Code 10.0 - 50.0 % AO Auto Heme SS MCH (RBC) [Entitic mass] 31.2 pg Invalid Interpretation Code 27.0 - 31.2 pg AO Auto Heme SS MCHC (RBC) [Mass/Vol] 33.5 G/dL Invalid Interpretation Code 33.0 - 37.0 G/dL AO Auto Heme SS MCV (RBC) [Entitic vol] 93.0 fL Invalid Interpretation Code 80.0 - 94.0 fL AO Auto Heme SS Monocyte, Absolute 0.50 103/mcL Invalid Interpretation Code 0.15 - 1.00 10^3/mcL AO Auto Heme SS Monocytes/100 WBC (Bld) 7.7 % Invalid Interpretation Code 1.7 - 13.0 % AO Auto Heme SS Natriuretic peptide.B prohormone N-Terminal [Mass/Vol] 131 pg/mL Invalid Interpretation Code 0 - 125 pg/mL AO ADM SS Neutrophil, Absolute 3.20 103/mcL Invalid Interpretation Code 2.85 - 6.16 10^3/mcL AO Auto Heme SS Neutrophils/100 WBC (Bld) 45.8 % Invalid Interpretation Code 37.0 - 80.0 % AO Auto Heme SS Platelet mean volume (Bld) [Entitic vol] 8.4 fL Invalid Interpretation Code 7.4 - 10.4 fL AO Auto Heme SS Platelets (Bld) [#/Vol] 279 103/mcL Invalid Interpretation Code 130 - 400 10^3/mcL AO Auto Heme SS Potassium [Moles/Vol] 4.4 mmol/L Invalid Interpretation Code 3.5 - 5.1 mmol/L AO ADM SS PT Coag (PPP) [Time] 10.1 s Invalid Interpretation Code 9.7 - 14.3 seconds AO Coag SS RBC (Bld) [#/Vol] 4.14 106/mcL Invalid Interpretation Code 4.20 - 5.40 10^6/mcL AO Auto Heme SS Sodium [Moles/Vol] 142 mmol/L Invalid Interpretation Code 136 - 145 mmol/L AO ADM SS Troponin I.cardiac DL <= 0.01 ng/mL [Mass/Vol] 146.7 ng/L Invalid Interpretation Code 0.0 - 51.4 ng/L AO ADM SS Urea nitrogen [Mass/Vol] 21 mg/dL Invalid Interpretation Code 7 - 18 mg/dL AO ADM SS Urea nitrogen/Creatinine [Mass ratio] 21 ratio Invalid Interpretation Code 7 - 27 ratio AO ADM SS WBC (Bld) [#/Vol] 7.10 103/mcL Invalid Interpretation Code 4.60 - 10.80 10^3/mcL AO Auto Heme SS Vital Signs Date Time Vital Sign Value Performing Clinician Jaciel garvin 02-24-2022 15:08-0500 Body temperature 97.52 [degF] LU MORENO MD [facility] 02-24-2022 15:08-0500 Diastolic Blood Pressure Non-Invasive 79 1 LU MORENO MD [facility] 02-24-2022 15:08-0500 Heart rate 80 /min LU MORENO MD [facility] 02-24-2022 15:08-0500 Respiratory rate 18 /min LU MORENO MD [facility] 02-24-2022 15:08-0500 Systolic Blood Pressure Non-Invasive 162 1 LU MORENO MD [facility] 02-24-2022 13:36-0500 Diastolic Blood Pressure Non-Invasive 73 1 LU MORENO MD [facility] 02-24-2022 13:36-0500 Heart rate 72 /min LU MORENO MD [facility] 02-24-2022 13:36-0500 Systolic Blood Pressure Non-Invasive 140 1 LU MORENO MD [address] [place] [address] 02-24-2022 09:37-0500 Heart rate 88 /min LU MORENO MD [address] 02-24-2022 07:42-0500 Body temperature 98.06 [degF] LU MORENO MD [address] 02-24-2022 07:42-0500 Diastolic Blood Pressure Non-Invasive 80 1 LU MORENO MD [address] 02-24-2022 07:42-0500 Heart rate 78 /min LU MORENO MD [address] 02-24-2022 07:42-0500 Respiratory rate 16 /min LU MORENO MD [address] 02-24-2022 07:42-0500 Systolic Blood Pressure Non-Invasive 154 1 LU MORENO MD [address] 02-24-2022 00:21-0500 Body temperature 98.24 [degF] LU MORENO MD [address] 02-24-2022 00:21-0500 Heart rate 72 /min LU MORENO MD [address] 02-24-2022 00:21-0500 Respiratory rate 18 /min LU MORENO MD [address] 02-23-2022 07:42-0500 Heart rate 67 /min LU MORENO MD [address] 02-21-2022 14:15-0500 Reason For Taking VItal Signs LU MORENO MD [facility] 02-21-2022 08:50-0500 Reason For Taking VItal Signs LU MORENO MD [address] 02-21-2022 08:11-0500 Body weight 127.4 kg LU MORENO MD [facility] 02-21-2022 03:31-0500 Reason For Taking VItal Signs LU MORENO MD [address] [place] [address] 02-19-2022 22:40-0500 Heart rate 76 /min LU MORENO MD [address] 02-19-2022 18:45-0500 Body temperature 97.52 [degF] UL MORENO MD [address] [place] [address] 02-19-2022 18:45-0500 Heart rate 74 /min LU MORENO MD [address] 02-19-2022 18:45-0500 Mean blood pressure 74 mm[Hg] LU MORENO MD [address] 02-19-2022 18:38-0500 Heart rate 69 /min LU MORENO MD [address] 02-19-2022 18:38-0500 Mean blood pressure 67 mm[Hg] LU MORENO MD [address] 02-19-2022 18:25-0500 Mean blood pressure 65 mm[Hg] LU MORENO MD [address] 02-19-2022 17:46-0500 Body temperature 98.06 [degF] LU MORENO MD [address] [place] [address] 02-19-2022 17:40-0500 Respiratory Rate - Anes 13 br/min LU MORENO MD [address] [place] [address] 02-19-2022 17:35-0500 Respiratory Rate - Anes 8 br/min LU MORENO MD [address] 02-19-2022 17:30-0500 Body temperature 97.7 [degF] LU MORENO MD [address] 02-19-2022 17:30-0500 Respiratory Rate - Anes 7 br/min LU MORENO MD [facility] 02-19-2022 17:25-0500 Body temperature 97.61 [degF] LU MORENO MD [facility] 02-19-2022 17:20-0500 Body temperature 97.63 [degF] LU MORENO MD [address] [place] [address] 02-19-2022 14:10-0500 Body weight 40.68 kg/m2 LU MORENO MD [address] [place] [address] 02-19-2022 13:58-0500 Body height 175.3 cm LU MORENO MD [address] [place] [address] 02-19-2022 13:58-0500 Body weight 125 kg LU MORENO MD [address] [place] [address] 02-19-2022 13:58-0500 Body weight 40.68 kg/m2 LU MORENO MD [facility] 03-23-2021 11:04-0500 Body temperature 98.06 [degF] JESENIA BROWN MD [facility] 03-23-2021 11:04-0500 Diastolic Blood Pressure NBP 62 1 JESENIA BROWN MD [facility] 03-23-2021 11:04-0500 Heart rate 95 /min JESENIA BROWN MD [facility] 03-23-2021 11:04-0500 Respiratory rate 20 /min JESENIA BROWN MD [facility] 03-23-2021 11:04-0500 Systolic Blood Pressure NBP 121 1 JESENIA BROWN MD [facility] 03-23-2021 09:25-0500 Diastolic blood pressure 74 mm[Hg] JESENIA BROWN MD [facility] 03-23-2021 09:25-0500 Diastolic Blood Pressure NBP 69 1 JESENIA BROWN MD [facility] 03-23-2021 09:25-0500 Heart rate 78 /min JESENIA BROWN MD [facility] 03-23-2021 09:25-0500 Mean blood pressure 100 mm[Hg] JESENIA BROWN MD [facility] 03-23-2021 09:25-0500 Mean blood pressure 97 mm[Hg] JESENIA BROWN MD [facility] 03-23-2021 09:25-0500 Systolic blood pressure 152 mm[Hg] JESENIA BROWN MD [facility] 03-23-2021 09:25-0500 Systolic Blood Pressure NBP 158 1 JESENIA BROWN MD [facility] 03-23-2021 03:15-0500 Body temperature 97.7 [degF] JESENIA BROWN MD [facility] 03-23-2021 03:15-0500 Diastolic blood pressure 68 mm[Hg] JESENIA BROWN MD [facility] 03-23-2021 03:15-0500 Mean blood pressure 86 mm[Hg] JESENIA BROWN MD [facility] 03-23-2021 03:15-0500 Reason For Taking VItal Signs JESENIA BROWN MD [facility] 03-23-2021 03:15-0500 Systolic blood pressure 122 mm[Hg] JESENIA BROWN MD [facility] 03-22-2021 22:49-0500 Body temperature 97.52 [degF] JESENIA BROWN MD [facility] 03-22-2021 22:49-0500 Diastolic blood pressure 68 mm[Hg] JESENIA BROWN MD [facility] 03-22-2021 22:49-0500 Mean blood pressure 80 mm[Hg] JESENIA BROWN MD [facility] 03-22-2021 22:49-0500 Reason For Taking VItal Signs JESENIA BROWN MD [facility] 03-22-2021 22:49-0500 Systolic blood pressure 104 mm[Hg] JESENIA BROWN MD [facility] 03-22-2021 20:33-0500 Reason For Taking VItal Signs JESENIA BROWN MD [facility] 03-22-2021 07:47-0500 Body height 175.3 cm JESENIA BROWN MD [facility] 03-22-2021 07:47-0500 Body weight 128.1 kg JESENIA BROWN MD [facility] 03-22-2021 07:47-0500 Body weight 41.69 kg/m2 JESENIA BROWN MD [facility] 03-22-2021 05:15-0500 Diastolic blood pressure 47 mm[Hg] ARISTIDES DURESKA DO [facility] 03-22-2021 05:15-0500 Heart rate 94 /min ARISTIDES DURESKA DO [facility] 03-22-2021 05:15-0500 Respiratory rate 20 /min ARISTIDES DURESKA DO [facility] 03-22-2021 05:15-0500 Systolic blood pressure 92 mm[Hg] ARISTIDES DURESKA DO [facility] 03-22-2021 04:18-0500 Diastolic blood pressure 99 mm[Hg] ARISTIDES DURESKA DO [facility] 03-22-2021 04:18-0500 Heart rate 141 /min ARISTIDES DURESKA DO [facility] 03-22-2021 04:18-0500 Respiratory rate 20 /min ARISTIDES DURESKA DO [facility] 03-22-2021 04:18-0500 Systolic blood pressure 124 mm[Hg] ARISTIDES DURESKA DO [facility] 03-22-2021 02:52-0500 Diastolic blood pressure 59 mm[Hg] ARISTIDES DURESKA DO [facility] 03-22-2021 02:52-0500 Heart rate 93 /min ARISTIDES DURESKA DO [facility] 03-22-2021 02:52-0500 Respiratory rate 20 /min ARISTIDES DURESKA DO [facility] 03-22-2021 02:52-0500 Systolic blood pressure 117 mm[Hg] ARISTIDES DURESKA DO [facility] 03-22-2021 02:44-0500 Body temperature 98.42 [degF] ARISTIDES DURESKA DO [facility] 03-22-2021 02:44-0500 Heart rate 140 /min ARISTIDES DURESKA DO [facility] Encounters Encounter Date Encounter Type Care Provider Facility Start: 08-21-2023 End: 08-21-2023 ambulatory LUKE CAMILO [employer] Facility:B Start: 08-21-2023 End: 08-21-2023 Patient encounter procedure LUKE CAMILO [employer] [facility] Start: 05-29-2023 End: 05-29-2023 ambulatory LUKE CAMILO [employer] Facility:B Start: 10-28-2022 End: 11-01-2022 ambulatory LUCIA HARDING [employer] Facility:B Start: 10-28-2022 End: 11-01-2022 Outreach Lab LUCIA HARDING [employer] [facility] Start: 10-02-2022 End: 10-02-2022 Emergency department patient visit DINO GOODMAN MD Facility:B Start: 03-28-2022 End: 03-28-[address] ELIZABETH BOWER MD [facility] Start: 02-19-2022 End: 02-24-2022 Evaluation and management of inpatient LU MORENO MD [facility] Start: 01-27-2022 End: 01-27-2022 Patient encounter procedure LUKE CAMILO [employer] [facility] Start: 03-22-2021 End: 03-23-2021 Observation JESENIA BROWN MD [facility] Start: 03-22-2021 End: 03-22-2021 Emergency department patient visit ARISTIDES GUEVARA DO [facility] Procedures Date Procedure Procedure Detail Performing Clinician Start: 02-19-[address] ELIZABETH Alvarado Comment on above: Sigmoidoscopy Rigid, exploratory laparot lauren partial colectomy rigid sigmoidoscopy wound vac application, umbilical hernia repair, recatl biopsy, appendectomy Abdominal Laparotomy, exploratory laparotomy Start: 03-20-[address] ELIZABETH BOWER MD Start: 01-27-2017 Osteotomy ARISTIDES GUEVARA DO Comment on above: second and third metatarsal with screw f ixture - right foot - Dr. Jordan - [facility] Start: 03-20-2013 Hammer toe operation ARISTIDES GUEVARA DO Start: 03-20-1997 Biopsy of breast ARISTIDES GUEVARA DO Start: 03-20-1985 section ARISTIDES GUEVARA DO Start: 03-20-1984 History of left mastectomy ARISTIDES GUEVARA DO section ARISTIDES SANDY DO Colonoscopy ARISTIDES TANISHABRITTNEY D O Esophagogastroduodenoscopy J DANIELLE ISMAEL DO Excision of breast tissue ERVIN GUEVARA DO Comment on above: Left breast Specimen from breast obtained by biopsy (specimen) ARISTIDES GUEVARA DO Comment on above: Right breast Tonsillectomy ARISTIDES GUEVARA DO Immunizations Immunization Date Immunization Notes Care Provider [facility] 01-10-2023 influenza virus vacc ine, unspecified formulation LUKE CAMILO [employer] [facility] 01-27-2022 influenza, injectabl e, quadrivalent, contains preservative LUKE CAMILO [employer] [facility] 10-03-2021 SARS-CoV-2 mRNA (kuilteejrxk-nvxg-qllawb e) vaccine LUKE CAMILO [employer] [facility] 02-17-2021 SARS-CoV-2 mRNA (tozinameran) vaccine LUKE LINDQUISTMER [employer]AS[employer]Y ACC[employer] [facility] 01-11-2021 influenza virus vacc ine, unspecified formulation LUKE LINDQUISTMER [employer] [facility] 07-07-2020 SARS-CoV-2 mRNA (tozinameran) vaccine ARISTIDES ISMAEL DO [facility] 06-16-2020 SARS-CoV-2 mRNA (tozinameran) vaccine ARISTIDES GUEVARA DO [facility] 03-11-2020 zoster vaccine recombinant LUKE LINDQUISTMER [employer] [facility] 01-09-2020 zoster vaccine recombinant LUKE LINDQUISTMER [employer] [facility] 01-09-2020 tetanus toxoid, redu monica diphtheria toxoid, and acellular pertussis vaccine, adsorbed; Translations: [Boostrix (Tdap)] ARISTIDES GUEVARA DO [facility] 12-09-2019 pneumococcal polysaccharide vaccine, 23 valent; Translations: [Pneumovax 23] ARISTIDES GUEVARA DO [facility] 12-09-2019 influenza, injectabl e, quadrivalent, preservative free; Translations: [Fluarix PF Quadrivalent ] ARISTIDES GUEVARA DO [facility] 01-21-2019 Influenza, injectabl e, Madin Charo Canine Kidney, preservative free, quadrivalent; Translations: [Flucelvax PF Quadrivalent ] ARISTIDES GUEVARA DO [facility] 01-30-2018 influenza virus vacc ine, unspecified formulation ARISTIDES GUEVARA DO [facility] 01-06-2017 influenza virus vacc ine, unspecified formulation ARISTIDES GUEVARA DO [facility] 12-29-2015 influenza virus vacc ine, unspecified formulation ARISTIDES GUEVARA DO [facility] 01-18-2014 influenza, seasonal, injectable ARISTIDES GUEVARA DO [facility] Payers Date Payer Category Payer Private Health Insurance [id number] 1955 Unknown [id number] 1955 Unknown [id number] 1955 Unknown [id number] 1955 Unknown [id number] [id number] 1955 Unknown [id number] [id number] Social History Date Type Detail Facility Start: 06-28-2018 Never smoked t obacco (finding) [facility] Sex Assigned At Female [facility] Functional Status Date Assessment Result Facility 02-24-2022 Functional Status Yes [facility] 02-24-2022 Functional Status Mod I 1 [facility] 02-24-2022 Functional Status [facility] 02-24-2022 Functional Status [facility] 02-24-2022 Functional Status SCD On/Re-applied bilat eral knee high [facility] 02-23-2022 Functional Status Good [facility] 02-23-2022 Functional Status [facility] 02-23-2022 Functional Status Feeding Assistance Inde pendent [facility] 02-23-2022 [facility] 02-23-2022 Functional Status Ambulation in [facility] 02-23-2022 Functional Status [facility] 02-22-2022 Functional Status [facility] 02-22-2022 Functional Status [facility] 02-22-2022 Functional Status Supervised [facility] 02-21-2022 Functional Status Supervised 7 [facility] 02-20-2022 Functional Status [facility] 02-20-2022 Functional Status [facility] 02-20-2022 Functional Status [facility] 02-19-2022 Functional Status Patient Identi fied Identification band, Verbal [facility] 02-19-2022 [facility] Mental Status Date Assessment Result Facility 02-24-2022 Mental Status Orientation Assessment Orie nted x 4 [facility] 02-24-2022 Mental Status Orientation Oriented x 4 [facility] 02-[facility] 02-23-2022 Mental Status [facility] Clinical Notes 03-22-2021 to 08-21-2023 Note Date & Type Note Facility 08-21-2023 Note ORIGINAL EXAMINATION: BONE DENSITOMETRY08/21/2023 9:20 am TECHNIQUE: Dual energy bone densitometry lumbar spine and left hip. COMPARISON: None HISTORY: Reason for Exam: Osteoporosis Screening FINDINGS: T Score Left Femoral Neck: -1.3 Left Femoral Neck: 0.701 (g/cm2) T Score Left Hip: 0.0 Left Hip: 0.942 (g/cm2) T Score Lumbar Spine: -1.5 Lumbar Spine: 0.885 (g/cm2) BMD Change from previous Hip: -10.9 % BMD Change from previous Lumbar Spine: +0.8 % FRAX score: 10 year risk major osteoporotic fracture 8.5 %. 10 year risk hip fracture 1.0 %. The BHOF f/k/a NOF recommends that FDA-approved medical therapies be considered in post-menopausal women and men age >/= 50 years with a: * Hip or vertebral fracture, or * T-score of /= 20% for major osteoporotic fractures or * >/= 3% for hip fractures All treatment decisions require clinical judgement and consideration of individual patient factors, including patient preferences, comorbidities, previous drug use, risk factors not captured in the FRAX registered model (e.g., frailty, falls, vitamin D deficiency, increased bone turnover, interval significant decline in bone density) and possible under- or over-estimation of fracture risk by FRAX. IMPRESSION: Osteopenia. Interpreted by: Bev Gonzalez MD Preliminary Report By: Bev Gonzalez MD Electronically signed By Bev Gonzalez MD Dictated Date: 08/21/2023 1:03:53 PM Prelim Date: 08/21/2023 1:05:29 PM Sign Date: 08/21/2023 1:05:29 PM Ordering Provider: [facility] 03-11-2022 Note Received referral fr Dr. Jackson office through the fax. Attempted to schedule patient, patient states Dr. Jackson informed her we do not need to see her. [facility] 02-24-2022 Discharge summary Date of Service 02/24/2022 [...] the surgical service team after presenting to [facility] with complaints of abdominal pain. Patient had recently had a colonoscopy completed at [facility] by Dr. Sumner. Patient had a CT scan of abdomen that showed a large volume of free intra peritoneal air consistent with perforation. The patient was started on IV antibiotics and transferred to [facility] where she underwent a sigmoidoscopy rigid, exploratory [...] would like to see oncologist at the [facility] in [place]. She was encouraged to call her PCP to get a referral, she was in agreement to this plan. On 02/24/2022 patient met all discharge criteria from surgical standpoint. The patient was tolerating her diet without difficulty, voiding without difficulty, her pain was well controlled. The patient was discharged to home alert and oriented. She wanted us set up with [facility] care for her wound VAC management. Patient [...] Results and Diagnostics Imaging completed at the [facility] Objective Vitals and Measurements T: [...] When 03/07/2022 10:45 AM EST Where: [address] [place] [address]- [phone] Follow Up with LUKE CAMILO When Within 1-2 days Why: Please Follow up with PCP, for a referral to oncologist in the [place] area. IF he is able. Dr. Jin to due with on your follow up visit. Where: [address] [facility] [place] [address] [phone] Business (1) Follow Up with [facility] [phone] When Why: [facility] will contact you to set up [...] 10 (02/21/22 13:05:00) Palliative Total Score: 2 (12/05/22 13:05:00) Discharge Disposition to home Information Provided To nurse and patient Time Spent 20mins I have reviewed the [place] Automated Rx Reporting System (OARRS) report for [...] by AWAIS HUGO on 02/24/2022 11:37 AM [facility] 02-24-2022 Hospital Discharg e instructions Patient Education [...] garbage bag. Soap and water, or hand director sanitation bureau. Wound cleanser or salt-water solution (saline). New [...] and water are not available, use hand director sanitation bureau. 3.Set up a clean station for wound [...] and water are not available, use hand director sanitation bureau. Clean your wound Wear gloves, protective clothing, [...] and water are not available, use hand director sanitation bureau. Apply new dressing Wear gloves, protective clothing, [...] and water are not available, use hand director sanitation bureau. 8.Turn the pump back on. The sponge dressing should collapse. Do not change the settings on the machine without talking to a health care provider. 9.Replace the container in the pump that collects fluid if it is full. Replace the container per the back pad inspector's instructions or at least once a week, [...] all clamps are open. Do not use urcm-ilz-ogyethp medicated or antiseptic creams, sprays, liquids, or [...] 05/28/2012 Document Revised: 06/28/2019 Document Reviewed: 05/24/2019 i[employer] Patient Education 2020 Imaging3. 02/24/2022 08:50:20 8- Post Op General Surgery [...] any narcotic pain medication. You may take vuhh-wiq-eluvjvl pain medication if you no longer need your prescribed pain medication. Efix-djf-fmpvmyz pain medications are Tylenol or Advil/Motrin (ibuprofen). Do not take Tylenol if you are still taking Paxton or Percocet. They are the same type [...] the sides and are almost falling off. [place] or sutures are generally removed within seven [...] 12:55:34 With:MICHELLE JIN MD, Surgery Address: [address] [facility] [place] [address] [phone] When:03/07/2022 10:45:00 With:LUKE CAMILO Address: [address] [facility] [place] [address] [phone] Business (1) When:1-2 days Comments:Please Follow up with PCP, for a referral to oncologist in the [place] area. IF he is able. Dr. Jin to due with on your follow up visit. With:[facility] [phone] Address:Unknown When: Unknown Comments:[facility] will contact you to set up your first home visit. A registered nurse and physical and occupational therapists have been ordered for you. [facility] 02-24-2022 Note Discharge Instructions Thank you for allowing [facility] to assist you with your healthcare needs. The following is important discharge information regarding your hospital visit. 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 IF he is able. Dr. Jin to due with on your follow up visit. Where: [address] [facility] [place] [address]- [phone] Business (1) Follow Up with [facility] [phone] When Why: [facility] will contact you to set up [...] to come from beatrice[facility] PCP Pickup at [facility]/pharmacy #[id number] New oxyCODONE (oxyCODONE 5 mg oral tablet ( IMMEDIATE release )) 1 tab(s) by mouth Every 6 hours as needed for as needed for pain Rectal mass S/P exploratory laparotomy Duration: 5 Days Pickup at [facility]/pharmacy #[id number] Unchanged ALPRAZolam (Xanax 0.25 mg oral tablet) [...] at onset of atrial fibrillation. Pharmacy Information [facility]/pharmacy #[id number]: [address], [place] [phone] Please take this list to your next doctor s visit. Bring all medications you take, including over the counter medications, herbals and other supplements with you to your doctor s visit. Patients and families are reminded to discard old lists and to update any records with all medication providers or retail pharmacies. Medication Leaflets oxycodone (ox segun TREVINO done) Oxaydo, OxyCONTIN, Oxyfast, OxyIR, Roxicodone, Xtampza [...] The extended-release form of oxycodone is for ebegmk-ktk-oxvjf treatment of pain and should not be [...] against the law. Stop taking all other rfjxlo-nie-xgktl opioid pain medicines when you start taking [...] may report side effects to FDA at 2-887-LTS-0838. What other drugs will affect oxycodone? You [...] may affect oxycodone. This includes prescription and ybbh-anh-bumpzyj medicines, vitamins, and herbal products. Not all [...] to ensure that the information provided by [employer]. ('[employer]') is accurate, up-to-date, and complete, but no guarantee is made to that effect. Drug information contained herein may be time sensitive. [employer] information has been compiled for use by healthcare practitioners and consumers in the [place] and therefore [employer] does not warrant that uses outside of the [place] are appropriate, unless specifically indicated otherwise. [employer]'s drug information does not endorse drugs, diagnose patients or recommend therapy. [employer]s drug information is an informational resource designed [...] effective or appropriate for any given patient. [facility] does not assume any responsibility for any aspect of healthcare administered with the aid of information [facility] provides. The information contained herein is not intended to cover all possible uses, directions, precautions, warnings, drug interactions, allergic reactions, or adverse effects. If you have questions about the drugs you are taking, check with your doctor, nurse or pharmacist. Copyright 0047-2665 Candace [facility]. Version: 14.. Revision Date: 04/16/2020. Education Materials Negative Pressure [...] garbage bag. Soap and water, or hand director sanitation bureau. Wound cleanser or salt-water solution (saline). New [...] and water are not available, use hand director sanitation bureau. 3. Set up a clean station for [...] and water are not available, use hand director sanitation bureau. Clean your wound Wear gloves, protective clothing, [...] and water are not available, use hand director sanitation bureau. Apply new dressing Wear gloves, protective clothing, [...] and water are not available, use hand director sanitation bureau. 8. Turn the pump back on. The sponge dressing should collapse. Do not change the settings on the machine without talking to a health care provider. 9. Replace the container in the pump that collects fluid if it is full. Replace the container per the back pad inspector's instructions or at least once a week, [...] all clamps are open. Do not use ttyp-rga-ksymklj medicated or antiseptic creams, sprays, liquids, or [...] 05/28/2012 Document Revised: 06/28/2019 Document Reviewed: 05/24/2019 iLyng[employer] Patient Education 2020 Imaging3. What to Do After Your General Surgery [...] any narcotic pain medication. You may take atak-yxf-dhtruvv pain medication if you no longer need your prescribed pain medication. Upxd-lko-scqgdcm pain medications are Tylenol or Advil/Motrin (ibuprofen). Do not take Tylenol if you are still taking Paxton or Percocet. They are the same type [...] to receive it can visit one of [facility] vaccine clinics. There are many vaccine clinic locations within the [facility]. For locations and available times, please visit [email or web address].o hio.gov/. It is important to note that some COVID mobile vaccine clinics are held outdoors and may be canceled in rainy or stormy conditions. To learn more about pediatric vaccinations (ages 5-11), we invite you to visit the [facility] webpage. https://www.[employer].org/p ages/1232-Mmedl-Ofltjyvkthz-Freq ymhngn-Enlxp-Pgtzpyjis.html To learn more about the COVID-19 vaccine, we invite you to visit the [employer] website for a list of frequently asked questions. [email or web address] [facility] Patient Portal Access Instructions: Stay connected with your healthcare team and access your personal medical information anytime with the [facility] Patient Portal.If you would like a full copy of your medical records, please contact the [facility] Medical Records Department, Monday through Monday between 8a.m. and 4:30p.m. Please follow the directions below to access the portal: 1.Access the email account you provided upon registration to the hospital.2.Look for an invitation email from [facility].3.Open the email and access the invitation link: Accept Invitation to [facility]4.Fill in the required walters to create your account. Sign into [email or web address] with your username and password that you [...] you will allow to register on the [employer] Patient Portal for access to your information. You can also access the [employer] Patient Portal on the IMN rosemarie. Simply click on Health Records under Health Data and then click on the [employer] logo. HOW TO SAFELY DISPOSE OF PRESCRIPTION [...] Call your local pharmacy or go to [email or web address] to find one close to you.3.Make use of household items: Use cat litter or old coffee grounds to dispose medications if other options are not available. Mix your drugs with these household products, seal them in an airtight container and throw it into the garbage. Call [facility]: [phone] to be sure your drugs can be [...] been reviewed and explained to me and I,LOUIE DOWNEY understand my current condition and have read and understand these discharge instructions. I have received a written copy of the plan/instructions. If I have questions, I am aware that I should contact my doctor. Patient/Data Integration Developer Signature: Date/Time: Relationship to Patient: Witness Name/Signature: Date/Time: [facility] 02-24-2022 Surgery Hospital Progress note Date of [...] 127.4 kg (02/21/22) Dosing Weight: 125 kg (12/03/22) Medications Medications (17) Active Scheduled: (8) aspirin [...] is requesting oncology follow-up now through the [facility]. Recommended that she follows up with her PCP for referral. Patient to follow-up in 2 weeks. Digitally Signed by MICHELLE JIN MD on 02/24/2022 08:33 AM [facility] 02-23-2022 Progress note Date of Service 02/23/2022 I have reviewed the [place] Automated Rx Reporting System (OARRS) report for [...] by LEYDI ROSS on 02/23/2022 02:09 PM [facility] 02-23-2022 Surgery Hospital Progress note Date of [...] Assessment/Plan 1. PAF (PAROXYSMAL ATRIAL FIBRILLATION) 2. ISUARA (OBSTRUCTIVE SLEEP APNEA) 3. Anxiety 4. HYPERLIPEMIA, [...] MICHELLE JIN MD on 02/23/2022 09:52 AM [facility] 02-22-2022 Note Date of Service 02-22-2022 Chief Complaint incisional pain Subjective Patient is a 67-year-old female who presented to [facility] with chief complaint of abdominal pain. Patient recently had a colonoscopy completed at [facility] on Monday with Dr. Sumner. She then went had postprocedural discomfort that increased and prompted her to present to [facility] ER. CT abdomen pelvis showed large volume free intraperitoneal air consistent with perforation. Patient was started on Zosyn and transferred to [facility] under general surgery service. Patient is postop [...] resume aspirin today, discussed w/ General surgery TREASURY ACCOUNTANT. 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 POSTOPERATIVE DIAGNOSIS: PNEUMOPERITONEUM DIVERTICULAR DISEASE [facility] 02-22-2022 Note PROCEDURE: EXPLORATORY LAPAROTOMY PARTIAL COLECTOMY RIGID SIGMOIDOSCOPY WOUND VAC APPLICATION, UMBILICAL HERNIA REPAIR, RECTAL BIOPSY, APPENDECTOMY 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 Patient recently had a colonoscopy completed at [facility] on Monday with Dr. Sumner. She then went had postprocedural discomfort that increased and prompted her to present to [facility] ER. CT abdomen pelvis showed large volume free intraperitoneal air consistent with perforation. Patient was started on Zosyn and transferred to [facility] under general surgery service. Patient is postop [...] resume aspirin today, discussed w/ General surgery TREASURY ACCOUNTANT. 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 POSTOPERATIVE DIAGNOSIS: PNEUMOPERITONEUM DIVERTICULAR DISEASE [facility] 02-21-2022 Note PROCEDURE: EXPLORATORY LAPAROTOMY PARTIAL COLECTOMY RIGID SIGMOIDOSCOPY WOUND VAC APPLICATION, UMBILICAL HERNIA REPAIR, RECTAL BIOPSY, APPENDECTOMY 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 POSTOPERATIVE DIAGNOSIS: PNEUMOPERITONEUM DIVERTICULAR DISEASE [facility] 02-21-2022 Note PROCEDURE: EXPLORATORY LAPAROTOMY PARTIAL COLECTOMY RIGID SIGMOIDOSCOPY WOUND VAC APPLICATION, UMBILICAL HERNIA REPAIR, RECTAL BIOPSY, APPENDECTOMY 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 Patient recently had a colonoscopy completed at [facility] on Monday with Dr. Sumner. She then went had postprocedural discomfort that increased and prompted her to present to [facility] ER. CT abdomen pelvis showed large volume free intraperitoneal air consistent with perforation. Patient was started on Zosyn and transferred to [facility] under general surgery service. Patient is postop [...] by LOCO PEÑA on 02/20/2022 12:42 PM [facility] 02-20-2022 Note Date of Service February 20, 2022 Chief Complaint Rectal mass, anxiety Subjective Patient is a 67-year-old female who presented to [facility] with chief complaint of abdominal pain. Patient recently had a colonoscopy completed at [facility] on Monday with Dr. Sumner. She then went had postprocedural discomfort that increased and prompted her to present to [facility] ER. CT abdomen pelvis showed large volume free intraperitoneal air consistent with perforation. Patient was started on Zosyn and transferred to [facility] under general surgery service. Patient is postop [...] by LOCO PEÑA on 02/20/2022 12:42 PM [facility] 02-20-2022 Surgery Hospital Progress note Date of [...] by AWAIS HUGO on 02/20/2022 08:12 AM [facility] 02-20-2022 Consult note Date of Service 02/19/2022 Reason for Consultation Medical management of chronic conditions Referring Physician Dr. Lu Moreno History of Present Illness This is a 67-year-old female patient who presented to [facility] with complaints of abdominal pain x 24 hours. States she had a colonoscopy done at [facility] on Monday by Dr. Sumner and that she continued with postprocedure discomfort all day Monday and into the night which increased to sharp pain into Monday morning, when she presented to [facility] ER. CT abdomen pelvis was done and showed large volume free intraperitoneal air consistent with perforation. She was started on Zosyn and transferred to [facility] under surgical services with a consult to [...] Motrin, 400 mg= 1 tab(s), Oral, q6h Paxton 325- 5 mg oral tablet, 1 tab(s), [...] 1-2 times per month., 06/28/2018 Home/Environment Primary Motor Assembly Supervisor: Self., 02/20/2020 Nutrition/Health Caffeine intake amount: carbonated [...] by ELISEO ESCOTO on 02/20/2022 01:39 AM [facility] 02-19-2022 History and physical note Date of [...] 1-2 times per month., 06/28/2018 Home/Environment Primary Motor Assembly Supervisor: Self., 02/20/2020 Nutrition/Health Caffeine intake amount: carbonated [...] LU MORENO MD on 02/19/2022 03:27 PM [facility] 02-19-2022 Evaluation + Plan note Extrac alyssa from: Title:History and Physical Author:LU MORENO MD Date:02/19/22 Orders: Consult to Physician Group (unknown physician) [...] BOWER MD Location:Gen Surg CAN Appointment Type:GS RADIOTELEGRAPH OPERATOR Post Op [facility] 12-03-2022 Anesthesiology Consult note Patient: LOUIE DOWNEY [...] list: Medical (Selected) Anxiety / SNOMED CT 45165286 / Confirmed Arthritis / SNOMED CT 8554675 / Confirmed Screening for cervical cancer / SNOMED CT 5644620074 / Confirmed CKD (chronic kidney disease) stage 3, GFR 30-59 ml/min / SNOMED CT 2019533410 / Confirmed SOB (SHORTNESS OF BREATH) / SNOMED CT 183488835 / Confirmed NOCTURNAL HYPOXEMIA / SNOMED CT 8708395559 / Confirmed MVP (MITRAL VALVE PROLAPSE) / SNOMED CT 2998397710 / Confirmed HYPERLIPEMIA, MIXED / SNOMED CT 086835045 / Confirmed Weakness of right arm / SNOMED CT 1837405353 / Confirmed ISAURA (OBSTRUCTIVE SLEEP APNEA) / SNOMED CT 253988590 / Confirmed PAF (PAROXYSMAL ATRIAL FIBRILLATION) / SNOMED CT 426686765 / Confirmed Screening for breast cancer / SNOMED CT 060953555 / Confirmed Screening for osteoporosis / SNOMED CT 474852021 / Confirmed Pulmonary hypertension / SNOMED CT 300511930 / Confirmed Rectal bleeding / SNOMED CT 420272550 / Confirmed Rosacea / SNOMED CT 8450123506 / Confirmed, Active Problems (16) Anxiety Arthritis CKD (chronic kidney disease) stage 3, GFR 30-59 ml/min HYPERLIPEMIA, MIXED MVP (MITRAL VALVE PROLAPSE) NOCTURNAL HYPOXEMIA ISAURA (OBSTRUCTIVE SLEEP APNEA) PAF (PAROXYSMAL ATRIAL FIBRILLATION) Pulmonary hypertension Rectal bleeding Rosacea Screening for breast cancer Screening for cervical cancer Screening for osteoporosis SOB (SHORTNESS OF BREATH) Weakness of right arm Histories Past Medical History: Active Arthritis (4570623): Onset in 2013 at 58 years. Anxiety (28646901) Resolved GERD (gastroesophageal reflux disease) ([id number]): Resolved. High cholesterol ([id number]): Resolved. Sleep apnea ([id number]): Resolved. Lung nodule (877348480): Resolved. Family History: Diabetes mellitus Mother Heart disease Father Brother Procedure history: Osteotomy (531580768) on 01/27/2017 at 62 Years. Comments: 04/04/2019 6:56 Mary Carr LPN second and third metatarsal with screw fixture - right foot - Dr. Jordan - [facility] Hammer toe operation (073794) in 2013 at 58 Years. Biopsy of breast (284158694) on 03/20/1997 at 42 Years. section () in 1985 at 31 Years. History of left mastectomy ([id number]) in 1984 at 29 Years. Mastectomy (5927179873). Comments: 01/07/2014 11:14 ELBA PARR Left breast Tonsillectomy (065631995). section (). Breast biopsy sample ([id number]). Comments: 01/07/2014 11:14 ELBA PARR Right breast Esophagogastroduodenoscopy (705143334). Colonoscopy (715192285). Social History Social & Psychosocial Habits Alcohol 01/23/2017Risk Assessment: Low Risk 06/28/2018 Use: Current Frequency: 1-2 times per month Substance Abuse 01/23/2017Risk Assessment: Denies Substance Abuse 06/28/2018 Use: Never Tobacco 06/28/2018 Tobacco Use: Never (less than 100 in l 02/19/2022isk Assessment: No Risk Home/Environment 02/20/2020 Primary Motor Assembly Supervisor: Self Nutrition/Health 04/04/2019 Caffeine intake amount: carbonated [...] Lipase Level 26 U/L 02/19/2022 9:35 EST [facility] Note ED/Urgent Care Provider Note [...] Evaluation Verbalizes/Nonverbally indicates understanding Preferred Written Language Cuban Preferred Spoken Language Cuban Chief Complaint c/o abd pain since yesterday [...] Primary Pain Quality Aching Nail Bed Color [place] Capillary Refill < 2 seconds Radial Pulse, [...] Intact Skin Turgor Elastic Mucous Membrane Color [place] Mucous Membrane Description Moist Neurological Language Able to speak clearly Gait Steady Eye Opening Response [place] Spontaneously Best Motor Response Darrel Obeys simple commands Best Verbal Response Darrel Oriented [place] Coma Score 15 Strength All Extremities Strong [...] No Weight Loss No Preferred Written Language Cuban Preferred Spoken Language Cuban Tracking Group ED AO Tracking Group Tracking [...] ED Triage Adults . Assessment and Plan [place] [employer] of Anesthesiologists (ASA) physical status classification: [...] PAUL RIZO MD on 02/19/2022 03:23 PM [id number] Hospital Discharge instructions Patient Education 03/23/2021 13:50:17 Atrial Fibrillation, Vfls-pe-Lnlc Atrial Fibrillation Atrial fibrillation is a type [...] Follow these instructions at home: Medicines Take jfbg-iyh-mmdulwh and prescription medicines only as told by [...] 12/13/2008 Document Revised: 05/10/2018 Document Reviewed: 04/27/2018 [employer] Patient Education 2020 Imaging3. Follow Up Care 03/22/2021 07:26:33 With:KAYLA MCGILL [facility] Address: [phone] When:04/06/2021 Comments:Schedule appointment as soon as possible With:LUKE CAMILO [facility] Address: [address] [facility] [place] [address] [phone] When:5 to 7 days Comments:Schedule appointment as soon as possible Schedule appointment as soon as possible [facility] 01-03-2022 Evaluation + Plan noteExtracted from: Title:History and Physical Author:JAYNA KAM DO Date:03/22/21 Atrial fibrillation with RVR /atrial flutter Obesity Sleep apnea on CPAP History of breast cancer s/p mastectomy and chemotherapy -Patient has high risk features for atrial fibrillation include obesity and sleep apnea. -Patient has a DXL8KK8-SWZi score of 2, but is prediabetic with [...] of this technology. Malissa Kam DO, MS Bathhouse Keeper (PGY-4) Pager chemotherapy/ Cortext Addendum by ROBERTO [...] Appointment Date:03/25/2021 11:15:00 AM Scheduled Provider:KAYLA MCGILL Location:[facility] Appointment Type:[facility] Hospital Follow Up Appointment Date:06/22/2021 09:00:00 AM Scheduled Provider:KAYLA MCGILL Location:[facility] Appointment Type:[facility] Evaluation + Plan note Future Appointments Appointment Date:06/22/2021 09:00:00 AM Scheduled Provider:KAYLA MCGILL Location:[facility] Appointment Type:[facility] Evaluation + Plan note Future Appointments Appointment Date:04/25/2022 10:45:00 AM Scheduled Provider:ELIZABETH BOWER MD Location:[facility] Appointment Type: OV [facility] Evaluation + Plan note Future Appointments Appointment Date:11/03/2022 08:30:00 AM Scheduled Provider:LUKE CAMILO Location:[facility] Appointment Type:[facility] Evaluation + Plan note Future Appointments Appointment Date:09/06/2023 08:30:00 AM Scheduled Provider:LUKE CAMILO Location:[facility] Appointment Type: OV Appointment Date:09/14/2023 03:30:00 PM Scheduled Provider:KAYLA MCGILL Location:[facility] Appointment Type:CV OV Appointment Date:05/28/2024 09:00:00 AM Scheduled Provider:KAYLA MCGILL Location:[facility] Appointment Type:CV OV Future Scheduled Tests Laboratory* Lipid Profile 02/07/23 [facility] Hospital course Narrative No data available for this section [facility] Hospital Discharge instructions No data available for this section [facility] Progress note No data available for this section [facility] Summary Purpose Family History No Family History Records Found No data available for this section No data available for this section No data available for this section No Family History Records Found Advance Directives No Advanced Directives Records FoundNo Advanced Directives Records Found Additional Source Comments Care Team (unrecognized sect ion and content) Care Team Personnel Name: LUKE CAMILO APRN-SARAN Position: P4 Advanced Practice Nurse Member Role: Primary Care Physician Address: Address: [address] Care Team Related Persons Name: VIDALREUBENLU Name: SHANIQUE LEÓN Name: SHANIQUE LEÓN Care Team Personnel Name: LUKE CAMILO APRN-SARAN Position: P4 Advanced Practice Nurse Member Role: Primary Care Physician Address: Address: [address] Care Team Related Persons Name: LU MAYO Name: SHANIQUE LEÓN Name: SHANIQUE LEÓN Care Team Personnel Name: LUKE CAMILO Position: P4 Advanced Practice Nurse Member Role: Primary Care Physician Address: Address: [address] Care Team Related Persons Name: LU MAYO Name: SHANIQUE LEÓN Name: MAU, SHANIQUE INFORMATION SOURCE (unrecogn ized section and content) DATE CREATED AUTHOR 03/13/2022 [facility] DATE CREATED AUTHOR AUTHOR'S ORGANNABIL ATION 08/22/2023 [facility] (MD) Patient Care team informatio n (unrecognized section and content) Care Team Personnel Name: LUKE CAMILO TREASURY ACCOUNTANT-MAINSPRING STRIP GAUGER Position: P4 Advanced Animal Care Provider Member Role: Primary Care Physician Address: Address: [address] [place] [address] Care Team Related Persons Name: LU MAYO Name: MAU, SHANIQUE Name: SHANIQUE LEÓN Care Team Personnel Name: LUKE CAMILO TREASURY ACCOUNTANT-MAINSPRING STRIP GAUGER Position: P4 Advanced Animal Care Provider Member Role: Primary Care Physician Address: Address: [address] [place] [address] Care Team Related Persons Name: LU MAYO Name: SHANIQUE LEÓN Name: SHANIQUE LEÓN Care Team Personnel Name: LUKE CAMILO TREASURY ACCOUNTANT-MAINSPRING STRIP GAUGER Position: P4 Advanced Animal Care Provider Member Role: Primary Care Physician Address: Address: [address] [place] [address] Care Team Related Persons Name: LU MAYO Name: MAU, MYLA Name: MAU, SHANIQUE FOR RECORDS PERTAINING TO PATIENTS WHO ARE [...] BE BASED ON THE PRIMARY CLINICAL RECORDS. [employer] provides no warranty or guarantee of the accuracy or completeness of information in this document.
--- NOTE | 2024-01-09 07:06 | PRE.ANES_ITS ---
ASA Classification* ASA Classification ASA Classification: 2 Assessment & Plan Anesthesia* Anesthesia Assessment Anesthesia Assessment: Discussed sedation and/or anesthesia options, risks, benefits, and alternatives with patient/parents/legal guardian/POA. Questions invited. The patient/parents/legal guardian/POA seems to understand and agrees to proceed with anesthesia plan. Reviewed the physical assessment, medical history, allergy history and patient home medications list prior to surgery/procedure/anesthetic and documented any changes. Performed airway and anesthesia risk assessments. Anesthesia Type Anesthesia Type: MAC Anesthesia Focused Assessment* Airway Assessment Mouth opens: >3 cm Mallampati Score: II Focused Labs Anesthesia Preop lab: CBC WBC 3.7 K/mm3 (4.4-11.0) L 01/01/24 15:52 RBC 3.68 M/mm3 (4.2-5.4) L 01/01/24 15:52 Hgb 11.9 g/dL (12.0-15.0) L 01/01/24 15:52 Hct 38.1 % (37-47) 01/01/24 15:52 Plt Count 250 K/mm3 (150-450) 01/01/24 15:52 CHEMISTRY Potassium 4.4 mmol/L (3.5-5.1) 01/01/24 15:52 Sodium 140 mmol/L (136-145) 01/01/24 15:52 Magnesium 2.0 mg/dL (1.6-2.6) 05/09/22 12:17 BUN 17 mg/dL (7-18) 01/01/24 15:52 Creatinine 1.03 mg/dL (0.55-1.02) H 01/01/24 15:52 Glucose 116 mg/dL (74-106) H 01/01/24 15:52 COAG Pre-Assessment Diagnosis/Proposed Procedure Planned Operative Procedure(s): EUA,PAP,COLPOSCOPY POSS CERVICAL BIOPSY Anesthesia History 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 When Was Last Pacemaker Check QUESTION #4 FULL TEXT: You/Your Family Experience fever (hyperthermia) with Anesthesia Last Oral Intake Last Oral intake: Last Oral Intake NPO since Meds taken in AM with sips of water? Meds patient instructed to take am of surgery PONV PONV - seasonal tax preparer: PONV - seasonal tax preparer Female Yes 12/28/23 13:09 HX of Motion Sickness No 12/28/23 13:09 HX of N/V After Surgery Yes 12/28/23 13:09 Non-Smoker Yes 12/28/23 13:09 Duration of Surgery greater No 12/28/23 13:09 than 60 minutes Number of Risk Factors 3 12/28/23 13:09 PONV Score Moderate Risk 12/28/23 13:09 Height & Weight Height & Weight: Anesthesia: Height & Weight Height 5 ft 9 in 01/01/24 14:35 Respiratory Assessment Respiratory Assessment - seasonal tax preparer: Respiratory Tract Infection Hx - seasonal tax preparer Hx Respiratory Tract Infection No 12/28/23 13:09 STOP Sleep Apnea STOP Sleep Apnea - seasonal tax preparer: STOP Sleep Apnea - seasonal tax preparer Hx Hypertension Yes: CONTROLLED WITH MED 12/28/23 13:09 Hx Sleep Apnea Yes 12/28/23 13:09 CPAP Yes 12/28/23 13:09 BIPAP No 12/28/23 13:09 Do you snore loudly (louder than talking or can be heard Do you often feel tired/ fatigued/ sleepy during daytime? Has anyone observed you stop breathing during sleep? STOP Results Positive 12/28/23 13:09 QUESTION #5 FULL TEXT : Do you snore loudly (louder than talking or can be heard through closed doors)? 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 Specify any problems Hx of Preganancy in last 3 No 12/28/23 13:09 Months Nurse Filling Out Transfusion DSCHRIBER 12/28/23 13:09 & Questions: Date: 12/28/23 12/28/23 13:09 Time: 13:10 12/28/23 13:09 Patient unable to answer at this time (ie. confused, unrespo /Reproduction History /Reproductive History - seasonal tax preparer: /Reproductive Hx- seasonal tax preparer Hx Now No 12/28/23 13:09 Gestational Age (in weeks): EDC: Hx Hx Para Hx Section SAB No 01/01/24 14:40 PFSH Medical History PONV (postoperative nausea and vomiting) Encounter for education Wears glasses Post-menopausal Cancer Anxiety Back pain History of diverticulosis Gastric reflux Non-smoker CPAP (continuous positive airway pressure) dependence History of edema History of echocardiogram History of stress test Hypertension Cardiology follow-up encounter High cholesterol Arthritis HPV (human papilloma virus) infection HGSIL (high grade squamous intraepithelial lesion) on Pap smear of cervix Afib Home Medications ?Medication ?Instructions ?Recorded ?Last Taken ?Type alprazolam 0.25 mg tablet (Xanax) 0.25 mg PO PRN PRN Anxiety 02/28/22 Unknown History diltiazem HCl 120 mg 120 mg PO DAILY 02/28/22 10/04/22 06:30 History capsule,extended release 12 hr metoprolol succinate 25 mg 25 mg PO DAILY 02/28/22 10/04/22 06:30 History tablet,extended release 24 hr omeprazole 20 mg capsule,delayed 20 mg PO DAILY 02/28/22 10/04/22 06:30 History release nmsbuvoh-wddhaid-oojl-lutein tablet 1 tab PO DAILY 03/28/22 03/29/22 History simvastatin 20 mg tablet 20 mg PO QHS 03/28/22 Unknown History aspirin 325 mg capsule 325 mg PO SUTH 09/27/22 Unknown History trospium 20 mg tablet 20 mg PO DAILY 08/29/23 Unknown History mecobalamin (vitamin B12) 2,500 2,500 mcg PO DAILY 12/04/23 Unknown History mcg chewable tablet Allergy/AdvReac Type Severity Reaction Status Date / Time meperidine (From Demerol) Allergy Unknown Verified 01/01/24 14:39 oxaprozin Allergy Unknown Verified 01/01/24 14:39 Family History Father Myocardial infarction Mother COPD (chronic obstructive pulmonary disease) Other Colon cancer Surgical History Status post colposcopy (~10/04/22) H/O LEEP Hx of colonoscopy History of laparoscopy H/O section Hx of mastectomy Social History Smoking Status: Never smoker alcohol intake: current details: social substance use type: does not use caffeine: Yes seatbelt use: always do you feel safe at home: Yes additional social history: retired- Review of Systems (Anesthesia) ROS Narrative System reviewed and no additional complaints, except as documented.
--- NOTE | 2024-01-09 07:29 | PCM.HP.BLA ---
History and Physical Date of Admission: 01/09/24 Intake Vital Signs 12/04/2407:05 12/04/2409:57 12/31/2413:35 Height 5 ft 9 in 5 ft 9 in 5 ft 9 in Weight: 273 lb 2 oz BMI 40.3 BP 124/83 H Intake Visit Reasons: pelvic exam, pap, colp,poss. biopsy Track Laying Equipment Operator Required: No Is patient in pain?: No Allergies meperidine (From Demerol) Allergy (Verified 01/01/24 14:39) Unknownoxaprozin Allergy (Verified 01/01/24 14:39) Unknown Medications ?Medication ?Instructions ?Recorded ?Confirmed ?Type alprazolam 0.25 mg tablet (Xanax) 0.25 mg PO PRN PRN Anxiety 02/28/22 01/01/24 History diltiazem HCl 120 mg 120 mg PO DAILY 02/28/22 01/01/24 History capsule,extended release 12 hr metoprolol succinate 25 mg 25 mg PO DAILY 02/28/22 01/01/24 History tablet,extended release 24 hr omeprazole 20 mg capsule,delayed 20 mg PO DAILY 02/28/22 01/01/24 History release qzcqsxqx-ttootmo-thdi-lutein tablet 1 tab PO DAILY 03/28/22 01/01/24 History simvastatin 20 mg tablet 20 mg PO QHS 03/28/22 01/01/24 History aspirin 325 mg capsule 325 mg PO SUTH 09/27/22 01/01/24 History trospium 20 mg tablet 20 mg PO DAILY 08/29/23 01/01/24 History mecobalamin (vitamin B12) 2,500 2,500 mcg PO DAILY 12/04/23 01/01/24 History mcg chewable tablet Is last menstrual period known: No Post menopausal: Yes Patient : No : No PFSH Medical History PONV (postoperative nausea and vomiting) Encounter for education Wears glasses Post-menopausal Cancer Anxiety Back pain History of diverticulosis Gastric reflux Non-smoker CPAP (continuous positive airway pressure) dependence History of edema History of echocardiogram History of stress test Hypertension Cardiology follow-up encounter High cholesterol Arthritis HPV (human papilloma virus) infection HGSIL (high grade squamous intraepithelial lesion) on Pap smear of cervix Afib Surgical History Status post colposcopy (~10/04/22) H/O LEEP Hx of colonoscopy History of laparoscopy H/O section Hx of mastectomy Family History Father Myocardial infarctionMother COPD (chronic obstructive pulmonary disease)Other Colon cancer Social History Smoking Status: Never smoker alcohol intake: current details: social substance use type: does not use caffeine: Yes seatbelt use: always do you feel safe at home: Yes additional social history: retired- HPI pelvic exam, pap, colp,poss. biopsy Details: LOUIE DOWNEY is a 68 year old who presents for a preoperative exam. She is scheduled for a pelvic exam under anesthesia due to a history of rectal cancer and a history of abnormal pap. Due to radiation her pelvic exams in the office are extremely painful. She is also requesting a rectal exam at the time as well. History 1 Elective abortions Hx Para 1 Spontaneous abortions Hx # Term Pregnancies Ectopic pregnancies Hx # Pregnancies Multiple births # of living children Past Pregnancies Del. Date Name GA/Weeks Outcome Route Bth Weight Infant Gen Labor Lgth Anesthesia Del Locatn Provider FOB Unknown [place] ROS Const ROS Unobtainable: All systems reviewed & are unremarkable except as noted in H Resp Resp: Reports system reviewed and no additional complaints, except as documented; Denies cough GI GI: Reports as per HPI Psych Psych: Reports system reviewed and no additional complaints, except as documented Exam Const General: cooperative, healthy appearing, comfortable and no acute distress Resp Effort & Inspection: normal respiratory effort Skin General: no rashes or lesions noted Psych Appearance: grossly normal Speech and Movement: speech and movement normal Coding Level of Care Code Off vis,est,level 4 Diagnoses Carcinoma of anorectum C21.8 HPV (human papilloma virus) infection B97.7 HGSIL (high grade squamous intraepithelial lesion) on Pap smear of cervix R87.613 Assessment and Plan Assessment and Plan (1) 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 Started chemotherapy Mitomycin and 5FU together with Radiation therapy on 04/04/2022. Got [id number] from 05/02/2022 to 05/06/2022. Finished Radiation on 05/13/2022. Biopsy of residual mass on 07/28/2022 was negative. PET/CT 08/09/2022 reviewed, shows no activity suggestive of malignancy. MRI pelvis 08/11/22 reviewed, shows resolution of tumor and nodes. CT 02/20/2023 reviewed, no evidence of metastatic disease. Comes for follow up, no evidence of disease clinically. (2) HPV (human papilloma virus) infection: Status: Acute (3) HGSIL (high grade squamous intraepithelial lesion) on Pap smear of cervix: Status: Acute Orders: Orders CBC-Complete Blood Cnt No Diff Today Z01.818 - Encounter for other preprocedural examination Comprehensive Metabolic Profil Today Z01.818 - Encounter for other preprocedural examination Type & Screen Today Z01.818 - Encounter for other preprocedural examination Plan After discussing the patient's diagnosis and treatment plan options, patient wishes to proceed with surgical management. I have discussed with the patient the risks, benefits, and alternatives of the procedure which include but are not limited to risks of anesthesia, bleeding, infection, possible damage to bowel, bladder, or surrounding vasculature which could lead to additional surgery to evaluate any complications. Patient agrees to procedure and wishes to proceed. ACOG/uptodate references given for additional information regarding procedure. plan is for a pelvic exam, including rectal exam, pap, colposcopy. and possible cervical biopsy.
--- NOTE | 2024-01-09 08:30 | VAGW_PTH ---
PATHOLOGY RESULTS PATIENT: LOUIE DOWNEY LOC: [facility] U#:[id number] AGE/SX: 68/F ROOM: RE01/09/[address]: Dr. Pam Joshua DO : 1955 BED: DIS: 01/09/2024 SPEC #: [id number] RECD: 01/09/24 09:36 STATUS: SAKSHI MERRILL #: [id number] TAMICA: 01/09/24 08:[address]: Pam Joshua DEPT: SURGICAL PATHOLOGY RECD BY: Deidre Kruger ENTERED: 01/09/24 09:57 SP TYPE: VAG WALL OTHR DR: Lisa Jordan, PIER HAND-C Tissues: Vagina, NOS Procedures: Surgery Specimen Level IV HEADER OPERATION: Vaginal wall biopsy PRE-OP DIAGNOSIS: Rectal cancer TISSUE SUBMITTED: Vaginal tissue MICROSCOPIC DIAGNOSIS Vaginal wall, biopsy: Minimal chronic inflammation. No evidence of dysplasia. See comment. AM.mr 01/10/2024 COMMENT Immunohistochemistry ([id number]) for surrogate HPV marker (p16) supports the above diagnosis. Case has been reviewed in consultation with Dr. Velazco who concurs with the above diagnosis. IDC:SJ MICROSCOPIC DESCRIPTION Slides are reviewed. GROSS DESCRIPTION Received in fixative is one container labeled with the patient's name and designated Vaginal tissue. The specimen consists of two pieces of patel-pink soft tissue measuring in aggregate 0.4 x 0.2 x 0.1cm. The entire specimen is submitted in one cassette. 01/09/2024 TC:3 CPT:26566
[2024-01-09] MEDS: Lidocaine 1% /Epi 1:100 (20ml) 20 ML Vial (08:56)
[2024-01-09] MEDS: FERRIC SUBSULFATE 8 GM SOLN (09:00)
--- NOTE | 2024-01-09 09:02 | DCINST_ITS ---
Discharge Instructions Diet Discharge Diet: No restrictions Activity Discharge Activity: Return to Normal Activity and [address] (while taking narcotic pain mediations.) May resume sexual activity in: 4 weeks (Nothing in the vagina for 4 weeks.) Dressing / Incision Call your doctor if you observe: Fever of 101 or Higher and Using more than 1 pad per hour Follow Up Care Please Follow Up With: Pam Joshua DO When: Call [phone] for follow-up appointment. Test Results: Test results from this visit will be discussed in further detail at your follow- up appointment, if applicable. Discharge Plan Admission Primary Reason for Your Visit: exam under anesthesia, vaginal biopsy and pap Attending Provider: Pam Joshua Primary Care Provider: Lisa Jordan NP Instructions Print Language: Togolese Discharge Orders/Prescriptions Prescriptions: No Action omeprazole 20 mg capsule,delayed release(DR/EC) 20 mg PO DAILY alprazolam [Xanax] 0.25 mg tablet 0.25 mg PO PRN PRN (Reason: Anxiety) diltiazem HCl 120 mg capsule,extended release 12 hr 120 mg PO DAILY metoprolol succinate 25 mg tablet extended release 24 hr 25 mg PO DAILY mecobalamin (vitamin B12) 2,500 mcg tablet,chewable 2,500 mcg PO DAILY trospium 20 mg tablet 20 mg PO DAILY Rx Instructions: administer on an empty stomach simvastatin 20 mg Tablet 20 mg PO QHS Centrum Silver Ultra Women's Tablet 1 tab PO DAILY aspirin 325 mg capsule 325 mg PO Q3D cholecalciferol (vitamin D3) 250 mcg (10,000 unit) capsule 250 mcg PO QWEEK Other Ambulatory Orders: CBC-Complete Blood Cnt No Diff (Routine) Timeframe: 20240109 Facility: [facility] - Location: Laboratory Ordered By: Dr. Pam Joshua Referrals / Follow Up: Lisa Jordan NP, NON LICENSED NUCLEAR PLANT OPERATOR-C [Primary Care Provider] - Disposition Disposition (needs filled in before D/C Order can be placed): Home, Self Care
--- NOTE | 2024-01-09 09:04 | PCM.OPRPT ---
Problems Associated Problem List Diagnoses (1) Status post chemotherapy: (2) Carcinoma of anorectum: (3) HPV (human papilloma virus) infection: (4) HGSIL (high grade squamous intraepithelial lesion) on Pap smear of cervix: Report of Operation Date of Procedure: 01/09/24 Pre-Operative Diagnosis: history of anorectal cancer and hGSIL pap Post-Operative Diagnosis: history of anorectal cancer and hGSIL pap Surgery/Procedure Performed:: exam under anesthesia, vaginal biopsy Description of Surgical Findings:: severe vaginal stenosis, no findings of rectal mass Surgeon: Pam Joshua Type of Anesthesia: MAC and Topical Anesth Anesthesiologist: Bora Posada Specimen's removed: vaginal wall biopsy Drains: none Estimated Blood Loss (mL): 3cc Fluids Replaced: 30 cc Description of Procedure: the patient was brought to the OR and mac anesthesia was found to be adequate. Her legs were placed in stirrups. Initially, the planned procedure was for an exam under anesthesia colposcopy cervical biopsy Pap and rectal exam however at the start of the procedure it was noted that the patient had almost complete obliteration of the vagina secondary to radiation effects. A rectal exam was performed showing no masses or lesions or stenosis of the rectum. There was a slight band of scar tissue on the 4 to 5 o'clock position in the rectum and no other lesions noted. Using a very small pediatric speculum, I was able to spread the tissue of the vagina and no complete obliteration. A Pap was collected of this tissue along with a sample of tissue for pathology to examine. I was unable to visualize the cervix and therefore colposcopy was not performed. Prior to biopsying the cervix using a Tischler device 5 cc of 1% lidocaine with epinephrine was used. The patient tolerated the procedure well sponge lap needle counts were correct x 2 and she is now being brought to the recovery room in stable condition Procedure Start Time: 08:51 Procedure Stop Time: 09:01 Complications none Admit VTE Documentation VTE Present on Admission: No VTE Mechan Device Prophylaxis: SCD's VTE Pharm Prophylaxis ordered?: No Multi Select Codes Urinary/Genital Urinary/Genital CPT Codes: 74126 PEUA and Other Procedure See Report (vaginal biopsy )
--- NOTE | 2024-01-09 09:12 | PCM.POST.ANE ---
Anesthesia: Postop Eval I Current Vital Signs Temperature: 97.9 F Pulse Rate: 79 Blood Pressure: 99/62 Respiratory Rate: 16 Pulse Ox: 95 Oxygen Delivery Method: Room Air Assessment Airway patent: Yes Spontaneous unlabored respirations: Yes Mental status: Awake nausea: No Vomiting: No Anesthesia Complication: No Fluid Hydration Crystalloid volume administer (ml): 30 Total IV fluid infused: 30 Progress Note Anesthesia document: Postop Eval 1 completed: Yes
[2024-01-09] MEDS: Ibuprofen 200 MG Tablet 600 MG PO (09:48)
--- NOTE | 2024-01-09 11:45 | POSTOPAN2_ITS ---
Anesthesia Postop Eval I Sum Postop Eval Completion status Anesthesia document: Postop Eval 1 completed: Yes Anesthesia Postop Eval I Summary Anesthesia Postop Eval I Summary: Anesthesia Postop Eval I: Assessment Summary Airway patent Yes 01/09/24 09:13 [email or web address] Spontaneous unlabored Yes 01/09/24 09:13 [email or web address] respirations Mental status Awake 01/09/24 09:13 [email or web address] nausea No 01/09/24 09:13 [email or web address] [email or web address] Vomiting No 01/09/24 09:13 [email or web address] Anesthesia Postop Eval I: Fluid Summary Crystalloid volume administer 30 01/09/24 09:13 [email or web address] [email or web address] (ml) Colloids volume administered ( ml) Blood Product volume administered (ml) Total IV fluid infused 30 01/09/24 09:13 [email or web address] [email or web address] Anesthesia Postop Eval I: Summary Notes Anesthesia Complication No 01/09/24 09:13 [email or web address] [email or web address] Anesthesia Complication Comment: Post-operative progress note Anesthesia: Postop Eval II Evaluation Mental status: Awake and Calm Pain Level: 1 nausea: No Vomiting: No Complications Anesthesia Complication: No
--- NOTE | 2024-01-09 11:45 | PCM.POSTANE2 ---
Anesthesia Postop Eval I Sum Postop Eval Completion status Anesthesia document: Postop Eval 1 completed: Yes Anesthesia Postop Eval I Summary Anesthesia Postop Eval I Summary: Anesthesia Postop Eval I: Assessment Summary Airway patent Yes 01/09/24 09:13 BUSINESS AFFAIRS [email or web address] Spontaneous unlabored Yes 01/09/24 09:13 BUSINESS AFFAIRS [email or web address] respirations Mental status Awake 01/09/24 09:13 BUSINESS AFFAIRS [email or web address] nausea No 01/09/24 09:13 BUSINESS AFFAIRS [email or web address] Vomiting No 01/09/24 09:13 BUSINESS AFFAIRS [email or web address] Anesthesia Postop Eval I: Fluid Summary Crystalloid volume administer 30 01/09/24 09:13 BUSINESS AFFAIRS [email or web address] (ml) Colloids volume administered ( ml) Blood Product volume administered (ml) Total IV fluid infused 30 01/09/24 09:13 BUSINESS AFFAIRS [email or web address] Anesthesia Postop Eval I: Summary Notes Anesthesia Complication No 01/09/24 09:13 BUSINESS AFFAIRS [email or web address] Anesthesia Complication Comment: Post-operative progress note Anesthesia: Postop Eval II Evaluation Mental status: Awake and Calm Pain Level: 1 nausea: No Vomiting: No Complications Anesthesia Complication: No
== END 2024-01-09 10:43 | disposition home or self-care (01) ==
LOC: SDC 06:43 → AC 06:44
PROVIDERS: PCP Nurse Practitioner Primary Care; Referring Provider Obstetrics & Gynecology; Visit Provider Obstetrics & Gynecology
PROC: (CPT 57410; principal; 2024-01-09 08:20)
DX: N76.1 Subacute and chronic vaginitis (principal); I10 Essential (primary) hypertension; Z92.21 Personal history of antineoplastic chemotherapy; Z92.3 Personal history of irradiation; E78.00 Pure hypercholesterolemia, unspecified; K21.9 Gastro-esophageal reflux disease without esophagitis; R87.613 High grade squamous intraepithelial lesion on cytologic smear of cervix (HGSIL); Z79.82 Long term (current) use of aspirin; Z79.899 Other long term (current) drug therapy; B97.7 Papillomavirus as the cause of diseases classified elsewhere; Z85.048 Personal history of other malignant neoplasm of rectum, rectosigmoid junction, and anus
CPT/HCPCS: 57100; 00940; 36415; 80053; 85027; 86850; 86900; 86901; 87624; 88175; 88305; 88341; 88342; A4216; G0145; J2405

== ENCOUNTER → 2024-02-22 | Outpatient (CLI) | payer OTHER, SELFPAY ==
--- NOTE | 2024-02-22 14:29 | CT_ITS ---
HISTORY: RECTAL CA MONITOR-. TECHNIQUE: Helically acquired images were obtained of the abdomen and pelvis after the intravenous administration of 100 mL Isovue-300. A radiation dose optimization technique was used for this scan. 486 images. COMPARISON: 02/20/2023. FINDINGS: LOWER CHEST: Lung bases clear. Left breast prosthesis. BOWEL: Tiny hiatal hernia. Bowel nondilated. Appendectomy. Mild rectal wall thickening with mild perirectal and presacral stranding, mildly decreased from prior. PERITONEUM: No significant ascites. Mild mesenteric stranding unchanged. LIVER: No enhancing mass. Fatty infiltration GALLBLADDER/BILIARY TREE: Gallbladder present. SPLEEN: Homogeneous and nonenlarged. Calcified granulomas. PANCREAS/ADRENAL GLANDS: No focal lesion. KIDNEYS: No hydronephrosis. Stable right subcentimeter cysts; follow-up not indicated. VESSELS: No abdominal aortic aneurysm. Mild atherosclerosis. PELVIC ORGANS: Unremarkable. No pathologically enlarged lymph nodes. ABDOMINAL WALL: Mild lower anterior scarring. BONES: Degenerative change without suspicious osteoblastic or osteolytic lesion. CT/Abdomen/Pelvis WITH Contrast IMPRESSION: Mild rectal wall thickening with mild perirectal and presacral stranding, mildly decreased from prior. Other chronic findings as above. Electronically Signed: Yajaira Ziegler MD at 15:27 EST ,
[2024-02-22 15:05] LABS: CREATININE FINGERSTICK 1.1 mg/dL (0.55-1.02)
== END | disposition home or self-care (01) ==
LOC: CT 14:28
PROVIDERS: PCP Nurse Practitioner Primary Care; Referring Provider Internal Medicine Medical Oncology; Visit Provider Internal Medicine Medical Oncology
DX: C21.8 Malignant neoplasm of overlapping sites of rectum, anus and anal canal (principal)
CPT/HCPCS: 74177; Q9967

== ENCOUNTER → 2024-08-26 | Outpatient (CLI) | payer OTHER, SELFPAY ==
[2024-08-26 16:47] LABS: Absolute Lymphocyte Count 1.15 X10^3/uL (0.83-4.51); Absolute Neutrophil Count 2.5 X10^3/uL (2.0-7.7); Basophil# 0.02 X10^3/uL; Basophil% 0.5 % (0-1); Eosinophil# 0.09 X10^3/uL; Eosinophils% 2.2 % (0-5); Hematocrit 39.9 % (37-47); Hemoglobin 12.8 g/dL (12.0-15.0); Lymphocyte # 1.15 X10^3/ul (0.83-4.51); Mean Corp Hgb Conc 32.1 g/dL (32-36); Mean Corpuscular Hgb 32.2 pg (27.0-32.0); Mean Corpuscular Volume 100.3 fL (81-99); Mean Platelet Vol. 9.3 fl (6.2-12.0); Monocyte# 0.36 X10^3/uL; Monocyte% 8.8 % (0-10); NRBC Flagged by Analyzer 0 % (0-5); Neutrophil # 2.46 X10^3/uL (2.7-7.7); Platelet Count 275 K/mm3 (150-450); RBC Distribution Width CV 12.7 % (11.6-14.6); RBC Distribution Width SD 47.1 fl (35.1-43.9); Red Blood Count 3.98 M/mm3 (4.2-5.4); White Blood Count 4.1 K/mm3 (4.4-11.0)
[2024-08-26 17:07] LABS: ALB/GLOB Ratio 1.2 RATIO (0.9-2.4); AST(SGOT) 22 U/L (<=31); Alanine Aminotransfer ALT/SGPT 14 U/L (<=34); Albumin, Serum 3.8 g/dL (3.4-4.8); Alkaline Phosphatase 108 U/L (35-104); Anion Gap 11 (5-15); BUN 16 mg/dL (4-19); BUN/Creat Ratio 16.4 RATIO (10-20); Calcium,Total 9.4 mg/dL (7.6-11.0); Carbon Dioxide 23.2 mmol/L (21.0-32.0); Chloride 108 mmol/L (98-108); Creatinine, Serum 0.95 mg/dL (0.70-1.20); EST Glomerular Filtration Rate 64 (>60); Globulin 3.2 g/dL (2.2-4.2); Glucose 101 mg/dL (70-99); LDH 182 U/L (84-246); Potassium 4.3 mmol/L (3.3-5.1); Sodium Level 142 mmol/L (133-145); Total Bilirubin 0.35 mg/dL (0.00-1.30)
--- NOTE | 2024-08-26 17:12 | CT_ITS ---
PROCEDURE: ABDOMEN/PELVIS WITH CONTRAST 08/26/2024 REASON FOR EXAM: ANORECTUM CA TECHNIQUE: Abdomen and pelvis CT with intravenous contrast. Coronal and Sagittal reconstruction series were provided. PATIENT PREPARATION: Per protocol ORAL CONTRAST TYPE: Patient ingested oral contrast. CONTRAST: Isovue-350 VOLUME: 100 mL One or more dose reduction techniques were used (e.g., Automated exposure control, adjustment of the mA and/or kV according to patient size, use of iterative reconstruction technique. RADIATION DOSE SUMMARY: CTDlvol: 23.86 mGy DLP: 1293 mGycm COMPARISON: 02/22/2024. FINDINGS: Decreased rectal wall thickening. Decreased perirectal and presacral stranding. Unchanged hepatic steatosis. Unchanged calcified splenic granulomas. Unchanged subcentimeter simple cysts in the right kidney. Unchanged surgical scarring of the lower aspect of the anterior abdominal wall. Unchanged left breast prosthesis. Unchanged tiny hiatal hernia. Prior appendectomy. Normal gallbladder and extrahepatic biliary system. Normal spleen. Normal pancreas. Normal bilateral adrenal glands. Normal size of the right kidney. There is no right renal mass. There are no right renal calculi. There is no right hydronephrosis. Normal visualized right ureter. Normal size of the left kidney. There is no left renal mass. There are no left renal calculi. There is no left hydronephrosis. Normal visualized left ureter. Normal visualized stomach. Normal small intestine. There is no demonstrated peritoneal fluid. Calcified atheromatous plaques of the abdominal aorta. Normal inferior vena cava. Normal retroperitoneum. Normal urinary bladder. There is no pelvic mass lesion or lymphadenopathy. There is no pelvic fluid. Mild diffuse spondylosis. CT/Abdomen/Pelvis WITH Contrast IMPRESSION: Decreased rectal wall thickening. Decreased perirectal and presacral stranding. Unchanged hepatic steatosis. Unchanged calcified splenic granulomas. Unchanged subcentimeter simple cysts in the right kidney. Unchanged surgical scarring of the lower aspect of the anterior abdominal wall. Unchanged left breast prosthesis. Unchanged tiny hiatal hernia. Prior appendectomy. Reading Location: [place] [id number]
--- OUTSIDE RECORDS SUMMARY | 2024-08-27 00:09 | XMS RPT_ITS | CCD ---
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 Navneet Jackson Attending Provider Dr. Oliverio Scott Attending Provider [phone] Dr. Pam Joshua Attending Provider [phone] Dr. Willy Gaytan Attending Provider Dr. Navneet Jackson Referring Provider Dr. Oliverio Scott Referring Provider Dr. Pam Joshua Referring Provider [phone] Dr. Pam Joshua Other Provider Mei RUVALCABA, COMPTOMETER OPERATOR-C Brigitte Attending Provider Dr. Alex Mac Attending Provider Dr. Anna Garcia Attending Provider [phone] Dr. Pam Joshua Referring Provider [phone] Julian RUVALCABA, COMPTOMETER OPERATOR-C Lisa Primary Care Provider [phone] Julian RUVALCABA, COMPTOMETER OPERATOR-C Lisa Referring Provider [phone] Dr. Navneet Jackson Attending Provider Dr. Oliverio Scott Attending Provider Dr. Oliverio Scott Referring Provider Mei COMPTOMETER OPERATOR, COMPTOMETER OPERATOR-C Brigitte Attending Provider [phone] Dr. Pam Joshua Attending Provider [phone] Julian COMPTOMETER OPERATOR, COMPTOMETER OPERATOR-C Lisa Primary Care Provider Julian COMPTOMETER OPERATOR, COMPTOMETER OPERATOR-C Lisa Referring Provider [phone] Dr. Navneet Jackson Attending Provider [phone] Dr. Oliverio Scott Attending Provider [phone] Dr. Willy Gaytan Attending Provider Dr. Pam Joshua Referring Provider [phone] Dr. Pam Joshua Other Provider Julian COMPTOMETER OPERATOR, COMPTOMETER OPERATOR-C Lisa Primary Care Provider Julian COMPTOMETER OPERATOR, COMPTOMETER OPERATOR-C Lisa Referring Provider [phone] Dr. Oliverio Scott Attending Provider [phone] Dr. Navneet Jackson Attending Provider [phone] Julian COMPTOMETER OPERATOR, COMPTOMETER OPERATOR-C Lisa Primary Care Provider [phone] Julian COMPTOMETER OPERATOR, COMPTOMETER OPERATOR-C Lisa Referring Provider [phone] Dr. Oliverio Scott Attending Provider FISH DATABASE ADMIN-LOCAL TRUCK DRIVER, KAYLA Attending Unavailab le JULIAN DATABASE ADMIN-LOCAL TRUCK DRIVER, LISA S Primary Care Unava ilable DINO GOODMAN MD Attending Unavailable JULIAN DATABASE ADMIN-LOCAL TRUCK DRIVER, LISA S Primary Care Unava ilable JULIAN DATABASE ADMIN-LOCAL TRUCK DRIVER, LISA S Attending Unava ilable JULIAN DATABASE ADMIN-LOCAL TRUCK DRIVER, LISA S Primary Care Unava ilable JULIAN DATABASE ADMIN-LOCAL TRUCK DRIVER, LISA S Attending Unava ilable JULIAN DATABASE ADMIN-LOCAL TRUCK DRIVER, LISA S Primary Care Unava ilable BALTES DATABASE ADMIN-LOCAL TRUCK DRIVER, LUCIA Attending Unavailabl e JULIAN DATABASE ADMIN-LOCAL TRUCK DRIVER, LISA S Primary Care Unava ilable FISH DATABASE ADMIN-LOCAL TRUCK DRIVER, KAYLA Referring Unavailab le JULIAN DATABASE ADMIN-LOCAL TRUCK DRIVER, LISA S Primary Care Unava ilable FISH DATABASE ADMIN-LOCAL TRUCK DRIVER, KAYLA Attending Unavailab le JULIAN DATABASE ADMIN-LOCAL TRUCK DRIVER, [facility] S Primary Care Unava ilable SUPPAN DPMARISTIDES Attending Unavailable JULIAN DATABASE ADMIN-LOCAL TRUCK DRIVER, LISA S Primary Care Unava ilable SUPPAN DPM, ARISTIDES Ramos Attending Unavailable JULIAN DATABASE ADMIN-LOCAL TRUCK DRIVER, [facility] S Primary Care Unava ilable JULIAN DATABASE ADMIN-LOCAL TRUCK DRIVER, LISA S Attending Unava ilable [place] COMPTOMETER OPERATOR, Lisa Referring Unavailable PraNavneet Attending Unavailable [place] COMPTOMETER OPERATOR, [facility] Primary Care Unavailable Julian COMPTOMETER OPERATOR, [facility] Primary Care Unavailable Pam Joshua Attending Unavailabl e Vande VelPam paniagua Referring Unavailabl e Julian COMPTOMETER OPERATOR, [facility] Primary Care Unavailable Pam Joshua Attending Unavailabl e Barbye Pam Gaming Referring Unavailabl e PraNavneet payne Referring Unavailable [place] COMPTOMETER OPERATOR, [facility] Primary Care Unavailable Navneet Jackson Attending Unavailable Julian COMPTOMETER OPERATOR, [facility] Primary Care Unavailable Oliverio Scott Attending Unavailable Oliveroi Scott Referring Unavailable PraNavneet payne Attending Unavailable Navneet Jackson Referring Unavailable Julian COMPTOMETER OPERATOR, [facility] Primary Care Unavailable Julian COMPTOMETER OPERATOR, [facility] Referring Unavailable [place] COMPTOMETER OPERATOR, [facility] Primary Care Unavailable Pam Joshua Attending Unavailabl e Julian COMPTOMETER OPERATOR, [facility] Primary Care Unavailable Pam Joshua Referring Unavailabl e Vande VelPam paniagua Consulting Unavailabl e Vande Pam Gaming Attending Unavailabl e Julian COMPTOMETER OPERATOR, [facility] Primary Care Unavailable Oliverio Scott Attending Unavailable Julian COMPTOMETER OPERATOR, Lisa Referring Unavailable Vande Pam Gaming Attending Unavailabl e [place] COMPTOMETER OPERATOR, [facility] Primary Care Unavailable [place] COMPTOMETER OPERATOR, [facility] Primary Care Unavailable PraNavneet Attending Unavailable Julian COMPTOMETER OPERATOR, [facility] Referring Unavailable [place] COMPTOMETER OPERATOR, [facility] Primary Care Unavailable Oliverio Scott Attending Unavailable Allergies Allergy Classification Reported Allergen(s) Allergy Type Date of Onset Reaction(s) Facility (20 sources) Meperidine; Translations: [meperidine] Drug Allergy 2 Unknown, Itching [facility] (20 sources) oxaprozin; Translations: [oxaprozin] Drug Allergy 2 Nausea, Unknown [facility] (1 source) Meperidine Drug Allergy 5 [facility] (1 source) oxaprozin Drug Allergy 5 [facility] Medications Current Medications Medication Drug Class(es) Dates Sig (Normalized) Sig (Original) acetaminophen 325 mg oral capsule (7 sources) Start: 02-23-2022 Tylenol 325 mg oral capsule Dose : 650 mg =, Oral, q6hr, PRN Pain, scale 1-3, 0 Refill(s) Start Date: 02/23/22 Status: Ordered Repeat number: 1 ALPRAZolam 0.25 mg oral tablet (15 sources) Benzodiazepine Start: 02-28-2022 End: 04-23-2022 Alprazolam (Xanax) 0.25 mg tablet Active 0.25 MG PO NEEDED February 28, 2022 12:00am Start: 03-22-2021 Xanax 0.25 mg oral tablet Dose : 0.25 mg = 1 tab(s), Oral, TID, PRN Agitation, 0 Refill(s), 128.1 Start Date: 03/22/21 Status: Ordered apixaban 5 mg oral tablet (1 source) Factor Xa Inhibitor Start: 03-23-2021 Eliquis 5 mg oral tablet Dose : 5 mg = 1 tab(s), Oral, BID, D/c xarelto, # 60 tab(s), 3 Refill(s), Pharmacy: [facility]/pharmacy #[id number], 175.3, cm, 03/22/21 7:47:00 EST, Height, 128.1, kg, 03/22/21 7:47:00 EST, Dosing Weight Start Date: 03/23/21 Status: Ordered aspirin 325 mg delayed release oral tablet (20 sources) Platelet Aggregation Inhibitor, Nonsteroidal Anti-inflammatory Drug Start: 10-05-2022 aspirin 325 mg or al delayed release tablet Dose : 325 mg = 1 tab(s), Oral, every third day, 0 Refill(s) Start Date: 10/05/22 Status: Ordered Repeat number: 1 Start: 09-27-2022 take 325 mg by mouth every week Aspirin Active 325 MG PO .2X PER WEEK September 26, 2022 11:00pm Start: 02-28-2022 End: 03-28-2022 take 325 mg by mouth once daily Aspirin Discontinued 325 MG PO DAILY February 28, 2022 12:00am March 28, 2022 8:16am Start: 01-27-2022 aspirin 325 mg oral delayed [...] PCP, # 30 tab(s), 0 Refill(s), Pharmacy: [facility]/pharmacy #[id number], 175.3, cm, 02/19/22 13:58:00 EST, Height Start Date: 02/23/22 Stop Date: 03/25/22 Status: Ordered calcium citrate 1040 mg oral tablet (2 sources) Start: 12-18-2019 calcium (as ca lcium citrate) 250 mg oral tablet Dose : 250 mg = 1 tab(s), Oral, qDay, 0 Refill(s) Start Date: 12/18/19 Status: Ordered cholecalciferol 0.25 mg oral capsule (4 sources) Vitamin D Start: 10-26-2023 End: 10-20-2024 cholecalciferol 250 mcg (10,000 intl units) oral capsule Dose : 250 mcg = 1 cap(s), Oral, qWeek, # 13 cap(s), 3 Refill(s), Pharmacy: [facility]/pharmacy #[id number], 172, cm, 10/26/23 15:31:00 EDT, Height, kg, 10/26/23 15:31:00 EDT, Dosing Weight Start Date: 10/26/23 Stop Date: 10/20/24 Status: Ordered Quantity: 13.0 Unit: cap(s) Repeat number: 4 Start: 06-01-2023 cholecalcifero l 25 mcg (1000 intl units) oral capsule Dose : 25 mcg = 1 cap(s), Oral, Daily, # 30 cap(s), 11 Refill(s), Pharmacy: [facility]/pharmacy #[id number], 172, cm, 05/31/23 8:56:00 EDT, Height, kg, 05/31/23 8:56:00 EDT, Dosing Weight Start Date: 06/01/23 Status: Ordered 12 hr dilTIAZem hydrochloride 120 mg extended release oral capsule (12 sources) Calcium Channel Esteban Start: 02-28-2022 take 120 mg by mouth once daily Diltiazem Hcl Active 120 MG PO DAILY February 28, 2022 12:00am Start: 02-28-2022 take 120 mg by mouth twice forrest ly Diltiazem Hcl Active 120 MG PO TWICE A DAY February 28, 2022 12:00am Start: 05-19-2020 take [address] [facility] once daily DilTIAZem (Eqv-Cardizem CD) 120 mg/24 hours oral capsule, extended release See Instructions, TAKE 1 CAPSULE BY MOUTH EVERY DAY, # 90 cap(s), 3 Refill(s), Pharmacy: [facility] ST[id number], 172.5, cm, 02/20/20 15:09:00 EST, Height, kg, 02/20/20 15:09:00 EST, Dosing Weight Start Date: 05/19/20 Status: Ordered DilTIAZem (Eqv-Cardizem CD) 120 mg/24 hours oral capsule, extended release (8 sources) Start: 06-19-2023 take 1 capsule by mouth once daily DilTIAZem (Eqv-Cardizem CD) 120 mg/24 hours oral capsule, extended release 1 cap(s), Oral, qDay, # 90 cap(s), 3 Refill(s), Pharmacy: [facility]/pharmacy #[id number], 172, cm, 05/31/23 8:56:00 EDT, Height, kg, 05/31/23 8:56:00 EDT, Dosing Weight Start Date: 06/19/23 Status: Ordered Quantity: 90.0 Unit: cap(s) Repeat number: 4 Start: 06-19-2023 take [address] [facility] once daily DilTIAZem (Eqv-Cardizem CD) 120 mg/24 hours oral capsule, extended release 1 cap(s), Oral, qDay, # 90 cap(s), 3 Refill(s), Pharmacy: [facility]/pharmacy #[id number], 172, cm, 05/31/23 8:56:00 EDT, Height, kg, 05/31/23 8:56:00 EDT, Dosing Weight Start Date: 06/19/23 Status: Ordered Start: 05-23-2022 take [address] [facility] once daily DilTIAZem (Eqv-Cardizem CD) 120 mg/24 hours oral capsule, extended release 1 cap(s), Oral, qDay, # 90 cap(s), 3 Refill(s), Pharmacy: [id number], 175.3, cm, 03/28/22 10:31:00 EST, Height, kg, 03/28/22 10:31:00 EST, Dosing Weight Start Date: 05/23/22 Status: Ordered Start: 05-28-2021 take [address] [facility] once daily DilTIAZem (Eqv-Cardizem CD) 120 mg/24 hours oral capsule, extended release See Instructions, TAKE 1 CAPSULE BY MOUTH EVERY DAY, # 90 cap(s), 3 Refill(s), Pharmacy: [facility]/pharmacy #[id number], 175.3, cm, 05/24/21 9:10:00 EST, Height, kg, 05/24/21 9:10:00 EST, Dosing Weight Start Date: 05/28/21 Status: Ordered hydrOXYzine pamoate 25 mg oral capsule (1 source) Antihistamine Start: 03-17-2022 take 1-2 capsules by mouth four times daily as needed for anxiety Vistaril 25 mg oral capsule See Instructions, PRN as needed for anxiety, 1-2 cap(s) Oral QID, # 30 EA, 0 Refill(s), Pharmacy: [facility]/pharmacy #[id number], 175.3, cm, 03/07/22 10:41:00 EST, Height Start Date: 03/17/22 Status: Ordered lidocaine 25 mg/ml / prilocaine 25 mg/ml topical cream (3 sources) Antiarrhythmic, Amide Local Anesthetic Start: 03-30-2022 Lidocaine-Prilocai ne Active 1 APPLIC TOPICAL ONCE March 30, 2022 1:00am loperamide hydrochloride 2 mg oral capsule (11 sources) Opioid Agonist Start: 11-23-2022 take 8 mg by mouth every twenty-four hours Loperamide Active 2 MG PO Q4H November 22, 2022 11:00pm administer after each loose stool until symptoms controlled; do not exceed 8 mg per 24 hrs Start: 11-03-2022 take 1 capsule by mo uth every six hours as needed loperamide 2 mg oral capsule TAKE 1 CAPSULE BY MOUTH EVERY 6 HOURS X 5 DAYS NEEDED FOR LOOSE STOOL Start Date: 11/03/22 Status: Ordered Repeat number: 1 Start: 07-18-2022 Loperamide (Im odium A-D) 2 mg capsule Active 2 MG PO Q4H July 17, 2022 11:00pm administer after each loose stool until symptoms controlled; do not exceed 8 mg per 24 hrs Magic Mouth Wash (Bmx) (3 sources) Start: 04-11-2022 Magic Mouth Wa sh (Bmx) Active 5 ML PO .ac 180 April 11, 2022 1:00am diphenhydramine 12.5 mg/5 mL oral liquid 60 mL; aluminum-mag hydroxide-simethicone 400 mg-400 mg-40 mg/5 mL oral susp 60 mL; Lidocaine Viscous 2 % mucosal solution 60 mL; Per 180 mL Start: 04-11-2022 Magic Mouth Wa sh (Bmx) Active 5 ML PO .ac 180 April 11, 2022 12:00am diphenhydramine 12.5 mg/5 mL oral liquid 60 mL; aluminum-mag hydroxide-simethicone 400 mg-400 mg-40 mg/5 mL oral susp 60 mL; Lidocaine Viscous 2 % mucosal solution 60 mL; Per 180 mL mecobalamin 1 mg chewable tablet (1 source) Start: 08-04-2022 take 1000 ug by mouth once daily Mecobalamin (Vitamin B12) Active 1000 MCG PO DAILY August 04, 2022 12:00am metoprolol tartrate 25 mg oral tablet (20 sources) beta-Adrenergic Esteban Start: 06-19-2023 take 1 tablet by mouth once daily Metoprolol Succinate ER 25 mg oral TABLET extended release 1 tab(s), Oral, qDay, DO NOT CRUSH OR CHEW., # 90 tab(s), 3 Refill(s), Pharmacy: [facility]/pharmacy #[id number], 172, cm, 05/31/23 8:56:00 EDT, Height, kg, 05/31/23 8:56:00 EDT, Dosing Weight Start Date: 06/19/23 Status: Ordered Quantity: 90.0 Unit: tab(s) Repeat number: 4 Start: 07-06-2022 take 1 tablet by zen th once daily Metoprolol Succinate ER 25 mg oral TABLET extended release 1 tab(s), Oral, qDay, DO NOT CRUSH OR CHEW., # 90 tab(s), 3 Refill(s), Pharmacy: [id number], 175.3, cm, 03/28/22 10:31:00 EST, Height, kg, 03/28/22 10:31:00 EST, Dosing Weight Start Date: 07/06/22 Status: Ordered Start: 02-28-2022 take 25 mg by mouth once daily Metoprolol Succinate Active 25 MG PO DAILY February 28, 2022 12:00am Start: 02-24-2022 End: 02-24-2022 metoprolol succinate 25 [...] CHEW., # 90 tab(s), 3 Refill(s), Pharmacy: [id number], 175.3, cm, 05/24/21 9:10:00 EST, Height, kg, 05/24/21 9:10:00 EST, Dosing Weight Start Date: 07/18/21 Status: Ordered Start: 03-23-2021 metoprolol suc cinate 25 mg oral TABLET extended release Dose : 25 mg = 1 tab(s), Oral, qDay, Do not crush or chew (controlled release), # 30 tab(s), 2 Refill(s), Pharmacy: [facility]/pharmacy #[id number], 175.3, cm, 03/22/21 7:47:00 EST, Height, kg, 03/22/21 7:47:00 EST, Dosing Weight Start Date: 03/23/21 Status: Ordered Qvtfbtoe-Onievkq-Sazn-Lutein (Centrum Silver Ultra Women's) Tablet (8 sources) Start: 03-28-2022 take 1 tablet by mouth once daily Cjcjsiie-Llkjmmy-Nivj-Lutein (Centrum Silver Ultra Women's) Tablet Active 1 TABLET PO DAILY March 28, 2022 1:00am Start: 03-28-2022 take 1 tablet by zen th once daily Zlhsxehh-Zqdmawx-Gnch-Lutein (Centrum Si lver Ultra Women's) Tablet Active 1 TABLET PO DAILY March 28, 2022 12:00am Multivitamin preparation (10 sources) Start: 12-18-2019 take 1 tablet by mouth once daily Multivitamin Dose = 1 tab(s), Oral, Daily, 0 Refill(s) Start Date: 12/18/19 Status: Ordered Repeat number: 1 Start: 12-18-2019 take 1 tablet by zen th once daily Multivitamin Dose = 1 tab(s), Oral, Daily, 0 Refill(s) Start Date: 12/18/19 Status: Ordered omeprazole 20 mg delayed release oral capsule (19 sources) Proton Pump Inhibitor Start: 05-07-2024 omeprazole 20 mg ora l delayed release capsule Dose : 20 mg = 1 cap(s), Oral, qDay, # 90 cap(s), 3 Refill(s), Pharmacy: [facility]/pharmacy #[id number], 175.3, cm, 04/15/24 15:22:00 EST, Height, kg, 04/15/24 15:22:00 EST, Dosing Weight Start Date: 05/07/24 Status: Ordered Quantity: 90.0 Unit: cap(s) Repeat number: 4 Start: 02-28-2022 omeprazole 20 mg oral delayed release capsule Dose : 20 mg = 1 cap(s), Oral, qDay, # 90 cap(s), 3 Refill(s), Pharmacy: [facility]/pharmacy #[id number], 172, cm, 05/04/23 8:25:00 EST, Height, kg, 05/04/23 8:25:00 EST, Dosing Weight Start Date: 05/15/23 Status: Ordered Start: 08-25-2021 End: 02-21-2022 omeprazole 20 mg oral delaye d release capsule Dose : 20 mg = 1 cap(s), Oral, qDay, X 90 day(s), # 90 cap(s), 1 Refill(s), 02/21/22 8:56:00 EST, Pharmacy: [facility]/pharmacy #[id number], 175.3, cm, 05/24/21 9:10:00 EST, Height, kg, 05/24/21 9:10:00 EST, Dosing Weight Start Date: 08/25/21 Stop Date: 02/21/22 Status: Ordered Start: 02-25-2021 [facility] omep[facility]ole 20 mg oral delayed release capsule See Instructions, TAKE 1 CAPSULE BY MOUTH EVERY DAY, # 90 cap(s), 1 Refill(s), [id number], 173.5, cm, 12/29/20 8:33:00 EDT, Height, kg, 12/29/20 8:33:00 EDT, Dosing Weight Start Date: 02/25/21 Status: Ordered ondansetron 8 mg disintegrating oral tablet (3 sources) Serotonin-3 Receptor Antagonist Start: 03-30-2022 take 8 mg by mouth every eight hours Ondansetron Active 8 MG PO Q8H March 30, 2022 1:00am 24 hr oxybutynin chloride 5 mg extended release oral tablet (6 sources) Cholinergic Muscarinic Antagonist Start: 09-14-2022 End: 09-09-2023 take 1 tablet by mouth every hour, then take 1 tablet by mouth once daily oxybutynin 5 mg/24 hours oral tablet, extended release Dose : 5 mg = 1 tab(s), Oral, qDay, # 90 tab(s), 3 Refill(s), Pharmacy: [facility]/pharmacy #[id number], 175.3, cm, 07/13/22 10:56:00 EDT, Height, kg, 07/13/22 10:56:00 EDT, Dosing Weight Start Date: 09/14/22 Stop Date: 09/09/23 Status: Ordered Start: 07-18-2022 take 1 tablet by zen th once daily Oxybutynin Chloride (Ditropan Xl) 5 mg tablet extended release 24hr Active 5 MG PO DAILY July 17, 2022 11:00pm prochlorperazine 10 mg oral tablet (3 sources) Phenothiazine Start: 03-30-2022 take 10 mg by mouth every six hours Prochlorperazine Maleate Active 10 MG PO EVERY 6 HOURS March 30, 2022 1:00am propafenone hydrochloride 150 mg oral tablet (14 sources) Antiarrhythmic Start: 03-29-2023 propafenone 150 mg oral tablet See Instructions, PRN atrial fibrillation, Patient to take 4 tablets at onset of atrial fibrillation., # 4 tab(s), 3 Refill(s), Pharmacy: [facility], 172, cm, 11/03/22 8:40:00 EDT, Height, kg, 11/03/22 8:37:00 EDT, Dosing Weight Start Date: 03/29/23 Status: Ordered Quantity: 4.0 Unit: tab(s) Repeat number: 4 Start: 03-31-2022 propafenone 15 0 mg oral tablet See Instructions, PRN atrial fibrillation, Patient to take 4 tablets at onset of atrial fibrillation., # 28 tab(s), 3 Refill(s), Pharmacy: [facility]/pharmacy #[id number], 175.3, cm, 03/28/22 10:31:00 EST, Height, kg, 03/28/22 10:31:00 EST, Dosing Weight Start Date: 03/31/22 Status: Ordered Start: 02-28-2022 Propafenone Ac tive 150 MG PO NEEDED February 28, 2022 1:00am Start: 03-25-2021 End: 03-26-2022 propafenone 150 mg oral tabl et See Instructions, PRN atrial fibrillation, Patient to take 4 tablets at onset of atrial fibrillation., # 28 tab(s), 3 Refill(s), Pharmacy: [facility]/pharmacy #[id number], 175.3, cm, 03/25/21 11:13:00 EST, Height, kg, 03/25/21 11:13:00 EST, Dosing Weight Start Date: 03/25/21 Stop Date: 03/26/22 Status: Ordered simvastatin 20 mg oral tablet (19 sources) HMG-CoA Reductase Inhibitor Start: 07-26-2023 simvastatin 20 mg or al tablet Dose : 20 mg = 1 tab(s), Oral, qHS, # 100 tab(s), 3 Refill(s), Pharmacy: [facility]/pharmacy #[id number], 172, cm, 05/31/23 8:56:00 EDT, Height, kg, 05/31/23 8:56:00 EDT, Dosing Weight Start Date: 07/26/23 Status: Ordered Quantity: 100.0 Unit: tab(s) Repeat number: 4 Start: 03-04-2022 take 20 mg by mouth at bedtime Simvastatin Active 20 MG PO AT BEDTIME March 28, 2022 12:00am Start: 02-28-2022 take 20 mg by mouth once daily Simvastatin Active 20 MG PO DAILY February 28, 2022 12:00am Start: 08-25-2021 End: 02-21-2022 simvastatin 20 mg oral table t Dose : 20 mg = 1 tab(s), Oral, qHS, X 90 day(s), # 90 tab(s), 1 Refill(s), 02/21/22 8:56:00 EST, Pharmacy: [facility]/pharmacy #[id number], 175.3, cm, 05/24/21 9:10:00 EST, Height, kg, 05/24/21 9:10:00 EST, Dosing Weight Start Date: 08/25/21 Stop Date: 02/21/22 Status: Ordered Start: 02-25-2021 take 1 tablet by zen th once daily simvastatin 20 mg oral tablet See Instructions, TAKE 1 TABLET BY MOUTH EVERY DAY, # 90 tab(s), 1 Refill(s), Pharmacy: [facility]/pharmacy #[id number], 173.5, cm, 12/29/20 8:33:00 EDT, Height, kg, 12/29/20 8:33:00 EDT, Dosing Weight Start Date: 02/25/21 Status: Ordered 24 hr trospium chloride 60 mg extended release oral capsule (4 sources) Cholinergic Muscarinic Antagonist Start: 09-20-2023 trospium 60 mg oral capsule, extended release Dose : 60 mg = 1 cap(s), Oral, qAM, # 90 cap(s), 2 Refill(s), Pharmacy: [facility], 172, cm, 08/17/23 14:09:00 EDT, Height, kg, 08/17/23 14:09:00 EDT, Dosing Weight Start Date: 09/20/23 Status: Ordered Quantity: 90.0 Unit: cap(s) Repeat number: 3 Start: 07-05-2023 trospium 60 mg oral capsule, extended release Dose : 60 mg = 1 cap(s), Oral, qAM, # 30 cap(s), 11 Refill(s), Pharmacy: [facility]/pharmacy #[id number], 172, cm, 05/31/23 8:56:00 EDT, Height, kg, 05/31/23 8:56:00 EDT, Dosing Weight Start Date: 07/05/23 Status: Ordered turmeric extract 500 mg oral capsule (1 source) Start: 02-19-2022 turmeric 500 m g oral capsule Dose : 500 mg = 1 cap(s), Oral, TID, 0 Refill(s) Start Date: 02/19/22 Status: Ordered Completed/Discontinued Medications Medication Drug Class(es) Dates Sig (Normalized) Sig (Original) acetaminophen 325 mg / oxyCODONE hydrochloride 5 mg oral tablet (7 sources) Opioid Agonist Start: 03-29-2022 End: 06-09-2022 take 1-2 tablets by mouth every four hours as needed for pain Oxycodone-Acetamino phen (Percocet) 5-325 mg tablet Discontinued 1 TABLET PO Q4H 10 March 29, 2022 June 09, 2022 1:27pm 1-2 tabs q 4 hrs as needed for pain oxyCODONE hydrochloride 5 mg oral tablet (7 sources) Opioid Agonist Start: 04-18-2022 End: 05-02-2022 take 1 tablet by mouth every four hours as needed for pain Oxycodone Discontinued 5 MG PO Q4H 60 April 18, 2022 May 02, 2022 12:05am take 1 tab PO q 4 hours prn pain Start: 02-23-2022 End: 02-28-2022 oxyCODONE 5 mg oral tablet ( IMMEDIATE release ) Dose : 5 mg = 1 tab(s), Oral, q6hr, PRN as needed for pain, X 5 day(s), # 18 tab(s), 0 Refill(s), 02/28/22 14:07:00 EST, Pharmacy: [facility]/pharmacy #[id number], Rectal mass S/P exploratory laparotomy, 175.3, cm, 02/19/22 13:58:00 EST, Height, 127.4 Start Date: 02/23/22 Stop Date: 02/28/22 Status: Ordered silver sulfADIAZINE 10 mg/ml topical cream (6 sources) Sulfonamide Antibacterial Start: 05-11-2022 End: 06-09-2022 Silver Sulfadiazine Discontinued 1 APPLIC TOPICAL TWICE A DAY 50 May 11, 2022 12:00am June 09, 2022 1:28pm apply a 1.5 mm thickness to area of peeling sulfamethoxazole 800 mg / trimethoprim 160 mg oral tablet (6 sources) Dihydrofolate Reductase Inhibitor Antibacterial, Sulfonamide Antimicrobial Start: 04-21-2022 End: 04-28-2022 take 1 tablet by mouth twice daily Sulfamethoxazole- Trimethoprim (Bactrim Ds) 800-160 mg tablet Discontinued 1 TABLET PO TWICE A DAY 14 April 21, 2022 12:00am April 28, 2022 12:05am take one tab PO twice daily x 7 days Problems Active Problems Problem Classification Problem Date Documented Da te Episodic/Chronic Abdominal pain (1 source) Abdominal pain; Translations: [Unspecified abdominal pain] Onset: 2 Episodic Administrative/social admission (5 sources) Counseling, unspecified; Translations: [Counseling NOS] 03-30-2022 Episodic Allergic reactions (13 sources) Early radiation dermatitis; Translations: [Acute radiodermatitis] 05-11-2022 Episodic Anal and rectal conditions (20 sources) Anorectal disorder; Translations: [Other specified diseases of anus and rectum] Onset: 2 Episodic Anxiety disorders (12 sources) Anxiety; Translations: [Anxiety disorder] Onset: 2 06-29-2018 Chronic Cancer of breast (1 source) Personal history of malignant neoplasm of breast; Translations: [Personal history of malignant neoplasm of breast] Episodic Cancer of bronchus; lung (1 source) Malignant neoplasm of upper lobe, right bronchus or lung; Translations: [Malignant neoplasm of upper lobe, right bronchus or lung] Onset: 5 Chronic Cancer of cervix (15 sources) High grade squamous intraepithelial lesion on cervical Papanicolaou smear; Translations: [High grade squamous intraepithelial lesion on cytologic smear of cervix (HGSIL)] 03-24-2022 Episodic Cancer of rectum and anus (20 sources) Overlapping malignant neoplasm of rectum, anus and anal canal; Translations: [Malignant neoplasm of overlapping sites of rectum, anus and anal canal] Onset: 5 Chronic Cardiac dysrhythmias (20 sources) Paroxysmal atrial fibrillation; Translations: [Paroxysmal atrial [...] help her atrial fibrillation. Chronic kidney disease (11 sources) Chronic kidney disease stage 3; Translations: [Chronic kidney disease, stage 3 unspecified] 11-01-2019 Chronic Complications of surgical procedures or medical care (1 source) Postoperative complication; Translations: [Other postprocedural complications and disorders of digestive system] Episodic Deficiency and other anemia (11 sources) Anemia; Translations: [Anemia, unspecified] 04-11-2022 Episodic Diseases of white blood cells (9 sources) Leukopenia; Translations: [Decreased white blood cell count, unspecified] Onset: 5 02-23-2023 Chronic Disorders of lipid metabolism (12 sources) Mixed hyperlipidemia; Translations: [Mixed hyperlipidemia] Onset: 2 12-03-2019 Chronic Comment on above: LDL goal is less prabha n 100. Tolerating simvastatin. Checks lab work through PCP. Esophageal disorders (2 sources) Gastroesophageal reflux disease without esophagitis; Translations: [Gastro-esophageal reflux disease without esophagitis] Onset: 2 Chronic Gastrointestinal hemorrhage (14 sources) Rectal hemorrhage; Translations: [Hematochezia] 01-27-2022 Episodic Genitourinary symptoms and ill-defined conditions (6 sources) Dysuria; Translations: [Dysuria] 04-20-2022 Episodic Heart valve disorders (10 sources) Mitral valve prolapse 12-03-2019 Chronic Comment on above: Recent echo showed a normal mitral valve. Hypertension with complications and secondary hypertension (1 source) Chronic kidney disease due to hypertension; Translations: [Hypertensive chronic kidney disease with stage 1 through stage 4 chronic kidney disease, or unspecified chronic kidney disease] Chronic Maintenance chemotherapy; radiotherapy (16 sources) Patient encounter status; Translations: [Encounter for antineoplastic chemotherapy] 04-04-2022 Chronic Nutritional deficiencies (4 sources) Vitamin D deficiency 05-31-2023 Chronic Osteoarthritis (10 sources) Arthritis Onset: 4 08-12-2013 Chronic Other aftercare (15 sources) Patient encounter status; Translations: [Encounter for adjustment and management of vascular access device] 03-30-2022 Episodic Other aftercare (5 sources) Encounter for adjustment and management of vascular access device; Translations: [Fitting and adjustment, other device] Episodic Other connective tissue disease (6 sources) Muscle weakness of upper limb 02-20-2020 Episodic Other diseases of bladder and urethra (5 sources) Overactive bladder 07-13-2022 Chronic Other gastrointestinal disorders (2 sources) Disorder of peritoneum; Translations: [Other specified disorders of peritoneum] Onset: 2 Episodic Other gastrointestinal disorders (2 sources) Diarrhea; Translations: [Diarrhea, unspecified] 11-23-2022 Episodic Other inflammatory condition of skin (10 sources) Rosacea 04-04-2019 Chronic Other injuries and conditions due to external causes (1 source) Diving barotrauma; Translations: [Other effects of air pressure and water pressure, initial encounter] Episodic Other lower respiratory disease (6 sources) Dyspnea 12-03-2019 Episodic Other lower respiratory disease (10 sources) Hypoxia 12-03-2019 Episodic Other nutritional; endocrine; and metabolic disorders (1 source) Body mass index 40+ - severely obese; Translations: [Body mass index (BMI) 40.0-44.9, adult] Chronic Other nutritional; endocrine; and metabolic disorders (1 source) Obesity; Translations: [Obesity, unspecified] Chronic Poisoning by other medications and drugs (13 sources) Oral mucositis (ulcerative) due to antineoplastic therapy; Translations: [Mucositis due to antineoplastic therapy] 04-11-2022 Episodic Pulmonary heart disease (10 sources) Pulmonary hypertension 06-25-2019 Chronic Comment on above: History of Pulmonary hypertension Residual codes; unclassified (12 sources) Obstructive sleep apnea syndrome; Translations: [Obstructive sleep apnea (adult) (pediatric)] Onset: 2 12-03-2019 Chronic Comment on above: Recent sleep study s howed 39 apneas, 122 hypopneas, and an AHI of 20.9. She is in the process of getting set up with an AutoPap. Residual codes; unclassified (1 source) Past history of procedure; Translations: [Other specified postprocedural states] Onset: 2 Episodic Residual codes; unclassified (7 sources) History of loop electrosurgical excision procedure; Translations: [Other specified postprocedural states] 04-04-2022 Episodic Residual codes; unclassified (5 sources) H/O: chemotherapy; Translations: [Personal history of antineoplastic chemotherapy] 06-06-2022 Episodic Residual codes; unclassified (15 sources) Personal history of antineoplastic chemotherapy; Translations: [Personal history of antineoplastic chemotherapy] 06-06-2022 Episodic Residual codes; unclassified (7 sources) Other specified postprocedural states; Translations: [Personal history of surgery to other organs] 08-03-2022 Episodic Unclassified (10 sources) Cancer cervix screening status 01-09-2020 Unclassified (20 sources) Patient encounter status 11-01-2019 Unclassified (2 sources) Chemotherapy care 03-04-2022 Comment on above: 9 months Urinary tract infections (6 sources) Urinary tract infectious disease; Translations: [Urinary tract infection, site not specified] 04-21-2022 Episodic Viral infection (13 sources) Human papilloma virus infection; Translations: [Papillomavirus as the cause of diseases classified elsewhere] 03-24-2022 Episodic Past or Other Problems Problem Classification Problem Date Documented Da te Episodic/Chronic Deficiency and other anemia (20 sources) Anemia, unspecified; Translations: [Anemia, unspecified] Onset: 5 04-04-2022 Episodic E Codes: Adverse effects of medical drugs (1 source) Adverse effect of antineoplastic and immunosuppressive drugs, initial encounter; Translations: [Adverse effect of antineoplastic and immunosuppressive drugs, initial encounter] Onset: 5 Episodic Inflammatory diseases of female pelvic organs (1 source) Subacute and chronic vaginitis; Translations: [Subacute and chronic vaginitis] Onset: 4 Episodic Other gastrointestinal disorders (2 sources) Diarrhea, unspecified; Translations: [Diarrhea, unspecified] Onset: 3 Episodic Results Test Name Value Interpretation Reference Range Facility .Auto Diffon 05-18-2024 Basophil, Absolute 0.0 10 3/mcL Normal 0.0-0.2 [facility] Comment on above: Performed By: #### C MP, TSH, CBC, LIPID, ANEU, GFR, MG, ADIFF, PBNP #### [address] [address] Basophils/100 WBC (Bld) 0.6 % Normal 0.0-2.5 [facility] Comment on above: Performed By: #### C MP, TSH, CBC, LIPID, ANEU, GFR, MG, ADIFF, PBNP #### [address] [address] Eosinophil, Absolute 0.1 10 3/mcL Normal 0.0-0.7 [facility] Comment on above: Performed By: #### C MP, TSH, CBC, LIPID, ANEU, GFR, MG, ADIFF, PBNP #### [address] [address] Eosinophils/100 WBC (Bld) 1.8 % Normal 0.0-7.0 [facility] Comment on above: Performed By: #### C MP, TSH, CBC, LIPID, ANEU, GFR, MG, ADIFF, PBNP #### [address] [address] Lymphocyte, Absolute 1.1 10 3/mcL Normal 0.9-4.3 [facility] Comment on above: Performed By: #### C MP, TSH, CBC, LIPID, ANEU, GFR, MG, ADIFF, PBNP #### [address] [address] Lymphocytes/100 WBC (Bld) 27.1 % Normal 20.0-40.0 [facility] Comment on above: Performed By: #### C MP, TSH, CBC, LIPID, ANEU, GFR, MG, ADIFF, PBNP #### [address] [address] Monocyte, Absolute 0.3 10 3/mcL Normal 0.1-1.4 [facility] Comment on above: Performed By: #### C MP, TSH, CBC, LIPID, ANEU, GFR, MG, ADIFF, PBNP #### [id number] [place], [place] [address] Monocytes/100 WBC (Bld) 6.9 % Normal 2.0-13.0 [facility] Comment on above: Performed By: #### C MP, TSH, CBC, LIPID, ANEU, GFR, MG, ADIFF, PBNP #### [address] [address] Neutrophils/100 WBC (Bld) 63.6 % Normal 50.0-75.0 [facility] Comment on above: Performed By: #### C MP, TSH, CBC, LIPID, ANEU, GFR, MG, ADIFF, PBNP #### [address] [address] .GFRon 05-18-2024 Estimated Glomerular Filtration Rate 56 ml/min/1.73sqm Normal [facility] Comment on above: Result Comment: Stages of Chronic Kidney Disease (CKD) Stage Description eGFR(ml/min/1.73 sq.m.) CKD 1 Normal kidney function or >=90 normal kindney function with possible kidney damage (ex. Proteinuria) CKD 2 Kidney damage with mild loss 60-89 of kidney function CKD 3a Mild to moderate loss of kidney 45-59 function CKD 3b Moderate to severe loss of 30-44 of kindey function CKD 4 Severe loss of kidney function 15-29 CKD 5 Kidney failure <15 Note: (go live 2024) the eGFR calculation was updated to the 2020 CKD-EPI creatinine equation without a race factor to calculate the eGFR results. Performed By: #### C MP, TSH, CBC, LIPID, ANEU, GFR, MG, ADIFF, PBNP #### [place] [address] .NEUABSon 05-18-2024 Neutrophil, Absolute 2.5 10 3/mcL Normal 2.3-8.1 [facility] Comment on above: Performed By: #### C MP, TSH, CBC, LIPID, ANEU, GFR, MG, ADIFF, PBNP #### [place] [address] CBCon 05-18-2024 Erythrocyte distribution width (RBC) [Ratio] 13.3 % Normal 11.5-15.5 [facility] Comment on above: Performed By: #### C MP, TSH, CBC, LIPID, ANEU, GFR, MG, ADIFF, PBNP #### [place] [address] Hematocrit (Bld) [Volume fraction] 38.4 % Normal 34.0-46.0 [facility] Comment on above: Performed By: #### C MP, TSH, CBC, LIPID, ANEU, GFR, MG, ADIFF, PBNP #### [place] [address] Hgb 12.9 G/dL Normal 12.0-16.0 [facility] Comment on above: Performed By: #### C MP, TSH, CBC, LIPID, ANEU, GFR, MG, ADIFF, PBNP #### [place] [address] MCH (RBC) [Entitic mass] 32.7 pg Normal 27.0-33.0 [facility] Comment on above: Performed By: #### C MP, TSH, CBC, LIPID, ANEU, GFR, MG, ADIFF, PBNP #### [place] [address] MCHC 33.7 G/dL Normal 32.0-36.0 [facility] Comment on above: Performed By: #### C MP, TSH, CBC, LIPID, ANEU, GFR, MG, ADIFF, PBNP #### [address] [address] MCV (RBC) [Entitic vol] 97.2 fL Normal 80.0-99.0 [facility] Comment on above: Performed By: #### C MP, TSH, CBC, LIPID, ANEU, GFR, MG, ADIFF, PBNP #### [address] [address] Platelet 256 10 3/mcL Normal 150-450 [facility] Comment on above: Performed By: #### C MP, TSH, CBC, LIPID, ANEU, GFR, MG, ADIFF, PBNP #### [address] [address] Platelet mean volume (Bld) [Entitic vol] 7.7 fL Normal 6.6-10.5 [facility] Comment on above: Performed By: #### C MP, TSH, CBC, LIPID, ANEU, GFR, MG, ADIFF, PBNP #### [address] [address] RBC 3.96 10 6/mcL Low 4.10-5.30 [facility] Comment on above: Performed By: #### C MP, TSH, CBC, LIPID, ANEU, GFR, MG, ADIFF, PBNP #### [address] [address] WBC 3.9 10 3/mcL Low 4.5-10.8 [facility] Comment on above: Performed By: #### C MP, TSH, CBC, LIPID, ANEU, GFR, MG, ADIFF, PBNP #### [address] [address] CMPon 05-18-2024 Albumin Level 3.2 G/dL Low 3.4-4.8 [facility] Comment on above: Performed By: #### C MP, TSH, CBC, LIPID, ANEU, GFR, MG, ADIFF, PBNP #### [address] [address] Albumin/Globulin [Mass ratio] 0.8 {ratio} Low 1.1-2.5 [facility] Comment on above: Performed By: #### C MP, TSH, CBC, LIPID, ANEU, GFR, MG, ADIFF, PBNP #### [address] [address] ALP [Catalytic activity/Vol] 117 U/L Normal 40-135 [facility] Comment on above: Performed By: #### C MP, TSH, CBC, LIPID, ANEU, GFR, MG, ADIFF, PBNP #### [address] [address] ALT [Catalytic activity/Vol] 28 U/L Normal 14-59 [facility] Comment on above: Performed By: #### C MP, TSH, CBC, LIPID, ANEU, GFR, MG, ADIFF, PBNP #### [place] [address] AST [Catalytic activity/Vol] 20 U/L Normal 10-40 [facility] Comment on above: Performed By: #### C MP, TSH, CBC, LIPID, ANEU, GFR, MG, ADIFF, PBNP #### [address] [address] Bili Total 0.5 mg/dL Normal 0.2-1.0 [facility] Comment on above: Result Comment: Use of this assay is not recommended for patients undergoing treatment with eltrombopag due to the potential for falsely elevated results. Performed By: #### C MP, TSH, CBC, LIPID, ANEU, GFR, MG, ADIFF, PBNP #### [place] [id number] BUN/Creatinine Ratio 20 ratio Normal 7-27 [facility] Comment on above: Performed By: #### C MP, TSH, CBC, LIPID, ANEU, GFR, MG, ADIFF, PBNP #### [address] [address] Calcium [Mass/Vol] 9.3 mg/dL Normal 8.4-10.2 [facility] Comment on above: Performed By: #### C MP, TSH, CBC, LIPID, ANEU, GFR, MG, ADIFF, PBNP #### [address] [address] Chloride [Moles/Vol] 108 mmol/L High 98-107 [facility] Comment on above: Performed By: #### C MP, TSH, CBC, LIPID, ANEU, GFR, MG, ADIFF, PBNP #### [address] [address] CO2 [Moles/Vol] 29 mmol/L Normal 23-31 [facility] Comment on above: Performed By: #### C MP, TSH, CBC, LIPID, ANEU, GFR, MG, ADIFF, PBNP #### [address] [address] Creatinine [Mass/Vol] 1.07 mg/dL High 0.55-1.02 [facility] Comment on above: Result Comment: Test ing performed on Siemens Dimension EXL analyzer using a modified kinetic Florencio technique. Performed By: #### C MP, TSH, CBC, LIPID, ANEU, GFR, MG, ADIFF, PBNP #### [address] [address] Electrolyte Balance 4.0 mEq/L Normal 4.0-15.0 [facility] Comment on above: Performed By: #### C MP, TSH, CBC, LIPID, ANEU, GFR, MG, ADIFF, PBNP #### [address] [address] Globulin 3.8 G/dL Normal 1.5-3.8 [facility] Comment on above: Performed By: #### C MP, TSH, CBC, LIPID, ANEU, GFR, MG, ADIFF, PBNP #### [address] [address] Glucose [Mass/Vol] 102 mg/dL Normal 83-110 [facility] Comment on above: Performed By: #### C MP, TSH, CBC, LIPID, ANEU, GFR, MG, ADIFF, PBNP #### [address] [address] Potassium [Moles/Vol] 4.8 mmol/L Normal 3.5-5.1 [facility] Comment on above: Performed By: #### C MP, TSH, CBC, LIPID, ANEU, GFR, MG, ADIFF, PBNP #### [address] [address] Sodium [Moles/Vol] 141 mmol/L Normal 136-145 [facility] Comment on above: Performed By: #### C MP, TSH, CBC, LIPID, ANEU, GFR, MG, ADIFF, PBNP #### [address] [address] Total Protein 7.0 G/dL Normal 6.4-8.2 [facility] Comment on above: Performed By: #### C MP, TSH, CBC, LIPID, ANEU, GFR, MG, ADIFF, PBNP #### [address] [address] Urea nitrogen [Mass/Vol] 21 mg/dL High 7-18 [facility] Comment on above: Performed By: #### C MP, TSH, CBC, LIPID, ANEU, GFR, MG, ADIFF, PBNP #### [address] [address] LABORATORYOrdered By: SYSTEM SYSTEM on 05-18-2024 25-hydroxyvitamin D3 [Mass/Vol] 17.9 ng/mL Invalid Interpretation Code AO ADM SS Comment on above: Interpretive Data: I nterpretive Values Based on Total 25(OH) Vitamin D: Deficient <20 ng/mL Insufficient 20 - <30 ng/mL Sufficient 30-100 ng/mL Albumin BCP dye [Mass/Vol] 3.2 G/dL Low 3.4 - 4.8 G/dL AO ADM SS Albumin/Globulin [Mass ratio] 0.8 {ratio} Low 1.1 - 2.5 ratio AO ADM SS ALP [Catalytic activity/Vol] 117 U/L Normal 40 - 135 U/L AO ADM SS ALT With P-5'-P [Catalytic activity/Vol] 28 U/L Normal 14 - 59 U/L AO ADM SS AST With P-5'-P [Catalytic activity/Vol] 20 U/L Normal 10 - 40 U/L AO ADM SS Basophils (Bld) [#/Vol] 0.0 103/mcL Normal 0.0 - 0.2 10^3/mcL AO Workflow SS Basophils/100 WBC (Bld) 0.6 % Normal 0.0 - 2.5 % AO Workflow SS Bilirubin [Mass/Vol] 0.5 mg/dL Normal 0.2 - 1 .0 mg/dL AO ADM SS Comment on above: Interpretive Data: U se of this assay is not recommended for patients undergoing treatment with eltrombopag due to the potential for falsely elevated results. Calcium [Mass/Vol] 9.3 mg/dL Normal 8.4 - 10. 2 mg/dL AO ADM SS Chloride [Moles/Vol] 108 mmol/L High 98 - 10 7 mmol/L AO ADM SS CO2 [Moles/Vol] 29 mmol/L Normal 23 - 31 mmol/L AO ADM SS Creatinine [Mass/Vol] 1.07 mg/dL High 0.55 - 1.02 mg/dL AO ADM SS Comment on above: Interpretive Data: T esting performed on Siemens Dimension EXL analyzer using a modified kinetic Florencio technique. Electrolyte Balance 4.0 mEq/L Normal 4.0 - 15 .0 mEq/L AO ADM SS Eosinophil, Absolute 0.1 103/mcL Normal 0.0 - 0 .7 10^3/mcL AO Workflow SS Eosinophils/100 WBC (Bld) 1.8 % Normal 0.0 - 7.0 % AO Workflow SS Erythrocyte distribution width (RBC) [Ratio] 13.3 % Normal 11.5 - 15.5 % AO Workflow SS Estimated Glomerular Filtration Rate 56 ml/min/1.73sqm Invalid Interpretation Code AO Chemistry S Comment on above: Interpretive Data: Stages of Chronic Kidney Disease (CKD) Stage Description eGFR(ml/min/1.73 sq.m.) CKD 1 Normal kidney function or >=90 normal kindney function with possible kidney damage (ex. Proteinuria) CKD 2 Kidney damage with mild loss 60-89 of kidney function CKD 3a Mild to moderate loss of kidney 45-59 function CKD 3b Moderate to severe loss of 30-44 of kindey function CKD 4 Severe loss of kidney function 15-29 CKD 5 Kidney failure <15 Note: (go live 2024) the eGFR calculation was updated to the 2020 CKD-EPI creatinine equation without a race factor to calculate the eGFR results. Globulin 3.8 G/dL Normal 1.5 - 3.8 G/dL AO ADM SS Glucose [Mass/Vol] 102 mg/dL Normal 83 - 110 mg/dL AO ADM SS Hematocrit (Bld) [Volume fraction] 38.4 % Normal 34.0 - 46.0 % AO Workflow SS Hemoglobin (Bld) [Mass/Vol] 12.9 G/dL Normal 12.0 - 16.0 G/dL AO Workflow SS Lymphocytes (Bld) [#/Vol] 1.1 103/mcL Normal 0.9 - 4.3 10^3/mcL AO Workflow SS Lymphocytes/100 WBC (Bld) 27.1 % Normal 20.0 - 40.0 % AO Workflow SS Magnesium [Mass/Vol] 1.9 mg/dL Normal 1.8 - 2 .4 mg/dL AO ADM SS MCH (RBC) [Entitic mass] 32.7 pg Normal 27.0 - 33.0 pg AO Workflow SS MCHC 33.7 G/dL Normal 32.0 - 36.0 G/dL AO Workflow SS MCV (RBC) [Entitic vol] 97.2 fL Normal 80.0 - 99.0 fL AO Workflow SS Monocytes (Bld) [#/Vol] 0.3 103/mcL Normal 0.1 - 1.4 10^3/mcL AO Workflow SS Monocytes/100 WBC (Bld) 6.9 % Normal 2.0 - 13.0 % AO Workflow SS Natriuretic peptide.B prohormone N-Terminal [Mass/Vol] 113 pg/mL Normal 0 - 125 pg/mL AO ADM SS Comment on above: Interpretive Data: N T-proBNP results of less than 300 pg/mL effectively rules out acute congestive heart failure with 99% negative predictive value. Neutrophils (Bld) [#/Vol] 2.5 103/mcL Normal 2.3 - 8.1 10^3/mcL AO Workflow SS Neutrophils/100 WBC (Bld) 63.6 % Normal 50.0 - 75.0 % AO Workflow SS Platelet mean volume (Bld) [Entitic vol] 7.7 fL Normal 6.6 - 10.5 fL AO Workflow SS Platelets (Bld) [#/Vol] 256 103/mcL Normal 150 - 450 10^3/mcL AO Workflow SS Potassium [Moles/Vol] 4.8 mmol/L Normal 3.5 - 5.1 mmol/L AO ADM SS Protein [Mass/Vol] 7.0 G/dL Normal 6.4 - 8.2 G/dL AO ADM SS RBC (Bld) [#/Vol] 3.96 106/mcL Low 4.10 - 5.3 0 10^6/mcL AO Workflow SS Sodium [Moles/Vol] 141 mmol/L Normal 136 - 145 mmol/L AO ADM SS TSH Qn 2.84 m[IU]/L Normal 0.36 - 3.74 mcIU/mL AO ADM SS Urea nitrogen [Mass/Vol] 21 mg/dL High 7 - 18 mg/dL AO ADM SS Urea nitrogen/Creatinine [Mass ratio] 20 ratio Normal 7 - 27 ratio AO ADM SS WBC (Bld) [#/Vol] 3.9 103/mcL Low 4.5 - 10.8 10^3/mcL AO Workflow SS LABORATORYOrdered By: Shayna Sierra on 05-18-2024 Cholesterol [Mass/Vol] 192 mg/dL Normal 0 - 2 00 mg/dL AO ADM SS Comment on above: Interpretive Data: C holesterol Reference Interval: Less than 200 Desirable 200-239 Borderline high risk 240 and above High risk Cholesterol in HDL [Mass/Vol] 78 mg/dL High 40 - 60 mg/dL AO ADM SS Cholesterol in LDL [Mass/Vol] 90 mg/dL Normal 0 - 130 mg/dL AO ADM SS Triglyceride [Mass/Vol] 118 mg/dL Normal 0 - 150 mg/dL AO ADM SS Comment on above: Interpretive Data: T riglyceride Reference Interval: Less than 150 Normal 150-199 Borderline high risk 200-499 High risk 500 or higher Very high risk LIPIDon 05-18-2024 Cholesterol [Mass/Vol] 192 mg/dL Normal 0-200 [facility] Comment on above: Result Comment: Chol esterol Reference Interval: Less than 200 Desirable 200-239 Borderline high risk 240 and above High risk Performed By: #### C MP, TSH, CBC, LIPID, ANEU, GFR, MG, ADIFF, PBNP #### [facility] [address] [place], [place] [address] Cholesterol in HDL [Mass/Vol] 78 mg/dL High 40-60 [facility] Comment on above: Performed By: #### C MP, TSH, CBC, LIPID, ANEU, GFR, MG, ADIFF, PBNP #### [address] [address] Cholesterol in LDL [Mass/Vol] 90 mg/dL Normal 0-130 [facility] Comment on above: Performed By: #### C MP, TSH, CBC, LIPID, ANEU, GFR, MG, ADIFF, PBNP #### [place] [address] Triglyceride [Mass/Vol] 118 mg/dL Normal 0-150 [facility] Comment on above: Result Comment: Trig lyceride Reference Interval: Less than 150 Normal 150-199 Borderline high risk 200-499 High risk 500 or higher Very high risk Performed By: #### C MP, TSH, CBC, LIPID, ANEU, GFR, MG, ADIFF, PBNP #### [place] [address] MGon 05-18-2024 Magnesium [Mass/Vol] 1.9 mg/dL Normal 1.8-2.4 [facility] Comment on above: Performed By: #### C MP, TSH, CBC, LIPID, ANEU, GFR, MG, ADIFF, PBNP #### [place] [address] PBNPon 05-18-2024 Natriuretic peptide B (Bld) [Mass/Vol] 113 pg/mL Normal 0-125 [facility] Comment on above: Result Comment: NT-p roBNP results of less than 300 pg/mL effectively rules out acute congestive heart failure with 99% negative predictive value. Performed By: #### C MP, TSH, CBC, LIPID, ANEU, GFR, MG, ADIFF, PBNP #### [place] [address] TSHon 05-18-2024 TSH Qn 2.84 m[IU]/L Normal 0.36-3.74 [facility] Comment on above: Performed By: #### C MP, TSH, CBC, LIPID, ANEU, GFR, MG, ADIFF, PBNP #### [place] [address] VIDHon 05-18-2024 Vit. D 25-Hydroxy 17.9 ng/mL Normal [facility] Comment on above: Result Comment: Inte rpretive Values Based on Total 25(OH) Vitamin D: Deficient <20 ng/mL Insufficient 20 - <30 ng/mL Sufficient 30-100 ng/mL Performed By: #### [facility] #### [facility] [address] [place], [place] [address] Radiation Oncology Visiton 0 04-18-2024 Radiation Oncology Visit [facility] [address] [place] [address] OFFICE VISIT Date of Service: 04/18/24 1525 MR#: [id number] Acct: [id number] Name: ADRYAN PIMENTEL Rep #: [id number] : 1955 From: Oliverio Scott DO Age/Sex: 69/F Location: [facility] Status: Signed Intake Vital Signs 10/16/23 15:41 02/27/24 16:03 04/18/24 15:26 Height 5 ft 9 in 5 ft 9 in 5 ft 9 in Weight: 283 lb BMI 41.8 BP 101/67 Blood Pressure Location Rt brachial Position Sitting Respiration 18 Pulse 77 Pulse Source Monitor Temp 97.1 F L Temperature Source Temporal Artery Pulse Oximetry (%) 96 Oxygen Delivery Method room air Intake Visit Reasons: 6 MONTH RECTAL Is patient in pain?: No Allergies meperidine (From Demerol) Allergy (Verified 04/18/24 15:29) Unknown oxaprozin Allergy (Verified 04/18/24 15:29) Unknown Medications ???Medication ???Instructions ???Recorded ???Confirmed ???Type alprazolam 0.25 mg tablet (Xanax) 0.25 mg PO PRN PRN Anxiety 04/18/24 History diltiazem HCl 120 mg 120 mg PO DAILY 02/28/22 04/18/24 History capsule,extended release 12 hr metoprolol succinate 25 mg 25 mg PO DAILY 02/28/22 04/18/24 H istory tablet,extended release 24 hr omeprazole 20 mg capsule,delayed 20 mg PO DAILY 02/28/22 04/18/24 H istory release wzlrhtqf-dcsspoa-titv-lut ein tablet 1 tab PO DAILY 03/28/22 5 History simvastatin 20 mg tablet 20 mg PO QHS 03/28/22 04/18/24 His tory aspirin 325 mg capsule 325 mg PO Q3D 09/27/22 04/18/24 Hi story trospium 20 mg tablet 20 mg PO DAILY 08/29/23 04/18/24 H istory mecobalamin (vitamin B12) 2,500 2,500 mcg PO DAILY 12/04/23 History mcg chewable tablet cholecalciferol (vitamin D3) 250 250 mcg PO QWEEK 01/09/24 04/18/24 History mcg (10,000 unit) capsule oxycodone-acetaminophen 5 mg-325 1 tab PO Q4H PRN pain 3 days #5 04/18/24 Rx mg tablet (Percocet) tabs loperamide 2 mg capsule 2 mg PO Q4H PRN loose stool #30 04/18/24 Rx caps Have you fallen in the past year?: No PFSH PFSH Medical History (Updated 04/18/24 @ 15:30 by Alberta Beltran) Vengeas's disease Preoperative exam for gynecologic surgery PONV (postoperative nausea and vomiting) Encounter for education Wears glasses Post-menopausal Cancer Anxiety Back pain History of diverticulosis Gastric reflux Non-smoker CPAP (continuous positive airway pressure) dependence History of edema History of echocardiogram History of stress test Hypertension Cardiology follow-up encounter High cholesterol Arthritis HPV (human papilloma virus) infection HGSIL (high grade squamous intraepithelial lesion) on Pap smear of cervix Afib Home Medications ???Medication ???Instructions ???Recorded ???Last Taken ???Type alprazolam 0.25 mg tablet (Xanax) 0.25 mg PO PRN PRN Anxiety Unknown History diltiazem HCl 120 mg 120 mg PO DAILY 02/28/22 01/09/24 06:00 History capsule,extended release 12 hr metoprolol succinate 25 mg 25 mg PO DAILY 02/28/22 01/09/24 0 6:00 History tablet,extended release 24 hr omeprazole 20 mg capsule,delayed 20 mg PO DAILY 02/28/22 01/09/24 0 6:00 History release nxiqrnpo-aiaftpa-tglo-lut ein tablet 1 tab PO DAILY 03/28/22 3 History simvastatin 20 mg tablet 20 mg PO QHS 03/28/22 Unknown Hist ory aspirin 325 mg capsule 325 mg PO Q3D 09/27/22 01/08/24 Hi story trospium 20 mg tablet 20 mg PO DAILY 08/29/23 01/09/24 0 6:00 History mecobalamin (vitamin B12) 2,500 2,500 mcg PO DAILY 12/04/23 Unknow n History mcg chewable tablet cholecalciferol (vitamin D3) 250 250 mcg PO QWEEK 01/09/24 01/05/24 History mcg (10,000 unit) capsule oxycodone-acetaminophen 5 mg-325 1 tab PO Q4H PRN pain 3 days #5 Unknown Rx mg tablet (Percocet) tabs loperamide 2 mg capsule 2 mg PO Q4H PRN loose stool #30 Unknown Rx caps Allergy/AdvReac Type Severity Reaction Status Date / Time meperidine (From Demerol) Allergy Unknown Verified 04/18/24 15:29 oxaprozin Allergy Unknown Verified 04/18/24 15:29 Family History Father Myocardial infarction Mother COPD (chronic obstructive pulmonary disease) Other Colon cancer Surgical History Status post colposcopy ( 10/04/22) H/O LEEP Hx of colonoscopy History of laparoscopy H/O section Hx of mastectomy Social History Smoking Status: Never smoker alcohol intake: current details: social substance use type: does not use caffeine: Yes seatbelt use: always do you feel safe at home: Yes additional socia (more content not included)... Normal [facility] Carcinoembryonic Antigenon 1 05-01-2023 CEA 1.3 ng/mL Normal 0.0-4.7 [facility] Comment on above: Result Comment: Nons mokers <3.9 Smokers <5.6 [employer] Electrochemiluminescence Immunoassay (ECLIA) Values obtained with different assay methods or kits cannot be used interchangeably. Results cannot be interpreted as absolute evidence of the presence or absence of malignant disease. Performed at: [address] [id number] Insurance Loss Assessor: Jamie Gonzalez PhD, Phone: [phone] Performed By: #### L 3100.2300, L504.2610, L506.0250, L503.6550, L503.6030, L503.0105, L500.4050, L100.0100 ####[facility] [address] [place], [address] CBC W/Diff, Automatedon 12 0-2023 Absolute Lymph 1.22 X10 3/uL Normal 0.83-4.51 [facility] Comment on above: Performed By: #### L 3100.2300, L504.2610, L506.0250, L503.6550, L503.6030, L503.0105, L500.4050, L100.0100 ####[facility] [address] [place], [address] Absolute Neut 2.8 X10 3/uL Normal 2.0-7.7 [facility] Comment on above: Performed By: #### L 3100.2300, L504.2610, L506.0250, L503.6550, L503.6030, L503.0105, L500.4050, L100.0100 ####[facility] [address] [place], [address] Basophils/100 WBC (Bld) 0.7 % Normal 0-1 [facility] Comment on above: Performed By: #### L 3100.2300, L504.2610, L506.0250, L503.6550, L503.6030, L503.0105, L500.4050, L100.0100 ####[facility] [address] [place], [address]([phone] Eosinophils/100 WBC (Bld) 1.7 % Normal 0-5 [facility] Comment on above: Performed By: #### L 3100.2300, L504.2610, L506.0250, L503.6550, L503.6030, L503.0105, L500.4050, L100.0100 ####[facility] [address] [place], [phone]) Erythrocyte distribution width (RBC) [Ratio] 12.6 % Normal 11.6-14.6 [facility] Comment on above: Performed By: #### L 3100.2300, L504.2610, L506.0250, L503.6550, L503.6030, L503.0105, L500.4050, L100.0100 ####[facility] [address] [place], [address](000) Hematocrit (Bld) [Volume fraction] 37.5 % Normal 37-47 [facility] Comment on above: Performed By: #### L 3100.2300, L504.2610, L506.0250, L503.6550, L503.6030, L503.0105, L500.4050, L100.0100 ####[facility] [address] [place], [phone]) Hemoglobin (Bld) [Mass/Vol] 12.1 g/dL Normal 12.0-15.0 [facility] Comment on above: Performed By: #### L 3100.2300, L504.2610, L506.0250, L503.6550, L503.6030, L503.0105, L500.4050, L100.0100 ####[facility] [address] [place], [address] IG% 0.400 Normal 0.0-0.9 [facility] Comment on above: Result Comment: IG% - Immature Granulocytes (promyelocytes, myelocytes and metamyelocytes) > 1% indicates that a LEFT SHIFT is Present. Performed By: #### L 3100.2300, L504.2610, L506.0250, L503.6550, L503.6030, L503.0105, L500.4050, L100.0100 ####[facility] [address] [place], [address] Lymphocytes/100 WBC (Bld) 26.6 % Normal 19-41 [facility] Comment on above: Performed By: #### L 3100.2300, L504.2610, L506.0250, L503.6550, L503.6030, L503.0105, L500.4050, L100.0100 ####[facility] [address] [place], [address] MCH (RBC) [Entitic mass] 32.7 pg High 27.0-32.0 [facility] Comment on above: Performed By: #### L 3100.2300, L504.2610, L506.0250, L503.6550, L503.6030, L503.0105, L500.4050, L100.0100 ####[facility] [address], [address] MCHC (RBC) [Mass/Vol] 32.3 g/dL Normal 32-36 [facility] Comment on above: Performed By: #### L 3100.2300, L504.2610, L506.0250, L503.6550, L503.6030, L503.0105, L500.4050, L100.0100 ####[facility] [address] [place], [address] MCV (RBC) [Entitic vol] 101.4 fL High 81-99 [facility] Comment on above: Performed By: #### L 3100.2300, L504.2610, L506.0250, L503.6550, L503.6030, L503.0105, L500.4050, L100.0100 ####[facility] [address] [place], [address] Monocytes/100 WBC (Bld) 9.4 % Normal 0-10 [facility] Comment on above: Performed By: #### L 3100.2300, L504.2610, L506.0250, L503.6550, L503.6030, L503.0105, L500.4050, L100.0100 ####[facility] [address] [place], [address] Neutrophils/100 WBC (Bld) 61.2 % Normal 47-70 [facility] Comment on above: Performed By: #### L 3100.2300, L504.2610, L506.0250, L503.6550, L503.6030, L503.0105, L500.4050, L100.0100 ####[facility] [address] [place], [address] Nucleated RBC (Bld) [#/Vol] 0 10*3/uL Normal 0-5 [facility] Comment on above: Performed By: #### L 3100.2300, L504.2610, L506.0250, L503.6550, L503.6030, L503.0105, L500.4050, L100.0100 ####[facility] [address] [place], [address] Platelet mean volume (Bld) [Entitic vol] 9.4 fL Normal 6.2-12.0 [facility] Comment on above: Performed By: #### L 3100.2300, L504.2610, L506.0250, L503.6550, L503.6030, L503.0105, L500.4050, L100.0100 ####[facility] [address] [place], [address] Platelets (Bld) [#/Vol] 249 10*3/uL Normal 150-450 [facility] Comment on above: Performed By: #### L 3100.2300, L504.2610, L506.0250, L503.6550, L503.6030, L503.0105, L500.4050, L100.0100 ####[facility] [address] [place], [address] RBC (Bld) [#/Vol] 3.70 10*6/uL Low 4.2-5.4 [facility] Comment on above: Performed By: #### L 3100.2300, L504.2610, L506.0250, L503.6550, L503.6030, L503.0105, L500.4050, L100.0100 ####[facility] [address] [place], [address] RDW SD 47.5 fl High 35.1-43.9 [facility] Comment on above: Performed By: #### L 3100.2300, L504.2610, L506.0250, L503.6550, L503.6030, L503.0105, L500.4050, L100.0100 ####[facility] [address] [place], [address] WBC (Bld) [#/Vol] 4.6 10*3/uL Normal 4.4-11.0 [facility] Comment on above: Performed By: #### L 3100.2300, L504.2610, L506.0250, L503.6550, L503.6030, L503.0105, L500.4050, L100.0100 ####[facility] [address] [place], [address] Comprehensive Metabolic Prof ilon 02-27-2024 Albumin [Mass/Vol] 3.1 g/dL Low 3.2-5.0 [facility] Comment on above: Order Comment: UNKNO WN1N Performed By: #### L 3100.2300, L504.2610, L506.0250, L503.6550, L503.6030, L503.0105, L500.4050, L100.0100 ####[facility] [address] [place], [address] Albumin/Globulin [Mass ratio] 0.8 {ratio} Low 0.9-2.4 [facility] Comment on above: Order Comment: UNKNO WN1N Performed By: #### L 3100.2300, L504.2610, L506.0250, L503.6550, L503.6030, L503.0105, L500.4050, L100.0100 ####[facility] [address] [place], [address] ALK P 115 U/L Normal 45-117 [facility] Comment on above: Order Comment: UNKNO WN1N Performed By: #### L 3100.2300, L504.2610, L506.0250, L503.6550, L503.6030, L503.0105, L500.4050, L100.0100 ####[facility] [address] [place], [address] ALT [Catalytic activity/Vol] 24 U/L Normal 13-56 [facility] Comment on above: Order Comment: UNKNO WN1N Performed By: #### L 3100.2300, L504.2610, L506.0250, L503.6550, L503.6030, L503.0105, L500.4050, L100.0100 ####[facility] [address] [place], [address] AST [Catalytic activity/Vol] 23 U/L Normal 15-37 [facility] Comment on above: Order Comment: UNKNO WN1N Performed By: #### L 3100.2300, L504.2610, L506.0250, L503.6550, L503.6030, L503.0105, L500.4050, L100.0100 ####[facility] [address] [place], [address] Bilirubin [Mass/Vol] 0.40 mg/dL Normal 0.20-1.00 [facility] Comment on above: Order Comment: UNKNO WN1N Result Comment: For patients on eltrombopag therapy, use of Dimension [place] TBIL is not recommended. Performed By: #### L 3100.2300, L504.2610, L506.0250, L503.6550, L503.6030, L503.0105, L500.4050, L100.0100 ####[facility] [address] [place], [address] BUN/CRE 17.5 RATIO Normal 10-20 [facility] Comment on above: Order Comment: UNKNO WN1N Performed By: #### L 3100.2300, L504.2610, L506.0250, L503.6550, L503.6030, L503.0105, L500.4050, L100.0100 ####[facility] [address] [place], [address] CA,Total 9.0 mg/dL Normal 8.5-10.1 [facility] Comment on above: Order Comment: UNKNO WN1N Performed By: #### L 3100.2300, L504.2610, L506.0250, L503.6550, L503.6030, L503.0105, L500.4050, L100.0100 ####[facility] [address] [place], [address] Chloride [Moles/Vol] 112 mmol/L High 98-107 [facility] Comment on above: Order Comment: UNKNO WN1N Performed By: #### L 3100.2300, L504.2610, L506.0250, L503.6550, L503.6030, L503.0105, L500.4050, L100.0100 ####[facility] [address] [place], [address] CO2 [Moles/Vol] 27.0 mmol/L Normal 21.0-32.0 [facility] Comment on above: Order Comment: UNKNO WN1N Performed By: #### L 3100.2300, L504.2610, L506.0250, L503.6550, L503.6030, L503.0105, L500.4050, L100.0100 ####[facility] [address] [place], [place], [phone](493) Creatinine [Mass/Vol] 1.03 mg/dL High 0.55-1.02 [facility] Comment on above: Order Comment: UNKNO WN1N Result Comment: The validity of the calculated GFR GFRAA in patients over 70 years has not been determined. Clinical correlation is essential. Performed By: #### L 3100.2300, L504.2610, L506.0250, L503.6550, L503.6030, L503.0105, L500.4050, L100.0100 ####[facility] [address] [place], [place], [phone]) ECRCL 71.16 ml/min Normal [facility] Comment on above: Order Comment: UNKNO WN1N Performed By: #### L 3100.2300, L504.2610, L506.0250, L503.6550, L503.6030, L503.0105, L500.4050, L100.0100 ####[facility] [address] [place], [address] EST GFR - AA 68 mL/min Normal >60 [facility] Comment on above: Order Comment: UNKNO WN1N Result Comment: Afri can Nigerien GFR Calc Performed By: #### L 3100.2300, L504.2610, L506.0250, L503.6550, L503.6030, L503.0105, L500.4050, L100.0100 ####[facility] [address] [place], [address] GAP 2 Low 5-15 [facility] Comment on above: Order Comment: UNKNO WN1N Performed By: #### L 3100.2300, L504.2610, L506.0250, L503.6550, L503.6030, L503.0105, L500.4050, L100.0100 ####[facility] [address] [place], [address] GFR/1.73 sq M.predicted among non-blacks MDRD (S/P/Bld) [Vol rate/Area] 56 mL/min/{1.73_m2} Low >60 [facility] Comment on above: Order Comment: UNKNO WN1N Result Comment: Non- GFR Calc Performed By: #### L 3100.2300, L504.2610, L506.0250, L503.6550, L503.6030, L503.0105, L500.4050, L100.0100 ####[facility] [address] [place], [address] Globulin (S) [Mass/Vol] 4.1 g/dL Normal 2.2-4.2 [facility] Comment on above: Order Comment: UNKNO WN1N Performed By: #### L 3100.2300, L504.2610, L506.0250, L503.6550, L503.6030, L503.0105, L500.4050, L100.0100 ####[facility] [address] [place], [address] Glucose [Mass/Vol] 120 mg/dL High 74-106 [facility] Comment on above: Order Comment: UNKNO WN1N Result Comment: Fast ing Glucose result from 100 to 125 mg/dL suggests IMPAIRED HOMEOSTASIS per A.D.A. criteria. Performed By: #### L 3100.2300, L504.2610, L506.0250, L503.6550, L503.6030, L503.0105, L500.4050, L100.0100 ####[facility] [address] [place], [address] Potassium [Moles/Vol] 4.8 mmol/L Normal 3.5-5.1 [facility] Comment on above: Order Comment: UNKNO WN1N Performed By: #### L 3100.2300, L504.2610, L506.0250, L503.6550, L503.6030, L503.0105, L500.4050, L100.0100 ####[facility] [address] [place], [address] Sodium [Moles/Vol] 142 mmol/L Normal 136-145 [facility] Comment on above: Order Comment: UNKNO WN1N Performed By: #### L 3100.2300, L504.2610, L506.0250, L503.6550, L503.6030, L503.0105, L500.4050, L100.0100 ####[facility] [address] [place], [address] T PROT 7.2 g/dL Normal 6.4-8.2 [facility] Comment on above: Order Comment: UNKNO WN1N Performed By: #### L 3100.2300, L504.2610, L506.0250, L503.6550, L503.6030, L503.0105, L500.4050, L100.0100 ####[facility] [address] [place], [address] Urea nitrogen [Mass/Vol] 18 mg/dL Normal 7-18 [facility] Comment on above: Order Comment: UNKNO WN1N Performed By: #### L 3100.2300, L504.2610, L506.0250, L503.6550, L503.6030, L503.0105, L500.4050, L100.0100 ####[facility] [address] [place], [address] Ferritinon 02-27-2024 Ferritin [Mass/Vol] 67 ng/mL Normal 8-252 [facility] Comment on above: Order Comment: UNKNO WN1N Performed By: #### L 3100.2300, L504.2610, L506.0250, L503.6550, L503.6030, L503.0105, L500.4050, L100.0100 ####[facility] [address] [place], [place], [phone]) Folates, (Folic Acid)on 02-17 FOLATES 30.70 ng/mL Normal 3.1-55.4 [facility] Comment on above: Order Comment: UNKNO WN1N Performed By: #### L 3100.2300, L504.2610, L506.0250, L503.6550, L503.6030, L503.0105, L500.4050, L100.0100 ####[facility] [address] [place], [address] Iron+Iron Binding Capacityon 02-27-2024 Iron [Mass/Vol] 56 ug/dL Normal 50-170 [facility] Comment on above: Order Comment: UNKNO WN1N Performed By: #### L 3100.2300, L504.2610, L506.0250, L503.6550, L503.6030, L503.0105, L500.4050, L100.0100 ####[facility] [address] [place], [address] IRON SATURATION 16.3 Normal 15.0-55.0 [facility] Comment on above: Order Comment: UNKNO WN1N Performed By: #### L 3100.2300, L504.2610, L506.0250, L503.6550, L503.6030, L503.0105, L500.4050, L100.0100 ####[facility] [address] [place], [address] TIBC 343 ug/dL Normal 250-450 [facility] Comment on above: Order Comment: UNKNO WN1N Performed By: #### L 3100.2300, L504.2610, L506.0250, L503.6550, L503.6030, L503.0105, L500.4050, L100.0100 ####[facility] [address] [place], [address] LDHon 02-27-2024 LDH 204 U/L Normal 84-246 [facility] Comment on above: Order Comment: UNKNO WN1N Performed By: #### L 3100.2300, L504.2610, L506.0250, L503.6550, L503.6030, L503.0105, L500.4050, L100.0100 ####[facility] [address] [place], [address] Oncology Visit Reporton 02-17 Oncology Visit Report [facility] [address] [place] [address] OFFICE VISIT Date of Service: 02/27/24 1601 MR#: [id number] Acct: [id number] Name: ADRYAN PIMENTEL Rep #: [id number] : 1955 From: Navneet Jackson MD Age/Sex: 69/F Location: [facility] [place] Status: Signed HPI Subjective Date of Service 02/27/24 Chief Complaint F/u for anorectal cancer. History of Present Illness 69-year-old woman presented with rectal bleeding, colonoscopy on 02/18/2022 which showed a small polyp in the cecum, left colon diverticulosis, mass within the hemorrhoid in the lower rectum. 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 She had abdominal pain, went to [facility]. She had a CT scan 02/19/2022 which showed pneumoperitoneum consistent with perforation. She underwent laparotomy with sigmoidoscopy on 02/19/2022 followed by a wound VAC. Sigmoidoscopy showed rectal mass along the rectovaginal septum abutting on the dentate line. 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 PET/CT 03/09/2022 demonstrated hypermetabolic activity in the rectum???rectal vault measuring 46.8 mm, SUV 11.6, left inguinal and right perirectal soft tissue measuring 16.4 mm, SUV 5.4, and uptake in the fifth lumbar vertebrae SUV 2.4 (this does not fulfill quantitative criteria for neoplasm). MRI pelvis 03/18/2022 shows low rectal neoplasm with involvement of internal and external sphincters as well as posterior vaginal wall (T4b), 11 mesorectal, superior rectal, inguinal pathologically enlarged lymph nodes (N2B), and 1 suspicious left common iliac lymph node. Started combined therapy with chemotherapy and Radiation on 04/04/2021. Finished [id number] of Mitomycin and 5FU from 05/02/2022 to 05/06/2022. Finished Radiation on 05/13/2022. Had sigmoidoscopy done by Dr. Sumner on 07/28/2022 which showed a residual mass in the anorectal area. Biopsy showed rectal mucosa with no malignant cells. PET/CT on 08/09/2022. MRI on 08/11/2022 showed no rectal mass with rectal wall thickening. She is on observation. CT c/a/p on 02/20/2023 showed no evidence of disease. She is on observation and comes for follow up. Feels well. [facility] Medical History Preoperative exam for gynecologic surgery PONV (postoperative nausea and vomiting) Encounter for education Wears glasses Post-menopausal Cancer Anxiety Back pain History of diverticulosis Gastric reflux Non-smoker CPAP (continuous positive airway pressure) dependence History of edema History of echocardiogram History of stress test Hypertension Cardiology follow-up encounter High cholesterol Arthritis HPV (human papilloma virus) infection HGSIL (high grade squamous intraepithelial lesion) on Pap smear of cervix Afib Surgical History Status post colposcopy ( 10/04/22) H/O LEEP Hx of colonoscopy History of laparoscopy H/O section Hx of mastectomy Family History Father Myocardial infarction Mother COPD (chronic obstructive pulmonary disease) Other Colon cancer Social History Smoking Status: Never smoker alcohol intake: current details: social substance use type: does not use caffeine: Yes seatbelt use: always do you feel safe at home: Yes additional social history: retired- Intake Vital Signs 12/05/23 10:57 02/27/24 16:03 Height 5 ft 9 in 5 ft 9 in Weight: 125.645 kg BMI 40.8 BP 121/74 H Blood Pressure Location Rt brachial Position Sitting Respiration 18 Pulse 76 Pulse Source Monitor Temp 98.4 F Temperature Source Temporal Artery Pulse Oximetry (%) 98 Oxygen Delivery Method room air Intake Is patient in pain?: Yes (knee) Pain scale (1-10): 5 Allergies meperidine (From Demerol) Allergy (Verified 02/27/24 16:07) Unknown oxaprozin Allergy (Verified 02/27/24 16:07) Unknown Medications ???Medication ???Instructions ???Recorded ???Confirmed ???Type alprazolam 0.25 mg tablet (Xanax) 0.25 mg PO PRN PRN Anxiety 02/28/22 02/27/24 History diltiazem HCl 120 mg 120 mg PO DAILY 02/28/22 02/27/24 History capsule,extended release 12 hr metoprolol succinate 25 mg 25 mg PO DAILY 02/28/22 02/27/24 History tablet,extended release 24 hr omeprazole 20 mg capsule,delayed 20 mg PO DAILY 02/28/22 02/27/24 History release rlquanrm-zpnaqwg-carw-lut ein tablet 1 tab PO DAILY 03/28/22 02/27/24 History simvastatin 20 mg tablet 20 mg PO QHS 03/28/22 02/27/24 History aspirin 325 mg capsule 325 (more content not included)... Normal [facility] Vitamin B12on 02-27-2024 Cobalamin (Vitamin B12) [Mass/Vol] 852 pg/mL Normal 211-911 [facility] Comment on above: Performed By: #### L 3100.2300, L504.2610, L506.0250, L503.6550, L503.6030, L503.0105, L500.4050, L100.0100 ####[facility] [id number] [place], [address] Abdomen/Pelvis WITH Contrast on 02-22-2024 Abdomen/Pelvis WITH Contrast [facility] [address] [place] [address] Abdomen/Pelvis WITH Contrast MR#: [id number] Acct: [id number] Name: ADRYAN PIMENTEL Rep #: [id number] : 1955 F 69 From: Yajaira ramos MD PCP: Lisa Jordan COMPTOMETER OPERATOR-C Status: REG CLI Study: Abdomen/Pelvis WITH Contrast Date of Exam: 08/10 Exam# [id number] Ordering Dr: Navneet Jackson MD [id number] HISTORY: RECTAL CA MONITOR-. TECHNIQUE: Helically acquired images were obtained of the abdomen and pelvis after the intravenous administration of 100 mL Isovue-300. A radiation dose optimization technique was used for this scan. 486 images. COMPARISON: 02/20/2023. FINDINGS: LOWER CHEST: Lung bases clear. Left breast prosthesis. BOWEL: Tiny hiatal hernia. Bowel nondilated. Appendectomy. Mild rectal wall thickening with mild perirectal and presacral stranding, mildly decreased from prior. PERITONEUM: No significant ascites. Mild mesenteric stranding unchanged. LIVER: No enhancing mass. Fatty infiltration GALLBLADDER/BILIARY TREE: Gallbladder present. SPLEEN: Homogeneous and nonenlarged. Calcified granulomas. PANCREAS/ADRENAL GLANDS: No focal lesion. KIDNEYS: No hydronephrosis. Stable right subcentimeter cysts; follow-up not indicated. VESSELS: No abdominal aortic aneurysm. Mild atherosclerosis. PELVIC ORGANS: Unremarkable. No pathologically enlarged lymph nodes. ABDOMINAL WALL: Mild lower anterior scarring. BONES: Degenerative change without suspicious osteoblastic or osteolytic lesion. CT/Abdomen/Pelvis WITH Contrast IMPRESSION: Mild rectal wall thickening with mild perirectal and presacral stranding, mildly decreased from prior. Other chronic findings as above. Electronically Signed: Yajaira Ziegler MD at 15:27 EST , CC: ROBERT Jordan; Dr. Navneet Jackson MD Client Experience Consultant: Signed Normal [facility] CREATININE FINGERSTICKon Creatinine [Mass/Vol] 1.1 mg/dL High 0.55-1.02 [facility] Comment on above: Performed By: #### L 9100.0200 ####[facility] [address] [place], [place], [address] GFR/1.73 sq M.predicted among non-blacks MDRD (S/P/Bld) [Vol rate/Area] 54.0000 mL/min/{1.73_m2} Low >60 [facility] Comment on above: Performed By: #### L 9100.0200 ####[facility] [address] [place], [place], [address] PAP I-G HPV Hi Riskon 2023 HPV ,[facility] RISK Comment Normal [facility] Comment on above: Order Comment: Speci men Comment: [id number] Comment: Source.............CervixSpecimen Comment: Dates / Results....RECTAL CANCERSpecimen Comment: Other..............Post Menopausal;OtherSpecimen Comment: No. of containers..01 ThinPrep Vial Result Comment: Resu lt Reference Interval -- Negative Negative This nucleic acid amplification test detects fourteen high-risk HPV types (16,18,31,33,35,39,45,51,52,56,58,59,66,68) without differentiation. Performed By: #### L 7400.0375 ####[facility] [address] [place], [address] Discharge Instructionon 12-19 Discharge Instruction [facility] Medical Records Department [address] [place] [address] Instructions for Home/Discharge Instructions 01/09/24 09 MR#: [id number] Acct: [id number] Name: ADRYAN PIMENTEL Rep #: [id number] : 1955 68 From: Pam Joshua DO PCP: RAE MartinezC Status:DEP [facility] Discharge Instructions Diet Discharge Diet: No restrictions Activity Discharge Activity: Return to Normal Activity and [address] Drive (while taking narcotic pain mediations.) May resume sexual activity in: 4 weeks (Nothing in the vagina for 4 weeks.) Dressing / Incision Call your doctor if you observe: Fever of 101 or Higher and Using more than 1 pad per hour Follow Up Care Please Follow Up With: Pam Joshua DO When: Call [phone] for follow-up appointment. Test Results: Test results from this visit will be discussed in further detail at your follow-up appointment, if applicable. Discharge Plan Admission Primary Reason for Your Visit: exam under anesthesia, vaginal biopsy and pap Attending Provider: Pam Joshua Primary Care Provider: Lisa Jordan NP Instructions Print Language: Maltese Discharge Orders/Prescriptions Prescriptions: No Action omeprazole 20 mg capsule,delayed release(DR/EC) 20 mg PO DAILY alprazolam [Xanax] 0.25 mg tablet 0.25 mg PO PRN PRN (Reason: Anxiety) diltiazem HCl 120 mg capsule,extended release 12 hr 120 mg PO DAILY metoprolol succinate 25 mg tablet extended release 24 hr 25 mg PO DAILY mecobalamin (vitamin B12) 2,500 mcg tablet,chewable 2,500 mcg PO DAILY trospium 20 mg tablet 20 mg PO DAILY Rx Instructions: administer on an empty stomach simvastatin 20 mg Tablet 20 mg PO QHS Centrum Silver Ultra Women's Tablet 1 tab PO DAILY aspirin 325 mg capsule 325 mg PO Q3D cholecalciferol (vitamin D3) 250 mcg (10,000 unit) capsule 250 mcg PO QWEEK Other Ambulatory Orders: CBC-Complete Blood Cnt No Diff (Routine) Timeframe: 20240109 Facility: [facility] - Location: Laboratory Ordered By: Dr. Pam Joshua Referrals / Follow Up: Lisa Jordan NP, COMPTOMETER OPERATOR-C [Primary Care Provider] - Disposition Disposition (needs filled in before D/C Order can be placed): Home, Self Care 01/11/24 1332 Pam Joshua DO CC: JORDON-C Lisa Jordan Signed Normal [facility] MR/POSTOP.DEVYN 01-09-2024 MR/POSTOP.[facility] Medical Records Department [address] [place] [address] Anesthesia Postop Eval I 01/09/24911 MR#: [id number] Acct: [id number] Name: ADRYAN PIMENTEL Rep #: [id number] : 1955 68 From: Valentina Madrigal CRNA PCP: RAE MartinezC Status:REG SDC Y Race: C Location: [place] [address] Anesthesia: Postop Eval I Current Vital Signs Temperature: 97.9 F Pulse Rate: 79 Blood Pressure: 99/62 Respiratory Rate: 16 Pulse Ox: 95 Oxygen Delivery Method: Room Air Assessment Airway patent: Yes Spontaneous unlabored respirations: Yes Mental status: Awake nausea: No Vomiting: No Anesthesia Complication: No Fluid Hydration Crystalloid volume administer (ml): 30 Total IV fluid infused: 30 Progress Note Anesthesia document: Postop Eval 1 completed: Yes 01/09/24912 Date Valentina Madrigal [place] Cosigner Signature: Date CC: Signed Normal [facility] MR/[id number] 01-09-2024 MR/POSTOPAN2 [facility] Medical Records Department [address] [place] [address] Anesthesia Postop Eval II 01/09/24 1145 MR#: [id number] Acct: [id number] Name: ADRYAN PIMENTEL Rep #: [id number] : 1955 68 From: Ashok Spangler MD PCP: RAE MartinezC Status:[facility] Y Race: C Location: [facility] Anesthesia Postop Eval I Sum Postop Eval Completion status Anesthesia document: Postop Eval 1 completed: Yes Anesthesia Postop Eval I Summary Anesthesia Postop Eval I Summary: Anesthesia Postop Eval I: Assessment Summary Airway patent Yes 01/09/24 09:13 [email or web address].JDEF Spontaneous unlabored Yes 01/09/24 09:13 [place].JDEF respirations Mental status Awake 01/09/24 09:13 [place].JDEF nausea No 01/09/24 09:13 [place].JDEF Vomiting No 01/09/24 09:13 [place].JDEF Anesthesia Postop Eval I: Fluid Summary Crystalloid volume administer 30 01/09/24 09:13 [place].JDEF (ml) Colloids volume administered ( ml) Blood Product volume administered (ml) Total IV fluid infused 30 01/09/24 09:13 [place].JDEF Anesthesia Postop Eval I: Summary Notes Anesthesia Complication No 01/09/24 09:13 [place].JDEF Anesthesia Complication Comment: Post-operative progress note Anesthesia: Postop Eval II Evaluation Mental status: Awake and Calm Pain Level: 1 nausea: No Vomiting: No Complications Anesthesia Complication: No 01/09/24 1146 Date Ashok Spangler MD Cosigner Signature: Date CC: Signed Normal [facility] Operative Reporton 4 Operative Report [facility] Medical Records Department [address] [place] [address] Operative Report 01/09/24 0904 MR#: [id number] Acct: [id number] Name: ADRYAN PIMENTEL Rep #: [id number] : 1955 68 From: Pam Joshua DO PCP: ROBERT Martinez Status:[facility] Location: [place] [address] Problems Associated Problem List Diagnoses (1) Status post chemotherapy: (2) Carcinoma of anorectum: (3) HPV (human papilloma virus) infection: (4) HGSIL (high grade squamous intraepithelial lesion) on Pap smear of cervix: Report of Operation Date of Procedure: 01/09/24 Pre-Operative Diagnosis: history of anorectal cancer and hGSIL pap Post-Operative Diagnosis: history of anorectal cancer and hGSIL pap Surgery/Procedure Performed:: exam under anesthesia, vaginal biopsy Description of Surgical Findings:: severe vaginal stenosis, no findings of rectal mass Surgeon: Pam Joshua Type of Anesthesia: MAC and Topical Anesth Anesthesiologist: Bora Posada Specimen's removed: vaginal wall biopsy Drains: none Estimated Blood Loss (mL): 3cc Fluids Replaced: 30 cc Description of Procedure: the patient was brought to the OR and mac anesthesia was found to be adequate. Her legs were placed in stirrups. Initially, the planned procedure was for an exam under anesthesia colposcopy cervical biopsy Pap and rectal exam however at the start of the procedure it was noted that the patient had almost complete obliteration of the vagina secondary to radiation effects. A rectal exam was performed showing no masses or lesions or stenosis of the rectum. There was a slight band of scar tissue on the 4 to 5 o'clock position in the rectum and no other lesions noted. Using a very small pediatric speculum, I was able to spread the tissue of the vagina and no complete obliteration. A Pap was collected of this tissue along with a sample of tissue for pathology to examine. I was unable to visualize the cervix and therefore colposcopy was not performed. Prior to biopsying the cervix using a CloudTagser device 5 cc of 1% lidocaine with epinephrine was used. The patient tolerated the procedure well sponge lap needle counts were correct x 2 and she is now being brought to the recovery room in stable condition Procedure Start Time: 08:51 Procedure Stop Time: 09:01 Complications none Admit VTE Documentation VTE Present on Admission: No VTE Mechan Device Prophylaxis: SCD's VTE Pharm Prophylaxis ordered?: No Multi Select Codes Urinary/Genital Urinary/Genital CPT Codes: 97055 PEUA and Other Procedure See Report (vaginal biopsy ) 01/09/24 0911 Cosigner Signature (if applicable): CC: ROBERT Jordan; Dr. Pam Joshua, Signed Normal [facility] Surgery Specimen Level Amairani 01-09-2024 Surgery Specimen Level IV Patient Age/Sex Location Account Attending Physician ADRYAN PIMENTEL 68/F [facility] [id number] Dr. Pam Joshua, Christiano Specimen: [id number] Received: 01/09/24 Status: SAKSHI Mendoza Num: [id number] Spec Type: VAG WALL Subm Dr: Dr. Pam Joshua [facility] OPERATION: Vaginal wall biopsy PRE-OP DIAGNOSIS: Rectal cancer TISSUE SUBMITTED: Vaginal tissue MICROSCOPIC DIAGNOSIS Vaginal wall, biopsy: Minimal chronic inflammation. No evidence of dysplasia. See comment. TEZ. 01/10/2024 COMMENT Immunohistochemistry ([id number]) for surrogate HPV marker (p16) supports the above diagnosis. Case has been reviewed in consultation with Dr. Velazco who concurs with the above diagnosis. IDC:SARA MICROSCOPIC DESCRIPTION Slides are reviewed. GROSS DESCRIPTION Received in fixative is one container labeled with the patient's name and designated Vaginal tissue. The specimen consists of two pieces of patel-pink soft tissue measuring in aggregate 0.4 x 0.2 x 0.1cm. The entire specimen is submitted in one cassette. 01/09/2024 TC:3 CPT:51167 Patient Age/Sex Location Account Attending Physician ADRYAN PIMENTEL 68/F [facility] [id number] Christiano Freed Signed (signature on file) Dr. Vince Holliday DO 01/11/24 1215 Normal [facility] Comment on above: Performed By: #### P LEWIS ####[facility] [address] [place], [place], [address] p16 (initial)on 01-09-2024 p16 (initial) ----- Patient Age/Sex Location Account Attending Physician ADRYAN PIMENTEL 68/F [facility] [id number] Dr. Pam Joshua, D Specimen: [id number] Received: 01/10/24 Status: SAKSHI Mendoza Num: [id number] Spec Type: IMMUNO Subm Dr: Dr. Pam Joshua, DO PHYSICIAN INSTITUTION [place] [address] SPECIMEN INFORMATION: Tissue Source: Vaginal tissue Clinical Info: Rectal cancer Specimen Number: [id number] CPT code: 77199,28240 METHODOLOGY: Deparaffinized sections of prefer/formalin-fixed tissue or PAP/DQ stained slides are incubated with monoclonal/polyclonal antibodies/oligonucleotid e probes. Localization is made via biotin free immunoperoxidase method. Appropriate controls are performed and reacted as expected. Results on target cell population are indicated in the following table: RESULTS: ANTIBODY / CLONE RESULT P16 (E6H4) positive, rare cells Ki-67 (30-9) positive, low These tests were developed and their performance characteristics determined by [facility]. They may not have been cleared or approved by the U.S. Food and Drug Administration. The FDA has determined that such clearance or approval is not necessary. The above immunohistochemical/dualI SH markers are ordered and reviewed by the Pathologist. INTERPRETATION: Vaginal wall, biopsy: No evidence of dysplasia. AM.mr 01/11/2024 Signed (signature on file) Dr. Vince Holliday, DO 01/11/24 1317 Normal [facility] Comment on above: Performed By: #### P P16 #### [facility] [address] [place], [address] CBC-Complete Blood Cnt No Di ffon 01-01-2024 Erythrocyte distribution width (RBC) [Ratio] 12.7 % Normal 11.6-14.6 [facility] Comment on above: Performed By: #### L 500.4050, L100.0500, BTSPAT #### [facility] [address] [place], [address] Hematocrit (Bld) [Volume fraction] 38.1 % Normal 37-47 [facility] Comment on above: Performed By: #### L 500.4050, L100.0500, BTSPAT #### [facility] [address] [place], [address] Hemoglobin (Bld) [Mass/Vol] 11.9 g/dL Low 12.0-15.0 [facility] Comment on above: Performed By: #### L 500.4050, L100.0500, BTSPAT #### [facility] [address] [place], [address] MCH (RBC) [Entitic mass] 32.3 pg High 27.0-32.0 [facility] Comment on above: Performed By: #### L 500.4050, L100.0500, BTSPAT #### [facility] [address] [place], [address] MCHC (RBC) [Mass/Vol] 31.2 g/dL Low 32-36 [facility] Comment on above: Performed By: #### L 500.4050, L100.0500, BTSPAT #### [facility] [address] [place], [address] MCV (RBC) [Entitic vol] 103.5 fL High 81-99 [facility] Comment on above: Performed By: #### L 500.4050, L100.0500, BTSPAT #### [facility] [address] [place], [address] Platelet mean volume (Bld) [Entitic vol] 9.6 fL Normal 6.2-12.0 [facility] Comment on above: Performed By: #### L 500.4050, L100.0500, BTSPAT #### [facility] [address] [place], [address] Platelets (Bld) [#/Vol] 250 10*3/uL Normal 150-450 [facility] Comment on above: Performed By: #### L 500.4050, L100.0500, BTSPAT #### [facility] [address] [place], [address] RBC (Bld) [#/Vol] 3.68 10*6/uL Low 4.2-5.4 [facility] Comment on above: Performed By: #### L 500.4050, L100.0500, BTSPAT #### [facility] [address] [place], [address] RDW SD 48.4 fl High 35.1-43.9 [facility] Comment on above: Performed By: #### L 500.4050, L100.0500, BTSPAT #### [facility] [address] [place], [address] WBC (Bld) [#/Vol] 3.7 10*3/uL Low 4.4-11.0 [facility] Comment on above: Performed By: #### L 500.4050, L100.0500, BTSPAT #### [facility] [address], [address] Comprehensive Metabolic Prof ilon 01-01-2024 Albumin [Mass/Vol] 2.9 g/dL Low 3.2-5.0 [facility] Comment on above: Performed By: #### L 500.4050, L100.0500, BTSPAT #### [facility] [address] [place], [address] Albumin/Globulin [Mass ratio] 0.7 {ratio} Low 0.9-2.4 [facility] Comment on above: Performed By: #### L 500.4050, L100.0500, BTSPAT #### [facility] [address] [place], [address] ALK P 100 U/L Normal 45-117 [facility] Comment on above: Performed By: #### L 500.4050, L100.0500, BTSPAT #### [facility] [address] [place], [address] ALT [Catalytic activity/Vol] 23 U/L Normal 13-56 [facility] Comment on above: Performed By: #### L 500.4050, L100.0500, BTSPAT #### [facility] [address] [place], [address] AST [Catalytic activity/Vol] 15 U/L Normal 15-37 [facility] Comment on above: Performed By: #### L 500.4050, L100.0500, BTSPAT #### [facility] [address] [place], [address] Bilirubin [Mass/Vol] 0.50 mg/dL Normal 0.20-1.00 [facility] Comment on above: Result Comment: For patients on eltrombopag therapy, use of Dimension [place] TBIL is not recommended. Performed By: #### L 500.4050, L100.0500, BTSPAT #### [facility] [address] [place], [address] BUN/CRE 16.5 RATIO Normal 10-20 [facility] Comment on above: Performed By: #### L 500.4050, L100.0500, BTSPAT #### [facility] [address] [place], [address] CA,Total 9.1 mg/dL Normal 8.5-10.1 [facility] Comment on above: Performed By: #### L 500.4050, L100.0500, BTSPAT #### [facility] [address] [place], [address] Chloride [Moles/Vol] 110 mmol/L High 98-107 [facility] Comment on above: Performed By: #### L 500.4050, L100.0500, BTSPAT #### [facility] [address] [place], [address] CO2 [Moles/Vol] 26.0 mmol/L Normal 21.0-32.0 [facility] Comment on above: Performed By: #### L 500.4050, L100.0500, BTSPAT #### [facility] [address] [place], [address] Creatinine [Mass/Vol] 1.03 mg/dL High 0.55-1.02 [facility] Comment on above: Result Comment: The validity of the calculated GFR GFRAA in patients over 70 years has not been determined. Clinical correlation is essential. Performed By: #### L 500.4050, L100.0500, BTSPAT #### [facility] [address] [place], [address] EST GFR - AA 68 mL/min Normal >60 [facility] Comment on above: Result Comment: Afri can Nigerien GFR Calc Performed By: #### L 500.4050, L100.0500, BTSPAT #### [facility] [address] [place], [address] GAP 4 Low 5-15 [facility] Comment on above: Performed By: #### L 500.4050, L100.0500, BTSPAT #### [facility] [address] [place], [address] GFR/1.73 sq M.predicted among non-blacks MDRD (S/P/Bld) [Vol rate/Area] 56 mL/min/{1.73_m2} Low >60 [facility] Comment on above: Result Comment: Non- GFR Calc Performed By: #### L 500.4050, L100.0500, BTSPAT #### [facility] [address] [place], [address] Globulin (S) [Mass/Vol] 3.9 g/dL Normal 2.2-4.2 [facility] Comment on above: Performed By: #### L 500.4050, L100.0500, BTSPAT #### [facility] [address] [place], [address] Glucose [Mass/Vol] 116 mg/dL High 74-106 [facility] Comment on above: Result Comment: Fast ing Glucose result from 100 to 125 mg/dL suggests IMPAIRED HOMEOSTASIS per A.D.A. criteria. Performed By: #### L 500.4050, L100.0500, BTSPAT #### [facility] [address] [place], [address] Potassium [Moles/Vol] 4.4 mmol/L Normal 3.5-5.1 [facility] Comment on above: Performed By: #### L 500.4050, L100.0500, BTSPAT #### [facility] [address] [place], [address] Sodium [Moles/Vol] 140 mmol/L Normal 136-145 [facility] Comment on above: Performed By: #### L 500.4050, L100.0500, BTSPAT #### [facility] [address] [place], [address] T PROT 6.8 g/dL Normal 6.4-8.2 [facility] Comment on above: Performed By: #### L 500.4050, L100.0500, BTSPAT #### [facility] [address] [place], [address] Urea nitrogen [Mass/Vol] 17 mg/dL Normal 7-18 [facility] Comment on above: Performed By: #### L 500.4050, L100.0500, BTSPAT #### [facility] [address] [place], [address] [employer]person [employer] Office Visit Reporton 01-01-2024 Salesperson [employer] Office Visit Report [facility] [address], [address] [place] [address] OFFICE VISIT Date of Service: 01/01/24 MR#: [id number] Acct: [id number] Name: ADRYAN PIMENTEL Rep #: [id number] : 1955 Provider: Dr. Pam Soria DO Age/Sex: 68/F Location[place] [facility] Status: Signed Intake Vital Signs 12/04/23 08:05 12/05/23 10:57 01/01/24 14:35 Height 5 ft 9 in 5 ft 9 in 5 ft 9 in Weight: 273 lb 2 oz BMI 40.3 BP 124/83 H Intake Visit Reasons: pelvic exam, pap, colp,poss. 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 Is patient in pain?: No Allergies meperidine (From Demerol) Allergy (Verified 01/01/24 14:39) Unknown oxaprozin Allergy (Verified 01/01/24 14:39) Unknown Medications ???Medication ???Instructions ???Recorded ???Confirmed ???Type alprazolam 0.25 mg tablet (Xanax) 0.25 mg PO PRN PRN Anxiety 02/28/22 01/01/24 History diltiazem HCl 120 mg 120 mg PO DAILY 02/28/22 01/01/24 History capsule,extended release 12 hr metoprolol succinate 25 mg 25 mg PO DAILY 02/28/22 01/01/24 History tablet,extended release 24 hr omeprazole 20 mg capsule,delayed 20 mg PO DAILY 02/28/22 01/01/24 History release mycuetdg-laogets-rrlt-lut ein tablet 1 tab PO DAILY 03/28/22 01/01/24 History simvastatin 20 mg tablet 20 mg PO QHS 03/28/22 01/01/24 History aspirin 325 mg capsule 325 mg PO SUTH 09/27/22 01/01/24 History trospium 20 mg tablet 20 mg PO DAILY 08/29/23 01/01/24 History mecobalamin (vitamin B12) 2,500 2,500 mcg PO DAILY 12/04/23 01/01/24 History mcg chewable tablet Is last menstrual period known: No Post menopausal: Yes Patient : No : No PFSH Medical History PONV (postoperative nausea and vomiting) Encounter for education Wears glasses Post-menopausal Cancer Anxiety Back pain History of diverticulosis Gastric reflux Non-smoker CPAP (continuous positive airway pressure) dependence History of edema History of echocardiogram History of stress test Hypertension Cardiology follow-up encounter High cholesterol Arthritis 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 biopsy Details: ADRYAN PIMENTEL is a 68 year old who presents for a preoperative exam. She is scheduled for a pelvic exam under anesthesia due to a history of rectal cancer and a history of abnormal pap. Due to radiation her pelvic exams in the office are extremely painful. She is also requesting a rectal exam at the time as well. History 1 Elective abortions Hx Para 1 Spontaneous abortions Hx # Term Pregnancies Ectopic pregnancies Hx # Pregnancies Multiple births # of living children Past Pregnancies Del. Date Name GA/Weeks Outcome Route Bth Weight Gen [facility] Unknown Daksha ROS Const ROS Unobtainable: All systems reviewed are unremarkable except as noted in H Resp Resp: Reports system reviewed and no additional complaints, except as documented; Denies cough GI GI: Reports as per HPI Psych Psych: Reports system reviewed and no additional complaints, except as documented Exam Const General: cooperative, healthy appearing, comfortable and no acute distress Resp Effort Inspection: normal respiratory effort Skin General: no rashes or lesions noted Psych Appearance: grossly normal Speech and Movement: speech and movement normal Coding Level of Care Code Off vis,est,level 4 Diagnoses Carcinoma of anorectum C21.8 HPV (human papilloma virus) infection B97.7 HGSIL (high grade squamous intraepithelial lesion) on Pap smear of cervix R87.613 Assessment and Plan Assessment and Plan (1) 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 Started chemotherapy Mitomycin and 5FU together with Radiation therapy on 04/04/2022. Got [id number] from 05/02/2022 to 05/06/2022. Finished Radiation on 05/13/2022. (more content not included)... Normal [facility] Type AND Screen - PAT ONLYon 01-01-2024 ABO and Rh group Nom (Bld) Blood group A Rh(D) positive Normal [facility] Comment on above: Order Comment: Surge ry Date: 01/09/24 Reason for Laboratory Test PREOP [id number] No N N S 1000 EUA PAP,COLPOSCOPY Performed By: #### L 500.4050, L100.0500, BTSPAT #### [facility] [address] [place], [address] [employer]person [employer] Office Visit Reporton 12-04-2023 Salesperson [employer] Office Visit Report [facility] [address], [address] [place] [address] OFFICE VISIT Date of Service: 12/04/23 MR#: [id number] Acct: [id number] Name: ADRYAN PIMENTEL Rep #: [id number] : 1955 Provider: Dr. 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 Is patient in pain?: No Allergies meperidine (From Demerol) Allergy (Verified 12/04/23 08:03) Unknown oxaprozin Allergy (Verified 12/04/23 08:03) Unknown Medications ???Medication ???Instructions ???Recorded ???Confirmed ???Type alprazolam 0.25 mg tablet (Xanax) 0.25 mg PO PRN PRN Anxiety 02/28/22 12/04/23 History diltiazem HCl 120 mg 120 mg PO DAILY 02/28/22 12/04/23 History capsule,extended release 12 hr metoprolol succinate 25 mg 25 mg PO DAILY 02/28/22 12/04/23 History tablet,extended release 24 hr omeprazole 20 mg capsule,delayed 20 mg PO DAILY 02/28/22 12/04/23 History release tpsbvfgy-spzmnqw-tfyd-lut ein tablet 1 tab PO DAILY 03/28/22 12/04/23 History simvastatin 20 mg tablet 20 mg PO QHS 03/28/22 12/04/23 History aspirin 325 mg capsule 325 mg PO .2X PER WEEK 09/27/22 12/04/23 History trospium 20 mg tablet 20 mg PO ONCE 08/29/23 12/04/23 History mecobalamin (vitamin B12) 2,500 mcg PO 12/04/23 12/04/23 History mcg chewable tablet Is last menstrual period known: No Post menopausal: Yes Patient : No : No PFSH Medical History PONV (postoperative nausea and vomiting) Encounter for education Wears glasses Post-menopausal Cancer Depression Anxiety Open wound Arthritis Back pain History of diverticulosis Gastric reflux Non-smoker CPAP (continuous positive airway pressure) dependence History of edema History of echocardiogram History of stress test Hypertension Cardiology follow-up encounter High cholesterol Arthritis HPV (human papilloma virus) infection HGSIL (high grade squamous intraepithelial lesion) on Pap smear of cervix Afib Surgical History Status post colposcopy ( 10/04/22) H/O LEEP Hx of colonoscopy History of laparoscopy H/O section Hx of mastectomy Family History Father Myocardial infarction Mother COPD (chronic obstructive pulmonary disease) Other Colon cancer Social History Smoking Status: Never smoker alcohol intake: current details: social substance use type: does not use caffeine: Yes seatbelt use: always do you feel safe at home: Yes additional social history: retired- History 1 Elective abortions Hx Para 1 Spontaneous abortions Hx # Term Pregnancies Ectopic pregnancies Hx # Pregnancies Multiple births # of living children Past Pregnancies Del. Date Name GA/Weeks Outcome Route Bth Weight Infant Gen Labor Lgth Anesthesia Del Locatn Provider FOB Unknown [place]sha HPI Encounter for routine gynecological examination Details: ADRYAN PIMENTEL is a 68 year old who presents for annual exam. Last PAP: 2022- unsatisfactory, hpv neg. colposcopy with biopsy benign. History of abnormal PAP: no, but had adenocarcinoma or anorectal area- status post radiation Last mammogram: states was this year at [place] History of abnormal mammogram: yes, h/o breast cancer Colon cancer screening: up to date with colonoscopy and has another this january with Dr. Anthony Other preventative health care screenings: followed by pcp CARRILLO SUNSHINE : Denies nipple discharge Skin Skin/Breast: Denies breast mass, breast pain, breast skin changes or nipple discharge Exam Const General: cooperative, healthy appearing, comfortable and no acute distress Orientation: alert, awake and oriented x3 HENMT Head: normal to inspection Neck Neck: normal visual inspection and no lymphadenopathy Neck mass: No Thyroid: thyroid normal Chest Chest palpation inspection: normal inspection of the chest Breast inspection: normal inspection of the breasts and normal inspection of the axillae Breast palpation: normal palpation of the breasts, normal palpation of the axillae and no axillary lymphadenopathy Other: no abnormal skin retractions, nipple discharge, dimpling, masses, or lesions. The left breast is surgically absent. Resp Effor (more content not included)... Normal [facility] Radiation Oncology Visiton 0 10-16-2023 Radiation Oncology Visit [facility] [address] [place] [address] OFFICE VISIT Date of Service: 10/16/23 1536 MR#: [id number] Acct: [id number] Name: ADRYAN PIMENTEL Rep #: [id number] : 1955 From: Oliverio Scott DO Age/Sex: 68/F Location: [facility] [place] Status: Signed Intake Vital Signs 05/23/23 15:33 08/29/23 15:37 10/16/23 15:41 Height 5 ft 9 in 5 ft 9 in 5 ft 9 in Weight: 271 lb 6 oz BMI 40.0 BP 115/73 Blood Pressure Location Rt brachial Position Sitting Respiration 18 Pulse 76 Pulse Source Monitor Temp 98.1 F Temperature Source Temporal Artery Pulse Oximetry (%) 94 Oxygen Delivery Method room air Intake Visit Reasons: 4 MONTH F/U RECTAL Is patient in pain?: No Allergies meperidine (From Demerol) Allergy (Verified 10/16/23 15:40) Unknown oxaprozin Allergy (Verified 10/16/23 15:40) Unknown Medications ???Medication ???Instructions ???Recorded ???Confirmed ???Type alprazolam 0.25 mg tablet (Xanax) 0.25 mg PO PRN PRN Anxiety 02/28/22 10/16/23 History diltiazem HCl 120 mg 120 mg PO DAILY 02/28/22 10/16/23 History capsule,extended release 12 hr metoprolol succinate 25 mg 25 mg PO DAILY 02/28/22 10/16/23 History tablet,extended release 24 hr omeprazole 20 mg capsule,delayed 20 mg PO DAILY 02/28/22 10/16/23 History release siwrcdra-mxejnsu-vwbm-lut ein tablet 1 tab PO DAILY 03/28/22 10/16/23 History simvastatin 20 mg tablet 20 mg PO QHS 03/28/22 10/16/23 History loperamide 2 mg capsule (Imodium 2 mg PO Q4H PRN loose stool 07/18/22 10/16/23 History A-D) aspirin 325 mg capsule 325 mg PO .2X PER WEEK 09/27/22 10/16/23 History loperamide 2 mg capsule 2 mg PO Q4H PRN loose stool #30 11/23/22 10/16/23 Rx caps cholecalciferol (vitamin D3) 250 250 mcg PO QWEEK 08/29/23 10/16/23 History mcg (10,000 unit) capsule trospium 20 mg tablet 20 mg PO ONCE 08/29/23 10/16/23 History Have you fallen in the past year?: No PFSH PFSH Medical History PONV (postoperative nausea and vomiting) Encounter for education Wears glasses Post-menopausal Cancer Depression Anxiety Open wound Arthritis Back pain History of diverticulosis Gastric reflux Non-smoker CPAP (continuous positive airway pressure) dependence History of edema History of echocardiogram History of stress test Hypertension Cardiology follow-up encounter High cholesterol Arthritis HPV (human papilloma virus) infection HGSIL (high grade squamous intraepithelial lesion) on Pap smear of cervix Afib Home Medications ???Medication ???Instructions ???Recorded ???Last Taken ???Type alprazolam 0.25 mg tablet (Xanax) 0.25 mg PO PRN PRN Anxiety 02/28/22 Unknown History diltiazem HCl 120 mg 120 mg PO DAILY 02/28/22 10/04/22 06:30 History capsule,extended release 12 hr metoprolol succinate 25 mg 25 mg PO DAILY 02/28/22 10/04/22 06:30 History tablet,extended release 24 hr omeprazole 20 mg capsule,delayed 20 mg PO DAILY 02/28/22 10/04/22 06:30 History release hcrnfpew-bmqvsor-mgjc-lut ein tablet 1 tab PO DAILY 03/28/22 03/29/22 History simvastatin 20 mg tablet 20 mg PO QHS 03/28/22 Unknown History loperamide 2 mg capsule (Imodium 2 mg PO Q4H PRN loose stool 07/18/22 Unknown History A-D) aspirin 325 mg capsule 325 mg PO .2X PER WEEK 09/27/22 Unknown History loperamide 2 mg capsule 2 mg PO Q4H PRN loose stool #30 11/23/22 Unknown Rx caps cholecalciferol (vitamin D3) 250 250 mcg PO QWEEK 08/29/23 Unknown History mcg (10,000 unit) capsule trospium 20 mg tablet 20 mg PO ONCE 08/29/23 Unknown History Allergy/AdvReac Type Severity Reaction Status Date / Time meperidine (From Demerol) Allergy Unknown Verified 10/16/23 15:40 oxaprozin Allergy Unknown Verified 10/16/23 15:40 Family History Father Myocardial infarction Mother COPD (chronic obstructive pulmonary disease) Other Colon cancer Surgical History Status post colposcopy ( 10/04/22) H/O LEEP Hx of colonoscopy History of laparoscopy H/O section Hx of mastectomy Social History Smoking Status: Never smoker alcohol intake: current details: social substance use type: does not use caffeine: Yes seatbelt use: always do you feel safe at home: Yes additional social history: retired- Diagnosis: Adryan Pimentel is a 68-year-old female diagnosed with 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 Normal [facility] Oncology Visit Reporton 08-18 Oncology Visit Report [facility] [place] [address] [place] [address] OFFICE VISIT Date of Service: 08/29/23 1533 MR#: [id number] Acct: [id number] Name: ADRYAN PIMENTEL Rep #: [id number] : 1955 From: Navneet Jackson MD Age/Sex: 68/F Location: [facility] [place] Status: Signed HPI Subjective Date of Service 08/29/23 Chief Complaint F/u for anorectal cancer. History of Present Illness 68-year-old woman presented with rectal bleeding, colonoscopy on 02/18/2022 which showed a small polyp in the cecum, left colon diverticulosis, mass within the hemorrhoid in the lower rectum. 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 She had abdominal pain, went to [facility]. She had a CT scan 02/19/2022 which showed pneumoperitoneum consistent with perforation. She underwent laparotomy with sigmoidoscopy on 02/19/2022 followed by a wound VAC. Sigmoidoscopy showed rectal mass along the rectovaginal septum abutting on the dentate line. 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 PET/CT 03/09/2022 demonstrated hypermetabolic activity in the rectum???rectal vault measuring 46.8 mm, SUV 11.6, left inguinal and right perirectal soft tissue measuring 16.4 mm, SUV 5.4, and uptake in the fifth lumbar vertebrae SUV 2.4 (this does not fulfill quantitative criteria for neoplasm). MRI pelvis 03/18/2022 shows low rectal neoplasm with involvement of internal and external sphincters as well as posterior vaginal wall (T4b), 11 mesorectal, superior rectal, inguinal pathologically enlarged lymph nodes (N2B), and 1 suspicious left common iliac lymph node. Started combined therapy with chemotherapy and Radiation on 04/04/2021. Finished [id number] of Mitomycin and 5FU from 05/02/2022 to 05/06/2022. Finished Radiation on 05/13/2022. Had sigmoidoscopy done by Dr. Sumner on 07/28/2022 which showed a residual mass in the anorectal area. Biopsy showed rectal mucosa with no malignant cells. PET/CT on 08/09/2022. MRI on 08/11/2022 showed no rectal mass with rectal wall thickening. She is on observation. CT c/a/p on 02/20/2023 showed no evidence of disease. She is on observation and comes for follow up. Feels well. PFSH Medical History PONV (postoperative nausea and vomiting) Encounter for education Wears glasses Post-menopausal Cancer Depression Anxiety Open wound Arthritis Back pain History of diverticulosis Gastric reflux Non-smoker CPAP (continuous positive airway pressure) dependence History of edema History of echocardiogram History of stress test Hypertension Cardiology follow-up encounter High cholesterol Arthritis HPV (human papilloma virus) infection HGSIL (high grade squamous intraepithelial lesion) on Pap smear of cervix Afib Surgical History Status post colposcopy ( 10/04/22) H/O LEEP Hx of colonoscopy History of laparoscopy H/O section Hx of mastectomy Family History Father Myocardial infarction Mother COPD (chronic obstructive pulmonary disease) Other Colon cancer Social History Smoking Status: Never smoker alcohol intake: current details: social substance use type: does not use caffeine: Yes seatbelt use: always do you feel safe at home: Yes additional social history: retired- Intake Vital Signs 05/23/23 15:33 08/29/23 15:35 08/29/23 15:37 Height 5 ft 9 in 5 ft 9 in 5 ft 9 in Weight: 123.434 kg BMI 40.1 BP 114/65 Blood Pressure Location Rt brachial Position Sitting Respiration 18 Pulse 77 Pulse Source Monitor Temp 98.6 F Temperature Source Temporal Artery Pulse Oximetry (%) 96 Oxygen Delivery Method room air Intake Is patient in pain?: No Allergies meperidine (From Demerol) Allergy (Verified 08/29/23 15:34) Unknown oxaprozin Allergy (Verified 08/29/23 15:34) Unknown Medications ???Medication ???Instructions ???Recorded ???Confirmed ???Type alprazolam 0.25 mg tablet (Xanax) 0.25 mg PO PRN PRN Anxiety 02/28/22 08/29/23 History diltiazem HCl 120 mg 120 mg PO DAILY 02/28/22 08/29/23 History capsule,extended release 12 hr metoprolol succinate 25 mg 25 mg PO DAILY 02/28/22 08/29/23 History tablet,extended release 24 hr omeprazole 20 mg capsule,delayed 20 mg PO DAILY 02/28/22 08/29/23 History release uxacjxov-tijcpie-ydqd-lut ein tablet 1 tab PO DAILY 03/28/22 08/29/23 History simvastatin 20 mg tablet 20 mg PO QHS 03/28/22 08/29/23 History loperamide 2 mg capsule (Imodium 2 m (more content not included)... Normal [facility] B12on 08-21-2023 Cobalamin (Vitamin B12) [Mass/Vol] 367 pg/mL Normal 211-911 [facility] ([place]) Comment on above: Performed By: #### B 12 #### [facility] [place] [facility] [address] [place] [address] #### VIDH #### [facility] [address] [place], [place] [address] BD BONE DENSITY DEXA AXIAL S KELETONon 08-21-2023 BD BONE DENSITY DEXA AXIAL SKELETON ORIGINAL EXAMINATION: BONE DENSITOMETRY08/21/2023 9:20 am TECHNIQUE: [...] Sign Date: 08/21/2023 1:05:29 PM Ordering Provider: LISA Cooper [facility] ([place]) LABORATORYOrdered By: SYSTEM SYSTEM on 08-21-2023 25-hydroxyvitamin [...] RIGHT W/TOMOon 08-21-2023 MA MAMMOGRAM SCREENING RIGHT W/MARIO ORIGINAL FROM: [address] [address] PROCEDURE FOR: ADRYAN PIMENTEL [address] [place] [address] Home: PID#: [id number] Exam#: [id number] : 1955 Age: 68 TO: LISA JORDAN DATABASE ADMIN [facility] [address] [place], [place] [address] Fax: NO FAX EXAMINATION: SCREENING DIGITAL RIGHT [...] screening with annual mammograms is recommended. Isaiah Baireszikilo risk calculations do not apply for this patient. BIRADS: MAMMOGRAM BI-RADS: 1: Negative RECALL: 1 year screening RECALL TYPE: mammo LETTER SENT: Normal BI-RADS 1 and 2 Interpreted by: Lu Morrison MD Preliminary Report By: Lu Morrison MD Electronically signed By Lu Morrison MD Dictated Date: 08/21/2023 5:24:56 PM Prelim Date: 08/21/2023 5:29:59 PM Sign Date: 08/21/2023 5:29:59 PM Ordering Provider: LISA JORDAN Wafer Substrate Tester: LAURE WANG RT(R) RDMS letter sent: Normal BI-RADS 1 and 2 Mammogram BI-RADS: 1 Negative Normal [facility] ([place]) MGon 08-21-2023 Magnesium [Mass/Vol] 1.8 mg/dL Normal 1.8-2.4 [facility]) Comment on above: Performed By: #### T MG JOSELYN #### [address] [address] TSHon 08-21-2023 TSH Qn 2.45 m[IU]/L Normal 0.36-3.74 [facility] ([place]) Comment on above: Performed By: #### T MG JOSELYN #### [address] [address] VIDHon 08-21-2023 Vit. D 25-Hydroxy 18.3 ng/mL Normal [facility] ([place]) Comment on above: Result Comment: Inte rpretive Values Based on Total 25(OH) Vitamin D: Deficient <20 ng/mL Insufficient 20 - <30 ng/mL Sufficient 30-100 ng/mL Performed By: #### B 12 #### [place] [id number] [place] [address] #### VIDH #### [address] [address] .Auto Diffon 05-29-2023 Basophil, Absolute 0.0 10 3/mcL Normal 0.0-0.2 [facility] ([place]) Comment on above: Performed By: #### V IDH, ADIFF, GFR, LIPID, ANEU, CMP, CBC #### [address] [address] Basophils/100 WBC (Bld) 0.5 % Normal 0.0-2.5 [facility] ([place]) Comment on above: Performed By: #### V IDH, ADIFF, GFR, LIPID, ANEU, CMP, CBC #### [address] [address] Eosinophil, Absolute 0.1 10 3/mcL Normal 0.0-0.4 [facility] ([place]) Comment on above: Performed By: #### V IDH, ADIFF, GFR, LIPID, ANEU, CMP, CBC #### [address] [address] Eosinophils/100 WBC (Bld) 3.3 % Normal 0.0-7.0 [facility] ([place]) Comment on above: Performed By: #### V IDH, ADIFF, GFR, LIPID, ANEU, CMP, CBC #### [address] [address] Lymphocyte, Absolute 1.1 10 3/mcL Normal 0.8-3.9 [facility] ([place]) Comment on above: Performed By: #### V IDH, ADIFF, GFR, LIPID, ANEU, CMP, CBC #### [address] [address] Lymphocytes/100 WBC (Bld) 31.2 % Normal 10.0-50.0 [facility] ([place]) Comment on above: Performed By: #### V IDH, ADIFF, GFR, LIPID, ANEU, CMP, CBC #### [address] [address] Monocyte, Absolute 0.4 10 3/mcL Normal 0.2-1.0 [facility] ([place]) Comment on above: Performed By: #### V IDH, ADIFF, GFR, LIPID, ANEU, CMP, CBC #### [address] [address] Monocytes/100 WBC (Bld) 11.1 % Normal 1.7-13.0 [facility] ([place] Comment on above: Performed By: #### V IDH, ADIFF, GFR, LIPID, ANEU, CMP, CBC #### [address] [address] Neutrophils/100 WBC (Bld) 53.9 % Normal 37.0-80.0 [facility] ([place] Comment on above: Performed By: #### V IDH, ADIFF, GFR, LIPID, ANEU, CMP, CBC #### [address] [address] .GFRon 05-29-2023 GFR 63 ml/min/1.73sqm Normal [facility] ([place] Comment on above: Result Comment: GFR Population [...] IDH, ADIFF, GFR, LIPID, ANEU, CMP, CBC ####[address] [address] GFR Non- 52 ml/min/1.73sqm Normal [facility] ([place] Comment on above: Result Comment: GFR Population [...] IDH, ADIFF, GFR, LIPID, ANEU, CMP, CBC ####[address] [address] .NEUABSon 05-29-2023 Neutrophil, Absolute 1.9 10 3/mcL Low 2.9-6.2 [facility] ([place] Comment on above: Performed By: #### V IDH, ADIFF, GFR, LIPID, ANEU, CMP, CBC #### [address] [address] CBCon 05-29-2023 Erythrocyte distribution width (RBC) [Ratio] 13.4 % Normal 11.5-14.5 [facility] ([place] Comment on above: Performed By: #### V IDH, ADIFF, GFR, LIPID, ANEU, CMP, CBC #### [address] [address] Hematocrit (Bld) [Volume fraction] 36.0 % Low 37.0-47.0 [facility] ([place] Comment on above: Performed By: #### V IDH, ADIFF, GFR, LIPID, ANEU, CMP, CBC #### [address] [address] Hgb 12.5 G/dL Normal 12.0-16.0 [facility] ([place] Comment on above: Performed By: #### V IDH, ADIFF, GFR, LIPID, ANEU, CMP, CBC #### [address] [place] [address] MCH (RBC) [Entitic mass] 33.6 pg High 27.0-31.2 [facility] ([place] Comment on above: Performed By: #### V IDH, ADIFF, GFR, LIPID, ANEU, CMP, CBC #### [address] [address] MCHC 34.7 G/dL Normal 33.0-37.0 [facility] ([place] Comment on above: Performed By: #### V IDH, ADIFF, GFR, LIPID, ANEU, CMP, CBC #### [place] [id number] MCV (RBC) [Entitic vol] 96.7 fL High 80.0-94.0 [facility] ([place] Comment on above: Performed By: #### V IDH, ADIFF, GFR, LIPID, ANEU, CMP, CBC #### [place] [id number] Platelet 252 10 3/mcL Normal 130-400 [facility] ([place] Comment on above: Performed By: #### V IDH, ADIFF, GFR, LIPID, ANEU, CMP, CBC #### [place] [id number] Platelet mean volume (Bld) [Entitic vol] 7.1 fL Low 7.4-10.4 [facility] ([place] Comment on above: Performed By: #### V IDH, ADIFF, GFR, LIPID, ANEU, CMP, CBC #### [address] [address] RBC 3.72 10 6/mcL Low 4.20-5.40 [facility] ([place] Comment on above: Performed By: #### V IDH, ADIFF, GFR, LIPID, ANEU, CMP, CBC #### [place] [phone] WBC 3.6 10 3/mcL Low 4.6-10.8 [facility] ([place] Comment on above: Performed By: #### V IDH, ADIFF, GFR, LIPID, ANEU, CMP, CBC #### [facility] [address] [place], [place] [address] CMPon 05-29-2023 Albumin Level 2.9 G/dL Low 3.4-4.8 [facility] ([place] Comment on above: Performed By: #### V IDH, ADIFF, GFR, LIPID, ANEU, CMP, CBC ####[address] [place], [place] [address] Albumin/Globulin [Mass ratio] 0.8 {ratio} Low 1.1-2.5 [facility] ([place] Comment on above: Performed By: #### V IDH, ADIFF, GFR, LIPID, ANEU, CMP, CBC ####[facility] [place], [place] [address] ALP [Catalytic activity/Vol] 107 U/L Normal 40-135 [facility] ([place] Comment on above: Performed By: #### V IDH, ADIFF, GFR, LIPID, ANEU, CMP, CBC ####[facility] [place], [place] [address] ALT [Catalytic activity/Vol] 20 U/L Normal 14-59 [facility] ([place] Comment on above: Performed By: #### V IDH, ADIFF, GFR, LIPID, ANEU, CMP, CBC ####[facility] [place], [place] [address] AST [Catalytic activity/Vol] 17 U/L Normal 10-40 [facility] ([place] Comment on above: Performed By: #### V IDH, ADIFF, GFR, LIPID, ANEU, CMP, CBC ####[facility] [place], [place] [address] Bili Total 0.4 mg/dL Normal 0.2-1.0 [facility] ([place] Comment on above: Result Comment: Use of this assay is not recommended for patients undergoing treatment with eltrombopag due to the potential for falsely elevated results. Performed By: #### V IDH, ADIFF, GFR, LIPID, ANEU, CMP, CBC ####[facility] [place], [place] [address] BUN/Creatinine Ratio 18 ratio Normal 7-27 [facility] ([place] Comment on above: Performed By: #### V IDH, ADIFF, GFR, LIPID, ANEU, CMP, CBC ####[address] [place], [place] [address] Calcium [Mass/Vol] 9.0 mg/dL Normal 8.4-10.2 [facility] Comment on above: Performed By: #### V IDH, ADIFF, GFR, LIPID, ANEU, CMP, CBC ####[address] [place] [place], [place] [address] Chloride [Moles/Vol] 109 mmol/L High 98-107 [facility] ([place]) Comment on above: Performed By: #### V IDH, ADIFF, GFR, LIPID, ANEU, CMP, CBC ####[address] [place] [place], [place] [address] CO2 [Moles/Vol] 27 mmol/L Normal 23-31 [facility] [facility] ([place]) Comment on above: Performed By: #### V IDH, ADIFF, GFR, LIPID, ANEU, CMP, CBC ####[address] [place], [place] [address] Creatinine [Mass/Vol] 1.05 mg/dL High 0.55-1.02 [facility] ([place]) Comment on above: Performed By: #### V IDH, ADIFF, GFR, LIPID, ANEU, CMP, CBC ####[address] [place], [place] [address] Electrolyte Balance 8.0 mEq/L Normal 4.0-15.0 [facility] ([place]) Comment on above: Performed By: #### V IDH, ADIFF, GFR, LIPID, ANEU, CMP, CBC ####[address] [place], [place] [address] Globulin 3.6 G/dL Normal [facility] ([place]) Comment on above: Performed By: #### V IDH, ADIFF, GFR, LIPID, ANEU, CMP, CBC ####[address] [place], [place] [address] Glucose [Mass/Vol] 103 mg/dL Normal 83-110 [facility] [place] Comment on above: Performed By: #### V IDH, ADIFF, GFR, LIPID, ANEU, CMP, CBC ####[address] [place], [place] [address] Potassium [Moles/Vol] 5.1 mmol/L Normal 3.5-5.1 [facility] ([place] Comment on above: Performed By: #### V IDH, ADIFF, GFR, LIPID, ANEU, CMP, CBC ####[address] [place], [place] [address] Sodium [Moles/Vol] 144 mmol/L Normal 136-145 [facility] [place] Comment on above: Performed By: #### V IDH, ADIFF, GFR, LIPID, ANEU, CMP, CBC ####[address] [place], [place] [address] Total Protein 6.5 G/dL Normal 6.4-8.2 [facility] ([place]) Comment on above: Performed By: #### V IDH, ADIFF, GFR, LIPID, ANEU, CMP, CBC ####[address] [place], [place] [address] Urea nitrogen [Mass/Vol] 19 mg/dL High 7-18 [facility] ([place]) Comment on above: Performed By: #### V IDH, ADIFF, GFR, LIPID, ANEU, CMP, CBC ####[address] [place], [place] [address] LIPIDon 05-29-2023 Cholesterol [Mass/Vol] 198 mg/dL Normal 0-200 [facility] ([place]) Comment on above: Result Comment: Chol esterol Reference Interval: Less than 200 Desirable 200-239 Borderline high risk 240 and above High risk Performed By: #### V IDH, ADIFF, GFR, LIPID, ANEU, CMP, CBC ####[address] [place], [place] [address] Cholesterol in HDL [Mass/Vol] 65 mg/dL High 40-60 [facility] ([place]) Comment on above: Performed By: #### V IDH, ADIFF, GFR, LIPID, ANEU, CMP, CBC ####[address] [place], [place] [address] Cholesterol in LDL [Mass/Vol] 101 mg/dL Normal 0-130 [facility] ([place]) Comment on above: Performed By: #### V IDH, ADIFF, GFR, LIPID, ANEU, CMP, CBC ####[address] [place], [place] [address] Triglyceride [Mass/Vol] 161 mg/dL High 0-150 [facility] ([place]) Comment on above: Result Comment: Trig lyceride Reference Interval: Less than 150 Normal 150-199 Borderline high risk 200-499 High risk 500 or higher Very high risk Performed By: #### V IDH, ADIFF, GFR, LIPID, ANEU, CMP, CBC ####[address] [place], [place] [address] VIDHon 05-29-2023 Vit. D 25-Hydroxy 22.6 ng/mL Normal [facility] ([place]) Comment on above: Result Comment: Inte rpretive Values Based on Total 25(OH) Vitamin D: Deficient <20 ng/mL Insufficient 20 - <30 ng/mL Sufficient 30-100 ng/mL Performed By: #### V IDH, ADIFF, GFR, LIPID, ANEU, CMP, CBC ####[address] [place], [place] [address] Basophil percentageOrdered B y: Oliverio Scott on 05-19-2023 Creatinine [Mass/Vol] 1.0 mg/dL 0.55-1.02 [facility] - Chemistry and C hemistry - challengeOrdered By: Oliverio Scott on 05-19-2023 GFR/1.73 sq M.predicted among non-blacks MDRD (S/P/Bld) [Vol rate/Area] 56.0000 mL/min/{1.73_m2} >60 [facility] Absolute lymphocyte countOrd ered By: Navneet Jackson on 02-20-2023 Lymphocytes Auto (Unsp spec) [#/Vol] 0.98 10*3/uL 0.83-4.51 [facility] Basophil percentageOrdered B y: Navneet Jackson on 02-20-2023 Basophils/100 WBC (Bld) 0.6 % 0-1 [facility] Bilirubin [Mass/Vol] 0.60 mg/dL 0.20-1.00 [facility] Comment on above: For patients on eltr ombopag therapy, use of Dimension [place] TBIL is not recommended. Chloride [Moles/Vol] 110 mmol/L 98-107 [facility] Eosinophils/100 WBC (Bld) 3.0 % 0-5 [facility] Glucose [Mass/Vol] 100 mg/dL 74-106 [facility] Comment on above: Fasting Glucose resu lt from 100 to 125 mg/dL suggests IMPAIRED HOMEOSTASIS per A.D.A. criteria. LDH [Catalytic activity/Vol] 185 U/L 84-246 [facility] Neutrophils (Bld) [#/Vol] 1.8 10*3/uL 2.0-7.7 [facility] Neutrophils/100 WBC (Bld) 54.1 % 47-70 [facility] Potassium [Moles/Vol] 4.1 mmol/L 3.5-5.1 [facility] Protein [Mass/Vol] 6.8 g/dL 6.4-8.2 [facility] Sodium [Moles/Vol] 140 mmol/L 136-145 [facility] WBC (Bld) [#/Vol] 3.3 10*3/uL 4.4-11.0 [facility] Blood erythrocytes count (nu mber/volume)Ordered By: Navneet Jackson on 02-20-2023 RBC (Bld) [#/Vol] 3.63 10*6/uL 4.2-5.4 [facility] Blood hemoglobin measurement (mass/volume)Ordered By: Navneet Jackson on 02-20-2023 Hemoglobin (Bld) [Mass/Vol] 11.9 g/dL 12.0-15.0 [facility] Blood lymphocytes/100 leukoc ytesOrdered By: Navneet Jackson on 02-20-2023 Lymphocytes/100 WBC (Bld) 29.4 % 19-41 [facility] Blood monocytes/100 leukocyt esOrdered By: Navneet Jackson on 02-20-2023 Monocytes/100 WBC (Bld) 12.3 % 0-10 [facility] Blood platelet mean volumeOr dered By: Navneet Jackson on 02-20-2023 Platelet mean volume (Bld) [Entitic vol] 9.1 fL 6.2-12.0 [facility] Determination of erythrocyte mean corpuscular volume (MCV)Ordered By: Navneet Jackson on 02-20-2023 MCV (RBC) [Entitic vol] 100.8 fL 81-99 [facility] Hematocrit Auto (Bld) [Volum e fraction]Ordered By: Navneet Jackson on 02-20-2023 Hematocrit (Bld) [Volume fraction] 36.6 % 37-47 [facility] - Chemistry and C hemistry - challengeOrdered By: Navneet Jackson on 02-20-2023 ALP [Catalytic activity/Vol] 91 U/L 45-117 [facility] ALT [Catalytic activity/Vol] 18 U/L 13-56 [facility] CO2 [Moles/Vol] 25.0 mmol/L 21.0-32.0 [facility] Globulin (S) [Mass/Vol] 3.9 g/dL 2.2-4.2 [facility] Urea nitrogen/Creatinine [Mass ratio] 19.4 mg/mg 10-20 [facility] - Hematology and Cell countsOrdered By: Navneet Murphy on 02-20-2023 Erythrocyte distribution width (RBC) [Entitic vol] 48.3 fL 35.1-43.9 [facility] Erythrocyte distribution width (RBC) [Ratio] 12.9 % 11.6-14.6 [facility] Immature granulocytes/100 WBC (Bld) 0.600 % 0.0-0.9 [facility] Comment on above: IG% - Immature Granu locytes (promyelocytes, myelocytes and metamyelocytes) > 1% indicates that a LEFT SHIFT is Present. MCH (RBC) [Entitic mass] 32.8 pg 27.0-32.0 [facility] Nucleated RBC/100 WBC (Bld) [Ratio] 0 % 0-5 [facility] MCHC Auto (RBC) [Mass/Vol]Or dered By: Navneet Jackson on 02-20-2023 MCHC (RBC) [Mass/Vol] 32.5 g/dL 32-36 [facility] No Panel InformationOrdered By: Navneet Jackson on 02-20-2023 Estimated GFR (MDRD) Amer 72 mL/min >60 [facility] Comment on above: GFR Calc Estimated GFR (MDRD) Non-Af Amer 60 mL/min >60 [facility] Comment on above: Non- GFR Calc Platelets bldOrdered By: Jeremy Jackson on 02-20-2023 Platelets (Bld) [#/Vol] 240 10*3/uL 150-450 [facility] Serum or plasma albumin jose a urement (mass/volume)Ordered By: Navneet Jackson on 02-20-2023 Albumin [Mass/Vol] 2.9 g/dL 3.2-5.0 [facility] Serum or plasma albumin/glob ulin mass ratioOrdered By: Navneet Jackson on 02-20-2023 Albumin/Globulin [Mass ratio] 0.7 {ratio} 0.9-2.4 [facility] Serum or plasma calcium jose a urement (mass/volume)Ordered By: Navneet Jackson on 02-20-2023 Calcium [Mass/Vol] 8.4 mg/dL 8.5-10.1 [facility] Serum or plasma carcinoembry onic antigen measurement (mass/volume)Ordered By: Navneet Jackson on 02-20-2023 Carcinoembryonic Ag [Mass/Vol] 1.2 ng/mL 0.0-4.7 [facility] Comment on above: Nonsmokers <3.9 Smok ers <5.6[employer] Electrochemiluminescence Immunoassay(ECLIA)Values obtained with different assay methods or kitscannot be used interchangeably. Results cannot beinterpreted as absolute evidence of the presence orabsence of malignant disease.Performed at: [facility] [employer] [id number] Director: Jamie Gonzalez PhD, Phone: [phone] Serum or plasma creatinine m easurement (mass/volume)Ordered By: Navneet Jackson on 02-20-2023 Creatinine [Mass/Vol] 0.98 mg/dL 0.55-1.02 [facility] Comment on above: The validity of the calculated GFR & GFRAA in patients over 70 years has not been determined. Clinical correlation is essential. Serum or plasma urea nitroge n measurement (mass/volume)Ordered By: Navneet Jackson on 02-20-2023 Urea nitrogen [Mass/Vol] 19 mg/dL 7-18 [facility] Thin prep Papanicolaou smear with manual screeningOrdered By: Navneet Jackson on 02-20-2023 Thin prep Papanicolaou smear with manual screening 17 U/L 15-37 [facility] Thin prep Papanicolaou smear with manual screening 5 5-15 [facility] CDIFFAOon 10-28-2022 Clostridium difficile toxin A/B PCR Negative Normal Negative [facility] ([place]) Comment on above: Performed By: #### C DIFFAO ####[address] [place], [place] [address] Clostridium difficile toxin A/B PCR Int Normal [facility] ([place]) Comment on above: Result Comment: Primo s C. difficile Negative result does not rule out the possibility of infection with toxigenic C. difficile. Javad C. difficile Assay results should not be used as the sole basis for diagnosis, treatment, or patient management decisions and should be interpreted in conjunction with other clinical and laboratory findings. See Below Performed By: #### C DIFFAO ####[address] [place], [place] [address] LABORATORYOrdered By: Justin Wooten on 10-28-2022 C. [...] Invalid Interpretation Code AO Auto Urine SS Basophil percentageOrdered B y: Pam Mekhi on 10-04-2022 Bilirubin [Mass/Vol] 0.50 mg/dL 0.20-1.00 [facility] Comment on above: For patients on eltr ombopag therapy, use of Dimension [place] TBIL is not recommended. Chloride [Moles/Vol] 111 mmol/L 98-107 [facility] Glucose [Mass/Vol] 100 mg/dL 74-106 [facility] Comment on above: Fasting Glucose resu lt from 100 to 125 mg/dL suggests IMPAIRED HOMEOSTASIS per A.D.A. criteria. Potassium [Moles/Vol] 4.1 mmol/L 3.5-5.1 [facility] Protein [Mass/Vol] 6.6 g/dL 6.4-8.2 [facility] Sodium [Moles/Vol] 142 mmol/L 136-145 [facility] WBC (Bld) [#/Vol] 3.1 10*3/uL 4.4-11.0 [facility] Blood erythrocytes count (nu mber/volume)Ordered By: Pam Gaming on 10-04-2022 RBC (Bld) [#/Vol] 3.54 10*6/uL 4.2-5.4 [facility] Blood hemoglobin measurement (mass/volume)Ordered By: Pam Gaming on 10-04-2022 Hemoglobin (Bld) [Mass/Vol] 11.0 g/dL 12.0-15.0 [facility] Blood platelet mean volumeOr dered By: Pam Gaming on 10-04-2022 Platelet mean volume (Bld) [Entitic vol] 8.9 fL 6.2-12.0 [facility] Determination of erythrocyte mean corpuscular volume (MCV)Ordered By: Pam Gaming on 10-04-2022 MCV (RBC) [Entitic vol] 101.1 fL 81-99 [facility] Hematocrit Auto (Bld) [Volum e fraction]Ordered By: Pam Gaming on 10-04-2022 Hematocrit (Bld) [Volume fraction] 35.8 % 37-47 [facility] - Chemistry and C hemistry - challengeOrdered By: Pam Gaming on 10-04-2022 ALP [Catalytic activity/Vol] 86 U/L 45-117 [facility] ALT [Catalytic activity/Vol] 16 U/L 13-56 [facility] CO2 [Moles/Vol] 26.0 mmol/L 21.0-32.0 [facility] Globulin (S) [Mass/Vol] 3.9 g/dL 2.2-4.2 [facility] Urea nitrogen/Creatinine [Mass ratio] 18.6 mg/mg 10-20 [facility] - Hematology and Cell countsOrdered By: Pam Gaming on 10-04-2022 Erythrocyte distribution width (RBC) [Entitic vol] 47.7 fL 35.1-43.9 [facility] Erythrocyte distribution width (RBC) [Ratio] 12.7 % 11.6-14.6 [facility] MCH (RBC) [Entitic mass] 31.1 pg 27.0-32.0 [facility] MCHC Auto (RBC) [Mass/Vol]Or dered By: Pam Gaming on 10-04-2022 MCHC (RBC) [Mass/Vol] 30.7 g/dL 32-36 [facility] No Panel InformationOrdered By: Pam Gaming on 10-04-2022 Estimated Creatinine Clearance Calc 60.31 ml/min [facility] Estimated GFR (MDRD) Amer 78 mL/min >60 [facility] Comment on above: GFR Calc Estimated GFR (MDRD) Non-Af Amer 65 mL/min >60 [facility] Comment on above: Non- GFR Calc Platelets bldOrdered By: Mariana Gaming on 10-04-2022 Platelets (Bld) [#/Vol] 224 10*3/uL 150-450 [facility] Serum or plasma albumin jose a urement (mass/volume)Ordered By: Pam Gaming on 10-04-2022 Albumin [Mass/Vol] 2.7 g/dL 3.2-5.0 [facility] Serum or plasma albumin/glob ulin mass ratioOrdered By: Pam Gaming on 10-04-2022 Albumin/Globulin [Mass ratio] 0.7 {ratio} 0.9-2.4 [facility] Serum or plasma calcium jose a urement (mass/volume)Ordered By: Pam Gaming on 10-04-2022 Calcium [Mass/Vol] 8.6 mg/dL 8.5-10.1 [facility] Serum or plasma creatinine m easurement (mass/volume)Ordered By: Pam Gaming on 10-04-2022 Creatinine [Mass/Vol] 0.92 mg/dL 0.55-1.02 [facility] Comment on above: The validity of the calculated GFR & GFRAA in patients over 70 years has not been determined. Clinical correlation is essential. Serum or plasma urea nitroge n measurement (mass/volume)Ordered By: Pam Gaming on 10-04-2022 Urea nitrogen [Mass/Vol] 17 mg/dL 18 [facility] Thin prep Papanicolaou smear with manual screeningOrdered By: Pam Gaming on 10-04-2022 Thin prep Papanicolaou smear with manual screening 20 U/L 15-37 [facility] Thin prep Papanicolaou smear with manual screening 5 5-15 [facility] .Auto Diffon 10-02-2022 Basophil, Absolute 0.0 10 3/mcL Normal 0.0-0.2 [facility] ([place]) Comment on above: Performed By: #### G FR, LIP, MARIEL, MDW, ADIFF, CMP, MG, CBC ####[address] [place], [place] [address] Basophils/100 WBC (Bld) 0.6 % Normal 0.0-2.5 [facility] ([place]) Comment on above: Performed By: #### G FR, LIP, ANEU, MDW, ADIFF, CMP, MG, CBC ####[address] [place], [place] [address] Eosinophil, Absolute 0.2 10 3/mcL Normal 0.0-0.4 [facility] ([place]) Comment on above: Performed By: #### G FR, LIP, ANEU, MDW, ADIFF, CMP, MG, CBC ####[address] [place], [place] [address] Eosinophils/100 WBC (Bld) 4.1 % Normal 0.0-7.0 [facility] ([place]) Comment on above: Performed By: #### G FR, LIP, MARIEL, MDW, ADIFF, CMP, MG, CBC ####[address] [place], [place] [address] Lymphocyte, Absolute 0.9 10 3/mcL Normal 0.8-3.9 [facility] ([place]) Comment on above: Performed By: #### G FR, LIP, ANEU, MDW, ADIFF, CMP, MG, CBC ####[address] [place], [place] [address] Lymphocytes/100 WBC (Bld) 22.0 % Normal 10.0-50.0 [facility] ([place]) Comment on above: Performed By: #### G FR, LIP, ANEU, MDW, ADIFF, CMP, MG, CBC ####[address] [place], [place] [address] Monocyte, Absolute 0.5 10 3/mcL Normal 0.2-1.0 [facility] ([place] Comment on above: Performed By: #### G FR, LIP, ANEU, MDW, ADIFF, CMP, MG, CBC ####[address] [place], [place] [address] Monocytes/100 WBC (Bld) 11.0 % Normal 1.7-13.0 [facility] ([place]) Comment on above: Performed By: #### G FR, LIP, ANEU, MDW, ADIFF, CMP, MG, CBC ####[address] [place], [place] [address] Neutrophils/100 WBC (Bld) 62.3 % Normal 37.0-80.0 [facility] ([place]) Comment on above: Performed By: #### G FR, LIP, ANEU, MDW, ADIFF, CMP, MG, CBC ####[address] [place], [place] [address] .GFRon 10-02-2022 GFR 66 ml/min/1.73sqm Normal [facility] ([place]) Comment on above: Result Comment: GFR Population [...] LIP, ANEU, MDW, ADIFF, CMP, MG, CBC ####[address] [place], [place] [address] GFR Non- 54 ml/min/1.73sqm Normal [facility] ([place]) Comment on above: Result Comment: GFR Population [...] LIP, ANEU, MDW, ADIFF, CMP, MG, CBC ####[address] [place], [place] [address] .MDWon 10-02-2022 Monocyte Distribution Width 19.04 Normal 0.00-20.00 [facility] ([place]) Comment on above: Result Comment: For ED adult patients suspected of sepsis, MDW<=20.0 does not rule out sepsis or risk of sepsis Performed By: #### G FR, LIP, ANEU, MDW, ADIFF, CMP, MG, CBC ####[address] [place], [place] [address] .NEUABSon 10-02-2022 Neutrophil, Absolute 2.6 10 3/mcL Low 2.9-6.2 [facility] ([place] Comment on above: Performed By: #### G FR, LIP, ANEU, MDW, ADIFF, CMP, MG, CBC ####[address] [place], [place] [address] .Urinalysis Microscopic (AO) on 10-02-2022 UA Bacteria 1+ /hpf Abnormal [facility] ([place]) Comment on above: Performed By: #### U A, UAMICAO ####[address] [place], [place] [address] UA Hyal Cast 0-5 Abnormal [facility] ([place]) Comment on above: Performed By: #### U A, UAMICAO ####[address] [place], [place] [address] UA Mucous 2+ /hpf Normal [facility] ([place]) Comment on above: Performed By: #### U A, UAMICAO ####[address] [place], [place] [address] UA RBC 0-5 Abnormal None Seen [facility] ([place]) Comment on above: Performed By: #### U Jennifer, UAMICAO ####[address] [place], [place] [address] UA Squam Epithelial 0-5 Abnormal None Seen [facility] ([place]) Comment on above: Performed By: #### U A, UAMICAO ####[address] [place] [address] UA WBC 5-10 Abnormal None Seen [facility] ([place]) Comment on above: Performed By: #### Martha Rodriguez UAMICMARYLOU ####[address] [place], [place] [address] CBCon 10-02-2022 Erythrocyte distribution width (RBC) [Ratio] 13.6 % Normal 11.5-14.5 [facility] ([place]) Comment on above: Performed By: #### G HUGO CROFT ANEU, MDW, SARA, CMP, MG, CBC ####[address] [place], [place] [address] Hematocrit (Bld) [Volume fraction] 34.6 % Low 37.0-47.0 [facility] ([place]) Comment on above: Performed By: #### G HUGO CROFT ANEU, MDW, SARA, CMP, MG, CBC ####[address] [place], [place] [address] Hgb 11.7 G/dL Low 12.0-16.0 [facility] ([place]) Comment on above: Performed By: #### G FR, LIP, ANEU, MDW, ADIFF, CMP, MG, CBC ####[address] [place], [place] [address] MCH (RBC) [Entitic mass] 31.9 pg High 27.0-31.2 [facility] ([place]) Comment on above: Performed By: #### G FR, LIP, ANEU, MDW, ADIFF, CMP, MG, CBC ####[address] [place], [place] [address] MCHC 33.8 G/dL Normal 33.0-37.0 [facility] ([place]) Comment on above: Performed By: #### G FR, LIP, ANEU, MDW, ADIFF, CMP, MG, CBC ####[address] [place], [place] [address] MCV (RBC) [Entitic vol] 94.6 fL High 80.0-94.0 [facility] ([place]) Comment on above: Performed By: #### G FR, LIP, ANEU, MDW, ADIFF, CMP, MG, CBC ####[address] [place], [place] [address] Platelet 251 10 3/mcL Normal 130-400 [facility] ([place]) Comment on above: Performed By: #### G FR, LIP, ANEU, MDW, ADIFF, CMP, MG, CBC ####[address] [place], [place] [address] Platelet mean volume (Bld) [Entitic vol] 7.2 fL Low 7.4-10.4 [facility] ([place]) Comment on above: Performed By: #### G FR, LIP, ANEU, MDW, ADIFF, CMP, MG, CBC ####[address] [place], [place] [address] RBC 3.66 10 6/mcL Low 4.20-5.40 [facility] ([place]) Comment on above: Performed By: #### G FR, LIP, ANEU, MDW, ADIFF, CMP, MG, CBC ####[address] [place], [place] [address] WBC 4.2 10 3/mcL Low 4.6-10.8 [facility] ([place]) Comment on above: Performed By: #### G FR, LIP, ANEU, MDW, ADIFF, CMP, MG, CBC ####[address] [place], [place] [address] CMPon 10-02-2022 ALT [Catalytic activity/Vol] 13 U/L Low 14-59 [facility] ([place]) Comment on above: Performed By: #### G FR, LIP, ANEU, MDW, ADIFF, CMP, MG, CBC ####[address] [place], [place] [address] Albumin Level 3.0 G/dL Low 3.4-4.8 [facility] ([place]) Comment on above: Performed By: #### G FR, LIP, ANEU, MDW, ADIFF, CMP, MG, CBC ####[address] [place], [place] [address] Albumin/Globulin [Mass ratio] 0.8 {ratio} Low 1.1-2.5 [facility] ([place]) Comment on above: Performed By: #### G FR, LIP, MARIEL, MDW, ADIFF, CMP, MG, CBC ####[address] [place], [place] [address] ALP [Catalytic activity/Vol] 91 U/L Normal 40-135 [facility] ([place]) Comment on above: Performed By: #### G FR, LIP, ANEU, MDW, ADIFF, CMP, MG, CBC ####[address] [place], [place] [address] AST [Catalytic activity/Vol] 15 U/L Normal 10-40 [facility] ([place]) Comment on above: Performed By: #### G FR, LIP, ANEU, MDW, ADIFF, CMP, MG, CBC ####[address] [place], [place] [address] Bili Total 0.6 mg/dL Normal 0.2-1.0 [facility] ([place]) Comment on above: Result Comment: Use of this assay is not recommended for patients undergoing treatment with eltrombopag due to the potential for falsely elevated results. Performed By: #### G FR, LIP, ANEU, MDW, ADIFF, CMP, MG, CBC ####[address] [place], [place] [address] BUN/Creatinine Ratio 16 ratio Normal 7-27 [facility] ([place] Comment on above: Performed By: #### G FR, LIP, ANEU, MDW, ADIFF, CMP, MG, CBC ####[address] [place], [place] [address] Calcium [Mass/Vol] 8.8 mg/dL Normal 8.4-10.2 [facility] Comment on above: Performed By: #### G FR, LIP, ANEU, MDW, ADIFF, CMP, MG, CBC ####[address] [place], [place] [address] Chloride [Moles/Vol] 106 mmol/L Normal 98-107 [facility] ([place]) Comment on above: Performed By: #### G FR, LIP, ANEU, MDW, ADIFF, CMP, MG, CBC ####[address] [place], [place] [address] CO2 [Moles/Vol] 29 mmol/L Normal 23-31 [facility] ([place]) Comment on above: Performed By: #### G FR, LIP, ANEU, MDW, ADIFF, CMP, MG, CBC ####[address] [place], [place] [address] Creatinine [Mass/Vol] 1.01 mg/dL Normal 0.55-1.02 [facility] ([place]) Comment on above: Performed By: #### G FR, LIP, ANEU, MDW, ADIFF, CMP, MG, CBC ####[address] [place], [place] [address] Electrolyte Balance 7.0 mEq/L Normal 4.0-15.0 [facility] ([place]) Comment on above: Performed By: #### G FR, LIP, ANEU, MDW, ADIFF, CMP, MG, CBC ####[facility] [place], [place] [address] Globulin 3.6 G/dL Normal [facility] ([place]) Comment on above: Performed By: #### G FR, LIP, ANEU, MDW, ADIFF, CMP, MG, CBC ####[address] [place], [place] [address] Glucose [Mass/Vol] 107 mg/dL Normal 80-115 [facility] [place] Comment on above: Performed By: #### G FR, LIP, ANEU, MDW, ADIFF, CMP, MG, CBC ####[address] [place], [place] [address] Potassium [Moles/Vol] 4.8 mmol/L Normal 3.5-5.1 [facility] ([place] Comment on above: Performed By: #### G FR, LIP, ANEU, MDW, ADIFF, CMP, MG, CBC ####[address] [place], [place] [address] Sodium [Moles/Vol] 142 mmol/L Normal 136-145 [facility] [place] Comment on above: Performed By: #### G FR, LIP, ANEU, MDW, ADIFF, CMP, MG, CBC ####Luther [address] [place], [place] [address] Total Protein 6.6 G/dL Normal 6.4-8.2 [facility] ([place]) Comment on above: Performed By: #### G FR, LIP, ANEU, MDW, ADIFF, CMP, MG, CBC ####[facility] [address] [place], [place] [address] Urea nitrogen [Mass/Vol] 16 mg/dL Normal 7-18 [facility] ([place]) Comment on above: Performed By: #### G FR, LIP, ANEU, MDW, ADIFF, CMP, MG, CBC ####[facility] [address] [place], [place] [address] CT ABD/PELVIS W/ IV CONTRAST ONLYon 10-02-2022 [...] DINO LYONS Normal [facility] ([place]) LACon 10-02-2022 Lactic Acid Lvl 0.9 mmol/L Normal 0.4-2.0 [facility]) Comment on above: Performed By: #### L AC ####[facility] [address] [place], [place] [address] LIPon 10-02-2022 Lipase Level 17 U/L Normal 16-77 [facility] ([place]) Comment on above: Performed By: #### G FR, LIP, MARIEL, W, ADIFF, CMP, MG, CBC ####[address] [address] [place], [place] [address] MGon 10-02-2022 Magnesium [Mass/Vol] 2.0 mg/dL Normal 1.8-2.4 [facility]) Comment on above: Performed By: #### G FR, LIP, MARIEL, W, ADIFF, CMP, MG, CBC ####[address] [address] [place], [place] [address] UAon 10-02-2022 Color (U) Yellow Normal [facility] ([place]) Comment on above: Performed By: #### U A, UAMICAO ####[address] [place], [place] [address] Glucose (U) [Mass/Vol] Negative Normal Negative [facility] ([place]) Comment on above: Performed By: #### U A, UAMICAO ####[address] [place], [place] [address] Ketones Ql (U) Negative Normal Negative [facility] ([place]) Comment on above: Performed By: #### U A, UAMICAO ####[address] [place], [place] [address] UA Appear Cloudy Abnormal Clear [facility] ([place]) Comment on above: Performed By: #### U A, UAMICAO ####[address] [place], [place] [address] UA Blood Trace Abnormal Negative [facility] ([place] Comment on above: Performed By: #### U A, UAMICAO ####[address] [address] [place] [address] UA Leuk Est Negative Normal Negative [facility] ([place] Comment on above: Performed By: #### U A, UAMICAO ####[address] [place] [address] UA Nitrite Negative Normal Negative [facility] ([place] Comment on above: Performed By: #### U A, UAMICAO ####[address] [place] [address] UA pH 5.5 Normal 5.0 - 8.0 [facility] ([place]) Comment on above: Performed By: #### U A, UAMICAO ####[address] [place] [address] UA Protein Negative Normal Negative [facility] ([place] Comment on above: Performed By: #### U A, UAMICAO ####[address] [place] [address] UA Spec Grav 1.020 Normal 1.015-1.025 [facility] ([place]) Comment on above: Performed By: #### U A, UAMICAO ####[address] [place] [address] UA Specimen Type Not Given Normal [facility] ([place] Comment on above: Performed By: #### U A, UAMICAO ####[address] [place] [address] UA Urobilinogen 0.2 E.U./dL Normal 0.2-1.0 [facility] ([place]) Comment on above: Performed By: #### U A, UAMICAO ####[address] [place] [address] Urobilinogen (U) [Mass/Vol] Negative Normal Negative [facility] ([place] Comment on above: Performed By: #### U A, UAMICAO ####[address] [place], [place] [address] Laboratory - Chemistry and C hemistry - challengeOrdered By: Navneet Jackson on 08-16-2022 Cobalamin (Vitamin B12) [Mass/Vol] 237 pg/mL 211-911 [facility] Serum or plasma carcinoembry onic antigen measurement (mass/volume)Ordered By: Navneet Jackson on 08-16-2022 Carcinoembryonic Ag [Mass/Vol] 1.2 ng/mL 0.0-4.7 [facility] Comment on above: Nonsmokers <3.9 Smok ers <5.6[employer] Electrochemiluminescence Immunoassay(ECLIA)Values obtained with different assay methods or kitscannot be used interchangeably. Results cannot beinterpreted as absolute evidence of the presence orabsence of malignant disease.Performed at: [employer] [id number] Director: Jamie Gonzalez PhD, Phone: [phone] Serum or plasma folate measu rement (mass/volume)Ordered By: Navneet Jackson on 08-16-2022 Folate [Mass/Vol] 32.70 ng/mL 3.1-55.4 [facility] Absolute lymphocyte countOrd ered By: Dr. Jackson on 08-03-2022 Lymphocytes Auto (Unsp spec) [#/Vol] 0.90 10*3/uL 0.83-4.51 [facility] Basophil percentageOrdered B y: Dr. Jackson on 08-03-2022 Basophils/100 WBC (Bld) 1.5 % 0-1 [facility] Bilirubin [Mass/Vol] 0.50 mg/dL 0.20-1.00 [facility] Comment on above: For patients on eltr ombopag therapy, use of Dimension [place] TBIL is not recommended. Chloride [Moles/Vol] 111 mmol/L 98-107 [facility] Eosinophils/100 WBC (Bld) 5.8 % 0-5 [facility] Glucose [Mass/Vol] 116 mg/dL 74-106 [facility] Comment on above: Fasting Glucose resu lt from 100 to 125 mg/dL suggests IMPAIRED HOMEOSTASIS per A.D.A. criteria. LDH [Catalytic activity/Vol] 158 U/L 84-246 [facility] Neutrophils (Bld) [#/Vol] 1.9 10*3/uL 2.0-7.7 [facility] Neutrophils/100 WBC (Bld) 55.7 % 47-70 [facility] Potassium [Moles/Vol] 4.2 mmol/L 3.5-5.1 [facility] Protein [Mass/Vol] 6.6 g/dL 6.4-8.2 [facility] Sodium [Moles/Vol] 143 mmol/L 136-145 [facility] WBC (Bld) [#/Vol] 3.4 10*3/uL 4.4-11.0 [facility] Blood erythrocytes count (nu mber/volume)Ordered By: Dr. Jackson on 08-03-2022 RBC (Bld) [#/Vol] 3.39 10*6/uL 4.2-5.4 [facility] Blood hemoglobin measurement (mass/volume)Ordered By: Dr. Jackson on 08-03-2022 Hemoglobin (Bld) [Mass/Vol] 10.8 g/dL 12.0-15.0 [facility] Blood lymphocytes/100 leukoc ytesOrdered By: Dr. Jackson on 08-03-2022 Lymphocytes/100 WBC (Bld) 26.2 % 19-41 [facility] Blood monocytes/100 leukocyt esOrdered By: Dr. Jackson on 08-03-2022 Monocytes/100 WBC (Bld) 10.5 % 0-10 [facility] Blood platelet mean volumeOr dered By: Dr. Jackson on 08-03-2022 Platelet mean volume (Bld) [Entitic vol] 8.9 fL 6.2-12.0 [facility] Determination of erythrocyte mean corpuscular volume (MCV)Ordered By: Dr. Jackson on 08-03-2022 MCV (RBC) [Entitic vol] 102.1 fL 81-99 [facility] Hematocrit Auto (Bld) [Volum e fraction]Ordered By: Dr. Jackson on 08-03-2022 Hematocrit (Bld) [Volume fraction] 34.6 % 37-47 [facility] Laboratory - Chemistry and C hemistry - challengeOrdered By: Dr. Jackson on 08-03-2022 ALP [Catalytic activity/Vol] 69 U/L 45-117 [facility] ALT [Catalytic activity/Vol] 18 U/L 13-56 [facility] CO2 [Moles/Vol] 25.0 mmol/L 21.0-32.0 [facility] Cobalamin (Vitamin B12) [Mass/Vol] 151 pg/mL 211-911 [facility] Globulin (S) [Mass/Vol] 3.9 g/dL 2.2-4.2 [facility] Urea nitrogen/Creatinine [Mass ratio] 22.8 mg/mg 10-20 [facility] Laboratory - Hematology and Cell countsOrdered By: Dr. Jackson on 08-03-2022 Erythrocyte distribution width (RBC) [Entitic vol] 54.3 fL 35.1-43.9 [facility] Erythrocyte distribution width (RBC) [Ratio] 14.4 % 11.6-14.6 [facility] Immature granulocytes/100 WBC (Bld) 0.300 % 0.0-0.9 [facility] Comment on above: IG% - Immature Granu locytes (promyelocytes, myelocytes and metamyelocytes) > 1% indicates that a LEFT SHIFT is Present. MCH (RBC) [Entitic mass] 31.9 pg 27.0-32.0 [facility] Nucleated RBC/100 WBC (Bld) [Ratio] 0 % 0-5 [facility] MCHC Auto (RBC) [Mass/Vol]Or dered By: Dr. Jackson on 08-03-2022 MCHC (RBC) [Mass/Vol] 31.2 g/dL 32-36 [facility] No Panel InformationOrdered By: Dr. Jackson on 08-03-2022 Estimated Creatinine Clearance Calc 63.06 ml/min [facility] Estimated GFR (MDRD) Amer 82 mL/min >60 [facility] Comment on above: GFR Calc Estimated GFR (MDRD) Non-Af Amer 68 mL/min >60 [facility] Comment on above: Non- GFR Calc Platelets bldOrdered By: Dr. Jackson on 08-03-2022 Platelets (Bld) [#/Vol] 234 10*3/uL 150-450 [facility] Serum or plasma albumin jose a urement (mass/volume)Ordered By: Dr. Jackson on 08-03-2022 Albumin [Mass/Vol] 2.7 g/dL 3.2-5.0 [facility] Serum or plasma albumin/glob ulin mass ratioOrdered By: Dr. Jackson on 08-03-2022 Albumin/Globulin [Mass ratio] 0.7 {ratio} 0.9-2.4 [facility] Serum or plasma calcium jose a urement (mass/volume)Ordered By: Dr. Jackson on 08-03-2022 Calcium [Mass/Vol] 8.7 mg/dL 8.5-10.1 [facility] Serum or plasma creatinine m easurement (mass/volume)Ordered By: Dr. Jackson on 08-03-2022 Creatinine [Mass/Vol] 0.88 mg/dL 0.55-1.02 [facility] Comment on above: The validity of the calculated GFR & GFRAA in patients over 70 years has not been determined. Clinical correlation is essential. Serum or plasma folate measu rement (mass/volume)Ordered By: Dr. Jackson on 08-03-2022 Folate [Mass/Vol] 20.40 ng/mL 3.1-55.4 [facility] Serum or plasma urea nitroge n measurement (mass/volume)Ordered By: Dr. Jackson on 08-03-2022 Urea nitrogen [Mass/Vol] 20 mg/dL 7-18 [facility] Thin prep Papanicolaou smear with manual screeningOrdered By: Dr. Jackson on 08-03-2022 Thin prep Papanicolaou smear with manual screening 17 U/L 15-37 [facility] Thin prep Papanicolaou smear with manual screening 7 5-15 [facility] Iron measurement (mass/mass) Ordered By: Dr. Jackson on 06-06-2022 Iron (Unsp spec) [Mass/Mass] 61 ug/dL 50-170 [facility] No Panel InformationOrdered By: Dr. Jackson on 06-06-2022 Total Iron Binding Capacity 261 ug/dL 250-450 [facility] Serum or plasma carcinoembry onic antigen measurement (mass/volume)Ordered By: Dr. Jackson on 06-06-2022 Carcinoembryonic Ag [Mass/Vol] 1.6 ng/mL 0.0-4.7 [facility] Comment on above: Nonsmokers <3.9 Smok ers <5.6[employer] Electrochemiluminescence Immunoassay(ECLIA)Values obtained with different assay methods or kitscannot be used interchangeably. Results cannot beinterpreted as absolute evidence of the presence orabsence of malignant disease.Performed at: [facility] [employer] [id number] Director: Jamie Gonzalez PhD, Phone: [phone] Serum or plasma ferritin wes surement (mass/volume)Ordered By: Dr. Jackson on 06-06-2022 Ferritin [Mass/Vol] 155 ng/mL 8-252 [facility] Serum or plasma iron saturat ion measurement (mass fraction)Ordered By: Dr. Jackson on 06-06-2022 Iron saturation [Mass fraction] 23.4 % 15.0-55.0 [facility] Absolute lymphocyte countOrd ered By: Brigitte Hurley on 05-09-2022 Lymphocytes Auto (Unsp spec) [#/Vol] 0.13 10*3/uL 0.83-4.51 [facility] Basophil percentageOrdered B y: Brigitte Hurley on 05-09-2022 Basophils/100 WBC (Bld) 0.5 % 0-1 [facility] Bilirubin [Mass/Vol] 0.50 mg/dL 0.20-1.00 [facility] Comment on above: For patients on eltr ombopag therapy, use of Dimension [place] TBIL is not recommended. Chloride [Moles/Vol] 108 mmol/L 98-107 [facility] Eosinophils/100 WBC (Bld) 13.2 % 0-5 [facility] Glucose [Mass/Vol] 128 mg/dL 74-106 [facility] Comment on above: Fasting Glucose resu lt greater than or equal to 126 mg/dL suggests DIABETES MELLITUS per A.D.A. criteria. Neutrophils (Bld) [#/Vol] 1.3 10*3/uL 2.0-7.7 [facility] Neutrophils/100 WBC (Bld) 70.5 % 47-70 [facility] Potassium [Moles/Vol] 4.0 mmol/L 3.5-5.1 [facility] Protein [Mass/Vol] 6.5 g/dL 6.4-8.2 [facility] Sodium [Moles/Vol] 142 mmol/L 136-145 [facility] WBC (Bld) [#/Vol] 1.9 10*3/uL 4.4-11.0 [facility] Basophil percentageOrdered B y: Dr. Jackson on 05-09-2022 LDH [Catalytic activity/Vol] 165 U/L 84-246 [facility] Blood erythrocytes count (nu mber/volume)Ordered By: Brigitte Hurley on 05-09-2022 RBC (Bld) [#/Vol] 3.30 10*6/uL 4.2-5.4 [facility] Blood hemoglobin measurement (mass/volume)Ordered By: Brigitte Hurley on 05-09-2022 Hemoglobin (Bld) [Mass/Vol] 10.1 g/dL 12.0-15.0 [facility] Blood lymphocytes/100 leukoc ytesOrdered By: Brigitte Hurley on 05-09-2022 Lymphocytes/100 WBC (Bld) 6.8 % 19-41 [facility] Blood monocytes/100 leukocyt esOrdered By: Brigitte Hurley on 05-09-2022 Monocytes/100 WBC (Bld) 7.9 % 0-10 [facility] Blood platelet mean volumeOr dered By: Brigitte Hurley on 05-09-2022 Platelet mean volume (Bld) [Entitic vol] 8.8 fL 6.2-12.0 [facility] Determination of erythrocyte mean corpuscular volume (MCV)Ordered By: Brigitte Hurley on 05-09-2022 MCV (RBC) [Entitic vol] 97.3 fL 81-99 [facility] Hematocrit Auto (Bld) [Volum e fraction]Ordered By: Brigitte Hurley on 05-09-2022 Hematocrit (Bld) [Volume fraction] 32.1 % 37-47 [facility] Laboratory - Chemistry and C hemistry - challengeOrdered By: Brigitte Hurley on 05-09-2022 ALP [Catalytic activity/Vol] 76 U/L 45-117 [facility] ALT [Catalytic activity/Vol] 13 U/L 13-56 [facility] CO2 [Moles/Vol] 26.0 mmol/L 21.0-32.0 [facility] Globulin (S) [Mass/Vol] 3.9 g/dL 2.2-4.2 [facility] Magnesium [Mass/Vol] 2.0 mg/dL 1.6-2.6 [facility] Urea nitrogen/Creatinine [Mass ratio] 9.5 mg/mg 10-20 [facility] Laboratory - Hematology and Cell countsOrdered By: Brigitte Hurley on 05-09-2022 Erythrocyte distribution width (RBC) [Entitic vol] 49.8 fL 35.1-43.9 [facility] Erythrocyte distribution width (RBC) [Ratio] 14.2 % 11.6-14.6 [facility] Immature granulocytes/100 WBC (Bld) 1.100 % 0.0-0.9 [facility] Comment on above: IG% - Immature Granu locytes (promyelocytes, myelocytes and metamyelocytes) > 1% indicates that a LEFT SHIFT is Present. MCH (RBC) [Entitic mass] 30.6 pg 27.0-32.0 [facility] Nucleated RBC/100 WBC (Bld) [Ratio] 0 % 0-5 [facility] MCHC Auto (RBC) [Mass/Vol]Or dered By: Brigitte Hurley on 05-09-2022 MCHC (RBC) [Mass/Vol] 31.5 g/dL 32-36 [facility] No Panel InformationOrdered By: Brigitte Hurley on 05-09-2022 Estimated Creatinine Clearance Calc 59.03 ml/min [facility] Estimated GFR (MDRD) Amer 76 mL/min >60 [facility] Comment on above: GFR Calc Estimated GFR (MDRD) Non-Af Amer 63 mL/min >60 [facility] Comment on above: Non- GFR Calc Platelets bldOrdered By: Marely Hurley on 05-09-2022 Platelets (Bld) [#/Vol] 181 10*3/uL 150-450 [facility] Review by pathologistOrdered By: Brigitte Hurley on 05-09-2022 Pathologist review Marcos (Unsp spec) [Interp] Reviewed [facility] Comment on above: Previous reported re sult: Anushka martins Edited by: RGOOD on 05/10/22:0763Leukopenia and neutropenia. Normocytic anemia.Clinical correlation necessary.Jorge A Velazco M.D. 05/10/22 AMENDED REPORT 05/10/22 [id number] PATH REV previously reported as: Anushka martins Serum or plasma albumin jose a urement (mass/volume)Ordered By: Brigitte Hurley on 05-09-2022 Albumin [Mass/Vol] 2.6 g/dL 3.2-5.0 [facility] Serum or plasma albumin/glob ulin mass ratioOrdered By: Brigitte Hurley on 05-09-2022 Albumin/Globulin [Mass ratio] 0.7 {ratio} 0.9-2.4 [facility] Serum or plasma calcium jose a urement (mass/volume)Ordered By: Brigitte Hurley on 05-09-2022 Calcium [Mass/Vol] 8.6 mg/dL 8.5-10.1 [facility] Serum or plasma creatinine m easurement (mass/volume)Ordered By: Brigitte Hurley on 05-09-2022 Creatinine [Mass/Vol] 0.94 mg/dL 0.55-1.02 [facility] Comment on above: The validity of the calculated GFR & GFRAA in patients over 70 years has not been determined. Clinical correlation is essential. Serum or plasma urea nitroge n measurement (mass/volume)Ordered By: Brigitte Hurley on 05-09-2022 Urea nitrogen [Mass/Vol] 9 mg/dL 7-18 [facility] Thin prep Papanicolaou smear with manual screeningOrdered By: Brigitte Hurley on 05-09-2022 Thin prep Papanicolaou smear with manual screening 9 U/L 15-37 [facility] Thin prep Papanicolaou smear with manual screening 8 5-15 [facility] Blood manual differential co mment interpretation (narrative result)Ordered By: Brigitte Hurley on 05-02-2022 Manual differential comment Marcos (Bld) [Interp] COMMENT [facility] Comment on above: LYMPHOPENIA. Basophil percentageOrdered B y: Dr. Scott on 04-20-2022 Basophil percentage 25-50 SEEN /hpf 0-5 [facility] Bilirubin Test strip Ql (U)O rdered By: Dr. Scott on 04-20-2022 Bilirubin Ql (U) Negative Negative [facility] Ketones Test strip Ql (U)Ord ered By: Dr. Scott on 04-20-2022 Ketones Ql (U) Negative Negative [facility] Mucus LM Ql (Urine sed)Order ed By: Dr. Scott on 04-20-2022 Mucus Ql (Urine sed) 0 SEEN /hpf [facility] Nitrite Test strip Ql (U)Ord ered By: Dr. Scott on 04-20-2022 Nitrite Ql (U) Negative Negative [facility] Protein Test strip Ql (U)Ord ered By: Dr. Scott on 04-20-2022 Protein Ql (U) Negative Negative [facility] Squamous epithelial cells de tection in urine sediment by light microscopyOrdered By: Dr. Scott on 04-20-2022 Epithelial cells.squamous LM Ql (Urine sed) 0 SEEN /hpf 5-10 [facility] Urine blood detectionOrdered By: Dr. Scott on 04-20-2022 RBC Ql (U) 25 /ul Negative [facility] RBC Ql (U) 5-10 SEEN /hpf 0-5 [facility] Urine clarityOrdered By: Dr. Scott on 04-20-2022 Clarity (U) Clear Clear [facility] Urine color determinationOrd ered By: Dr. Scott on 04-20-2022 Color (U) Yellow Yellow [facility] Urine glucose detectionOrder ed By: Dr. Scott on 04-20-2022 Glucose Ql (U) Normal mg/dl Normal [facility] Urine leukocyte esterase det ection by dipstickOrdered By: Dr. Scott on 04-20-2022 Leukocyte esterase Test strip Ql (U) 500 /ul Negative [facility] Urine pHOrdered By: Dr. Teresa tomas on 04-20-2022 pH (U) 6.0 [pH] 5.0 - 8.0 [facility] Urine sediment bacteria coun t by microscopy (number/high power field)Ordered By: Dr. Scott on 04-20-2022 Bacteria LM.HPF (Urine sed) [#/Area] 2 /[HPF] None Seen [facility] Urine specific gravity measu rementOrdered By: Dr. Scott on 04-20-2022 Specific gravity (U) [Rel density] 1.010 1.002-1.030 [facility] Urobilinogen Auto test strip Ql (U)Ordered By: Dr. Scott on 04-20-2022 Urobilinogen Ql (U) Normal mg/dl Normal [facility] Absolute lymphocyte countOrd ered By: Brigitte Hurley on 04-11-2022 Lymphocytes Auto (Unsp spec) [#/Vol] 0.73 10*3/uL 0.83-4.51 [facility] Basophil percentageOrdered B y: Brigitte Hurley on 04-11-2022 Basophils/100 WBC (Bld) 0.6 % 0-1 [facility] Bilirubin [Mass/Vol] 0.50 mg/dL 0.20-1.00 [facility] Comment on above: For patients on eltr ombopag therapy, use of Dimension [place] TBIL is not recommended. Chloride [Moles/Vol] 109 mmol/L 98-107 [facility] Eosinophils/100 WBC (Bld) 3.9 % 0-5 [facility] Glucose [Mass/Vol] 154 mg/dL 74-106 [facility] Comment on above: Fasting Glucose resu lt greater than or equal to 126 mg/dL suggests DIABETES MELLITUS per A.D.A. criteria. Neutrophils (Bld) [#/Vol] 3.9 10*3/uL 2.0-7.7 [facility] Neutrophils/100 WBC (Bld) 76.1 % 47-70 [facility] Potassium [Moles/Vol] 4.3 mmol/L 3.5-5.1 [facility] Protein [Mass/Vol] 6.7 g/dL 6.4-8.2 [facility] Sodium [Moles/Vol] 138 mmol/L 136-145 [facility] WBC (Bld) [#/Vol] 5.1 10*3/uL 4.4-11.0 [facility] Blood erythrocytes count (nu mber/volume)Ordered By: Brigitte Hurley on 04-11-2022 RBC (Bld) [#/Vol] 3.55 10*6/uL 4.2-5.4 [facility] Blood hemoglobin measurement (mass/volume)Ordered By: Brigitte Hurley on 04-11-2022 Hemoglobin (Bld) [Mass/Vol] 10.7 g/dL 12.0-15.0 [facility] Blood lymphocytes/100 leukoc ytesOrdered By: Brigitte Hurley on 04-11-2022 Lymphocytes/100 WBC (Bld) 14.3 % 19-41 [facility] Blood monocytes/100 leukocyt esOrdered By: Brigitte Hurley on 04-11-2022 Monocytes/100 WBC (Bld) 3.7 % 0-10 [facility] Blood platelet mean volumeOr dered By: Brigitte Hurley on 04-11-2022 Platelet mean volume (Bld) [Entitic vol] 9.3 fL 6.2-12.0 [facility] Determination of erythrocyte mean corpuscular volume (MCV)Ordered By: Brigitte Hurley on 04-11-2022 MCV (RBC) [Entitic vol] 95.8 fL 81-99 [facility] Hematocrit Auto (Bld) [Volum e fraction]Ordered By: Brigitte Mei on 04-11-2022 Hematocrit (Bld) [Volume fraction] 34.0 % 37-47 [facility] Laboratory - Chemistry and C hemistry - challengeOrdered By: Brigitte Hurley on 04-11-2022 ALP [Catalytic activity/Vol] 80 U/L 45-117 [facility] ALT [Catalytic activity/Vol] 19 U/L 13-56 [facility] CO2 [Moles/Vol] 24.0 mmol/L 21.0-32.0 [facility] Globulin (S) [Mass/Vol] 4.0 g/dL 2.2-4.2 [facility] Magnesium [Mass/Vol] 1.9 mg/dL 1.6-2.6 [facility] Urea nitrogen/Creatinine [Mass ratio] 19.5 mg/mg 10-20 [facility] Laboratory - Hematology and Cell countsOrdered By: Brigitte Hurley on 04-11-2022 Erythrocyte distribution width (RBC) [Entitic vol] 43.0 fL 35.1-43.9 [facility] Erythrocyte distribution width (RBC) [Ratio] 12.2 % 11.6-14.6 [facility] Immature granulocytes/100 WBC (Bld) 1.400 % 0.0-0.9 [facility] Comment on above: IG% - Immature Granu locytes (promyelocytes, myelocytes and metamyelocytes) > 1% indicates that a LEFT SHIFT is Present. MCH (RBC) [Entitic mass] 30.1 pg 27.0-32.0 [facility] Nucleated RBC/100 WBC (Bld) [Ratio] 0.4 % 0-5 [facility] MCHC Auto (RBC) [Mass/Vol]Or dered By: Brigitte Hurley on 04-11-2022 MCHC (RBC) [Mass/Vol] 31.5 g/dL 32-36 [facility] No Panel InformationOrdered By: Brigitte Hurley on 04-11-2022 Estimated GFR (MDRD) Amer 77 mL/min >60 [facility] Comment on above: GFR Calc Estimated GFR (MDRD) Non-Af Amer 64 mL/min >60 [facility] Comment on above: Non- GFR Calc Platelets bldOrdered By: Marely Hurley on 04-11-2022 Platelets (Bld) [#/Vol] 221 10*3/uL 150-450 [facility] Serum or plasma albumin jose a urement (mass/volume)Ordered By: Brigitte Hurley on 04-11-2022 Albumin [Mass/Vol] 2.7 g/dL 3.2-5.0 [facility] Serum or plasma albumin/glob ulin mass ratioOrdered By: Brigitte Hurley on 04-11-2022 Albumin/Globulin [Mass ratio] 0.7 {ratio} 0.9-2.4 [facility] Serum or plasma calcium jose a urement (mass/volume)Ordered By: Brigitte Hurley on 04-11-2022 Calcium [Mass/Vol] 8.7 mg/dL 8.5-10.1 [facility] Serum or plasma creatinine m easurement (mass/volume)Ordered By: Brigitte Hurley on 04-11-2022 Creatinine [Mass/Vol] 0.92 mg/dL 0.55-1.02 [facility] Comment on above: The validity of the calculated GFR & GFRAA in patients over 70 years has not been determined. Clinical correlation is essential. Serum or plasma urea nitroge n measurement (mass/volume)Ordered By: Brigitte Hurley on 04-11-2022 Urea nitrogen [Mass/Vol] 18 mg/dL 7-18 [facility] Thin prep Papanicolaou smear with manual screeningOrdered By: Brigitte Hurley on 04-11-2022 Thin prep Papanicolaou smear with manual screening 11 U/L 15-37 [facility] Thin prep Papanicolaou smear with manual screening 5 5-15 [facility] HIV 1 and HIV-2 antibody ass ay with HIV-1 p24 antigen detectionOrdered By: Dr. Jackson on 04-04-2022 HIV 1+2 Ab+HIV1 p24 Ag IA Ql Non-Reactive Nonreactive [facility] Iron measurement (mass/mass) Ordered By: Dr. Jackson on 04-04-2022 Iron (Unsp spec) [Mass/Mass] 50 ug/dL 50-170 [facility] No Panel InformationOrdered By: Dr. Jackson on 04-04-2022 Total Iron Binding Capacity 257 ug/dL 250-450 [facility] Serum or plasma ferritin wes surement (mass/volume)Ordered By: Dr. Jackson on 04-04-2022 Ferritin [Mass/Vol] 52 ng/mL 8-252 [facility] Serum or plasma iron saturat ion measurement (mass fraction)Ordered By: Dr. Jackson on 04-04-2022 Iron saturation [Mass fraction] 19.5 % 15.0-55.0 [facility] Absolute lymphocyte counton 03-24-2022 Lymphocytes Auto (Unsp spec) [#/Vol] 2.07 10*3/uL 0.83-4.51 [facility] Work Phone: Basophil percentageon 2022 Basophils/100 WBC (Bld) 0.5 % 0-1 [facility] Work Phone: Bilirubin [Mass/Vol] 0.30 mg/dL 0.20-1.00 [facility] Work Phone: Comment on above: For patients on eltr ombopag therapy, use of Dimension [place] TBIL is not recommended. Chloride [Moles/Vol] 111 mmol/L 98-107 [facility] Work [facility]: Eosinophils/100 WBC (Bld) 3.5 % 0-5 [facility] Work Phone: Glucose [Mass/Vol] 111 mg/dL 74-106 [facility] Work Phone: Comment on above: Fasting Glucose resu lt from 100 to 125 mg/dL suggests IMPAIRED HOMEOSTASIS per A.D.A. criteria. Neutrophils (Bld) [#/Vol] 3.3 10*3/uL 2.0-7.7 [facility] Work Phone: Neutrophils/100 WBC (Bld) 54.3 % 47-70 [facility] Work Phone: Potassium [Moles/Vol] 4.2 mmol/L 3.5-5.1 [facility] Work Phone: Protein [Mass/Vol] 7.6 g/dL 6.4-8.2 [facility] Work Phone: Sodium [Moles/Vol] 142 mmol/L 136-145 [facility] Work Phone: WBC (Bld) [#/Vol] 6.1 10*3/uL 4.4-11.0 [facility] Work Phone: Basophil percentageOrdered B y: Dr. Jackson on 03-24-2022 LDH [Catalytic activity/Vol] 182 U/L 84-246 [facility] Blood erythrocytes count (nu mber/volume)on 03-24-2022 RBC (Bld) [#/Vol] 3.96 10*6/uL 4.2-5.4 [facility] Work Phone: Blood hemoglobin measurement (mass/volume)on 03-24-2022 Hemoglobin (Bld) [Mass/Vol] 12.3 g/dL 12.0-15.0 [facility] Work Phone: Blood lymphocytes/100 leukoc yteson 01-05-2023 Lymphocytes/100 WBC (Bld) 34.1 % 19-41 [facility] Work Phone: Blood monocytes/100 leukocyt eson 03-24-2022 Monocytes/100 WBC (Bld) 7.4 % 0-10 [facility] Work Phone: Blood platelet mean volumeon 03-24-2022 Platelet mean volume (Bld) [Entitic vol] 10.0 fL 6.2-12.0 [facility] Work Phone: Determination of erythrocyte mean corpuscular volume (MCV)on 03-24-2022 MCV (RBC) [Entitic vol] 96.2 fL 81-99 [facility] Work Phone: Hematocrit Auto (Bld) [Volum e fraction]on 03-24-2022 Hematocrit (Bld) [Volume fraction] 38.1 % 37-47 [facility] Work Phone: Laboratory - Chemistry and C hemistry - challengeon 03-24-2022 ALP [Catalytic activity/Vol] 94 U/L 45-117 [facility] Work Phone: ALT [Catalytic activity/Vol] 23 U/L 13-56 [facility] Work Phone: CO2 [Moles/Vol] 28.0 mmol/L 21.0-32.0 [facility] Work Phone: Globulin (S) [Mass/Vol] 4.5 g/dL 2.2-4.2 [facility] Work Phone: Urea nitrogen/Creatinine [Mass ratio] 20.9 mg/mg 10-20 [facility] Work Phone: Laboratory - Hematology and Cell countson 03-24-2022 Erythrocyte distribution width (RBC) [Entitic vol] 43.6 fL 35.1-43.9 [facility] Work Phone: Erythrocyte distribution width (RBC) [Ratio] 12.3 % 11.6-14.6 [facility] Work Phone: [phone] Immature granulocytes/100 WBC (Bld) 0.200 % 0.0-0.9 [facility] Work Phone: Comment on above: IG% - Immature Granu locytes (promyelocytes, myelocytes and metamyelocytes) > 1% indicates that a LEFT SHIFT is Present. MCH (RBC) [Entitic mass] 31.1 pg 27.0-32.0 [facility] Work Phone: Nucleated RBC/100 WBC (Bld) [Ratio] 0 % 0-5 [facility] Work Phone: MCHC Auto (RBC) [Mass/Vol]on 03-24-2022 MCHC (RBC) [Mass/Vol] 32.3 g/dL 32-36 [facility] Work Phone: No Panel Informationon 03-24 Estimated GFR (MDRD) Amer 79 mL/min >60 [facility] Work Phone: Comment on above: GFR Calc Estimated GFR (MDRD) Non-Af Amer 65 mL/min >60 [facility] Work Phone: Comment on above: Non- GFR Calc Platelets bldon 03-24-2022 Platelets (Bld) [#/Vol] 254 10*3/uL 150-450 [facility] Work Phone: Serum or plasma albumin jose a urement (mass/volume)on 03-24-2022 Albumin [Mass/Vol] 3.1 g/dL 3.2-5.0 [facility] Work Phone: Serum or plasma albumin/glob ulin mass ratioon 03-24-2022 Albumin/Globulin [Mass ratio] 0.7 {ratio} 0.9-2.4 [facility] Work Phone: Serum or plasma calcium jose a urement (mass/volume)on 03-24-2022 Calcium [Mass/Vol] 9.1 mg/dL 8.5-10.1 [facility] Work Phone: Serum or plasma carcinoembry onic antigen measurement (mass/volume)Ordered By: Dr. Jackson on 03-24-2022 Carcinoembryonic Ag [Mass/Vol] 13.5 ng/mL 0.0-4.7 [facility] Comment on above: Nonsmokers <3.9 Smok ers <5.6[employer] Electrochemiluminescence Immunoassay(ECLIA)Values obtained with different assay methods or kitscannot be used interchangeably. Results cannot beinterpreted as absolute evidence of the presence orabsence of malignant disease.Performed at: [employer] [facility] [employer] [id number] Director: Jamie Gonzalez PhD, Phone: [phone] Serum or plasma creatinine m easurement (mass/volume)on 03-24-2022 Creatinine [Mass/Vol] 0.91 mg/dL 0.55-1.02 [facility] Work Phone: Comment on above: The validity of the calculated GFR & GFRAA in patients over 70 years has not been determined. Clinical correlation is essential. Serum or plasma urea nitroge n measurement (mass/volume)on 03-24-2022 Urea nitrogen [Mass/Vol] 19 mg/dL 7-18 [facility] Work Phone: Thin prep Papanicolaou smear with manual screeningon 03-24-2022 Thin prep Papanicolaou smear with manual screening 15 U/L 15-37 [facility] Work Phone: Thin prep Papanicolaou smear with manual screening 3 5-15 [facility] Work Phone: Basophil percentageOrdered B y: Dr. Jackson on 03-15-2022 Creatinine [Mass/Vol] 0.9 mg/dL 0.55-1.02 [facility] No Panel InformationOrdered By: Dr. Jackson on 03-15-2022 Bedside Estimated GFR (eGFR) > 60.0000 mL/min >60 [facility] Cervical or vagninal specime n microscopic examination by cytology stain (reported asOrdered By: Dr. Gaming on 03-10-2022 Cytology report Cyto stain Doc (Cvx/Vag) Comment . [facility] Comment on above: The Pap smear is a s creening test designed to aid in thedetection of premalignant and malignant conditions of theuterine cervix. It is not a diagnostic procedure andshould not be used as the sole means of detecting cervicalcancer. Both false-positive and false-negative reports dooccur. Detection in cervical specim en of any of human papilloma virus (HPV) 16, 18, 31, 33,Ordered By: Dr. Gaming on 03-10-2022 HPV 16+18+31+33+35+39+45+5 1+52+56+58+59+66+68 DNA Probe+sig amp Ql (Cvx) Positive Negative [facility] Comment on above: This nucleic acid am plification test detects fourteen high- risk HPV types (16,18,31,33,35,39,45,51,52,56,58,59,66,68)without differentiation. Laboratory - CytologyOrdered By: Dr. Gaming on 03-10-2022 Commissioned Fire Officer Cyto stain Nom (Cvx/Vag) [ID] Comment . [facility] Comment on above: Lon Duron, Cytote chnologist (ASCP) Pathologist Cyto stain Nom (Cvx/Vag) [ID] Comment . [facility] Comment on above: Tonja Rivero MD, Pa thologist Recommended follow-up Cyto stain Nom (Cvx/Vag) Comment . [facility] Comment on above: Suggest colposcopy a nd biopsy if indicated. Laboratory - Miscellaneous t estsOrdered By: Dr. Gaming on 03-10-2022 Service comment (Unsp spec) [Interp] Comment . [facility] Comment on above: This liquid based Th inPrep(R) pap test was screened withthe use of an image guided system. Service comment (Unsp spec) [Interp] . . [facility] Liquid-based cerv Pap + CT/G C by KODY w reflex to high-risk HPV for ASCUSOrdered By: Dr. Gaming on 03-10-2022 Cytology report Cyto stain.thin prep Doc (Cvx/Vag) Comment . [facility] Comment on above: Criteria not met, HP V Genotype not performed.Performed at: - [facility] [id number] Director: Florinda Finch MD, Phone: [phone] at: = - [facility] [id number] Director: Florinda Finch MD, Phone: [phone] No Panel InformationOrdered By: Dr. Gaming on 03-10-2022 Pathology report final diagnosis Narrative Comment . [facility] Comment on above: EPITHELIAL CELL ABNO RMALITY.HIGH-GRADE SQUAMOUS INTRAEPITHELIAL LESION (HSIL). R87.613 LABORATORYOrdered By: SYSTEM SYSTEM on 02-22-2022 Basophils (Bld) [#/Vol] 0.1 103/mcL Invalid Interpretation Code 0.0 - 0.3 10^3/mcL Workflow SS Basophils/100 WBC (Bld) 0.8 % [...] 4.0 - 15.0 mEq/L AH ADM SS Eosinophils (Bld) [#/Vol] 0.3 103/mcL [...] Invalid Interpretation Code 4.5 - 10.8 10^3/mcL AH Workflow SS LABORATORYOrdered By: SYSTEM SYSTEM on [...] 10^3/mcL AH Workflow SS Basophils/100 WBC (Bld) 0.3 % Invalid Interpretation Code 0.0 - 2.5 % AH Workflow SS Bilirubin [Mass/Vol] 0.60 mg/dL Invalid [...] 10^3/mcL AH Workflow SS Eosinophils/100 WBC (Bld) 1.8 % [...] Invalid Interpretation Code 4.5 - 10.8 10^3/mcL AH Workflow SS LABORATORYOrdered By: Zeinab Duenas on [...] Invalid Interpretation Code 11.5 - 15.5 % Remisol SS GFR/1.73 sq M.predicted among blacks MDRD (S/P/Bld) [Vol rate/Area] ml/min/1.73sqm Invalid Interpretation Code AH ADM SS GFR/1.73 sq M.predicted among non-blacks MDRD (S/P/Bld) [Vol rate/Area] 60 ml/min/1.73sqm Invalid Interpretation Code ADM SS Glucose [Mass/Vol] 104 mg/dL Invalid Interpretation Code 82 - 115 mg/dL AH ADM SS HbA1c (Bld) [Mass fraction] 6.0 % Invalid Interpretation Code 4.0 - 6.0 % Auto Chem SS Hematocrit (Bld) [Volume fraction] 35.1 % Invalid Interpretation Code 34.0 - 46.0 % Remisol SS Hemoglobin (Bld) [Mass/Vol] 11.8 G/dL Invalid Interpretation Code 12.0 - 16.0 G/dL Remisol SS Lymphocytes (Bld) [#/Vol] 2.10 103/mcL Invalid Interpretation Code 0.90 - 4.32 10^3/mcL Remisol SS Lymphocytes/100 WBC (Bld) 38.3 % [...] 149 mg/dL AH ADM SS LABORATORYOrdered By: SYSTEM SYSTEM on 03-22-2021 Troponin I.cardiac DL <= 0.01 ng/mL [Mass/Vol] 83.37 ng/L Invalid Interpretation Code 0.00 - 34.00 ng/L ADM SS GFR 68 ml/min/1.73sqm Invalid Interpretation Code AO Chemistry S GFR Non- 56 ml/min/1.73sqm Invalid Interpretation Code AO Chemistry S LABORATORYOrdered By: Linda Peña on 03-22-2021 ADMITTED TO INTENSIVE CARE UNIT FOR CONDITION OF INTEREST:FIND:PT:^LINDA ENT:ORD: No (03/22/21 3:27 AM) Invalid Interpretation Code AO Auto Urine SS EMPLOYED IN A HEALTHCARE SETTING:FIND:PT:^PATIE NT:ORD: No (03/22/21 3:27 AM) Invalid Interpretation Code AO Auto Urine SS FIRST TEST FOR CONDITION OF INTEREST:FIND:PT:^LINDA ENT:ORD: No (03/22/21 3:27 AM) Invalid Interpretation Code AO Auto Urine SS HAS SYMPTOMS RELATED TO CONDITION OF INTEREST:FIND:PT:^LINDA ENT:ORD: No (03/22/21 3:27 AM) Invalid Interpretation Code AO Auto Urine SS Illness or injury onset date and time [id number] Invalid Interpretation Code AO Auto Urine SS Patient was hospitalized because of this condition No (03/22/21 3:27 AM) Invalid Interpretation Code AO Auto Urine SS status Not (03/22/21 3:27 AM) Invalid Interpretation Code AO Auto Urine SS RESIDES IN A CONGREGATE CARE SETTING:FIND:PT:^PATIE NT:ORD: No (03/22/21 3:27 AM) Invalid Interpretation Code [...] for amplification.JAVAD SARS-CoV-2 Assay is a Real-Time reverse-transcriptase polymerase chain reaction (RT-PCR) based qualitative in [...] Date Time Vital Sign Value Performing Clinician Faci lity 05-23-2023 15:33-0500 Body height 175.26 cm COMPTOMETER OPERATORKamilla Jordan COMPTOMETER OPERATOR Work Phone: [facility] 05-23-2023 15:33-0500 Body mass index (BMI) [Ratio] 39.7 kg/m2 COMPTOMETER OPERATORKamilla Jordan COMPTOMETER OPERATOR Work Phone: [facility] 05-23-2023 15:33-0500 Body temperature 97.8 [degF] ROBERT Jordan COMPTOMETER OPERATOR Work Phone: [facility] 05-23-2023 15:33-0500 Body weight 122.01 kg ROBERT Jordan COMPTOMETER OPERATOR Work Phone: [facility] 05-23-2023 15:33-0500 Diastolic blood pressure 78 mm[Hg] ROBERT Jordan COMPTOMETER OPERATOR Work Phone: [facility] 05-23-2023 15:33-0500 Heart rate 79 /min ROBERT Roemer COMPTOMETER OPERATOR Work Phone: [facility] 05-23-2023 15:33-0500 Respiratory rate 16 /min COMPTOMETER OPERATOR-C Lisa Geneseo COMPTOMETER OPERATOR Work Phone: [facility] 05-23-2023 15:33-0500 SaO2% (BldA) [Mass fraction] 93 % COMPTOMETER OPERATOR-C Lisa Julian COMPTOMETER OPERATOR Work Phone: [facility] 05-23-2023 15:33-0500 Systolic blood pressure 124 mm[Hg] COMPTOMETER OPERATOR-C Lisa Julian COMPTOMETER OPERATOR Work Phone: [facility] 02-23-2023 11:22-0500 Body height 175.26 cm COMPTOMETER OPERATOR-C Lisa Julian COMPTOMETER OPERATOR Work Phone: [facility] 02-23-2023 11:22-0500 Body mass index (BMI) [Ratio] 38.9 kg/m2 COMPTOMETER OPERATOR-C Lisa Julian COMPTOMETER OPERATOR Work Phone: [facility] 02-23-2023 11:22-0500 Body temperature 97.3 [degF] COMPTOMETER OPERATOR-C Lisa Julian COMPTOMETER OPERATOR Work Phone: [facility] 02-23-2023 11:22-0500 Body weight 119.74 kg COMPTOMETER OPERATOR-C Lisa Julian COMPTOMETER OPERATOR Work Phone: [facility] 02-23-2023 11:22-0500 Diastolic blood pressure 70 mm[Hg] COMPTOMETER OPERATOR-C Lisa Jordan COMPTOMETER OPERATOR Work Phone: [facility] 02-23-2023 11:22-0500 Heart rate 81 /min COMPTOMETER OPERATOR-C Lisa Jordan COMPTOMETER OPERATOR Work Phone: [facility] 02-23-2023 11:22-0500 Respiratory rate 18 /min COMPTOMETER OPERATOR-C Lisa Julian COMPTOMETER OPERATOR Work Phone: [facility] 02-23-2023 11:22-0500 SaO2% (BldA) [Mass fraction] 95 % COMPTOMETER OPERATOR-C Lisa Jordan COMPTOMETER OPERATOR Work Phone: [facility] 02-23-2023 11:22-0500 Systolic blood pressure 134 mm[Hg] COMPTOMETER OPERATOR-C Lisa Julian COMPTOMETER OPERATOR Work Phone: [facility] 11-17-2022 15:43-0400 Body mass index (BMI) [Ratio] 37.3 kg/m2 COMPTOMETER OPERATOR-C Lisa Jordan COMPTOMETER OPERATOR Work Phone: [facility] 11-17-2022 15:43-0400 Body temperature 97.8 [degF] COMPTOMETER OPERATOR-C Lisa Jordan COMPTOMETER OPERATOR Work Phone: [facility] 11-17-2022 15:43-0400 Body weight 114.56 kg COMPTOMETER OPERATOR-C Lisa Jordan COMPTOMETER OPERATOR Work Phone: [facility] 11-17-2022 15:43-0400 Diastolic blood pressure 74 mm[Hg] COMPTOMETER OPERATOR-C Lisa Jordan COMPTOMETER OPERATOR Work Phone: [facility] 11-17-2022 15:43-0400 Heart rate 62 /min COMPTOMETER OPERATOR-C Lisa Jordan COMPTOMETER OPERATOR Work Phone: [facility] 11-17-2022 15:43-0400 Respiratory rate 18 /min COMPTOMETER OPERATOR-C Lisakamaljit Jordan COMPTOMETER OPERATOR Work Phone: [facility] 11-17-2022 15:43-0400 SaO2% (BldA) [Mass fraction] 96 % COMPTOMETER OPERATOR-C Lisa Jordan COMPTOMETER OPERATOR Work Phone: [facility] 11-17-2022 15:43-0400 Systolic blood pressure 135 mm[Hg] COMPTOMETER OPERATOR-C Lisa Jordan COMPTOMETER OPERATOR Work Phone: [facility] 10-04-2022 10:57-0400 Body temperature 96.9 [degF] COMPTOMETER OPERATOR-C Lisa Jordan COMPTOMETER OPERATOR Work Phone: [facility] 10-04-2022 10:57-0400 Diastolic blood pressure 64 mm[Hg] COMPTOMETER OPERATOR-C Lisa Jordan COMPTOMETER OPERATOR Work Phone: [facility] 10-04-2022 10:57-0400 Heart rate 60 /min COMPTOMETER OPERATOR-C Lisa Geneseo COMPTOMETER OPERATOR Work Phone: [facility] 10-04-2022 10:57-0400 Respiratory rate 16 /min COMPTOMETER OPERATOR-C Lisa Julian COMPTOMETER OPERATOR Work Phone: [facility] 10-04-2022 10:57-0400 SaO2% (BldA) [Mass fraction] 97 % COMPTOMETER OPERATOR-C Lisa Geneseo COMPTOMETER OPERATOR Work Phone: [facility] 10-04-2022 10:57-0400 Systolic blood pressure 113 mm[Hg] COMPTOMETER OPERATOR-C Lisa Julian COMPTOMETER OPERATOR Work Phone: [facility] 10-04-2022 08:22-0400 Body height 175.26 cm COMPTOMETER OPERATOR-C Lisa Geneseo COMPTOMETER OPERATOR Work Phone: [facility] 10-04-2022 08:22-0400 Body mass index (BMI) [Ratio] 38.4 kg/m2 COMPTOMETER OPERATOR-C Lisa Julian COMPTOMETER OPERATOR Work Phone: [facility] 10-04-2022 08:22-0400 Body weight 118 kg COMPTOMETER OPERATOR-C Lisa Julian COMPTOMETER OPERATOR Work Phone: [facility] 09-21-2022 08:19-0400 Diastolic blood pressure 78 mm[Hg] COMPTOMETER OPERATOR-C Lisa Julian COMPTOMETER OPERATOR Work Phone: [facility] 09-21-2022 08:19-0400 Heart rate 83 /min COMPTOMETER OPERATOR-C Lisa Geneseo COMPTOMETER OPERATOR Work Phone: [facility] 09-21-2022 08:19-0400 Respiratory rate 17 /min COMPTOMETER OPERATOR-C Lisa Julian COMPTOMETER OPERATOR Work Phone: [facility] 09-21-2022 08:19-0400 SaO2% (BldA) [Mass fraction] 96 % COMPTOMETER OPERATOR-C Lias Geneseo COMPTOMETER OPERATOR Work Phone: [facility] 09-21-2022 08:19-0400 Systolic blood pressure 145 mm[Hg] COMPTOMETER OPERATOR-C Lisa Jordan COMPTOMETER OPERATOR Work Phone: [facility] 09-07-2022 08:23-0400 Body mass index (BMI) [Ratio] 38.7 kg/m2 COMPTOMETER OPERATOR-C Lisa Julian COMPTOMETER OPERATOR Work Phone: [facility] 09-07-2022 08:23-0400 Body weight 119.06 kg COMPTOMETER OPERATOR-C Lisa Jordan COMPTOMETER OPERATOR Work Phone: [facility] 09-07-2022 08:23-0400 Diastolic blood pressure 69 mm[Hg] COMPTOMETER OPERATOR-C Lisa Jordan COMPTOMETER OPERATOR Work Phone: [facility] 09-07-2022 08:23-0400 Systolic blood pressure 127 mm[Hg] COMPTOMETER OPERATOR-C Lisa Jordan COMPTOMETER OPERATOR Work Phone: [facility] 09-01-2022 15:57-0400 Body mass index (BMI) [Ratio] 38.7 kg/m2 COMPTOMETER OPERATOR-C Lisa Jordan COMPTOMETER OPERATOR Work Phone: [facility] 09-01-2022 15:57-0400 Body temperature 97.8 [degF] COMPTOMETER OPERATOR-C Lisa Jordan COMPTOMETER OPERATOR Work Phone: [facility] 09-01-2022 15:57-0400 Body weight 119.01 kg COMPTOMETER OPERATOR-C Lisa Jordan COMPTOMETER OPERATOR Work Phone: [facility] 09-01-2022 15:57-0400 Diastolic blood pressure 72 mm[Hg] COMPTOMETER OPERATOR-C Lisa Jordan COMPTOMETER OPERATOR Work Phone: [facility] 09-01-2022 15:57-0400 Heart rate 81 /min COMPTOMETER OPERATOR-C Lisa Jordan COMPTOMETER OPERATOR Work Phone: [facility] 09-01-2022 15:57-0400 Respiratory rate 16 /min COMPTOMETER OPERATOR-C Lisa Jordan COMPTOMETER OPERATOR Work Phone: [facility] 09-01-2022 15:57-0400 SaO2% (BldA) [Mass fraction] 97 % COMPTOMETER OPERATOR-C Lisa Roemer COMPTOMETER OPERATOR Work Phone: [facility] 09-01-2022 15:57-0400 Systolic blood pressure 126 mm[Hg] COMPTOMETER OPERATOR-C Lisa Geneseo COMPTOMETER OPERATOR Work Phone: [facility] 08-16-2022 15:00-0400 Body mass index (BMI) [Ratio] 38.7 kg/m2 COMPTOMETER OPERATOR-C Lisa Julian COMPTOMETER OPERATOR Work Phone: [facility] 08-16-2022 15:00-0400 Body temperature 97.1 [degF] COMPTOMETER OPERATOR-C Lisa Geneseo COMPTOMETER OPERATOR Work Phone: [facility] 08-16-2022 15:00-0400 Body weight 118.98 kg COMPTOMETER OPERATOR-C Lisa Julian COMPTOMETER OPERATOR Work Phone: [facility] 08-16-2022 15:00-0400 Diastolic blood pressure 66 mm[Hg] COMPTOMETER OPERATOR-C Lisa Jordan COMPTOMETER OPERATOR Work Phone: [facility] 08-16-2022 15:00-0400 Heart rate 87 /min COMPTOMETER OPERATOR-C Lisa Julian COMPTOMETER OPERATOR Work Phone: [facility] 08-16-2022 15:00-0400 Respiratory rate 16 /min COMPTOMETER OPERATOR-C Lisa Geneseo COMPTOMETER OPERATOR Work Phone: [facility] 08-16-2022 15:00-0400 SaO2% (BldA) [Mass fraction] 94 % COMPTOMETER OPERATOR-C Lisadilia Jordan COMPTOMETER OPERATOR Work Phone: [facility] 08-16-2022 15:00-0400 Systolic blood pressure 129 mm[Hg] COMPTOMETER OPERATOR-C Lisa Julian COMPTOMETER OPERATOR Work Phone: [facility] 08-04-2022 10:48-0400 Body mass index (BMI) [Ratio] 39.4 kg/m2 COMPTOMETER OPERATOR-C Lisa Julian COMPTOMETER OPERATOR Work Phone: [facility] 08-04-2022 10:48-0400 Body temperature 97.3 [degF] COMPTOMETER OPERATOR-C Lisa Geneseo COMPTOMETER OPERATOR Work Phone: [facility] 08-04-2022 10:48-0400 Body weight 121.13 kg COMPTOMETER OPERATOR-C Lisa Geneseo COMPTOMETER OPERATOR Work Phone: [facility] 08-04-2022 10:48-0400 Diastolic blood pressure 77 mm[Hg] COMPTOMETER OPERATOR-C Lisa Julian COMPTOMETER OPERATOR Work Phone: [facility] 08-04-2022 10:48-0400 Heart rate 86 /min COMPTOMETER OPERATOR-C Lisa Julian COMPTOMETER OPERATOR Work Phone: [facility] 08-04-2022 10:48-0400 Respiratory rate 16 /min COMPTOMETER OPERATOR-C Lisa Geneseo COMPTOMETER OPERATOR Work Phone: [facility] 08-04-2022 10:48-0400 SaO2% (BldA) [Mass fraction] 99 % COMPTOMETER OPERATOR-C Lisa Julian COMPTOMETER OPERATOR Work Phone: [facility] 08-04-2022 10:48-0400 Systolic blood pressure 133 mm[Hg] COMPTOMETER OPERATOR-C Lisa Geneseo COMPTOMETER OPERATOR Work Phone: [facility] 08-03-2022 08:11-0400 Body mass index (BMI) [Ratio] 39.2 kg/m2 COMPTOMETER OPERATOR-C Lisa Julian COMPTOMETER OPERATOR Work Phone: [facility] 08-03-2022 08:11-0400 Body weight 120.31 kg COMPTOMETER OPERATOR-C Lisa Geneseo COMPTOMETER OPERATOR Work Phone: [facility] 08-03-2022 08:11-0400 Diastolic blood pressure 64 mm[Hg] COMPTOMETER OPERATOR-C Lsia Geneseo COMPTOMETER OPERATOR Work Phone: [facility] 08-03-2022 08:11-0400 Systolic blood pressure 112 mm[Hg] COMPTOMETER OPERATOR-C Lisa Julian COMPTOMETER OPERATOR Work Phone: [facility] 07-18-2022 15:15-0400 Body mass index (BMI) [Ratio] 39.2 kg/m2 COMPTOMETER OPERATOR-C Lisa Julian COMPTOMETER OPERATOR Work Phone: [facility] 07-18-2022 15:15-0400 Body temperature 97.3 [degF] COMPTOMETER OPERATOR-C Lisa Julian COMPTOMETER OPERATOR Work Phone: [facility] 07-18-2022 15:15-0400 Body weight 120.34 kg COMPTOMETER OPERATOR-C Lisa Julian COMPTOMETER OPERATOR Work Phone: [facility] [facility] 07-18-2022 15:15-0400 Diastolic blood pressure 65 mm[Hg] COMPTOMETER OPERATOR-C Lisa Jordan COMPTOMETER OPERATOR Work Phone: [facility] 07-18-2022 15:15-0400 Heart rate 67 /min COMPTOMETER OPERATOR-C Lisa Jordan COMPTOMETER OPERATOR Work Phone: [facility] 07-18-2022 15:15-0400 Respiratory rate 18 /min COMPTOMETER OPERATOR-C Lisa Jordan COMPTOMETER OPERATOR Work Phone: [facility] 07-18-2022 15:15-0400 SaO2% (BldA) [Mass fraction] 94 % COMPTOMETER OPERATOR-C Lisa Jordan COMPTOMETER OPERATOR Work Phone: [facility] 07-18-2022 15:15-0400 Systolic blood pressure 103 mm[Hg] COMPTOMETER OPERATOR-C Lisa Jordan COMPTOMETER OPERATOR Work Phone: [facility] 06-09-2022 15:14-0400 Body mass index (BMI) [Ratio] 37.3 kg/m2 COMPTOMETER OPERATOR-C Lisa Jordan COMPTOMETER OPERATOR Work Phone: [facility] 06-09-2022 15:14-0400 Body temperature 97.4 [degF] COMPTOMETER OPERATOR-C Lisa Jordan COMPTOMETER OPERATOR Work Phone: [facility] 06-09-2022 15:14-0400 Body weight 114.47 kg COMPTOMETER OPERATOR-C Lisa Jordan COMPTOMETER OPERATOR Work Phone: [facility] 06-09-2022 15:14-0400 Diastolic blood pressure 69 mm[Hg] COMPTOMETER OPERATOR-C Lisa Jordan COMPTOMETER OPERATOR Work Phone: [facility] 06-09-2022 15:14-0400 Heart rate 91 /min COMPTOMETER OPERATOR-C Lisa Geneseo COMPTOMETER OPERATOR Work Phone: [facility] 06-09-2022 15:14-0400 Respiratory rate 18 /min COMPTOMETER OPERATOR-C Lisa Julian COMPTOMETER OPERATOR Work Phone: [facility] 06-09-2022 15:14-0400 SaO2% (BldA) [Mass fraction] 98 % COMPTOMETER OPERATOR-C Lisa Geneseo COMPTOMETER OPERATOR Work Phone: [facility] 06-09-2022 15:14-0400 Systolic blood pressure 111 mm[Hg] COMPTOMETER OPERATOR-C Lisa Geneseo COMPTOMETER OPERATOR Work Phone: [facility] 06-09-2022 14:03-0400 Body mass index (BMI) [Ratio] 37.3 kg/m2 COMPTOMETER OPERATOR-C Lisa Geneseo COMPTOMETER OPERATOR Work Phone: [facility] 06-09-2022 14:03-0400 Body temperature 97.4 [degF] COMPTOMETER OPERATOR-C Lisa Julian COMPTOMETER OPERATOR Work Phone: [facility] 06-09-2022 14:03-0400 Body weight 114.47 kg COMPTOMETER OPERATOR-C Lisa Geneseo COMPTOMETER OPERATOR Work Phone: [facility] 06-09-2022 14:03-0400 Diastolic blood pressure 69 mm[Hg] COMPTOMETER OPERATOR-C Lisa Geneseo COMPTOMETER OPERATOR Work Phone: [facility] 06-09-2022 14:03-0400 Heart rate 91 /min COMPTOMETER OPERATOR-C Lisa Julian COMPTOMETER OPERATOR Work Phone: [facility] 06-09-2022 14:03-0400 Respiratory rate 18 /min COMPTOMETER OPERATOR-C Lisa Julian COMPTOMETER OPERATOR Work Phone: [facility] 06-09-2022 14:03-0400 SaO2% (BldA) [Mass fraction] 98 % COMPTOMETER OPERATOR-C Lisa Geneseo COMPTOMETER OPERATOR Work Phone: [facility] 06-09-2022 14:03-0400 Systolic blood pressure 111 mm[Hg] COMPTOMETER OPERATOR-C Lisa Roemer COMPTOMETER OPERATOR Work Phone: [facility] 06-06-2022 14:09-0400 Body mass index (BMI) [Ratio] 37.3 kg/m2 COMPTOMETER OPERATOR-C Lisa Julian COMPTOMETER OPERATOR Work Phone: [facility] 06-06-2022 14:09-0400 Body temperature 98.3 [degF] COMPTOMETER OPERATOR-C Lisa Julian COMPTOMETER OPERATOR Work Phone: [facility] 06-06-2022 14:09-0400 Body weight 114.81 kg COMPTOMETER OPERATOR-C Lisa Geneseo COMPTOMETER OPERATOR Work Phone: [facility] 06-06-2022 14:09-0400 Diastolic blood pressure 73 mm[Hg] COMPTOMETER OPERATOR-C Lisa Geneseo COMPTOMETER OPERATOR Work Phone: [facility] 06-06-2022 14:09-0400 Heart rate 89 /min COMPTOMETER OPERATOR-C Lisa Julian COMPTOMETER OPERATOR Work Phone: [facility] 06-06-2022 14:09-0400 Respiratory rate 17 /min COMPTOMETER OPERATOR-C Lisa Geneseo COMPTOMETER OPERATOR Work Phone: [facility] 06-06-2022 14:09-0400 SaO2% (BldA) [Mass fraction] 99 % COMPTOMETER OPERATOR-C Lisa Geneseo COMPTOMETER OPERATOR Work Phone: [facility] 06-06-2022 14:09-0400 Systolic blood pressure 127 mm[Hg] COMPTOMETER OPERATOR-C Lisa Geneseo COMPTOMETER OPERATOR Work Phone: [facility] 05-26-2022 13:03-0500 Body mass index (BMI) [Ratio] 38 kg/m2 COMPTOMETER OPERATOR-C Lisa Julian COMPTOMETER OPERATOR Work Phone: [facility] 05-26-2022 13:03-0500 Body temperature 97.8 [degF] COMPTOMETER OPERATOR-C Lisa Julian COMPTOMETER OPERATOR Work Phone: [facility] 05-26-2022 13:03-0500 Body weight 116.74 kg COMPTOMETER OPERATOR-C Lisa Julian COMPTOMETER OPERATOR Work Phone: [facility] 05-26-2022 13:03-0500 Diastolic blood pressure 76 mm[Hg] COMPTOMETER OPERATOR-C Lisa Jordan COMPTOMETER OPERATOR Work Phone: [facility] 05-26-2022 13:03-0500 Heart rate 92 /min COMPTOMETER OPERATOR-C Lisa Jordan COMPTOMETER OPERATOR Work Phone: [facility] 05-26-2022 13:03-0500 Respiratory rate 16 /min COMPTOMETER OPERATOR-C Lisa Jordan COMPTOMETER OPERATOR Work Phone: [facility] 05-26-2022 13:03-0500 SaO2% (BldA) [Mass fraction] 95 % COMPTOMETER OPERATOR-C Lisa Jordan COMPTOMETER OPERATOR Work Phone: [facility] 05-26-2022 13:03-0500 Systolic blood pressure 113 mm[Hg] COMPTOMETER OPERATOR-C Lisa Jordan COMPTOMETER OPERATOR Work Phone: [facility] 05-11-2022 14:03-0500 Body height 175.26 cm COMPTOMETER OPERATOR-C Lisa Julian COMPTOMETER OPERATOR Work Phone: [facility] 05-11-2022 14:00-0500 Body mass index (BMI) [Ratio] 39 kg/m2 COMPTOMETER OPERATOR-C Lisa Jordan COMPTOMETER OPERATOR Work Phone: [facility] 05-11-2022 14:00-0500 Body temperature 97 [degF] COMPTOMETER OPERATOR-C Lisa Jordan COMPTOMETER OPERATOR Work Phone: [facility] 05-11-2022 14:00-0500 Body weight 120 kg COMPTOMETER OPERATOR-C Lisa Jordan COMPTOMETER OPERATOR Work Phone: [facility] 05-11-2022 14:00-0500 Diastolic blood pressure 73 mm[Hg] COMPTOMETER OPERATOR-C Lisa Jordan COMPTOMETER OPERATOR Work Phone: [facility] 05-11-2022 14:00-0500 Heart rate 101 /min COMPTOMETER OPERATOR-C Lisa Jordan COMPTOMETER OPERATOR Work Phone: [facility] 05-11-2022 14:00-0500 Respiratory rate 20 /min COMPTOMETER OPERATOR-C Lisa Julian COMPTOMETER OPERATOR Work Phone: [facility] 05-11-2022 14:00-0500 SaO2% (BldA) [Mass fraction] 96 % COMPTOMETER OPERATOR-C Lisa Geneseo COMPTOMETER OPERATOR Work Phone: [facility] 05-11-2022 14:00-0500 Systolic blood pressure 111 mm[Hg] COMPTOMETER OPERATOR-C Lisa Roemer COMPTOMETER OPERATOR Work Phone: [facility] 05-09-2022 13:21-0500 Body mass index (BMI) [Ratio] 39.7 kg/m2 COMPTOMETER OPERATOR-C Lisa Julian COMPTOMETER OPERATOR Work Phone: [facility] 05-09-2022 13:21-0500 Body temperature 98.6 [degF] COMPTOMETER OPERATOR-C Lisa Jordan COMPTOMETER OPERATOR Work Phone: [facility] 05-09-2022 13:21-0500 Body weight 122.1 kg COMPTOMETER OPERATOR-C Lisa Julian COMPTOMETER OPERATOR Work Phone: [facility] 05-09-2022 13:21-0500 Diastolic blood pressure 74 mm[Hg] COMPTOMETER OPERATOR-C Lisa Geneseo COMPTOMETER OPERATOR Work Phone: [facility] 05-09-2022 13:21-0500 Heart rate 100 /min COMPTOMETER OPERATOR-C Lisa Julian COMPTOMETER OPERATOR Work Phone: [facility] 05-09-2022 13:21-0500 Respiratory rate 18 /min COMPTOMETER OPERATOR-C Lisa Julian COMPTOMETER OPERATOR Work Phone: [facility] 05-09-2022 13:21-0500 SaO2% (BldA) [Mass fraction] 98 % COMPTOMETER OPERATOR-C Lisa Roemer COMPTOMETER OPERATOR Work Phone: [facility] 05-09-2022 13:21-0500 Systolic blood pressure 116 mm[Hg] COMPTOMETER OPERATOR-C Lisa Jordan COMPTOMETER OPERATOR Work Phone: [facility] 05-06-2022 14:22-0500 Body temperature 97.8 [degF] COMPTOMETER OPERATOR-C Lisa Jordan COMPTOMETER OPERATOR Work Phone: [facility] 05-06-2022 14:22-0500 Diastolic blood pressure 60 mm[Hg] COMPTOMETER OPERATOR-C Lisa Roemer COMPTOMETER OPERATOR Work Phone: [facility] 05-06-2022 14:22-0500 Heart rate 86 /min COMPTOMETER OPERATOR-C Lisa Roemer COMPTOMETER OPERATOR Work Phone: [facility] 05-06-2022 14:22-0500 Respiratory rate 20 /min COMPTOMETER OPERATOR-C Lisa Julian COMPTOMETER OPERATOR Work Phone: [facility] 05-06-2022 14:22-0500 Systolic blood pressure 129 mm[Hg] COMPTOMETER OPERATOR-C Lisa Jordan COMPTOMETER OPERATOR Work Phone: [facility] 05-04-2022 13:19-0500 Body mass index (BMI) [Ratio] 40.8 kg/m2 COMPTOMETER OPERATOR-C Lisa Roemer COMPTOMETER OPERATOR Work Phone: [facility] 05-04-2022 13:19-0500 Body temperature 96 [degF] COMPTOMETER OPERATOR-C Lisa Jordan COMPTOMETER OPERATOR Work Phone: [facility] 05-04-2022 13:19-0500 Body weight 125.38 kg COMPTOMETER OPERATOR-C Lisa Jordan COMPTOMETER OPERATOR Work Phone: [facility] 05-04-2022 13:19-0500 Diastolic blood pressure 70 mm[Hg] COMPTOMETER OPERATOR-C Lisa Roemer COMPTOMETER OPERATOR Work Phone: [facility] 05-04-2022 13:19-0500 Heart rate 69 /min COMPTOMETER OPERATOR-C Lisa Julian COMPTOMETER OPERATOR Work Phone: [facility] 05-04-2022 13:19-0500 Respiratory rate 16 /min COMPTOMETER OPERATOR-C Lisa Jordan COMPTOMETER OPERATOR Work Phone: [facility] 05-04-2022 13:19-0500 SaO2% (BldA) [Mass fraction] 95 % COMPTOMETER OPERATOR-C Lisa Julian COMPTOMETER OPERATOR Work Phone: [facility] 05-04-2022 13:19-0500 Systolic blood pressure 112 mm[Hg] COMPTOMETER OPERATOR-C Lisa Julian COMPTOMETER OPERATOR Work Phone: [facility] 05-02-2022 10:01-0500 Body mass index (BMI) [Ratio] 39.7 kg/m2 COMPTOMETER OPERATOR-C Lisa Julian COMPTOMETER OPERATOR Work Phone: [facility] 05-02-2022 10:01-0500 Body weight 122.15 kg COMPTOMETER OPERATOR-C Lisa Julian COMPTOMETER OPERATOR Work Phone: [facility] 05-02-2022 09:01-0500 Body mass index (BMI) [Ratio] 39.7 kg/m2 COMPTOMETER OPERATOR-C Lisa Geneseo COMPTOMETER OPERATOR Work Phone: [facility] 05-02-2022 09:01-0500 Body temperature 98.6 [degF] COMPTOMETER OPERATOR-C Lisa Jordan COMPTOMETER OPERATOR Work Phone: [facility] 05-02-2022 09:01-0500 Body weight 122.15 kg COMPTOMETER OPERATOR-C Lisa Julian COMPTOMETER OPERATOR Work Phone: [facility] 05-02-2022 09:01-0500 Diastolic blood pressure 80 mm[Hg] COMPTOMETER OPERATOR-C Lisa Geneseo COMPTOMETER OPERATOR Work Phone: [facility] 05-02-2022 09:01-0500 Heart rate 96 /min COMPTOMETER OPERATOR-C Lisa Julian COMPTOMETER OPERATOR Work Phone: [facility] 05-02-2022 09:01-0500 Respiratory rate 17 /min COMPTOMETER OPERATOR-C Lisa Julian COMPTOMETER OPERATOR Work Phone: [facility] 05-02-2022 09:01-0500 SaO2% (BldA) [Mass fraction] 98 % COMPTOMETER OPERATOR-C Lisa Julian COMPTOMETER OPERATOR Work Phone: [facility] 05-02-2022 09:01-0500 Systolic blood pressure 147 mm[Hg] COMPTOMETER OPERATOR-C Lisa Geneseo COMPTOMETER OPERATOR Work Phone: [facility] 04-27-2022 13:35-0500 Body mass index (BMI) [Ratio] 40 kg/m2 COMPTOMETER OPERATOR-C Lisa Jordan COMPTOMETER OPERATOR Work Phone: [facility] 04-27-2022 13:35-0500 Body temperature 97 [degF] COMPTOMETER OPERATOR-C Lisa Jordan COMPTOMETER OPERATOR Work Phone: [facility] 04-27-2022 13:35-0500 Body weight 123.06 kg COMPTOMETER OPERATOR-C Lisa Jordan COMPTOMETER OPERATOR Work Phone: [facility] 04-27-2022 13:35-0500 Diastolic blood pressure 64 mm[Hg] COMPTOMETER OPERATOR-C Lisa Jordan COMPTOMETER OPERATOR Work Phone: [facility] 04-27-2022 13:35-0500 Heart rate 72 /min COMPTOMETER OPERATOR-C Lisa Jordan COMPTOMETER OPERATOR Work Phone: [facility] 04-27-2022 13:35-0500 Respiratory rate 16 /min COMPTOMETER OPERATOR-C Lisa Jordan COMPTOMETER OPERATOR Work Phone: [facility] 04-27-2022 13:35-0500 SaO2% (BldA) [Mass fraction] 93 % COMPTOMETER OPERATOR-C Lisa Jordan COMPTOMETER OPERATOR Work Phone: [facility] 04-27-2022 13:35-0500 Systolic blood pressure 104 mm[Hg] COMPTOMETER OPERATOR-C Lisa Jordan COMPTOMETER OPERATOR Work Phone: [facility] 04-25-2022 13:00-0500 Body mass index (BMI) [Ratio] 40.3 kg/m2 COMPTOMETER OPERATOR-C Lisa Jordan COMPTOMETER OPERATOR Work Phone: [facility] 04-25-2022 13:00-0500 Body temperature 98.2 [degF] COMPTOMETER OPERATOR-C Lisa Jordan COMPTOMETER OPERATOR Work Phone: [facility] 04-25-2022 13:00-0500 Body weight 123.83 kg COMPTOMETER OPERATOR-C Lisa Jordan COMPTOMETER OPERATOR Work Phone: [facility] 04-25-2022 13:00-0500 Diastolic blood pressure 69 mm[Hg] COMPTOMETER OPERATOR-C Lisa Julian COMPTOMETER OPERATOR Work Phone: [facility] 04-25-2022 13:00-0500 Heart rate 78 /min COMPTOMETER OPERATOR-C Lisa Julian COMPTOMETER OPERATOR Work Phone: [facility] 04-25-2022 13:00-0500 Respiratory rate 17 /min COMPTOMETER OPERATOR-C Lisa Julian COMPTOMETER OPERATOR Work Phone: [facility] 04-25-2022 13:00-0500 SaO2% (BldA) [Mass fraction] 99 % COMPTOMETER OPERATOR-C Lisa Julian COMPTOMETER OPERATOR Work Phone: [facility] 04-25-2022 13:00-0500 Systolic blood pressure 112 mm[Hg] COMPTOMETER OPERATOR-C Lisa Geneseo COMPTOMETER OPERATOR Work Phone: [facility] 04-19-2022 13:57-0500 Body mass index (BMI) [Ratio] 39.6 kg/m2 COMPTOMETER OPERATOR-C Lisa Geneseo COMPTOMETER OPERATOR Work Phone: [facility] 04-19-2022 13:57-0500 Body temperature 96.5 [degF] COMPTOMETER OPERATOR-C Lisa Geneseo COMPTOMETER OPERATOR Work Phone: [facility] 04-19-2022 13:57-0500 Body weight 121.73 kg COMPTOMETER OPERATOR-C Lisa Geneseo COMPTOMETER OPERATOR Work Phone: [facility] 04-19-2022 13:57-0500 Diastolic blood pressure 81 mm[Hg] COMPTOMETER OPERATOR-C Lisa Julian COMPTOMETER OPERATOR Work Phone: [facility] 04-19-2022 13:57-0500 Heart rate 94 /min COMPTOMETER OPERATOR-C Lisa Julian COMPTOMETER OPERATOR Work Phone: [facility] 04-19-2022 13:57-0500 Respiratory rate 18 /min COMPTOMETER OPERATOR-C Lisa Geneseo COMPTOMETER OPERATOR Work Phone: [facility] 04-19-2022 13:57-0500 SaO2% (BldA) [Mass fraction] 96 % COMPTOMETER OPERATOR-C Lisa Roemer COMPTOMETER OPERATOR Work Phone: [facility] 04-19-2022 13:57-0500 Systolic blood pressure 122 mm[Hg] COMPTOMETER OPERATOR-C Lisa Julian COMPTOMETER OPERATOR Work Phone: [facility] 04-18-2022 12:59-0500 Body mass index (BMI) [Ratio] 39.5 kg/m2 COMPTOMETER OPERATOR-C Lisa Geneseo COMPTOMETER OPERATOR Work Phone: [facility] 04-18-2022 12:59-0500 Body temperature 98.4 [degF] COMPTOMETER OPERATOR-C Lisa Julian COMPTOMETER OPERATOR Work Phone: [facility] 04-18-2022 12:59-0500 Body weight 121.56 kg COMPTOMETER OPERATOR-C Lisa Roemer COMPTOMETER OPERATOR Work Phone: [facility] 04-18-2022 12:59-0500 Diastolic blood pressure 62 mm[Hg] COMPTOMETER OPERATOR-C Lisa Geneseo COMPTOMETER OPERATOR Work Phone: [facility] 04-18-2022 12:59-0500 Heart rate 93 /min COMPTOMETER OPERATOR-C Lisa Geneseo COMPTOMETER OPERATOR Work Phone: [facility] 04-18-2022 12:59-0500 Respiratory rate 17 /min COMPTOMETER OPERATOR-C Lisa Roemer COMPTOMETER OPERATOR Work Phone: [facility] 04-18-2022 12:59-0500 SaO2% (BldA) [Mass fraction] 98 % COMPTOMETER OPERATOR-C Lisa Roemer COMPTOMETER OPERATOR Work Phone: [facility] 04-18-2022 12:59-0500 Systolic blood pressure 122 mm[Hg] COMPTOMETER OPERATOR-C Lisa Geneseo COMPTOMETER OPERATOR Work Phone: [facility] 04-13-2022 13:27-0500 Body mass index (BMI) [Ratio] 39.6 kg/m2 COMPTOMETER OPERATOR-C Lisa Geneseo COMPTOMETER OPERATOR Work Phone: [facility] 04-13-2022 13:27-0500 Body temperature 96.8 [degF] COMPTOMETER OPERATOR-C Lisa Julian COMPTOMETER OPERATOR Work Phone: [facility] 04-13-2022 13:27-0500 Body weight 121.76 kg COMPTOMETER OPERATOR-C Lisa Julian COMPTOMETER OPERATOR Work Phone: [facility] 04-13-2022 13:27-0500 Diastolic blood pressure 65 mm[Hg] COMPTOMETER OPERATOR-C Lisa Jordan COMPTOMETER OPERATOR Work Phone: [facility] 04-13-2022 13:27-0500 Heart rate 95 /min COMPTOMETER OPERATOR-C Lisa Jordan COMPTOMETER OPERATOR Work Phone: [facility] 04-13-2022 13:27-0500 Respiratory rate 16 /min COMPTOMETER OPERATOR-C Lisa Jordan COMPTOMETER OPERATOR Work Phone: [facility] 04-13-2022 13:27-0500 SaO2% (BldA) [Mass fraction] 95 % COMPTOMETER OPERATOR-C Lisa Jordan COMPTOMETER OPERATOR Work Phone: [facility] 04-13-2022 13:27-0500 Systolic blood pressure 103 mm[Hg] COMPTOMETER OPERATOR-C Lisa Jordan COMPTOMETER OPERATOR Work Phone: [facility] 04-11-2022 13:05-0500 Body height 175.26 cm COMPTOMETER OPERATOR-C Lisa Jordan COMPTOMETER OPERATOR Work Phone: [facility] 04-11-2022 12:59-0500 Body mass index (BMI) [Ratio] 39.6 kg/m2 COMPTOMETER OPERATOR-C Lisa Jordan COMPTOMETER OPERATOR Work Phone: [facility] 04-11-2022 12:59-0500 Body temperature 98.3 [degF] COMPTOMETER OPERATOR-C Lisa Jordan COMPTOMETER OPERATOR Work Phone: [facility] 04-11-2022 12:59-0500 Body weight 121.7 kg COMPTOMETER OPERATOR-C Lisa Jordan COMPTOMETER OPERATOR Work Phone: [facility] 04-11-2022 12:59-0500 Diastolic blood pressure 74 mm[Hg] COMPTOMETER OPERATOR-C Lisa Jordan COMPTOMETER OPERATOR Work Phone: [facility] 04-11-2022 12:59-0500 Heart rate 80 /min COMPTOMETER OPERATOR-C Lisa Geneseo COMPTOMETER OPERATOR Work Phone: [facility] 04-11-2022 12:59-0500 Respiratory rate 16 /min COMPTOMETER OPERATOR-C Lisa Julian COMPTOMETER OPERATOR Work Phone: [facility] 04-11-2022 12:59-0500 SaO2% (BldA) [Mass fraction] 96 % COMPTOMETER OPERATOR-C Lisa Julian COMPTOMETER OPERATOR Work Phone: [facility] 04-11-2022 12:59-0500 Systolic blood pressure 122 mm[Hg] COMPTOMETER OPERATOR-C Lisa Julian COMPTOMETER OPERATOR Work Phone: [facility] 04-06-2022 14:08-0500 Body mass index (BMI) [Ratio] 40.6 kg/m2 COMPTOMETER OPERATOR-C Lisa Jordan COMPTOMETER OPERATOR Work Phone: [facility] 04-06-2022 14:08-0500 Body temperature 96.8 [degF] COMPTOMETER OPERATOR-C Lisa Julian COMPTOMETER OPERATOR Work Phone: [facility] 04-06-2022 14:08-0500 Body weight 124.85 kg COMPTOMETER OPERATOR-C Lisa Julian COMPTOMETER OPERATOR Work Phone: [facility] 04-06-2022 14:08-0500 Diastolic blood pressure 60 mm[Hg] COMPTOMETER OPERATOR-C Lisa Jordan COMPTOMETER OPERATOR Work Phone: [facility] 04-06-2022 14:08-0500 Heart rate 61 /min COMPTOMETER OPERATOR-C Lisa Julian COMPTOMETER OPERATOR Work Phone: [facility] 04-06-2022 14:08-0500 Respiratory rate 18 /min COMPTOMETER OPERATOR-C Lisa Roemer COMPTOMETER OPERATOR Work Phone: [facility] 04-06-2022 14:08-0500 SaO2% (BldA) [Mass fraction] 94 % COMPTOMETER OPERATOR-C Lisa Jordan COMPTOMETER OPERATOR Work Phone: [facility] 04-06-2022 14:08-0500 Systolic blood pressure 130 mm[Hg] COMPTOMETER OPERATOR-C Lisa Geneseo COMPTOMETER OPERATOR Work Phone: [facility] 04-04-2022 08:20-0500 Body mass index (BMI) [Ratio] 39.8 kg/m2 COMPTOMETER OPERATOR-C Lisa Geneseo COMPTOMETER OPERATOR Work Phone: [facility] 04-04-2022 08:20-0500 Body temperature 98.2 [degF] COMPTOMETER OPERATOR-C Lisa Julian COMPTOMETER OPERATOR Work Phone: [facility] 04-04-2022 08:20-0500 Body weight 122.27 kg COMPTOMETER OPERATOR-C Lisa Julian COMPTOMETER OPERATOR Work Phone: [facility] 04-04-2022 08:20-0500 Diastolic blood pressure 80 mm[Hg] COMPTOMETER OPERATOR-C Lisa Julian COMPTOMETER OPERATOR Work Phone: [facility] 04-04-2022 08:20-0500 Heart rate 81 /min COMPTOMETER OPERATOR-C Lisa Geneseo COMPTOMETER OPERATOR Work Phone: [facility] 04-04-2022 08:20-0500 Respiratory rate 16 /min COMPTOMETER OPERATOR-C Lisa Geneseo COMPTOMETER OPERATOR Work Phone: [facility] 04-04-2022 08:20-0500 SaO2% (BldA) [Mass fraction] 97 % COMPTOMETER OPERATOR-C Ilsa Julian COMPTOMETER OPERATOR Work Phone: [facility] 04-04-2022 08:20-0500 Systolic blood pressure 118 mm[Hg] COMPTOMETER OPERATOR-C Lisa Julian COMPTOMETER OPERATOR Work Phone: [facility] 03-30-2022 14:32-0500 Body mass index (BMI) [Ratio] 40.5 kg/m2 COMPTOMETER OPERATOR-C Lisa Julian COMPTOMETER OPERATOR Work Phone: [facility] 03-30-2022 14:32-0500 Body temperature 97.8 [degF] COMPTOMETER OPERATOR-C Lisa Julian COMPTOMETER OPERATOR Work Phone: [facility] 03-30-2022 14:32-0500 Body weight 124.39 kg COMPTOMETER OPERATOR-C Lisa Julian COMPTOMETER OPERATOR Work Phone: [facility] 03-30-2022 14:32-0500 Diastolic blood pressure 67 mm[Hg] COMPTOMETER OPERATOR-C Lisa Geneseo COMPTOMETER OPERATOR Work Phone: [facility] 03-30-2022 14:32-0500 Heart rate 72 /min COMPTOMETER OPERATOR-C Lisa Julian COMPTOMETER OPERATOR Work Phone: [facility] 03-30-2022 14:32-0500 Respiratory rate 16 /min COMPTOMETER OPERATOR-C Lisa Geneseo COMPTOMETER OPERATOR Work Phone: [facility] 03-30-2022 14:32-0500 SaO2% (BldA) [Mass fraction] 98 % COMPTOMETER OPERATOR-C Lisa Julian COMPTOMETER OPERATOR Work Phone: [facility] 03-30-2022 14:32-0500 Systolic blood pressure 111 mm[Hg] COMPTOMETER OPERATOR-C Lisa Geneseo COMPTOMETER OPERATOR Work Phone: [facility] 03-29-2022 19:06-0500 Body temperature 97 [degF] COMPTOMETER OPERATOR-C Lisa Geneseo COMPTOMETER OPERATOR Work Phone: [facility] 03-29-2022 19:06-0500 Diastolic blood pressure 67 mm[Hg] COMPTOMETER OPERATOR-C Lisa Geneseo COMPTOMETER OPERATOR Work Phone: [facility] 03-29-2022 19:06-0500 Heart rate 67 /min COMPTOMETER OPERATOR-C Lisa Julian COMPTOMETER OPERATOR Work Phone: [facility] 03-29-2022 19:06-0500 Respiratory rate 18 /min COMPTOMETER OPERATOR-C Lisa Geneseo COMPTOMETER OPERATOR Work Phone: [facility] 03-29-2022 19:06-0500 SaO2% (BldA) [Mass fraction] 96 % COMPTOMETER OPERATOR-C Lisa Julian COMPTOMETER OPERATOR Work Phone: [facility] 03-29-2022 19:06-0500 Systolic blood pressure 114 mm[Hg] COMPTOMETER OPERATOR-C Lisa Julian COMPTOMETER OPERATOR Work Phone: [facility] 03-29-2022 16:35-0500 Inhaled oxygen flow rate 4 L/min COMPTOMETER OPERATOR-C Lisa Julian COMPTOMETER OPERATOR Work Phone: [facility] 03-29-2022 13:59-0500 Body mass index (BMI) [Ratio] 39.9 kg/m2 COMPTOMETER OPERATOR-C Lisa Julian COMPTOMETER OPERATOR Work Phone: [facility] 03-29-2022 13:59-0500 Body weight 122.6 kg COMPTOMETER OPERATOR-C Lisa Julian COMPTOMETER OPERATOR Work Phone: [facility] 03-28-2022 08:17-0500 Body height 175.26 cm COMPTOMETER OPERATOR-C Lisa Julian COMPTOMETER OPERATOR Work Phone: [facility] [facility] Work Phone: 03-28-2022 08:17-0500 Body mass index (BMI) [Ratio] 40 kg/m2 COMPTOMETER OPERATOR-C Lisa Julian COMPTOMETER OPERATOR Work Phone: [facility] 03-28-2022 08:17-0500 Body temperature 97.3 [degF] COMPTOMETER OPERATOR-C Lisa Julian COMPTOMETER OPERATOR Work Phone: [facility] 03-28-2022 08:17-0500 Body weight 122.92 kg COMPTOMETER OPERATOR-C Lisa Julian COMPTOMETER OPERATOR Work Phone: [facility] 03-28-2022 08:17-0500 Diastolic blood pressure 69 mm[Hg] COMPTOMETER OPERATOR-C Lisa Jordan COMPTOMETER OPERATOR Work Phone: [facility] 03-28-2022 08:17-0500 Heart rate 87 /min COMPTOMETER OPERATOR-C Lisa Jordan COMPTOMETER OPERATOR Work Phone: [facility] 03-28-2022 08:17-0500 Respiratory rate 20 /min COMPTOMETER OPERATOR-C Lisa Jordan COMPTOMETER OPERATOR Work Phone: [facility] 03-28-2022 08:17-0500 SaO2% (BldA) [Mass fraction] 96 % COMPTOMETER OPERATOR-C Lisa Geneseo COMPTOMETER OPERATOR Work Phone: [facility] 03-28-2022 08:17-0500 Systolic blood pressure 107 mm[Hg] COMPTOMETER OPERATOR-C Lisa Geneseo COMPTOMETER OPERATOR Work Phone: [facility] 03-24-2022 15:29-0500 Body mass index (BMI) [Ratio] 39.7 kg/m2 COMPTOMETER OPERATOR-C Lisa Julian COMPTOMETER OPERATOR Work Phone: [facility] 03-24-2022 15:29-0500 Body temperature 98.4 [degF] COMPTOMETER OPERATOR-C Lisa Geneseo COMPTOMETER OPERATOR Work Phone: [facility] 03-24-2022 15:29-0500 Body weight 122.15 kg COMPTOMETER OPERATOR-C Lisa Julian COMPTOMETER OPERATOR Work Phone: [facility] 03-24-2022 15:29-0500 Diastolic blood pressure 75 mm[Hg] COMPTOMETER OPERATOR-C Lisa Geneseo COMPTOMETER OPERATOR Work Phone: [facility] 03-24-2022 15:29-0500 Heart rate 79 /min COMPTOMETER OPERATOR-C Lisa Geneseo COMPTOMETER OPERATOR Work Phone: [facility] 03-24-2022 15:29-0500 Respiratory rate 16 /min COMPTOMETER OPERATOR-C Lisa Geneseo COMPTOMETER OPERATOR Work Phone: [facility] 03-24-2022 15:29-0500 Systolic blood pressure 120 mm[Hg] COMPTOMETER OPERATOR-C Lisa Geneseo COMPTOMETER OPERATOR Work Phone: [facility] 03-10-2022 14:43-0500 Body height 175.26 cm COMPTOMETER OPERATOR-C Lisa Julian COMPTOMETER OPERATOR Work Phone: [facility] Work Phone: 03-10-2022 14:43-0500 Body mass index (BMI) [Ratio] 41.2 kg/m2 COMPTOMETER OPERATOR-C Lisa Julian COMPTOMETER OPERATOR Work Phone: [facility] 03-10-2022 14:43-0500 Body weight 126.55 kg COMPTOMETER OPERATOR-C Lisa Julian COMPTOMETER OPERATOR Work Phone: [facility] 03-10-2022 09:45-0500 Body mass index (BMI) [Ratio] 40.8 kg/m2 COMPTOMETER OPERATOR-C Lisa Geneseo COMPTOMETER OPERATOR Work Phone: [facility] 03-10-2022 09:45-0500 Body temperature 97.6 [degF] COMPTOMETER OPERATOR-C Lisa Jordan COMPTOMETER OPERATOR Work Phone: [facility] 03-10-2022 09:45-0500 Body weight 125.33 kg COMPTOMETER OPERATOR-C Lisa Jordan COMPTOMETER OPERATOR Work Phone: [facility] 03-10-2022 09:45-0500 Diastolic blood pressure 73 mm[Hg] COMPTOMETER OPERATOR-C Lisa Jordan COMPTOMETER OPERATOR Work Phone: [facility] 03-10-2022 09:45-0500 Heart rate 83 /min COMPTOMETER OPERATOR-C Lisa Jordan COMPTOMETER OPERATOR Work Phone: [facility] 03-10-2022 09:45-0500 Respiratory rate 16 /min COMPTOMETER OPERATOR-C Lisa Julian COMPTOMETER OPERATOR Work Phone: [facility] 03-10-2022 09:45-0500 SaO2% (BldA) [Mass fraction] 96 % COMPTOMETER OPERATOR-C Lisa Jordan COMPTOMETER OPERATOR Work Phone: [facility] 03-10-2022 09:45-0500 Systolic blood pressure 136 mm[Hg] COMPTOMETER OPERATOR-C Lisa Jordan COMPTOMETER OPERATOR Work Phone: [facility] 02-28-2022 14:52-0500 Body mass index (BMI) [Ratio] 40.6 kg/m2 COMPTOMETER OPERATOR-C Lisa Jordan COMPTOMETER OPERATOR Work Phone: [facility] 02-28-2022 14:52-0500 Body temperature 98.8 [degF] COMPTOMETER OPERATOR-C Lisa Jordan COMPTOMETER OPERATOR Work Phone: [facility] 02-28-2022 14:52-0500 Body weight 124.73 kg COMPTOMETER OPERATOR-C Lisa Jordan COMPTOMETER OPERATOR Work Phone: [facility] 02-28-2022 14:52-0500 Diastolic blood pressure 75 mm[Hg] COMPTOMETER OPERATOR-C Lisa Roemer COMPTOMETER OPERATOR Work Phone: [facility] 02-28-2022 14:52-0500 Heart rate 78 /min COMPTOMETER OPERATOR-C Lisa Roemer COMPTOMETER OPERATOR Work Phone: [facility] 02-28-2022 14:52-0500 Respiratory rate 16 /min COMPTOMETER OPERATOR-C Lisa Roemer COMPTOMETER OPERATOR Work Phone: [facility] 02-28-2022 14:52-0500 SaO2% (BldA) [Mass fraction] 96 % COMPTOMETER OPERATOR-C Lisa Jordan COMPTOMETER OPERATOR Work Phone: [facility] 02-28-2022 14:52-0500 Systolic blood pressure 126 mm[Hg] COMPTOMETER OPERATOR-C Lisa Jordan COMPTOMETER OPERATOR Work Phone: [facility] 02-24-2022 15:08-0500 Body temperature 97.52 [degF] LU SHEIKH MD [facility] 02-24-2022 15:08-0500 Diastolic Blood Pressure Non-Invasive 79 1 LU SHEIKH MD [facility] 02-24-2022 15:08-0500 Heart rate 80 /min LU SHEIKH MD [facility] 02-24-2022 15:08-0500 Respiratory rate 18 /min LU SHEIKH MD [facility] 02-24-2022 15:08-0500 Systolic Blood Pressure Non-Invasive 162 1 LU SHEIKH MD [facility] 02-24-2022 13:36-0500 Diastolic Blood Pressure Non-Invasive 73 1 LU SHEIKH MD [facility] 02-24-2022 13:36-0500 Heart rate 72 /min LU SHEIKH MD [address] 02-24-2022 13:36-0500 Systolic Blood Pressure Non-Invasive 140 1 LU SHEIKH MD [address] 02-24-2022 09:37-0500 Heart rate 88 /min LU SHEIKH MD [address] 02-24-2022 07:42-0500 Body temperature 98.06 [degF] LU SHEIKH MD [address] [place] [address] 02-24-2022 07:42-0500 Diastolic Blood Pressure Non-Invasive 80 1 LU SHEIKH MD [address] [place] [address] 02-24-2022 07:42-0500 Heart rate 78 /min LU SHEIKH MD [address] [place] [address] 02-24-2022 07:42-0500 Respiratory rate 16 /min LU SHEIKH MD [address] [place] [address] 02-24-2022 07:42-0500 Systolic Blood Pressure Non-Invasive 154 1 LU SHEIKH MD [address] 02-24-2022 00:21-0500 Body temperature 98.24 [degF] LU SHEIKH MD [address] 02-24-2022 00:21-0500 Heart rate 72 /min LU SHEIKH MD [address] 02-24-2022 00:21-0500 Respiratory rate 18 /min LU SHEIKH MD [address] 02-23-2022 07:42-0500 Heart rate 67 /min LU SHEIKH MD [address] 02-21-2022 14:15-0500 Reason For Taking VItal Signs LU SHEIKH MD [address] 02-21-2022 08:50-0500 Reason For Taking VItal Signs LU SHEIKH MD [address] 02-21-2022 08:11-0500 Body weight 127.4 kg LU SHEIKH MD [facility] 02-21-2022 03:31-0500 Reason For Taking VItal Signs LU SHEIKH MD [address] 02-19-2022 22:40-0500 Heart rate 76 /min LU SHEIKH MD [address] 02-19-2022 18:45-0500 Body temperature 97.52 [degF] UL SHEIKH MD [address] 02-19-2022 18:45-0500 Heart rate 74 /min LU SHEIKH MD [address] [place] [address] 02-19-2022 18:45-0500 Mean blood pressure 74 mm[Hg] LU SHEIKH MD [address] 02-19-2022 18:38-0500 Heart rate 69 /min LU SHEIKH MD [address] 02-19-2022 18:38-0500 Mean blood pressure 67 mm[Hg] LU SHEIKH MD [address] [place] [address] 02-19-2022 18:25-0500 Mean blood pressure 65 mm[Hg] LU SHEIKH MD [address] 02-19-2022 17:46-0500 Body temperature 98.06 [degF] LU SHEIKH MD [address] 02-19-2022 17:40-0500 Respiratory Rate - Anes 13 br/min LU SHEIKH MD [address] 02-19-2022 17:35-0500 Respiratory Rate - Anes 8 br/min LU SHEIKH MD [address] 02-19-2022 17:30-0500 Body temperature 97.7 [degF] LU SHEIKH MD [address] 02-19-2022 17:30-0500 Respiratory Rate - Anes 7 br/min LU SHEIKH MD [facility] 02-19-2022 17:25-0500 Body temperature 97.61 [degF] LU SHEIKH MD [facility] 02-19-2022 17:20-0500 Body temperature 97.63 [degF] LU SHEIKH MD [facility] 02-19-2022 14:10-0500 Body weight 40.68 kg/m2 LU SHEIKH MD [address] [place] [address] 02-19-2022 13:58-0500 Body height 175.3 cm LU SHEIKH MD [address] [place] [address] 02-19-2022 13:58-0500 Body weight 125 kg LU SHEIKH MD [address] [place] [address] 02-19-2022 13:58-0500 Body weight 40.68 kg/m2 LU SHEIKH MD [facility] 03-23-2021 11:04-0500 Body temperature 98.06 [degF] JESENIA BROWN MD [facility] 03-23-2021 11:04-0500 Diastolic Blood Pressure NBP 62 1 JESENIA BROWN MD [facility] 03-23-2021 11:04-0500 Heart rate 95 /min JESENIA BROWN MD [facility] 03-23-2021 11:04-0500 Respiratory rate 20 /min JESENIA BROWN MD [facility] 03-23-2021 11:04-0500 Systolic Blood Pressure NBP 121 1 JESENIA BROWN MD [facility] 03-23-2021 09:25-0500 Diastolic blood pressure 74 mm[Hg] JESENIA BROWN MD [facility] 03-23-2021 09:25-0500 Diastolic Blood Pressure NBP 69 1 JESENIA BROWN MD [facility] 03-23-2021 09:25-0500 Heart rate 78 /min JESENIA BROWN MD [facility] 03-23-2021 09:25-0500 Mean blood pressure 100 mm[Hg] JESENIA BROWN MD [facility] 03-23-2021 09:25-0500 Mean blood pressure 97 mm[Hg] JESENIA BROWN MD [facility] 03-23-2021 09:25-0500 Systolic blood pressure 152 mm[Hg] JESENIA BROWN MD [facility] 03-23-2021 09:25-0500 Systolic Blood Pressure NBP 158 1 JESENIA BROWN MD [facility] 03-23-2021 03:15-0500 Body temperature 97.7 [degF] JESENIA BROWN MD [facility] 03-23-2021 03:15-0500 Diastolic blood pressure 68 mm[Hg] JESENIA BROWN MD [facility] 03-23-2021 03:15-0500 Mean blood pressure 86 mm[Hg] JESENIA BROWN MD [facility] 03-23-2021 03:15-0500 Reason For Taking VItal Signs JESENIA BROWN MD [facility] 03-23-2021 03:15-0500 Systolic blood pressure 122 mm[Hg] JESENIA BROWN MD [facility] 03-22-2021 22:49-0500 Body temperature 97.52 [degF] JESENIA BROWN MD [facility] 03-22-2021 22:49-0500 Diastolic blood pressure 68 mm[Hg] JESENIA BROWN MD [facility] 03-22-2021 22:49-0500 Mean blood pressure 80 mm[Hg] JESENIA BROWN MD [facility] 03-22-2021 22:49-0500 Reason For Taking VItal Signs JESENIA BROWN MD [facility] 03-22-2021 22:49-0500 Systolic blood pressure 104 mm[Hg] JESENIA BROWN MD [facility] 03-22-2021 20:33-0500 Reason For Taking VItal Signs JESENIA BROWN MD [facility] 03-22-2021 07:47-0500 Body height 175.3 cm JESENIA BROWN MD [facility] 03-22-2021 07:47-0500 Body weight 128.1 kg JESENIA BROWN MD [facility] 03-22-2021 07:47-0500 Body weight 41.69 kg/m2 JESENIA BROWN MD [facility] 03-22-2021 05:15-0500 Diastolic blood pressure 47 mm[Hg] ARISTIDES DURESKA DO [facility] 03-22-2021 05:15-0500 Heart rate 94 /min ARISTIDES DURESKA DO [facility] 03-22-2021 05:15-0500 Respiratory rate 20 /min ARISTIDES DURESKA DO [facility] 03-22-2021 05:15-0500 Systolic blood pressure 92 mm[Hg] ARISTIDES DURESKA DO [facility] 03-22-2021 04:18-0500 Diastolic blood pressure 99 mm[Hg] ARISTIDES DURESKA DO [facility] 03-22-2021 04:18-0500 Heart rate 141 /min ARISTIDES DURESKA DO [facility] 03-22-2021 04:18-0500 Respiratory rate 20 /min ARISTIDES DURESKA DO [facility] 03-22-2021 04:18-0500 Systolic blood pressure 124 mm[Hg] ARISTIDES DURESKA DO [facility] 03-22-2021 02:52-0500 Diastolic blood pressure 59 mm[Hg] ARISTIDES DURESKA DO [facility] 03-22-2021 02:52-0500 Heart rate 93 /min ARISTIDES DURESKA DO [facility] 03-22-2021 02:52-0500 Respiratory rate 20 /min ARISTIDES DURESKA DO [facility] 03-22-2021 02:52-0500 Systolic blood pressure 117 mm[Hg] ARISTIDES DURESKA DO [facility] 03-22-2021 02:44-0500 Body temperature 98.42 [degF] ARISTIDES DURESKA DO [facility] 03-22-2021 02:44-0500 Heart rate 140 /min ARISTIDES DURESKA DO [facility] Encounters Encounter Date Encounter Type Care Provider Facility Start: 08-26-2024 ambulatory [facility] Facility:[facility] Start: 05-31-2024 End: 05-31-2024 ambulatory LISA S JULIAN DATABASE ADMIN-LOCAL TRUCK DRIVER Facility:[facility] Start: 05-24-2024 End: 05-24-2024 ambulatory LISA S JULIAN DATABASE ADMIN-LOCAL TRUCK DRIVER Facility:[facility] Start: 05-18-2024 End: 05-18-2024 ambulatory LISA S JULIAN DATABASE ADMIN-LOCAL TRUCK DRIVER Facility:[facility] Start: 05-18-2024 End: 05-18-2024 Patient encounter procedure KAYLA MCGILL DATABASE ADMIN-LOCAL TRUCK DRIVER [facility] Start: 04-18-2024 Encounter for genera l adult medical examination without abnormal findings [facility] Start: 04-18-2024 End: 04-18-2024 ambulatory Lisa Jordan COMPTOMETER OPERATOR Facility:[facility] Start: 02-27-2024 End: 02-27-2024 ambulatory Lisa Jordan COMPTOMETER OPERATOR Facility:[facility] Start: 02-22-2024 End: 02-22-2024 ambulatory [facility] Facility:[facility] Start: 02-01-2024 Encounter for other preprocedural examination [facility] Start: 01-09-2024 End: 01-09-2024 ambulatory Lisa Jordan COMPTOMETER OPERATOR Facility:[facility] Start: 01-01-2024 Encounter for other preprocedural examination [facility] Start: 01-01-2024 End: 01-01-2024 ambulatory Lisa Jordan COMPTOMETER OPERATOR Facility:[facility] Start: 01-01-2024 End: 01-01-2024 ambulatory Lisa Jordan COMPTOMETER OPERATOR Facility:[facility] Start: 12-04-2023 End: 12-04-2023 ambulatory Lisa Jordan COMPTOMETER OPERATOR Facility:[facility] Start: 10-16-2023 End: 10-16-2023 ambulatory Lisa Jordan COMPTOMETER OPERATOR Facility:[facility] Start: 08-29-2023 End: 08-29-2023 ambulatory Lisa Jordan COMPTOMETER OPERATOR Facility:[facility] Start: 08-21-2023 End: 08-21-2023 ambulatory LISA Tk ROEJULIAN DATABASE ADMIN-LOCAL TRUCK DRIVER Facility:[facility] Start: 08-21-2023 End: 08-21-2023 Patient encounter procedure LISA JORDAN DATABASE ADMIN-LOCAL TRUCK DRIVER [facility] Start: 05-29-2023 End: 05-29-2023 ambulatory LISA JORDAN DATABASE ADMIN-LOCAL TRUCK DRIVER Facility:[facility] Start: 05-23-2023 End: 05-23-2023 Patient encounter procedure COMPTOMETER OPERATOR-C Lisa Roemer COMPTOMETER OPERATOR Work Phone: [facility] Work Phone: Start: 05-19-2023 End: 05-19-2023 ambulatory COMPTOMETER OPERATOR-C Lisa Roemer COMPTOMETER OPERATOR Work Phone: [facility] Work Phone: Start: 05-19-2023 End: 05-19-2023 Patient encounter procedure COMPTOMETER OPERATOR-C Lisa Roemer COMPTOMETER OPERATOR Work Phone: [facility] Work Phone: Start: 02-23-2023 End: 02-23-2023 Patient encounter procedure COMPTOMETER OPERATOR-C Lisa Jordan COMPTOMETER OPERATOR Work Phone: [facility] Work Phone: Start: 02-20-2023 End: 02-20-2023 ambulatory COMPTOMETER OPERATOR-C Lisa Jordan COMPTOMETER OPERATOR Work Phone: [facility] Work Phone: Start: 02-20-2023 End: 02-20-2023 Patient encounter procedure COMPTOMETER OPERATOR-C Lisa Jordan COMPTOMETER OPERATOR Work Phone: [facility] Work Phone: Start: 11-17-2022 End: 11-17-2022 Patient encounter procedure COMPTOMETER OPERATOR-C Lisa Roemer COMPTOMETER OPERATOR Work Phone: [facility] Work Phone: Start: 10-28-2022 End: 11-01-2022 ambulatory LUCIA HARDING DATABASE ADMIN-LOCAL TRUCK DRIVER Facility:[facility] Start: 10-28-2022 End: 11-01-2022 Outreach Lab LUCIA HARDING DATABASE ADMIN-LOCAL TRUCK DRIVER [facility] Start: 10-04-2022 End: 10-04-2022 ambulatory COMPTOMETER OPERATOR-C Lisa Jordan COMPTOMETER OPERATOR Work Phone: [facility] Work Phone: Start: 10-04-2022 End: 10-04-2022 Patient encounter procedure COMPTOMETER OPERATOR-C Lisa Jordan COMPTOMETER OPERATOR [facility] Start: 10-04-2022 Non-patient / Non-visit COMPTOMETER OPERATOR-C Inocente Jordan COMPTOMETER OPERATOR Work Phone: [facility] Start: 10-04-2022 End: 10-04-2022 Admission to same day surgery center COMPTOMETER OPERATOR-C Lisa Jordan COMPTOMETER OPERATOR [facility] Start: 10-04-2022 End: 10-04-2022 ambulatory COMPTOMETER OPERATOR-C Lisa Jordan COMPTOMETER OPERATOR Work Phone: [facility] Work Phone: Start: 10-02-2022 End: 10-02-2022 Emergency department patient visit DINO GOODMAN MD Facility:[facility] Start: 09-21-2022 End: 09-21-2022 Patient encounter procedure COMPTOMETER OPERATOR-C Lisa Jordan COMPTOMETER OPERATOR Work Phone: [facility] Work Phone: Start: 09-07-2022 End: 09-07-2022 Patient encounter procedure COMPTOMETER OPERATOR-C Lisa Jordan COMPTOMETER OPERATOR Work Phone: [facility] Work Phone: Start: 09-01-2022 End: 09-01-2022 Patient encounter procedure COMPTOMETER OPERATOR-C Lisa Jordan COMPTOMETER OPERATOR Work Phone: [facility] Work Phone: Start: 08-16-2022 Registered Recurring COMPTOMETER OPERATOR-C Melinda Jordan COMPTOMETER OPERATOR Work Phone: [facility] Start: 08-16-2022 End: 08-16-2022 Patient encounter procedure COMPTOMETER OPERATOR-C Lisa Jordan COMPTOMETER OPERATOR Work Phone: [facility] Work Phone: Start: 08-11-2022 End: 08-11-2022 ambulatory COMPTOMETER OPERATOR-C Lisa Jordan COMPTOMETER OPERATOR Work Phone: [facility] Work Phone: Start: 08-11-2022 End: 08-11-2022 Patient encounter procedure COMPTOMETER OPERATOR-C Lisa Jordan COMPTOMETER OPERATOR Work Phone: [facility] Start: 08-09-2022 Registered Recurring COMPTOMETER OPERATOR-C Melinda Jordan COMPTOMETER OPERATOR Work Phone: [facility] Start: 08-04-2022 End: 08-04-2022 Patient encounter procedure COMPTOMETER OPERATOR-C Lisa Jordan COMPTOMETER OPERATOR Work Phone: [facility] Start: 08-03-2022 End: 08-03-2022 Patient encounter procedure COMPTOMETER OPERATOR-C Lisa Jordan COMPTOMETER OPERATOR Work Phone: [facility] Start: 07-18-2022 End: 07-18-2022 Patient encounter procedure COMPTOMETER OPERATOR-C Lisa Jordan COMPTOMETER OPERATOR Work Phone: [facility] Start: 06-09-2022 End: 06-09-2022 Patient encounter procedure COMPTOMETER OPERATOR-C Lisa Jordan COMPTOMETER OPERATOR Work Phone: [facility] Start: 06-06-2022 End: 06-06-2022 Patient encounter procedure COMPTOMETER OPERATOR-C Lisa Jordan COMPTOMETER OPERATOR Work Phone: [facility] Start: 05-26-2022 End: 05-26-2022 Patient encounter procedure COMPTOMETER OPERATOR-C Lisa Jordan COMPTOMETER OPERATOR Work Phone: [facility] Start: 05-13-2022 Non-patient / Non-visit COMPTOMETER OPERATOR-Ramiro Jordan COMPTOMETER OPERATOR Work Phone: [facility] Start: 05-13-2022 Registered Recurring COMPTOMETER OPERATOR-C Melinda Jordan COMPTOMETER OPERATOR Work Phone: [facility] Start: 05-11-2022 End: 05-11-2022 Patient encounter procedure COMPTOMETER OPERATOR-C Lisa Jordan COMPTOMETER OPERATOR Work Phone: [facility] Start: 05-09-2022 End: 05-09-2022 Patient encounter procedure COMPTOMETER OPERATOR-C Lisa Jordan COMPTOMETER OPERATOR Work Phone: [facility] Start: 05-04-2022 End: 05-04-2022 Patient encounter procedure COMPTOMETER OPERATOR-C Lisa Jordan COMPTOMETER OPERATOR Work Phone: [facility] Start: 05-02-2022 End: 05-02-2022 Patient encounter procedure COMPTOMETER OPERATOR-C Lisa Jordan COMPTOMETER OPERATOR Work Phone: [facility] Start: 04-27-2022 End: 04-27-2022 Patient encounter procedure COMPTOMETER OPERATOR-C Lisa Jordan COMPTOMETER OPERATOR Work Phone: [facility] Start: 04-25-2022 End: 04-25-2022 Patient encounter procedure COMPTOMETER OPERATOR-C Lisa Jordan COMPTOMETER OPERATOR Work Phone: [facility] Start: 04-19-2022 End: 04-19-2022 Patient encounter procedure COMPTOMETER OPERATOR-C Lisa Jordan COMPTOMETER OPERATOR Work Phone: [facility] Start: 04-18-2022 End: 04-18-2022 Patient encounter procedure COMPTOMETER OPERATOR-C Lisa Jordan COMPTOMETER OPERATOR Work Phone: [facility] Start: 04-13-2022 Registered Recurring COMPTOMETER OPERATOR-C Melinda Jordan COMPTOMETER OPERATOR Work Phone: [facility] Start: 04-13-2022 End: 04-13-2022 Patient encounter procedure COMPTOMETER OPERATOR-C Lisa Jordan COMPTOMETER OPERATOR Work Phone: [facility] Start: 04-11-2022 End: 04-11-2022 Patient encounter procedure COMPTOMETER OPERATOR-C Lisa Jordan COMPTOMETER OPERATOR Work Phone: [facility] Start: 04-06-2022 End: 04-06-2022 Patient encounter procedure COMPTOMETER OPERATOR-C Lisa Jordan COMPTOMETER OPERATOR Work Phone: [facility] Start: 04-04-2022 End: 04-04-2022 Patient encounter procedure COMPTOMETER OPERATOR-C Lisa Jordan COMPTOMETER OPERATOR Work Phone: [facility] Start: 04-01-2022 Non-patient / Non-visit COMPTOMETER OPERATOR-C Inocente Jordan COMPTOMETER OPERATOR Work Phone: [facility] Start: 04-01-2022 End: 04-01-2022 ambulatory COMPTOMETER OPERATOR-C Lisa Jordan COMPTOMETER OPERATOR Work Phone: [facility] Work Phone: Start: 04-01-2022 End: 04-01-2022 Patient encounter procedure COMPTOMETER OPERATOR-C Lisa Jordan COMPTOMETER OPERATOR Work Phone: [facility] Start: 03-31-2022 Non-patient / Non-visit COMPTOMETER OPERATOR-C Inocente Jordan COMPTOMETER OPERATOR Work Phone: [facility] Start: 03-30-2022 End: 03-30-2022 Patient encounter procedure COMPTOMETER OPERATOR-C Lisa Jordan COMPTOMETER OPERATOR Work Phone: [facility] Start: 03-29-2022 Non-patient / Non-visit COMPTOMETER OPERATOR-C Inocente Jordan COMPTOMETER OPERATOR Work Phone: [facility] Start: 03-29-2022 End: 03-29-2022 ambulatory COMPTOMETER OPERATOR-C Lisa Jordan COMPTOMETER OPERATOR Work Phone: [facility] Work Phone: Start: 03-29-2022 End: 03-29-2022 Patient encounter procedure COMPTOMETER OPERATOR-Ramiro Jordan COMPTOMETER OPERATOR Work Phone: [facility]-Pre-Admissi on Testing Start: 03-29-2022 Non-patient / Non-visit COMPTOMETER OPERATOR-C Inocente Jordan COMPTOMETER OPERATOR Work Phone: [facility] Start: 03-29-2022 End: 03-29-2022 Admission to same day surgery center COMPTOMETER OPERATOR-C Lisa Jordan COMPTOMETER OPERATOR Work Phone: [facility] [employer] Start: 03-28-2022 End: 03-28-2022 Patient encounter procedure COMPTOMETER OPERATOR-Ramiro Jordan COMPTOMETER OPERATOR Work Phone: [facility] Start: 03-28-2022 End: 03-28-[address] ELIZABETH BOWER MD [facility] Start: 03-25-2022 End: 03-25-2022 Non-patient / Non-visit COMPTOMETER OPERATOR-Ramiro Jordan COMPTOMETER OPERATOR Work Phone: [facility] Start: 03-24-2022 Registered Recurring COMPTOMETER OPERATOR-Ramiro Jordan COMPTOMETER OPERATOR Work Phone: [facility] Start: 03-24-2022 End: 03-24-2022 Patient encounter procedure COMPTOMETER OPERATOR-Ramiro Jordan COMPTOMETER OPERATOR Work Phone: [facility] Start: 03-22-2022 Non-patient / Non-visit COMPTOMETER OPERATOR-C Inocente Jordan COMPTOMETER OPERATOR Work Phone: [facility] Start: 03-22-2022 End: 03-22-2022 Patient encounter procedure COMPTOMETER OPERATOR-C Lisa Jordan COMPTOMETER OPERATOR Work Phone: [facility] Start: 03-18-2022 End: 03-18-2022 ambulatory COMPTOMETER OPERATOR-C Lisa Jordan COMPTOMETER OPERATOR Work Phone: [facility] Work Phone: Start: 03-18-2022 End: 03-18-2022 Patient encounter procedure COMPTOMETER OPERATOR-C Lisa Jordan COMPTOMETER OPERATOR Work Phone: [facility] Start: 03-15-2022 End: 03-15-2022 ambulatory COMPTOMETER OPERATOR-C Lisa Jordan COMPTOMETER OPERATOR Work Phone: [facility] Work Phone: Start: 03-15-2022 End: 03-15-2022 Patient encounter procedure COMPTOMETER OPERATOR-C Lisa Jordan COMPTOMETER OPERATOR Work Phone: [facility] Start: 03-10-2022 End: 03-10-2022 ambulatory COMPTOMETER OPERATOR-C Lisa Jordan COMPTOMETER OPERATOR Work Phone: [facility] Work Phone: Start: 03-10-2022 End: 03-10-2022 Patient encounter procedure COMPTOMETER OPERATOR-C Lisa Jordan COMPTOMETER OPERATOR Work Phone: [facility]Laboratory, Specimen Start: 03-10-2022 End: 03-10-2022 Patient encounter procedure COMPTOMETER OPERATOR-C Lisa Jordan COMPTOMETER OPERATOR Work Phone: [facility] Start: 03-10-2022 End: 03-10-2022 Patient encounter procedure COMPTOMETER OPERATOR-C Lisa Jordan COMPTOMETER OPERATOR Work Phone: [facility] Start: 03-09-2022 Registered Recurring COMPTOMETER OPERATOR-C Melinda Jordan COMPTOMETER OPERATOR Work Phone: [facility] Start: 02-28-2022 End: 02-28-2022 Patient encounter procedure COMPTOMETER OPERATOR-C Lisa Jordan COMPTOMETER OPERATOR Work Phone: [facility] Start: 02-19-2022 End: 02-24-2022 Evaluation and management of inpatient LU SHEIKH MD [facility] Start: 01-27-2022 End: 01-27-2022 Patient encounter procedure ILSA JORDAN DATABASE ADMIN-LOCAL TRUCK DRIVER [facility] Start: 03-22-2021 End: 03-23-2021 Observation JESENIA BROWN MD [facility] Start: 03-22-2021 End: 03-22-2021 Emergency department patient visit ARISTIDES GUEVARA DO [facility] Procedures Date Procedure Procedure Detail Performing Clinician Start: 05-19-2023 MRI of pelvis with contrast COMPTOMETER OPERATOR-C Lisa Jordan COMPTOMETER OPERATOR Work Phone: Start: 02-20-2023 Plain chest X-ray COMPTOMETER OPERATOR-C Lisa Jordan COMPTOMETER OPERATOR Work Phone: Start: 02-20-2023 CT of chest and abdomen COMPTOMETER OPERATOR-C Lisa Jordan COMPTOMETER OPERATOR Work Phone: Start: 10-04-2022 Examination of female genital tract under anesthetic COMPTOMETER OPERATOR-C Lisa Jordan COMPTOMETER OPERATOR Work Phone: Start: 08-11-2022 MRI of pelvis with contrast COMPTOMETER OPERATOR-C Lisa Jordan COMPTOMETER OPERATOR Work Phone: Start: 08-09-2022 PET study for localization of tumor COMPTOMETER OPERATOR-C iLsa Jordan COMPTOMETER OPERATOR Work Phone: Start: 03-29-2022 Radiographic procedure of chest COMPTOMETER OPERATOR-C Paula Jordan COMPTOMETER OPERATOR Work Phone: Start: 03-29-2022 Fluoroscopic guidance COMPTOMETER OPERATOR-C Lisa Jordan COMPTOMETER OPERATOR Work Phone: Start: 03-18-2022 MRI of pelvis with contrast COMPTOMETER OPERATOR-C Lisa Jordan COMPTOMETER OPERATOR Work Phone: Start: 03-15-2022 CT of thorax with contrast COMPTOMETER OPERATOR-C Lisa Roemer COMPTOMETER OPERATOR Work Phone: Start: 03-09-2022 Positron emission tomography with computed tomography COMPTOMETER OPERATOR-C Lisa Jordan COMPTOMETER OPERATOR Work Phone: Start: 02-19-[address] ELIZABETH Alvarado Comment on above: Sigmoidoscopy Rigid, exploratory laparot lauren partial colectomy rigid sigmoidoscopy wound vac application, umbilical hernia repair, recatl biopsy, appendectomy Abdominal Laparotomy, exploratory laparotomy Start: 03-20-[address] ELIZABETH BOWER MD Start: 01-27-2017 Osteotomy ARISTIDESALBERTO GUEVARA DO Comment on above: second and third metatarsal with screw f ixture - right foot - Dr. Jordan - [facility] Start: 03-20-2013 Hammer toe operation ARISTIDES GUEVARA DO Start: 03-20-1997 Biopsy of breast ARISTIDES TANISHABRITTNEY DO Start: 03-20-1985 section ARISTIDES GUEVARA DO Start: 03-20-1984 History of left mastectomy ARISTIDES TANISHABRITTNEY DO section ARISTIDES GARAYPORFIRIO SANDY DO Colonoscopy ARISTIDES ISMAEL D O Esophagogastroduodenoscopy J DANIELLE GARAYPORFIRIODU DO Excision of breast tissue ERVIN GARAYBRITTNEY DO Comment on above: Left breast Specimen from breast obtained by biopsy (specimen) ARISTIDES TANISHABRITTNEY DO Comment on above: Right breast Tonsillectomy ARISTIDES GUEVARA DO Plan of Treatment Date Care Activity Detail Author Start: 10-04-2022 Ambulation without limitation [facility] Start: 10-04-2022 Medical regimen orders management [facility] Start: 10-04-2022 Medication education [facility] Start: 10-04-2022 Procedure discontinued [facility] Start: 10-04-2022 Taking patient vital signs [facility] Start: 10-04-2022 Vital signs measurements [facility] Start: 10-04-2022 [facility] Start: 10-04-2022 Admission procedure [facility] Start: 10-04-2022 Patient discharge [facility] Start: 09-01-2022 Patient referral [facility] Work Phone: Start: 05-02-2022 Urinalysis complete panel - Urine [facility] Start: 05-02-2022 [facility] Start: 04-13-2022 Patient referral [facility] Work Phone: Start: 04-04-2022 Venous catheter care management [facility] Start: 04-04-2022 Urinalysis complete panel - Urine [facility] Start: 04-04-2022 [facility] Start: 03-29-2022 Patient discharge [facility] Start: 03-29-2022 Implantation to cardiovascular system Insertion, Vascular Port (Right) [facility] Work Phone: Start: 03-29-2022 Leep Cone (Not Applicable) Leep Cone (Not Applicable) [facility] Work Phone: Start: 03-29-2022 Anesthesia vaginal procedure w/biopsy nos ANESTH VAGINAL PROCEDURES [facility] Start: 03-29-2022 Conization cervix w/wo d&c rpr eltrd exc CONIZATION OF CERVIX [facility] Start: 03-29-2022 Insj tunneled ctr vad w/subq port age 3 yr/> INSERT TUNNELED CV CATH [facility] Start: 03-25-2022 Patient referral [facility] Work Phone: Start: 03-18-2022 MR Pelvis WO and W contrast IV [facility] Work Phone: Start: 03-18-2022 MRI of pelvis with contrast Pelvis W/WO Contrast [facility] Work Phone: Start: 03-10-2022 Liquid based cervical cytology screening [facility] Work Phone: Start: 03-10-2022 Patient referral [facility] Work Phone: Carcinoembryonic Ag [Mass/volume] in Serum or Plasma [facility] Work Phone: Carcinoembryonic Ag [Mass/volume] in Serum or Plasma [facility] Carcinoembryonic Ag [Mass/volume] in Serum or Plasma [facility] CBC W Auto Different ial panel - Blood [facility] Work Phone: CBC W Auto Different ial panel - Blood [facility] CT Chest and Abdomen W contrast IV [facility] Folate [Mass/volume] in Serum or Plasma [facility] HIV 1+2 Ab+HIV1 p24 Ag [Presence] in Serum or Plasma by Immunoassay [facility] Work Phone: Iron and Iron bindin g capacity panel - Serum or Plasma [facility] Lactate dehydrogenas e measurement [facility] LDH [facility] Work Phone: MR Pelvis WO and W c ontrast IV [facility] Path report.final Dx Spec [facility] Work Phone: Path report.final Dx Spec [facility] Patient Education [facility] Work Phone: Patient referral [facility] Work Phone: PT Unspecified body region [facility] Work Phone: Vitamin B12 measurement [facility] Immunizations Immunization Date Immunization Notes Care Provider Irlanda freedman 05-16-2024 Pneumococcal conjuga te PCV20, polysaccharide [id number] conjugate, adjuvant, PF; Translations: [Prevnar 20] LISA JORDAN DATABASE 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-LOCAL TRUCK DRIVER [facility] [place] 01-10-2023 influenza virus vacc ine, unspecified formulation LISA JORDAN DATABASE ADMIN-LOCAL TRUCK DRIVER [facility] 01-27-2022 influenza, injectabl e, quadrivalent, contains preservative LISA JULIAN DATABASE ADMIN-LOCAL TRUCK DRIVER [facility] 10-03-2021 SARS-CoV-2 mRNA (nmmegdukyjn-rahl-tngaub e) vaccine LISA JULIAN DATABASE ADMIN-LOCAL TRUCK DRIVER [facility] 02-17-2021 SARS-CoV-2 mRNA (tozinameran) vaccine LISA JULIAN DATABASE ADMIN-LOCAL TRUCK DRIVER [facility] 01-11-2021 influenza virus vacc ine, unspecified formulation LISA JULIAN DATABASE ADMIN-LOCAL TRUCK DRIVER [facility] 07-07-2020 SARS-CoV-2 mRNA (tozinameran) vaccine ARISTIDES ISMAEL DO [facility] 06-16-2020 SARS-CoV-2 mRNA (tozinameran) vaccine ARISTIDES FRANCYDU DO [facility] 03-11-2020 zoster vaccine recombinant LISA JULIAN DATABASE ADMIN-LOCAL TRUCK DRIVER [facility] 01-09-2020 zoster vaccine recombinant LISA JULIAN DATABASE ADMIN-LOCAL TRUCK DRIVER [facility] 01-09-2020 tetanus toxoid, redu monica diphtheria toxoid, and acellular pertussis vaccine, adsorbed; Translations: [Boostrix (Tdap)] ARISTIDES GUEVARA DO [facility] 12-09-2019 pneumococcal polysaccharide vaccine, 23 valent; Translations: [Pneumovax 23] ARISTIDES TANISHABRITTNEY DO [facility] 12-09-2019 influenza, injectabl e, quadrivalent, preservative free; Translations: [Fluarix PF Quadrivalent ] ARISTIDES TANISHABRITTNEY DO [facility] 01-21-2019 Influenza, injectabl e, Madin Felt Canine Kidney, preservative free, quadrivalent; Translations: [Flucelvax PF Quadrivalent ] ARISTIDES TANISHABRITTNEY DO [facility] 01-30-2018 influenza virus vacc ine, unspecified formulation ARISITDES TANISHABRITTNEY DO [facility] 01-06-2017 influenza virus vacc ine, unspecified formulation ARISTIDESALBERTO GUEVARA DO [facility] 12-29-2015 influenza virus vacc ine, unspecified formulation ARISTIDESALBERTO GUEVARA DO [facility] 01-18-2014 influenza, seasonal, injectable ARISTIDES FRANCYDU DO [facility] Payers Date Payer Category Payer Private Health Insurance [id number] 2022 Private Health Insurance [id number] 2022 Self-pay [id number] 1955 Unknown [id number] [id number] 1955 Unknown [id number] [id number]7 1955 Unknown [id number] 2.16.840.1.102530.3.579.2.627 1955 Unknown [id number] 2.16.840.1.112662.3.579.2.62 1955 Unknown [id number] 2.16.840.1.615193.3.579.2. 1955 Unknown [id number] 2.16.840.1.215130.3.579.2.62 1955 Unknown [id number] 2.840.1.354506.3.579.2. 1955 Unknown [id number] 2.16840.1.954809.3.579.2.627 1955 Unknown [id number] 2.840.1.758137.3.579.2.627 Medicare MEDICARE A ONLY [id number] Unknown [id number] 2.16840.1.372460.3.579.2.462 Unknown [id number] 2.16.840.1.644179.3.579.2.462 Unknown [id number] 2.16.840.1.144725.3.579.2.462 Unknown [id number] 2.16.840.1.152345.3.579.2.462 Unknown [id number] 2.16.840.1.256972.3.579.2.462 Unknown [id number] 2.16.840.1.923626.3.579.2.462 Unknown [id number] 2.16.840.1.092659.3.579.2.462 Unknown [id number] 2.16.840.1.978992.3.579.2.462 Unknown [id number] 2.16.840.1.099450.3.579.2.462 Unknown [id number] 2.16.840.1.587747.3.579.2.462 Unknown [id number] 2.16.840.1.753381.3.579.2.462 Unknown [id number] 2.16.840.1.629211.3.579.2.462 Social History Date Type Detail Facility Start: 06-28-2018 End: 05-16-2024 Never smoked tobacco (finding) [facility] Start: 1955 Sex Assigned At Female A [facility] Start: 03-10-2022 End: 10-18-2022 Tobacco smoking status NHIS Unknown if ever smoked [facility] Sexual Orientation [facility] Start: 02-12-2019 Sex Female (finding) [facility] NEGATED: Highlighted row [facility] Medical Equipment Procedure Code Equipment Code Equipment Origin al Text Equipment Identifier Dates ([id number]) Vascular port/catheter ([id number] [facility] Start: 03-29-2022 Goals Date Patient Goal Desired Activity /State Functional Status Date Assessment Result Facility 02-24-2022 Functional Status Yes [facility] 02-24-2022 Functional Status Mod I 1 [facility] 02-24-2022 Functional Status [facility] 02-24-2022 Functional Status [facility] 02-24-2022 Functional Status SCD On/Re-applied bilat eral knee high [facility] 02-23-2022 Functional Status Good [facility] 02-23-2022 Functional Status [facility] 02-23-2022 Functional Status Feeding Assistance Inde pendent [facility] 02-23-2022 Functional Status [facility] 02-23-2022 Functional Status Ambulation in [facility] 02-23-2022 Functional Status [facility] 02-22-2022 Functional Status [facility] 02-22-2022 Functional Status [facility] 02-22-2022 Functional Status Supervised 6 [facility] 02-21-2022 Functional Status Supervised 7 [facility] 02-20-2022 Functional Status [facility] 02-20-2022 Functional Status [facility] 02-20-2022 Functional Status [facility] 02-19-2022 Functional Status Patient Identi fied Identification band, Verbal [facility] 02-19-2022 Functional Status [facility] Mental Status Date Assessment Result Facility 10-04-2022 Cognitive function Voice/Name [facility] Work Phone: 03-29-2022 Cognitive function Voice/Name [facility] Work Phone: 02-24-2022 Mental Status Orientation Asse ssment Oriented x 4 [facility] 02-24-2022 Mental Status Orientation Oriented x 4 [facility] 02-24-2022 Mental Status [facility] 02-23-2022 Mental Status [facility] 02-23-2022 Mental Status [facility] Clinical Notes 03-22-2021 to 01-09-2024 Note Date & Type Note Facility 01-09-2024 Note [facility] Medical Records Department [address] [place] [address] History Physical Exam 01/09/24 0729 MR#: [id number] Acct: [id number] Name: ADRYAN PIMENTEL Rep #: [id number] : 1955 68 From: Pam Joshua DO PCP: ROBERT Martinez Status:REG [facility] Location: [place] [address] History and Physical Date of Admission: 01/09/24 Intake Vital Signs 12/04/2407:05 12/04/2409:57 12/31/2413:35 Height 5 ft 9 in 5 ft 9 in 5 ft 9 in Weight: 273 lb 2 oz BMI 40.3 BP 124/83 H Intake Visit Reasons: pelvic exam, pap, colp,poss. 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 Is patient in pain?: No Allergies meperidine (From Demerol) Allergy (Verified 01/01/24 14:39) Unknownoxaprozin Allergy (Verified 01/01/24 14:39) Unknown Medications ???Medication ???Instructions ???Recorded ???Confirmed ???Type alprazolam 0.25 mg tablet (Xanax) 0.25 mg PO PRN PRN Anxiety 02/28/22 01/01/24 History diltiazem HCl 120 mg 120 mg PO DAILY 02/28/22 01/01/24 History capsule,extended release 12 hr metoprolol succinate 25 mg 25 mg PO DAILY 02/28/22 01/01/24 History tablet,extended release 24 hr omeprazole 20 mg capsule,delayed 20 mg PO DAILY 02/28/22 01/01/24 History release vjoclsfg-rhstzas-bqjk-lutein tablet 1 tab PO DAILY 03/28/22 01/01/24 History simvastatin 20 mg tablet 20 mg PO QHS 03/28/22 01/01/24 History aspirin 325 mg capsule 325 mg PO SUTH 09/27/22 01/01/24 History trospium 20 mg tablet 20 mg PO DAILY 08/29/23 01/01/24 History mecobalamin (vitamin B12) 2,500 2,500 mcg PO DAILY 12/04/23 01/01/24 History mcg chewable tablet Is last menstrual period known: No Post menopausal: Yes Patient : No : No PFSH Medical History PONV (postoperative nausea and vomiting) Encounter for education Wears glasses Post-menopausal Cancer Anxiety Back pain History of diverticulosis Gastric reflux Non-smoker CPAP (continuous positive airway pressure) dependence History of edema History of echocardiogram History of stress test Hypertension Cardiology follow-up encounter High cholesterol Arthritis HPV (human papilloma virus) infection HGSIL (high grade squamous intraepithelial lesion) on Pap smear of cervix Afib Surgical History Status post colposcopy ( 10/04/22) H/O LEEP Hx of colonoscopy History of laparoscopy H/O section Hx of mastectomy Family History Father Myocardial infarctionMother COPD (chronic obstructive pulmonary disease)Other Colon cancer Social History Smoking Status: Never smoker alcohol intake: current details: social substance use type: does not use caffeine: Yes seatbelt use: always do you feel safe at home: Yes additional social history: retired- HPI pelvic exam, pap, colp,poss. biopsy Details: ADRYAN PIMENTEL is a 68 year old who presents for a preoperative exam. She is scheduled for a pelvic exam under anesthesia due to a history of rectal cancer and a history of abnormal pap. Due to radiation her pelvic exams in the office are extremely painful. She is also requesting a rectal exam at the time as well. History 1 Elective abortions Hx Para 1 Spontaneous abortions Hx # Term Pregnancies Ectopic pregnancies Hx # Pregnancies Multiple births # of living children Past Pregnancies Del. Date Name GA/Weeks Outcome Route Bth Weight Gen Labor Lgth Anesthesia Del Locatn Provider FOB Unknown Daksha ROS Const ROS Unobtainable: All systems reviewed are unremarkable except as noted in H Resp Resp: Reports system reviewed and no additional complaints, except as documented; Denies cough GI GI: Reports as per HPI Psych Psych: Reports system reviewed and no additional complaints, except as documented Exam Const General: cooperative, healthy appearing, comfortable and no acute distress Resp Effort Inspection: normal respiratory effort Skin General: no rashes or lesions noted Psych Appearance: grossly normal Speech and Movement: speech and movement normal Coding Level of Care Code Off vis,est,level 4 Diagnoses Carcinoma of anorectum C21.8 HPV (human papilloma virus) infection B97.7 HGSIL (high grade squamous intraepithelial lesion) on Pap smear of cervix R87.613 Assessment and Plan Assessment and Plan (1) 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 Started chemotherapy Mitomycin and 5FU together with Radiation therapy on 04/04/2022. Got [id number] from 05/02/2022 to 05/06/2022. Finished (more content not included)... [facility] 08-21-2023 Note ORIGINAL EXAMINATION: BONE DENSITOMETRY08/21/2023 9:20 [...] Sign Date: 08/21/2023 1:05:29 PM Ordering Provider: [facility] 10-04-2022 History and physi alberto note Note Date/Time October 04, 2022 8:29am [facility] Medical Records Department [address] [place] [address] History & Physical Exam 10/04/22 0828 MR#: [id number] Acct: [id number] Name: ADRYAN PIMENTEL Rep #:[id number] : 1955 67 From: Pam Joshua DO PCP: ROBERT Martinez Status:REG S DC Location: [place] [address] History and Physical Date of Admission: 10/04/22 Intake Vital Signs 08/04/2309:48 09/08/2307:23 09/08/2307:23 Height 5 ft 9 in 5 ft 9 in 5 ft 9 in Weight: 262 lb 8 oz BMI 38.7 BP 127/69 H Intake Visit Reasons: Pre-op visit 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 Is patient in pain?: No Allergies meperidine [From Demerol] Allergy (Verified 09/07/22 08:22) Unknownoxaprozin Allergy (Verified 09/07/22 08:22) Unknown Medications alprazolam 0.25 mg tablet (Xanax) 0.25 mg PO PRN PRN Anxiety 02/28/22 [History Confirmed 09/07/22] diltiazem HCl 120 mg capsule,extended release 12 hr 120 mg PO DAILY 02/28/22 [History Confirmed 09/07/22] metoprolol succinate 25 mg tablet,extended release 24 hr 25 mg PO DAILY 02/28/22[History Confirmed 09/07/22] omeprazole 20 mg capsule,delayed release 20 mg PO DAILY 02/28/22 [History Confirmed 09/07/22] propafenone 150 mg tablet 150 mg PO PRN PRN AF 02/28/22 [History Confirmed 09/07/22] uvnrftdu-feihqaa-bwqn-lutein tablet 1 tab PO DAILY 03/28/22 [History Confirmed 09/07/22] simvastatin 20 mg tablet 20 mg PO QHS 03/28/22 [History Confirmed 09/07/22] lidocaine-prilocaine 2.5 %-2.5 % topical cream 1 applic topical ONCE PRN port access 30 days #30 grams 03/30/22 [Rx Confirmed 09/07/22] ondansetron 8 mg disintegrating tablet 8 mg PO Q8H PRN nausea and vomiting #30 tabs 03/30/22 [Rx Confirmed 09/07/22] prochlorperazine maleate 10 mg tablet 10 mg PO Q6H PRN nausea and vomiting #30 tabs 03/30/22 [Rx Confirmed 09/07/22] MAGIC MOUTH WASH (BMX) 180 mL suspension 5 ml PO .ac #180 mL 04/11/22 [Rx Confirmed 09/07/22] loperamide 2 mg capsule (Imodium A-D) 2 mg PO Q4H PRN 07/18/22 [History Confirmed 09/07/22] oxybutynin chloride 5 mg tablet,extended release 24 hr (Ditropan XL) 5 mg PO DAILY 07/18/22 [History Confirmed 09/07/22] mecobalamin (vitamin B12) 1,000 mcg chewable tablet 1,000 mcg PO DAILY #120 tabs08/04/22 [Rx Confirmed 09/07/22] Is last menstrual period known: No Patient : No : No PFSH Medical History Afib Anxiety Arthritis Arthritis Back pain Cancer Cardiology follow-up encounter CPAP (continuous positive airway pressure) dependence Depression Encounter for education Gastric reflux HGSIL (high grade squamous intraepithelial lesion) on Pap smear of cervix High cholesterol History of diverticulosis History of echocardiogram History of edema History of stress test HPV (human papilloma virus) infection Hypertension Non-smoker Open wound Post-menopausal Wears glasses Surgical History H/O section H/O LEEP History of laparoscopy Hx of colonoscopy Hx of mastectomy Family History Father Myocardial infarctionMother COPD (chronic obstructive pulmonary disease)Other Colon cancer Social History Smoking Status: Never smoker alcohol intake: current details: social substance use type: does not use caffeine: Yes seatbelt use: always do you feel safe at home: Yes additional social history: retired- [employer] Pre-op visit Details: ADRYAN PIMENTEL is a 67 year old who presents for preop exam. She is scheduled for a routine follow up pap and colposcopy. She is status post chemo and radiation for rectal cancer. In Mar she had an hgsil HPV + pap and normal leep then after diagnosis. The tumor size is drastically reduced, however due to the radiation her vaginal canal is very stenotic and difficult to exam in the office. History 1 Elective abortions Hx Para 1 Spontaneous abortions Hx # Term Pregnancies Ectopic pregnancies Hx # Pregnancies Multiple births # of living children Past Pregnancies Del. Date Name GA/Weeks Outcome Route Bth Weight Gen [facility] Unknown Daksha ROS Const ROS Unobtainable: All systems reviewed & are unremarkable except as noted in H Resp Resp: Reports system reviewed and no additional complaints, except as documented; Denies cough GI GI: Reports as per HPI Psych Psych: Reports system reviewed and no additional complaints, except as documented Exam Const General: cooperative, healthy appearing, comfortable and no acute distress Resp Effort & Inspection: normal respiratory effort Skin General: no rashes or lesions noted Psych Appearance: grossly normal Speech and Movement: speech and movement normal Coding Level of Care Code Off vis,est,level 3 Diagnoses Carcinoma of anorectum C21.8 Status post chemotherapy Z92.21 Anemia D64.9 Anemia type: B12 deficiency Perianal pain K62.89 Acute radiation dermatitis L58.0 Chemotherapy management, encounter for Z51.11 H/O LEEP Z98.890 HPV (human papilloma virus) infection B97.7 HGSIL (high grade squamous intraepithelial lesion) on Pap smear of cervix R87.613 Assessment and Plan Assessment and Plan (1) Carcinoma of anorectum: Status: Acute Comment: Anal Cancer, squamous cell type, 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 Started chemotherapy Mitomycin and 5FU together with Radiation therapy on 04/04/2022. Got [id number] from 05/02/2022 to 05/06/2022. Finished Radiation on 05/13/2022. Biopsy of residual mass on 07/28/2022 was negative. PET/CT 08/09/2022 reviewed, shows no activity suggestive of malignancy. MRI pelvis 08/11/22 reviewed, shows resolution of tumor and nodes. No evidence of disease clinically. Discussed disease status, observation for recurrence. (2) Status post chemotherapy: Status: Acute Comment: Counts are trending upwards (3) Anemia: Status: Acute Qualifiers: Anemia type: B12 deficiency Comment: Iron profile is normal, HGB is trending upwards. (4) Perianal pain: Status: Acute Comment: Due to anal cancer, on Percocet prn, Pain service is coming to her house. (5) Acute radiation dermatitis: Status: Acute (6) Chemotherapy management, encounter for: Status: Acute Comment: Counts and chemistry reviewed, OK for therapy. (7) H/O LEEP: Status: Acute (8) HPV (human papilloma virus) infection: Status: Acute (9) HGSIL (high grade squamous intraepithelial lesion) on Pap smear of cervix: Status: Acute Plan: After discussing the patient's diagnosis and treatment plan options, patient wishes to proceed with surgical management. I have discussed with the patient the risks, benefits, and alternatives of the procedure which include but are notlimited to risks of anesthesia, bleeding, infection, possible damage to bowel, bladder, or surrounding vasculature which could lead to additional surgery to evaluate any complications. Patient agrees to procedure and wishes to proceed. ACOG/uptodate references given for additional information regarding procedure. plan for colp + pap under anesthesia for patient comfort. 10/04/22 0829 <Electronically signed by Pam Joshua DO> Cosigner Signature (if applicable): CC: ROBERT Jordan; Dr. Pam Joshua DO~ Signed [facility] Work Phone: [phone] 792-370507-18-2023 Procedure [facility] 10-04-2022 Procedure [facility]12-23-[address] Jackson office through the fax. Attempted to schedule patient, patient states Dr. Jackson informed her we do not need to see her.[facility]12-22-2022 NotePap Smear Specimen [facility] 4:10pmComment.Satisfactory for evaluation. Endocervical and/or squamous metaplasticcells (endocervical component)are present.[facility][id number] Work Phone: Comment on above:Satisfactory for evaluation. Endocervical and/or squamous metaplasticcells (endocervical component)are present.03-10-2022 NotePap Smear Specimen AdequacyDecemb 2021 4:10pm Comment.Satisfactory for evaluation. Endocervical and/or squamous metaplasticcells (endocervical component)are present.[facility] INTER[facility] A#[id number] North Health CenterComment on above:Satisfactory for evaluation. Endocervical and/or squamous metaplasticcells (endocervical component)are present.03-10-2022 NotePap Smear Specimen AdequacyDeceer 2021 4:10pmComment.Satisfactory for evaluation. Endocervical and/or squamous metaplasticcells (endocervical component)are present.[facility] INTER[facility] A#[id number] North Health CenterComment on above:Satisfactory for evaluation. Endocervical and/or squamous metaplasticcells (endocervical component)are present.02-24-2022 Discharge summary Date of Service 02/24/2022 Discharge Diagnosis 1. PAF (PAROXYSMAL ATRIAL FIBRILLATION) (I48.0 - ICD-10-CM) 2. IASURA (OBSTRUCTIVE SLEEP APNEA) (G47.33 - ICD-10-CM) 3. [...] admitted to the surgical service team [facility] with [facility] of abdominal [facility]. Patient had recently had a colonoscopy completed at [facility] by Dr. Sumner. Patient had a CT scan of abdomen that showed a large volume of free intra peritoneal air consistent with perforation. The patient was started on IV antibiotics and transferred to [facility] where she underwent a sigmoidoscopy rigid, exploratory laparotomy with partial colectomy, rigid sigmoid scope with wound VAC application, umbilical hernia repair, rectal biopsy, appendectomy Dr. Sheikh on 02/19/2022. Patient's postoperative pain was controlled throughout her stay. Her diet was slowly advanced as tolerated. Patient had no postoperative events. 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 When the patient was admitted we did offer her consult to oncology. However she did decline. Patient reported thatshe would like to see oncologist at the [facility] in [place]. She was encouraged to call her PCP to get a referral, she was in agreement to this plan. On 02/24/2022 patient met all discharge criteria from surgical standpoint. The patient was tolerating her diet without difficulty, voiding without difficulty, her pain was well controlled. The patient was discharged to home alert and oriented. She wanted us set up with [facility] care for her wound VAC management. Patient is to follow-up with Dr. Jin in 2 weeks. She was understanding to this and agreement to the plan. Allergies Daypro (Nausea) Demerol HCl (Itching) meperidine (Unknown) Procedures sigmoidoscopy rigid, exploratory laparotomy with partial colectomy, rigid sigmoid scope with wound VAC application, umbilical hernia repair, rectal biopsy, appendectomy Dr. 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 A temporary prescriptionfor a narcotic pain medication has been provided to you postoperatively and should only be used forbreakthrough pain as narcotics increase the risk for constipation, dependency, overdose, and respira tory depression. Constipation after surgery is a very common concern for patients after discharge from the hospital.Patients are encouraged to take over the counter [...] mouth daily at bedtime for 30 Days. Futurerefills to come from beatrice's PCP. Refills: 0. [...] When 03/07/2022 10:45 AM EST Where: [address] [address] [phone] Follow Up with LISA JORDAN When Within 1-2 days Why: Please Follow up with PCP, for a referral to oncologist in the [place] area. IF he is able. Dr. Jin to due with on your follow up visit. Where: [address] [facility] [place] [address]- [phone] Business (1) Follow Up with [facility] [phone] When Why: [facility] will contact you to set up [...] Time Spent 20mins I have reviewed the [place] Automated Rx Reporting System (OARRS) report for this patient for refill pattern and other prescriber involvement as part of the appropriate surveillance for the provision ofacute and chronic controlled medications. The report was requested and reviewed on the date of thisentry, and was considered in the prescribing process This document was dictated with voice recognition software and may contain grammatical errors Digitally Signed by AWAIS HUGO on 02/24/2022 11:37 AM [id number] Discharge instructions Patient Education 02/24/2022 08:50:28 Negative Pressure [...] garbage bag. Soap and water, or hand bookbinder apprentice. Wound cleanser or salt-water solution (saline). New [...] clean towel. If soap and water are notavailable, use hand bookbinder apprentice. 3.Set up a clean station for wound [...] glove inside out. Place the gloves in thetrash immediately. 6.Wash your hands with soap and water. Dry your hands with a clean towel. If soap and water are notavailable, use hand bookbinder apprentice. Clean your wound Wear gloves, protective clothing, [...] glove inside out. Place the gloves in thetrash immediately. 5.Wash your hands with soap and water. Dry your hands with a clean towel. If soap and water are notavailable, use hand bookbinder apprentice. Apply new dressing Wear gloves, protective clothing, and eye protection. 1.If told by your health care provider, apply a skin protectant to any skin that will be exposed toadhesive. Let the skin protectant dry. 2.Cut a [...] clean towel. If soap and water are notavailable, use hand bookbinder apprentice. 8.Turn the pump back on. The sponge dressing should collapse. Do not change the settings on the machine without talking to a health care provider. 9.Replace the container in the pump that collects fluid if it is full. Replace the container per the bleacher sulfite pulp's instructions or at least once a week, [...] all clamps are open. Do not use vfsc-iru-lshgzvy medicated or antiseptic creams, sprays, liquids, or [...] or a rash, or if the alarm goesoff and you do not know what to do. Get help right away if you have a lot of bleeding, your wound breaks open, or you have severe pain.Also, get help if you have signs of infection. This information is not intended to replace advice given to you by your health care provider. Make sure you discuss any questions you have with your health care provider. Document Released: 05/28/2012 Document Revised: 06/28/2019 Document Reviewed: 05/24/2019 [employer] Patient Education 2020 [employer] 02/24/2022 08:50:20 8- Post Op General Surgery (02/2020)(CUSTOM) What to Do After Your General Surgery This sheet will give you general information on what to do when you are home after surgery. However, you should always follow any specific instructions given to you by your surgeon. Pain Medication Please follow the directions on the label of your medication and use your discharge medication listprovided by the hospital. Do not take pain medication on an empty stomach. This may cause a stomachache. Constipation is common while taking oral pain medication after surgery. Use a stool softener (Colace) or gentle laxative (milk of magnesia) if needed. As soon as your pain allows, use less of any narcotic pain medication. You may take mfmz-lop-naglwbg pain medication if you no longer need your prescribed pain medication. Qmfm-dwj-cpvqbjn pain medications are Tylenol or Advil/Motrin (ibuprofen). Do not take Tylenol if you are still taking Redkey or Percocet. They are the same type [...] the sides and are almost falling off. [place] or sutures are generally removed within seven to 14 days at your follow- up appointment. Drain Care If you have a [...] It is not uncommon to have a low- grade fever after surgery. You have new redness [...] 12:55:34 With:MICHELLE JIN MD, Surgery Address: [address] [place] [address] [phone] When:03/07/2022 10:45:00 With:LISA JORDAN Address: [address] [facility] [place], [place] [address]- [phone] Business (1) When:1-2 days Comments:Please Follow up with PCP, for a referral to oncologist in the [place] area. IF he is able. Dr. Jin to due with on your follow up visit. With:[facility] [phone] Address:Unknown When: Unknown Comments:[facility] will contact you to set up your first home visit. A registered nurse and physicaland occupational therapists have been ordered for you. [facility] 12-08-2022 Note Discharge Instructions Thank you for allowing [facility] to assist you with your healthcare needs. The following is importantdischarge information regarding your hospital visit. 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 A temporary prescriptionfor a narcotic pain medication has been provided to you postoperatively and should only be used forbreakthrough pain as narcotics increase the risk for constipation, dependency, overdose, and respira tory depression. Constipation after surgery is a very common concern for patients after discharge from the hospital.Patients are encouraged to take over the counter stool softeners (such as Colace) and over the counter laxatives (Miralax) as needed for constipation. Additional medications that can be taken for postoperative constipation include milk of magnesia, Metamucil, and Senokot. 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 IF he is able. Dr. Jin to due with on your follow up visit. Where: [address] [facility] [place] [address]- [phone] Business (1) Follow Up with [facility] [phone] When Why: [facility] will contact you to set up [...] and or supplements as they may interact withyour home medications. What How Much When Why Instructions Last Dose New acetaminophen (Tylenol 325 mg oral capsule) 650 Milligram by mouth Every 6 hours as needed for Pain, scale 1-3 New atorvastatin (atorvastatin 10 mg oral tablet) 1 tab(s) by mouth Daily at bedtime Duration: 30 Days Future refills to come from beatrice's PCP Pickup at [facility]/pharmacy #[id number] New oxyCODONE (oxyCODONE 5 mg oral tablet ( IMMEDIATE release )) 1 tab(s) by mouth Every 6 hours as needed for as needed for pain Rectal mass S/P exploratory laparotomy Duration: 5 Days Pickup at [facility]/pharmacy #[id number] Unchanged ALPRAZolam (Xanax 0.25 mg oral tablet) [...] at onset of atrial fibrillation. Pharmacy Information [facility]/pharmacy #[id number]: [address] [place], [place] [phone] Please take this list to your next [...] The extended-release form of oxycodone is for lsyrbt-ouy-swipy treatment of pain and should not be [...] people under 18. OxyContin should not be givento a child younger than 11 years old. [...] someone with a history of drug abuse oraddiction. MISUSE CAN CAUSE ADDICTION, OVERDOSE, OR . Keep the medication in a place where others cannot get to it. Selling or giving away opioid medicine is against the law. Stop taking all other ccqwms-qvr-ovnbx opioid pain medicines when you start taking extended-releaseoxycodone. Take oxycodone with food. Swallow the capsule or tablet whole to avoid exposure to a potentially fatal overdose. Do not crush, chew, break, open, or dissolve. If you cannot swallow a capsule whole, open it and sprinkle the medicine into a spoonful of puddingor applesauce. Swallow the mixture right away without [...] suddenly. Follow your doctor's instructions about tapering yourdose. Store at room temperature, away from heat, [...] where to locate a drug take-back disposal program.If there is no take-back program, flush the [...] Poison Help line at . An opioid overdosecan be fatal, especially in a child or [...] health department. Make sure any person caring foryou knows where you keep naloxone and how [...] if you have slow breathing with long pauses,blue colored lips, or if you are hard [...] may report side effects to FDA at 0-911-FVE-0662. What other drugs will affect oxycodone? You [...] drugs may affect oxycodone. This includes prescription iygtrfl-wml-kekucyf medicines, vitamins, and herbal products. Not all [...] to ensure that the information provided by [employer]. ('[employer]') is accurate, up-to-date, and complete, but no guarantee is made to that effect. Drug information contained herein may be time sensitive. [employer] information has been compiled for use by healthcare practitioners and consumers in the [place] and therefore [employer] does not warrant that uses outside of the [place] are appropriate, unless specifically indicated otherwise. [employer] drug information does not endorse drugs, diagnose patients or recommend therapy. [employer] drug information isan informational resource designed to assist licensed healthcare practitioners in caring for their p atients and/or to serve consumers viewing this service as a supplement to, and not a substitute for, the expertise, skill, knowledge and judgment of healthcare practitioners. The absence of a warningfor a given drug or drug combination in no way should be construed to indicate that the drug or drug combination is safe, effective or appropriate for any given patient. [employer] does not assume any responsibility for any aspect of healthcare administered with the aid of information [employer] provides. The information contained herein is not intended to cover all possible uses, directions, precautions, warnings, drug interactions, allergic reactions, or adverse effects. If you have questions about the drugs you are taking, check with your doctor, nurse or pharmacist. Copyright 7488-4236 [employer]. Version: 14.02. Revision Date: 04/16/2020. Education Materials [...] garbage bag. Soap and water, or hand bookbinder apprentice. Wound cleanser or salt-water solution (saline). New [...] and water are not available, use hand bookbinder apprentice. 3. Set up a clean station for [...] and water are not available, use hand bookbinder apprentice. Clean your wound Wear gloves, protective clothing, [...] and water are not available, use hand bookbinder apprentice. Apply new dressing Wear gloves, protective clothing, [...] old dressing. Tie the bag shut and throwit away. 7. Wash your hands with soap and water. Dry your hands with a clean towel. If soap and water are not available, use hand bookbinder apprentice. 8. Turn the pump back on. The sponge dressing should collapse. Do not change the settings on the machine without talking to a health care provider. 9. Replace the container in the pump that collects fluid if it is full. Replace the container per the bleacher sulfite pulp's instructions or at least once a week, [...] all clamps are open. Do not use xkww-vlz-wilczvz medicated or antiseptic creams, sprays, liquids, or [...] or a rash, or if the alarm goesoff and you do not know what to do. Get help right away if you have a lot of bleeding, your wound breaks open, or you have severe pain.Also, get help if you have signs of infection. This information is not intended to replace advice given to you by your health care provider. Make sure you discuss any questions you have with your health care provider. Document Released: 05/28/2012 Document Revised: 06/28/2019 Document Reviewed: 05/24/2019 [employer] Patient Education 2020 [employer] What to Do After Your General Surgery This sheet will give you general information on what to do when you are home after surgery. However, you should always follow any specific instructions given to you by your surgeon. Pain Medication Please follow the directions on the label of your medication and use your discharge medication listprovided by the hospital. Do not take pain medication on an empty stomach. This may cause a stomachache. Constipation is common while taking oral pain medication after surgery. Use a stool softener (Colace) or gentle laxative (milk of magnesia) if needed. As soon as your pain allows, use less of any narcotic pain medication. You may take zmsj-ryq-dysywbx pain medication if you no longer need your prescribed pain medication. Zagp-vgn-rswawkk pain medications are Tylenol or Advil/Motrin (ibuprofen). Do not take Tylenol if you are still taking Redkey or Percocet. They are the same type [...] the sides and are almost falling off. [place] or sutures are generally removed within seven to 14 days at your follow- up appointment. Drain Care If you have a [...] It is not uncommon to have a low- grade fever after surgery. You have new redness [...] to receive it can visit one of [facility] vaccine clinics. There are many vaccine clinic locations within the [facility]. For locations and available times, please visit [email or web address]/. It is important to note that some COVID mobile vaccine clinics are held outdoors and may be canceled in rainy or stormy conditions. To learn more about pediatric vaccinations (ages 5-11), we invite you to visit the [facility] webpage. [email or web address]/[email or web address]-Csuhl-Fskhfkzvfmn-Ezbplgfbbq-Wonxm-Uex stions.htmlTo learn more about the COVID-19 vaccine, we invite you to visit the [facility] website for a list of frequently asked questions. [email or web address] [email or web address] Tales/assets/Bwgzmcif-dtf-Ybmdbbyo/rnbmd-Kzwrfbv-Qcaqqnfrer _Asked-Questions.pdf [facility] Patient Portal Access Instructions: Stay connected with your healthcare team and access your personal medical information anytime with the [facility] Patient Portal.If you would like a full copy of your medical records, please contact the [facility] Medical Records Department, Monday through Monday between 8a.m. and 4:30p.m. Please follow the directions below to access the portal: 1.Access the email account you provided upon registration to the [facility].2.Look for an invitation email from [facility].3.Open the email and access the invitation link: Accept Invitation to [facility]4.Fill in the required walters to create your account. Sign into [email or web address] with your username and password that you [...] you will allow to register on the [facility] Patient Portal for access to your information. You can also access the [facility] Patient Portal on the [employer] rosemarie. Simply click on Health Records under HealthData and then click on the [employer] logo. HOW TO SAFELY DISPOSE OF PRESCRIPTION MEDICATIONS Please use one of the following methods to safely dispose of your unused medications. 1.Use a drug disposal kit: the drug disposal pouch allows you to safely discard your old and unuseddrugs. Ask your nurse to give you one when you are discharged.2.Visit a local take-back location: Many local pharmacies and police departments have programs that collect old and unwanted prescriptiondrugs. Call your local pharmacy or go to http://bit.ly/1E9Ly1b to find one close to you.3.Make use of household items: Use cat litter or old coffee grounds to dispose medications if other options arenot available. Mix your drugs with these household products, seal them in an airtight container andthrow it into the garbage. Call [facility]: [phone] to be sure your drugs can be [...] been reviewed and explained to me and INASREEN ALEXIS M understand my current condition and have read and understand these discharge instructions. I have received a written copy of the plan/instructions. If I have questions, I am aware that I should contactmy doctor. Patient/Pulverizer Signature: Date/Time: Relationship to Patient: Witness Name/Signature: Date/Time[facility] Progress note Date of Service [...] or guarding, +BS. Wound VAC secure with noleak Weight Dosing Weight: 127.4 kg (02/21/22) Dosing [...] has home health care nursing to start dressingchanges on Monday. Patient is requesting oncology follow-up now through the [facility]. Recommended that she follows up with her PCP for referral. Patient to follow-up in 2 weeks. Digitally Signed by MICHELLE JIN MD on 02/24/2022 08:33 AM [facility]Inygnwps06-62-2476 Progress note Date of Service 02/23/2022 I have reviewed the [place] Automated Rx Reporting System (OARRS) report for this patient for refill pattern and other prescriber involvement as part of the appropriate surveillance for the provision ofacute and chronic controlled medications. The report was requested and reviewed on the date of thisentry, and was considered in the prescribing process. [...] by LEYDI ROSS on 02/23/2022 02:09 PM [facility]Kivseztw25-06-7450 [facility] Progress note Date of Service [...] MICHELLE JIN MD on 02/23/2022 09:52 AM [facility]Igcwzlhq41-34-5990 Note Date of Service 02-22-2022 Chief Complaint incisional pain Subjective Patient is a 67-year-old female who presented to [facility] with chief complaint of abdominal pain. Patient recently had a colonoscopy completed at [facility] on Monday with Dr. Sumner. She then went had postprocedural discomfort that increased and prompted her to present to [facility] ER. CT abdomen pelvis showed large volume free intraperitoneal air consistent with per foration. Patient was started on Zosyn and transferred to [facility] under general surgeryservice. Patient is postop day 2 Sigmoidoscopy Rigid, exploratory laparotomy partial colectomy rigid sigmoidoscopy wound vac application, umbilical hernia repair, rectal biopsy, appendectomy, Abdominal Laparotomy exploratory laparotomy with Dr Sheikh. Past medical history of proximal A. fib not currently on anticoagulation besides a full-strength aspirin every other day, ISAURA compliant with CPAP,anxiety, hyperlipidemia and GERD. Patient seen and evaluated today. Appears about the same. Patient's diet being advanced today. She is quite anxious about the upcoming wound VAC dressing change. I encouraged her to ask for pain medication prior to dressing change. Hospitalist will sign off at thistime, please Objective Vitals and Measurements T: 36.6 [...] resume aspirin today, discussed w/ General surgery DATABASE ADMIN. utilizes pill in the pocket for irregular [...] appendectomy, Abdominal Laparotomy exploratory laparotomy with Dr Sheikh. Continues on zosyn. 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 POSTOPERATIVE DIAGNOSIS: PNEUMOPERITONEUM DIVERTICULAR DISEASE [facility] 12-06-2022 Note PROCEDURE: EXPLORATORY LAPAROTOMY PARTIAL COLECTOMY RIGID SIGMOIDOSCOPY WOUND VAC APPLICATION, UMBILICAL HERNIA REPAIR, RECTAL BIOPSY, APPENDECTOMY 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 Morning [...] by LEYDI ROSS on 02/22/2022 08:59 AM [facility] HospitalGczacjdj00-03-3280 [facility] Progress note Date of Service [...] rigid sigmoidoscopy, umbilical hernia repair, rectal biopsy, appendectomy,and wound VAC application secondary to pneumoperitoneum. Morning [...] by LEYDI ROSS on 02/22/2022 08:59 AM [facility] HospitalQsmzkwgj79-49-2317 Note PROCEDURE: EXPLORATORY LAPAROTOMY PARTIAL COLECTOMY RIGID SIGMOIDOSCOPY WOUND VAC APPLICATION, UMBILICAL HERNIA REPAIR, RECTAL BIOPSY, APPENDECTOMY 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 POSTOPERATIVE DIAGNOSIS: PNEUMOPERITONEUM DIVERTICULAR DISEASE [facility] 12-05-2022 Note Date of Service 02/21/2022 Chief Complaint Incisional pain Subjective Patient is a 67-year-old female who presented to [facility] with chief complaint of abdominal pain. Patient recently had a colonoscopy completed at [facility] on Monday with Dr. Sumner. She then went had postprocedural discomfort that increased and prompted her to present to [facility] ER. CT abdomen pelvis showed large volume free intraperitoneal air consistent with per foration. Patient was started on Zosyn and transferred to [facility] under general surgeryservice. Patient is postop day 2 Sigmoidoscopy Rigid, exploratory laparotomy partial colectomy rigid sigmoidoscopy wound vac application, umbilical hernia repair, rectal biopsy, appendectomy, Abdominal Laparotomy exploratory laparotomy with Dr Sheikh. Past medical history of proximal A. fib not currently on anticoagulation besides a full-strength aspirin every other day, ISAURA compliant with CPAP,anxiety, hyperlipidemia and GERD. Patient seen and evaluated today, sitting up in the chair. Continues to complain of incisional pain. Patient is again asking about hematology consultation, told her we are waiting on biopsies to confirm diagnosis. Patient is passing gas. Objective Vitals and Measurements T: 36.7 C (Oral) TMIN: 36.5 C (Oral) TMAX: 37.0 C (Oral) HR: 63(Apical) RR: 18 BP: 118/66 SpO2: 93%WT: 127.4 kg Intake and Output 7AM Yesterday [...] resume aspirin today, discussed w/ General surgery DATABASE ADMIN. utilizes pill in the pocket for irregular [...] appendectomy, Abdominal Laparotomy exploratory laparotomy with Dr Sheikh. Continues on zosyn. Await rectal biopsies, may need consultation to heme-onc. Management per general surgery. Patient's diet being advanced to full liquid, wound VAC in place, management per general surgery. Lab work reviewed, hemoglobin 11.5 stable, creatinine bumped to 1.24, continue IV fluids. Continue to monitor. Discussed with Dr. Viera Time Spent 25 minutes Digitally Signed by LOCO PEÑA DATABASE ADMIN-LOCAL TRUCK DRIVER on 02/21/2022 01:27 PM [facility] [id number] Note PROCEDURE: EXPLORATORY LAPAROTOMY PARTIAL COLECTOMY RIGID SIGMOIDOSCOPY WOUND VAC APPLICATION, UMBILICAL HERNIA REPAIR, RECTAL BIOPSY, APPENDECTOMY 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 POSTOPERATIVE DIAGNOSIS: PNEUMOPERITONEUM DIVERTICULAR DISEASE [facility] 12-05-2022 Note PROCEDURE: EXPLORATORY LAPAROTOMY PARTIAL COLECTOMY RIGID SIGMOIDOSCOPY WOUND VAC APPLICATION, UMBILICAL HERNIA REPAIR, RECTAL BIOPSY, APPENDECTOMY 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 POSTOPERATIVE DIAGNOSIS: PNEUMOPERITONEUM DIVERTICULAR DISEASE [facility] 12-05-2022 Note PROCEDURE: EXPLORATORY LAPAROTOMY PARTIAL COLECTOMY RIGID SIGMOIDOSCOPY WOUND VAC APPLICATION, UMBILICAL HERNIA REPAIR, RECTAL BIOPSY, APPENDECTOMY 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 POSTOPERATIVE DIAGNOSIS: PNEUMOPERITONEUM DIVERTICULAR DISEASE [facility] 12-05-2022 Surgery Hospital Progress note Date of Service [...] status post exploratory laparotomy, ileocecectomy, biopsy of rectalmass, Await final pathology results. Wound VAC is scheduled for change tomorrow. Okay to advance to full liquid diet. Will saline lock IV. Encourage activity and ambulation. Continue pain control. Repeat labs in AM. Digitally Signed by MICHELLE JIN MD on 02/21/2022 08:55 AM [facility] HospitalNgrykccm13-29-0883 Note Date of Service February 20, 2022 Chief Complaint Rectal mass, anxiety Subjective Patient is a 67-year-old female who presented to [facility] with chief complaint of abdominal pain. Patient recently had a colonoscopy completed at [facility] on Monday with Dr. Sumner. She then went had postprocedural discomfort that increased and prompted her to present to [facility] ER. CT abdomen pelvis showed large volume free intraperitoneal air consistent with per foration. Patient was started on Zosyn and transferred to [facility] under general surgeryservice. Patient is postop day 1 Sigmoidoscopy Rigid, exploratory laparotomy partial colectomy rigid sigmoidoscopy wound vac application, umbilical hernia repair, rectal biopsy, appendectomy, Abdominal Laparotomy exploratory laparotomy with Dr Sheikh. Past medical history of proximal A. fib not currently on anticoagulation besides a full-strength aspirin every other day, ISAURA compliant with CPAP,anxiety, hyperlipidemia and GERD. Patient seen and evaluated [...] including metoprolol, Cardizem, resume aspirin when okay withsurgery. utilizes pill in the pocket for irregular [...] appendectomy, Abdominal Laparotomy exploratory laparotomy with Dr Sheikh. Continues on zosyn. Await rectal biopsies, may need consultation to heme-onc. Management per general surgery. Discussed with Dr. Viera Time Spent 25 minutes Digitally Signed by LOCO PEÑA on 02/20/2022 12:42 PM [facility] HospitalLgbcaicw16-88-5548 Note Date of Service February 20, 2022 Chief Complaint Rectal mass, anxiety Subjective Patient is a 67-year-old female who presented to [facility] with chief complaint of abdominal pain. Patient recently had a colonoscopy completed at [facility] on Monday with Dr. Sumner. She then went had postprocedural discomfort that increased and prompted her to present to [facility] ER. CT abdomen pelvis showed large volume free intraperitoneal air consistent with per foration. Patient was started on Zosyn and transferred to [facility] under general surgeryservice. Patient is postop day 1 Sigmoidoscopy Rigid, exploratory laparotomy partial colectomy rigid sigmoidoscopy wound vac application, umbilical hernia repair, rectal biopsy, appendectomy, Abdominal Laparotomy exploratory laparotomy with Dr Sheikh. Past medical history of proximal A. fib not currently on anticoagulation besides a full-strength aspirin every other day, ISAURA compliant with CPAP,anxiety, hyperlipidemia and GERD. Patient seen and evaluated [...] including metoprolol, Cardizem, resume aspirin when okay withsurgery. utilizes pill in the pocket for irregular [...] appendectomy, Abdominal Laparotomy exploratory laparotomy with Dr Sheikh. Continues on zosyn. Await rectal biopsies, may need consultation to heme-onc. Management per general surgery. Discussed with Dr. Viera Time Spent 25 minutes Digitally Signed by LOCO PEÑA on 02/20/2022 12:42 PM [facility] [id number] [facility] Progress note Date of Service [...] abdominal laparotomy and exploratory laparotomy by Dr. Sheikh due to pneum operitoneum diverticular disease. Patient remains hemodynamically stable from [...] by AWAIS HUGO on 02/20/2022 08:12 AM [facility] HospitalLvqiatoa09-25-8234 Consult note Date of Service 02/19/2022 Reason for Consultation Medical management of chronic conditions Referring Physician Dr. Lu Sheikh History of Present Illness This is a 67-year-old female patient who presented to [facility] with complaints of abdominalpain x 24 hours. States she had a colonoscopy done at [facility] on Monday by Dr. Sumner and that she continued with postprocedure discomfort all day Monday and into the night which increased to sharp pain into Monday morning, when she presented to [place] ER. CT abdomen pelvis was done and showed large volume free intraperitoneal air consistent with perforation. She was started on Zosynand transferred to [facility] under surgical services with a consult to the hospitalist for medical management. She has a past medical history of paroxysmal atrial fibrillation not currently on anticoagulation, obstructive sleep apnea compliant with CPAP, anxiety, hyperlipidemia, and GERD. She iscurrently status post exploratory laparotomy partial colectomy with a wound VAC application, umbilical hernia repair, rectal biopsy and appendectomy by Dr Sheikh. She is seen resting in bed on [...] significant bloody output, dizziness, lightheadedness, hematemesis or hematuria.Is aware that she has a rectal mass [...] partial colectomy wound VAC application, umbilical hernia repair,rectal biopsy, and appendectomy per primary team PT/OT [...] Procedure/Surgical History Osteotomy: 01/27/17 Hammer toe operation: 2014 Biopsy of breast: 03/20/97 section: 1986 section Breast biopsy sample Colonoscopy Esophagogastroduodenoscopy Mastectomy [...] Motrin, 400 mg= 1 tab(s), Oral, q6h Redkey 325- 5 mg oral tablet, 1 tab(s), [...] 1-2 times per month., 06/28/2018 Home/Environment Primary Ip Network Architect: Self., 02/20/2020 Nutrition/Health Caffeine intake amount: carbonated [...] by ELISEO ESCOTO on 02/20/2022 01:39 AM [facility] HospitalNwxnuteo99-07-7635 History and physical note Date of Service 02/19/2022 Chief Complaint Abdominal pain, pneumoperitoneum status post colonoscopy yesterday History of Present Illness Very pleasant 67-year-old appearing stated age [facility] pain radiating [...] 1-2 times per month., 06/28/2018 Home/Environment Primary Ip Network Architect: Self., 02/20/2020 Nutrition/Health Caffeine intake amount: carbonated [...] qualifying data available. Digitally Signed by LU SHEIKH MD on 02/19/2022 03:27 PM [facility] [place] [facility] HospitalSqhbogoo82-25-7622 Evaluation + Plan noteExtracted from: Title:History and Physical Author:LU SHEIKH MD Date:02/19/22 Orders: Consult to Physician Group [...] BOWER MD Location:Gen Surg CAN Appointment Type:GS COMPTOMETER OPERATOR Post Op [facility] 12-03-2022 Anesthesiology Consult note Patient: ADRYAN PIMENTEL Age: 67 years Sex: Female : 1955 [...] list: Medical (Selected) Anxiety / SNOMED CT 40995921 / Confirmed Arthritis / SNOMED CT 5568692 / Confirmed Screening for cervical cancer / SNOMED CT 0976205132 / Confirmed CKD (chronic kidney disease) stage 3, GFR 30-59 ml/min / SNOMED CT 3744481090 / Confirmed SOB (SHORTNESS OF BREATH) / SNOMED CT 791990413 / Confirmed NOCTURNAL HYPOXEMIA / SNOMED CT 8900209335 / Confirmed MVP (MITRAL VALVE PROLAPSE) / SNOMED CT 5927854639 / Confirmed HYPERLIPEMIA, MIXED / SNOMED CT 252586253 / Confirmed Weakness of right arm / SNOMED CT 6803377456 / Confirmed ISAURA (OBSTRUCTIVE SLEEP APNEA) / SNOMED CT 909067810 / Confirmed PAF (PAROXYSMAL ATRIAL FIBRILLATION) / SNOMED CT 784269637 / Confirmed Screening for breast cancer / SNOMED CT 680980933 / Confirmed Screening for osteoporosis / SNOMED CT 826497240 / Confirmed Pulmonary hypertension / SNOMED CT 296029400 / Confirmed Rectal bleeding / SNOMED CT 190659720 / Confirmed Rosacea / SNOMED CT 6402040050 / Confirmed, Active Problems (16) Anxiety Arthritis CKD (chronic kidney disease) stage 3, GFR 30-59 ml/min HYPERLIPEMIA, MIXED MVP (MITRAL VALVE PROLAPSE) NOCTURNAL HYPOXEMIA ISAURA (OBSTRUCTIVE SLEEP APNEA) PAF (PAROXYSMAL ATRIAL FIBRILLATION) Pulmonary hypertension Rectal bleeding Rosacea Screening for breast cancer Screening for cervical cancer Screening for osteoporosis SOB (SHORTNESS OF BREATH) Weakness of right arm Histories Past Medical History: Active Arthritis (2335179): Onset in 2013 at 58 years. Anxiety (96459474) Resolved GERD (gastroesophageal reflux disease) ([id number]): Resolved. High cholesterol ([id number]): Resolved. Sleep apnea ([id number]): Resolved. Lung nodule (914773008): Resolved. Family History: Diabetes mellitus Mother Heart disease Father Brother Procedure history: Osteotomy (007466620) on 01/27/2017 at 62 Years. Comments: 04/04/2019 6:56 EST - Mary Wiley HOME IMPROVEMENT ADVISOR second and third metatarsal with screw fixture - right foot - Dr. Jordan - [facility] Hammer toe operation (191994) in 2013 at 58 Years. Biopsy of breast (070901910) on 03/20/1997 at 42 Years. section () in 1985 at 31 Years. History of left mastectomy ([id number]) in 1984 at 29 Years. Mastectomy (8709388501). Comments: 01/07/2014 11:14 ELBA PARR Left breast Tonsillectomy (919452920). section (). Breast biopsy sample ([id number]). Comments: 01/07/2014 11:14 ELBA PARR Right breast Esophagogastroduodenoscopy (484539594). Colonoscopy (751794819). Social History Social & Psychosocial Habits Alcohol 01/23/2017Risk Assessment: Low Risk 06/28/2018 Use: Current Frequency: 1-2 times per month Substance Abuse 01/23/2017Risk Assessment: Denies Substance Abuse 06/28/2018 Use: Never Tobacco 06/28/2018 Tobacco Use: Never (less than 100 in l 2Risk Assessment: No Risk Home/Environment 02/20/2020 Primary Ip Network Architect: Self Nutrition/Health 04/04/2019 Caffeine intake amount: carbonated [...] Lipase Level 26 U/L 02/19/2022 9:35 EST [place] [facility] Note ED/Urgent Care Provider Note [...] Evaluation Verbalizes/Nonverbally indicates understanding Preferred Written Language Maltese Preferred Spoken Language Maltese Chief Complaint c/o abd pain since yesterday [...] Primary Pain Quality Aching Nail Bed Color [place] Capillary Refill < 2 seconds Radial Pulse, [...] Intact Skin Turgor Elastic Mucous Membrane Color [place] Mucous Membrane Description Moist Neurological Language Able to speak clearly Gait Steady Eye Opening Response Darrel Spontaneously Best Motor Response Darrel Obeys simple commands Best Verbal Response [place] Oriented [place] Coma Score 15 Strength All Extremities Strong [...] No Weight Loss No Preferred Written Language Maltese Preferred Spoken Language Maltese Tracking Group ED AO Tracking Group Tracking [...] ED Triage Adults . Assessment and Plan [place] Society of Anesthesiologists (ASA) physical status classification: [...] PAUL RIZO MD on 02/19/2022 03:23 PM [facility] HospitalCbfekzei88-80-0564 Hospital Discharge instructions Patient Education 03/23/2021 13:50:17 Atrial Fibrillation, Tgfc-aq-Kftf Atrial Fibrillation Atrial fibrillation is a type [...] Follow these instructions at home: Medicines Take lrad-mzt-bgesuuy and prescription medicines only as told by [...] 12/13/2008 Document Revised: 05/10/2018 Document Reviewed: 04/27/2018 [employer] Patient Education 2020 [employer] Follow Up Care 03/22/2021 07:26:33 With:KAYLA MCGILL [facility] Address: [phone] When:04/06/2021 Comments:Schedule appointment as soon as possible With:LISA JORDAN [facility] Address: [address] [facility] [place] [address]- [phone] When:5 to 7 days Comments:Schedule appointment as soon as possible Schedule appointment as soon as possible [facility] 01-03-2022 Evaluation + Plan noteExtracted from: Title:History and Physical Author:JAYNA KAM DO Date:03/22/21 Atrial fibrillation with RVR /atrial flutter Obesity Sleep apnea on CPAP History of breast cancer s/p mastectomy and chemotherapy -Patient has high risk features for atrial fibrillation include obesity and sleep apnea. -Patient has a RSX7AM1-TYBs score of 2, but is prediabetic with [...] Assessment and plan was discussed with Dr. Up. Any changes in assessment/plan, will be added as an addendum to this note by the attending physician. This note was transcribed via voice recognition software. Please forgive any errors or typos resulting from the use of this technology. Malissa Kam DO, MS Netbackup Engineer (PGY-4) Pager chemotherapy/ Cortext Addendum by ROBERTO CARLOS UP MD on March 22, 2021 20:28:59 EST Vitals Signs(Last 24 hrs)__ Last Charted Minimum Maximum Temp 36.6(MAR 22 15:15) 36.6(MAR 22 15:15) 36.5(MAR 22:58) Heart Rate 72(MAR 22 16:00) 72(MAR 22 16:00) 99(MAR 22 12:00) Resp Rate 17(MAR 22 16:00) 16(MAR 22 07:58) 17(MAR 22 15:15) SBP 114(MAR 22:15) 114(MAR 22 15:15) 122(MAR 22 12:00) DBP 64(MAR 22:15) 64(MAR 22 07:58) 74(MAR 22 12:00) General: [...] Appointment Date:03/25/2021 11:15:00 AM Scheduled Provider:KAYLA MCGILL APRN-SARAN Location:[facility] Appointment Type:[facility] Hospital Follow Up Appointment Date:06/22/2021 09:00:00 AM Scheduled Provider:KAYLA MCGILL Location:[facility] Appointment Type:[facility] Discharge summary Author Pam Gaming [facility] October 04, 2022 10:05am Note Date/Time October 04, 2022 10:0 5am [facility] Medical Records Department [address] [place] [address] Instructions for Home/Discharge Instructions 10/04/22 1004 MR#: [id number] Acct: [id number] Name: ADRYAN PIMENTEL Rep #:[id number] : 1955 67 From: Pam Joshua DO PCP: Lisa Jordan NP-C Status:REG S DC Discharge Instructions Diet Discharge Diet: No restrictions Activity Discharge Activity: Return to Normal Activity May resume sexual activity in: No Restrictions Weight Bearing Status: Weight bearing as tolerated Dressing / Incision Call your doctor if your incision/area has: Sudden Increased Bleeding and Foul Smelling Discharge Call your doctor if you observe: Fever of 101 or Higher, Using more than 1 pad per hour, Fainting spells and Uncontrolled pain Follow Up Care Please Follow Up With: Pam Joshua DO When: 2-4 weeks, ok to do this over phone if easier Test Results: Test results from this visit will be discussed in further detail at your follow- up appointment, if applicable. Discharge Plan Admission Primary Reason for Your Visit: colposcopy, pap and cervical biopsy Attending Provider: Pam Joshua Primary Care Provider: Lisa Jordan NP Discharge Orders/Prescriptions Prescriptions: No Action omeprazole 20 mg capsule,delayed release(DR/EC) 20 mg PO DAILY alprazolam [Xanax] 0.25 mg tablet 0.25 mg PO PRN PRN (Reason: Anxiety) diltiazem HCl 120 mg capsule,extended release 12 hr 120 mg PO DAILY metoprolol succinate 25 mg tablet extended release 24 hr 25 mg PO DAILY oxybutynin chloride [Ditropan XL] 5 mg tablet extended release 24hr 5 mg PO DAILY loperamide [Imodium A-D] 2 mg capsule 2 mg PO Q4H PRN (Reason: loose stool) Rx Instructions: administer after each loose stool until symptoms controlled; do not exceed 8 mg per 24 hrs simvastatin 20 mg Tablet 20 mg PO QHS Centrum Silver Ultra Women's Tablet 1 tab PO DAILY aspirin 325 mg capsule 325 mg PO .2X PER WEEK Referrals / Follow Up: Lisa Jordan COMPTOMETER OPERATOR, COMPTOMETER OPERATOR-C [Primary Care Provider] - Disposition Disposition (needs filled in before D/C Order can be placed): Home, Self Care 10/04/22 1005<Electronically signed by Pam Joshua DO>Pam Joshua DO CC: COMPTOMETER OPERATOR-C Lisa Jordan ~ Signed [facility] Work Phone: Evaluation + Plan note Future Appointments Appointment Date:06/22/2021 09:00:00 AM Scheduled Provider:KALYA MCGILL Location:[facility] Appointment Type:CV OV [facility] Evaluation + Plan note Future Appointments Appointment Date:04/25/2022 10:45:00 AM Scheduled Provider:ELIZABETH BOWER MD Location:[facility] Appointment Type:GS OV Post Op [facility] Evaluation + Plan note Future Appointments Appointment Date:11/03/2022 08:30:00 AM Scheduled Provider:LISA JORDAN Location:[facility] Appointment Type:PC OV [facility] Evaluation + Plan note Future Appointments Appointment Date:09/06/2023 08:30:00 AM Scheduled Provider:LISA JORDAN Location:[facility] Appointment Type:PC OV Appointment Date:09/14/2023 03:30:00 PM Scheduled Provider:KAYLA MCGILL Location:[facility] Appointment Type:CV OV Appointment Date:05/28/2024 09:00:00 AM Scheduled Provider:KALYA MCGILL Location:[facility] Appointment Type:CV OV Future Scheduled Tests Laboratory* Lipid Profile 11/21/23 [facility] Evaluation + Plan note Future Appointments Appointment Date:07/15/2024 03:30:00 PM Scheduled Provider:KAYLA MCGILL Location:[facility] Appointment Type:CV OV Future Scheduled Tests Laboratory* Vitamin D Level 11/22/23 Radiology* MA Mammo Screening Bilateral w/ Mario 08/20/24 [facility] Evaluation note* Diagnosis Onset Date Resolution Status 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 [facility] Work Phone: evaluation note* Diagnosis Onset Date Resolution Status 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 Carcinoma of anorectum acute Encounter for adjustment and management of vascular access device acute [facility] Work Phone: Evaluation note* Diagnosis Onset Date Resolution Status 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 Carcinoma of anorectum acute Encounter for adjustment and management of vascular access device acute Carcinoma of anorectum acute Encounter for education acut e Anemia acute Carcinoma of anorectum acute Chemotherapy management, encounter for acute Perianal pain acute Carcinoma of anorectum acute Anemia acute Carcinoma of anorectum acute Oral mucositis (ulcerative) due to antineoplastic therapy acute Perianal pain acute [facility] Work Phone: Evaluation note* Diagnosis Onset Date Resolution Status 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 Carcinoma of anorectum acute Encounter for adjustment and management of vascular access device acute Carcinoma of anorectum acute Encounter for education acut e Anemia acute Carcinoma of anorectum acute Chemotherapy management, encounter for acute Perianal pain acute Carcinoma of anorectum acute Anemia acute Carcinoma of anorectum acute Perianal pain acute Oral mucositis (ulcerative) due to antineoplastic therapy resolved Carcinoma of anorectum acute Anemia acute Carcinoma of anorectum acute Perianal pain acute Oral mucositis (ulcerative) due to antineoplastic therapy resolved Carcinoma of anorectum acute Anemia acute Carcinoma of anorectum acute Perianal pain acute Oral mucositis (ulcerative) due to antineoplastic therapy resolved Carcinoma of anorectum acute Anemia acute Carcinoma of anorectum acute Chemotherapy management, encounter for acute Perianal pain acute Carcinoma of anorectum acute Anemia acute Carcinoma of anorectum acute Perianal pain acute Carcinoma of anorectum acute [facility] Work Phone: Evaluation note* Diagnosis Onset Date Resolution Status Anemia acute Carcinoma of anorectum acute Perianal pain acute Oral mucositis (ulcerative) due to antineoplastic therapy resolved Carcinoma of anorectum acute Anemia acute Carcinoma of anorectum acute Perianal pain acute Oral mucositis (ulcerative) due to antineoplastic therapy resolved Carcinoma of anorectum acute Anemia acute Carcinoma of anorectum acute Chemotherapy management, encounter for acute Perianal pain acute Carcinoma of anorectum acute Anemia acute Carcinoma of anorectum acute Perianal pain acute 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 Anemia acute Carcinoma of anorectum acute Perianal pain acute Status post chemotherapy acu te Anemia acute Carcinoma of anorectum acute Encounter for education acut e 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 Acute radiation dermatitis a cute Anemia acute Carcinoma of anorectum acute Chemotherapy management, encounter for acute H/O LEEP acute HGSIL (high grade squamous i ntraepithelial lesion) on Pap smear of cervix acute HPV (human papilloma virus) infection acute Perianal pain acute Status post chemotherapy acu te Anemia acute Carcinoma of anorectum acute Status post chemotherapy acu te [facility] Work Phone: Evaluation note* Diagnosis Onset Date Resolution Status Anemia acute Carcinoma of anorectum acute Perianal pain acute Status post chemotherapy acu te Anemia acute Carcinoma of anorectum acute Encounter for education acut e 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 Acute radiation dermatitis a cute Anemia acute Carcinoma of anorectum acute Chemotherapy management, encounter for acute H/O LEEP acute HGSIL (high grade squamous i ntraepithelial lesion) on Pap smear of cervix acute HPV (human papilloma virus) infection acute Perianal pain acute Status post chemotherapy acu te Anemia acute Carcinoma of anorectum acute Status post chemotherapy acu te Carcinoma of anorectum acute Anemia acute Carcinoma of anorectum acute Status post chemotherapy acu te Acute radiation dermatitis a cute Anemia acute Carcinoma of anorectum acute Chemotherapy management, encounter for acute H/O LEEP acute HGSIL (high grade squamous i ntraepithelial lesion) on Pap smear of cervix acute HPV (human papilloma virus) infection acute Perianal pain acute Status post chemotherapy acu te Encounter for adjustment and management of vascular access device acute Acute radiation dermatitis a cute Carcinoma of anorectum acute H/O LEEP acute HGSIL (high grade squamous i ntraepithelial lesion) on Pap smear of cervix acute Perianal pain acute [facility] Work Phone: Evaluation note* Diagnosis Onset Date Resolution Status 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 Leukopenia chronic Status post chemotherapy chr onic [facility] Work Phone: Evaluation note* Diagnosis Onset Date Resolution Status Carcinoma of anorectum acute Leukopenia chronic Status post chemotherapy chr [facility] Carcinoma of anorectum acute [facility] Work Phone: Hospital course Narrative No data available for this section [facility] Hospital Discharge instructions No data available for this section [facility] Progress note No data available for this section [facility] Summary Purpose Family History No Family History Records Found Relationship Condition Age at Onset Recorded Date/T marcie Not Specified Malignant neoplasm of colon Unknown father Myocardial infarction Unknown mother Chronic obstructive pulmonary disease Unk nown Advance Directives No Advanced Directives Records Found Advance Directive Response Recorded Date/ Time Name of Medical Power of Shotblast Operator DAUGHTER March 28, 2022 3:26pm Living Will Yes March 28 3:26pm Power of Shotblast Operator Yes March 28 3:26pm Advance Directive Response Recorded Date/ Time Advance Directives on File No Refugio 2022 9:02am Name of Medical Power of Shotblast Operator Radha Bustos farhad April 08, 2022 9:02am Advance Directives Yes April 08, 2022 9:02am Living Will Yes April 08 9:02am Power of Shotblast Operator Yes April 08, 2022 9:02am Name of Medical Power of Shotblast Operator DAUGHTER March 28, 2022 3:26pm Advance Directive Response Recorded Date/ Time Advance Directives on File No Tyleru [email or web address] 2:23pm Name of Medical Power of Shotblast Operator Radha Bustos er May 06, 2022 2:23pm Advance Directives Yes April 2:23pm Living Will Yes May 06 023 2:23pm Power of Shotblast Operator Yes May 06, 2022 2:23pm Name of Medical Power of Shotblast Operator DAUGHTER March 28, 2022 3:26pm Advance Directive Response Recorded Date/ Time Advance Directives on File No Wero [email or web address] 3:23pm Name of Medical Power of Shotblast Operator Radha Bustos er May 06, 2022 3:23pm Advance Directives Yes August 10 9:06am Living Will Yes August 10, 2022 9 :06am Power of Shotblast Operator Yes August 10, 2022 9:06am Advance Directive Response Recorded Date/ Time Advance Directives on File No martha 2022 3:23pm Name of Medical Power of Shotblast Operator Radha León May 06, 2022 3:23pm Name of Medical Power of Shotblast Operator DAUGHTER-DAKSHA LEÓN September 27, 2022 1:11pm Advance Directives Yes August 10 9:06am Living Will Yes September 27, 2022 1:11pm Power of Shotblast Operator Yes September 27 1:11pm Advance Directive Response Recorded Date/ Time Advance Directives Yes October 18 023 10:35am Living Will Yes October 18, 2022 10:35am Power of Shotblast Operator Yes October 18 10:35am Chief Complaint and Reason for Visit Chief Complaint NEW-ANAL CA BISHOP CONSULT - rectal per JV RECTAL CANCER RENAL CANCER Reason for Visit Carcinoma of anorect 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 Chief Complaint NEW-ANAL CA CONSULT - rectal per JV RECTAL CANCER RENAL CANCER f/u 4WKS LABS REVIEW CT/MRI BISHOP Port Placement Consult LEEP CONE, COLPOSCOPY Reason for Visit 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 Encounter for adjustment and management of vascular access device Chief Complaint NEW-ANAL CA CONSULT - rectal per JV RECTAL CANCER RENAL CANCER f/u 4WKS LABS REVIEW CT/MRI Port Placement Consult LEEP CONE, COLPOSCOPY LEEP CONE, COLPOSCOPY LEEP CONE, COLPOSCOPY CHEMO ED - MITOMYCIN/5FU PRE CHEMO 2WKS LABS REVIEW ECHO NEW START OTV 1WK LABS OTV BISHOP Reason for Visit 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 Encounter for adjustment and management of vascular access device Carcinoma of anorectum Encounter for education Anemia Carcinoma of anorectum Chemotherapy management, encounter for Perianal pain Carcinoma of anorectum Anemia Carcinoma of anorectum Oral mucositis (ulcerative) due to antineoplastic therapy Perianal pain Chief Complaint NEW-ANAL CA CONSULT - rectal per JV RECTAL CANCER RENAL CANCER f/u 4WKS LABS REVIEW CT/MRI PREOP Port Placement Consult LEEP CONE, COLPOSCOPY LEEP CONE, COLPOSCOPY LEEP CONE, COLPOSCOPY CHEMO ED - MITOMYCIN/5FU PRE CHEMO 2WKS LABS REVIEW ECHO NEW START OTV 1WK LABS OTV 1WK LABS OTV 1WK LABS OTV 1WKS LABS 5FU/MITOMYCIN OTV 1WK LABS OTV BISHOP Amb Documentation Reason for Visit 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 Encounter for adjustment and management of vascular access device Carcinoma of anorectum Encounter for education Anemia Carcinoma of anorectum Chemotherapy management, encounter for Perianal pain Carcinoma of anorectum Anemia Carcinoma of anorectum Perianal pain Oral mucositis (ulcerative) due to antineoplastic therapy Carcinoma of anorectum Anemia Carcinoma of anorectum Perianal pain Oral mucositis (ulcerative) due to antineoplastic therapy Carcinoma of anorectum Anemia Carcinoma of anorectum Perianal pain Oral mucositis (ulcerative) due to antineoplastic therapy Carcinoma of anorectum Anemia Carcinoma of anorectum Chemotherapy management, encounter for Perianal pain Carcinoma of anorectum Anemia Carcinoma of anorectum Perianal pain Carcinoma of anorectum Chief Complaint 1WK LABS OTV 1WK LABS OTV 1WKS LABS 5FU/MITOMYCIN OTV 1WK LABS OTV Amb Documentation 2 week f/u post RT 4WKS LABS SPC 2 week f/u rectal 1 MONTH F/U RECTAL 3 MO F/U LABS PRIOR REVIEW PATH FROM BIOPSY MALIGNANT NEOPLASM OF OVERLAPPING SITES OF RECTUM RECTAL SCC, EVAL DISEASE RESPONSE, ? VAG INVASION Reason for Visit Anemia Carcinoma of anorectum Perianal pain Oral mucositis (ulcerative) due to antineoplastic therapy Carcinoma of anorectum Anemia Carcinoma of anorectum Perianal pain Oral mucositis (ulcerative) due to antineoplastic therapy Carcinoma of anorectum Anemia Carcinoma of anorectum Chemotherapy management, encounter for Perianal pain Carcinoma of anorectum Anemia Carcinoma of anorectum Perianal pain Carcinoma of anorectum Carcinoma of anorectum Anemia Carcinoma of anorectum Perianal pain Status post chemotherapy Anemia Carcinoma of anorectum Encounter for education Carcinoma of anorectum Carcinoma of anorectum Acute radiation dermatitis Anemia Carcinoma of anorectum Chemotherapy management, encounter for H/O LEEP HGSIL (high grade squamous intraepithelial lesion) on Pap smear of cervix HPV (human papilloma virus) infection Perianal pain Status post chemotherapy Anemia Carcinoma of anorectum Status post chemotherapy Chief Complaint 4WKS LABS SPC 2 week f/u rectal 1 MONTH F/U RECTAL 3 MO F/U LABS PRIOR REVIEW PATH FROM BIOPSY RECTAL SCC, EVAL DISEASE RESPONSE, ? VAG INVASION 1 month f/u rectal - review scans MALIGNANT NEOPLASM OF OVERLAPPING SITES OF RECTUM 4WKS LABS PRIOR REVIEW PET/MRI Pre-op visit Port Removal COLPOSCOPY,PAP AND EXAM UNDER ANES COLPOSCOPY,PAP AND EXAM UNDER ANES Reason for Visit Anemia Carcinoma of anorectum Perianal pain Status post chemotherapy Anemia Carcinoma of anorectum Encounter for education Carcinoma of anorectum Carcinoma of anorectum Acute radiation dermatitis Anemia Carcinoma of anorectum Chemotherapy management, encounter for H/O LEEP HGSIL (high grade squamous intraepithelial lesion) on Pap smear of cervix HPV (human papilloma virus) infection Perianal pain Status post chemotherapy Anemia Carcinoma of anorectum Status post chemotherapy Carcinoma of anorectum Anemia Carcinoma of anorectum Status post chemotherapy Acute radiation dermatitis Anemia Carcinoma of anorectum Chemotherapy management, encounter for H/O LEEP HGSIL (high grade squamous intraepithelial lesion) on Pap smear of cervix HPV (human papilloma virus) infection Perianal pain Status post chemotherapy Encounter for adjustment and management of vascular access device Acute radiation dermatitis Carcinoma of anorectum H/O LEEP HGSIL (high grade squamous intraepithelial lesion) on Pap smear of cervix Perianal pain Chief Complaint 3 month f/u rectal MALIGNANT NEOPLASM OF RECTUM 6MO LABS PRIOR REVIEW CT Reason for Visit Carcinoma of anorect um Carcinoma of anorectum Leukopenia Status post chemotherapy Chief Complaint MALIGNANT NEOPLASM O F RECTUM 6MO LABS PRIOR REVIEW CT EVAL FOR DISEASE - RECTUM, COMPARE TO PRIOR 6 MONTH F/U RECTAL Reason for Visit Carcinoma of anorect um Leukopenia Status post chemotherapy Carcinoma of anorectum Additional Source Comments Care Team (unrecognized sect ion and content) Care Team Personnel Name: LISA JORDNA DATABASE ADMIN-LOCAL TRUCK DRIVER Position: P4 Advanced Practice Nurse Member Role: Primary Care Physician Address: Address: [address] [place] [address] Care Team Related Persons Name: LU MAYO Name: DAKSHA LEÓN Name: DAKSHA LEÓN Care Team Personnel Name: LISA JORDAN DATABASE ADMIN-LOCAL TRUCK DRIVER Position: P4 Advanced Practice Nurse Member Role: Primary Care Physician Address: Address: [address] [place] [address] Care Team Related Persons Name: LU MAYO Name: DAKSHA LEÓN Name: DAKSAH LEÓN Care Team Personnel Name: LISA JORDAN DATABASE ADMIN-LOCAL TRUCK DRIVER Position: P4 Advanced Practice Nurse Member Role: Primary Care Physician Address: Address: [address] [place] [address] Care Team Related Persons Name: LU MAYO Name: DAKSHA LEÓN Name: DAKSHA LEÓN INFORMATION SOURCE (unrecogn ized section and content) DATE CREATED AUTHOR 03/13/2022 [facility] DATE CREATED AUTHOR AUTHOR'S ORGANIZ ATION 08/22/2023 [facility] ([place] DATE CREATED AUTHOR AUTHOR'S ORGANIZ ATION 06/07/2024 [facility] DATE CREATED AUTHOR AUTHOR'S ORGANIZ ATION 08/23/2024 [facility] Goals (unrecognized section and content) Goals may be documented in a n alternate section Care Teams (unrecognized sec tion and content) Team Status: Active Member Role Status Patt Jordan COMPTOMETER OPERATOR, COMPTOMETER OPERATOR-C Family Provider Active Lisa Jordan COMPTOMETER OPERATOR, COMPTOMETER OPERATOR-C Primary Care Provider Active Team Status: Inactive Member Role Status Dates Lisa Jordan COMPTOMETER OPERATOR, COMPTOMETER OPERATOR-C Primary Care Provider, Referri ng Provider Active Dr. Navneet Jackson MD Attending Provider Active Team Status: Inactive Member Role Status Patt Jordan COMPTOMETER OPERATOR, COMPTOMETER OPERATOR-C Primary Care Provider, Referri ng Provider Active Dr. Oliverio Scott DO Attending Provider Active Team Status: Inactive Member Role Status Dates Lisa Jordan COMPTOMETER OPERATOR, COMPTOMETER OPERATOR-C Primary Care Provider, Referri ng Provider Active Dr. Pam Joshua DO Attending Provider Activ e Team Status: Inactive Member Role Status Patt Jordan COMPTOMETER OPERATOR, COMPTOMETER OPERATOR-C Primary Care Provider Active Dr. Oliverio Scott DO Attending Provider, Referring P rovider Active Team Status: Active Member Role Status Patt Jordan COMPTOMETER OPERATOR, COMPTOMETER OPERATOR-C Primary Care Provider Active Dr. Oliverio Scott DO Attending Provider, Referring P rovider Active Team Status: Inactive Member Role Status Patt Jordan COMPTOMETER OPERATOR, COMPTOMETER OPERATOR-C Primary Care Provider Active Dr. Willy Gaytan MD Attending Provider Active Dr. Navneet Jackson MD Referring Provider Active Team Status: Inactive Member Role Status Patt Jordan COMPTOMETER OPERATOR, COMPTOMETER OPERATOR-C Primary Care Provider, Referri ng Provider Active Brigitte Hurley COMPTOMETER OPERATOR, COMPTOMETER OPERATOR-C Attending Provider Active Team Status: Active Member Role Status Patt Jordan COMPTOMETER OPERATOR, COMPTOMETER OPERATOR-C Primary Care Provider Active Dr. Pam Joshua DO Attending Provider, Referring Provider, Other Provider Active Team Status: Active Member Role Status Patt Jordan COMPTOMETER OPERATOR, COMPTOMETER OPERATOR-C Primary Care Provider Active Dr. Pam Joshua DO Referring Provider, Othe r Provider Active Dr. Willy Gaytan MD Attending Provider Active Team Status: Active Member Role Status Patt Jordan COMPTOMETER OPERATOR, COMPTOMETER OPERATOR-C Primary Care Provider Active Dr. Alex Mac MD Attending Provider Active Team Status: Active Member Role Status Patt Jordan COMPTOMETER OPERATOR, COMPTOMETER OPERATOR-C Primary Care Provider, Referri ng Provider Active Dr. Oliverio Scott DO Attending Provider Active Team Status: Inactive Member Role Status Dates Lisa Jordan COMPTOMETER OPERATOR, COMPTOMETER OPERATOR-C Primary Care Provider Active Dr. Navneet Jackson MD Attending Provider, Referring Pro vider Active Team Status: Inactive Member Role Status Dates Lisa Jordan COMPTOMETER OPERATOR, COMPTOMETER OPERATOR-C Primary Care Provider Active Dr. Pam Joshua DO Attending Provider Activ e Team Status: Inactive Member Role Status Dates Lisa Jordan COMPTOMETER OPERATOR, COMPTOMETER OPERATOR-C Primary Care Provider Active Dr. Pam Joshua DO Attending Provider, Refe rring Provider Active Team Status: Inactive Member Role Status Dates Lisa Jordan COMPTOMETER OPERATOR, COMPTOMETER OPERATOR-C Primary Care Provider Active Dr. Navneet Jackson MD Attending Provider Active Team Status: Active Member Role Status Dates Lisa Jordan NP, COMPTOMETER OPERATOR-C Primary Care Provider Active Dr. Anna Garcia MD Attending Provider Activ e Dr. Pam Joshua DO Referring Provider Activ e Team Status: Active Member Role Status Dates Lisa Jordan COMPTOMETER OPERATOR, COMPTOMETER OPERATOR-C Primary Care Provider Active Dr. Oliverio Scott DO Attending Provider Active Team Status: Inactive Member Role Status Dates Lisa Jordan COMPTOMETER OPERATOR, COMPTOMETER OPERATOR-C Primary Care Provider Active Dr. Willy Gaytan MD Attending Provider, Referr ing Provider Active Team Status: Inactive Member Role Status Dates Lisa Jordan COMPTOMETER OPERATOR, COMPTOMETER OPERATOR-C Primary Care Provider Active Dr. Oliverio Scott DO Attending Provider Active Team Status: Inactive Member Role Status Dates Lisa Jordan COMPTOMETER OPERATOR, COMPTOMETER OPERATOR-C Primary Care Provider, Referri ng Provider Active Dr. Willy Gaytan MD Attending Provider Active FOR RECORDS PERTAINING TO PATIENTS WHO ARE [...] BE BASED ON THE PRIMARY CLINICAL RECORDS. [employer] provides no warranty or guarantee of the accuracy or completeness of information in this document.
[2024-08-28 08:08] LABS: Carcinoembryonic Antigen 1.5 ng/mL (0.0-4.7)
== END | disposition home or self-care (01) ==
LOC: CT 16:09
PROVIDERS: PCP Nurse Practitioner Primary Care; Referring Provider Internal Medicine Medical Oncology; Visit Provider Internal Medicine Medical Oncology
DX: C21.8 Malignant neoplasm of overlapping sites of rectum, anus and anal canal (principal)
CPT/HCPCS: 36415; 74177; 80053; 82378; 83615; 85025; Q9967; A4216